=== PATIENT | female | born 2005 | race Caucasian/White ===

== ENCOUNTER 2024-01-04 21:09 | Observation (INO) ==
[2024-01-04 21:35] LABS: iSTAT Hemoglobin 10.5 g/dl (12.0-16.0); iSTAT Ionized Calcium 1.18 mmol/l; iSTAT Potassium 3.7 mmol/L (3.3-5.0)
[2024-01-04] MEDS: SODIUM CHLORIDE 0.9% 1,000 ML IV ONE ×2 (21:39)
[2024-01-04 21:51] LABS: Hematocrit (blood only) 33.7 % (37.0-47.0); Hemoglobin 10.9 g/dl (12.0-16.0); Mean Corpuscular Hemoglobin 28.3 pg (25.0-34.0); Mean Corpuscular Hgb Conc 32.3 g/dL (32.0-36.0); Mean Corpuscular Volume 87.5 fL (80.0-100.0); Mean Platelet Volume 10.4 fL (9.4-12.4); Platelet Count 326 K/uL (130-400); RDW Coefficient of Variation 13.9 % (11.5-14.5); RDW Standard Deviation 44.3 fL (36.4-46.3); Red Blood Count 3.85 M/uL (4.20-5.40); White Blood Count 9.05 K/ul (4.8-10.8)
[2024-01-04 21:57] LABS: BUN Creatinine Ratio 14.9 (10-20); Calcium 7.9 mg/dl (8.6-10.3); Creatinine Clr Calc Pharmacy 116.3 ml/min; Potassium 3.7 mmol/L (3.5-5.1)
[2024-01-04 22:21] LABS: Albumin Level 3.4 gm/dl (3.4-5.0); Bilirubin,Total 0.3 mg/dl (0.2-1.0); Magnesium 1.8 mg/dl (1.7-2.4); Total Protein 5.7 gm/dl (6.0-8.3)
[2024-01-04 22:22] LABS: iSTAT Hemoglobin 9.5 g/dl (12.0-16.0); iSTAT Ionized Calcium 1.13 mmol/l; iSTAT Potassium 3.8 mmol/L (3.3-5.0)
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
--- NOTE | 2024-01-04 23:17 | Ultrasound Report ---
Exam(s): US PELVIS EXAM: US Pelvis Transabdominal, Complete CLINICAL HISTORY: Reason for exam: Hemorrhaging, 2 weeks. TECHNIQUE: Real-time complete transabdominal pelvic ultrasound with image documentation. COMPARISON: No relevant prior studies available. FINDINGS: Uterus/cervix: Large amount of echogenic material within the endometrium which is avascular. This measures over 4 cm. No myometrial mass. Right ovary: Unremarkable. No mass. Normal blood flow. Left ovary: Unremarkable. No mass. Normal blood flow. Free fluid: No free fluid. Bladder: Unremarkable as visualized. Wall is normal thickness for degree of distention. IMPRESSION: Large amount of echogenic material which is avascular. Findings may represent retained products of conception Electronically signed by: Ricardo Hernández MD 01/04/24 23:16 PM
[2024-01-04] MEDS: TRANEXAMIC ACID / 0.7% NACL 1,000 MG/100 ML BAG IV STA (23:36)
[2024-01-04] MEDS: ceFAZolin 2000MG 2,000 MG/15 ML SYR IV STA (23:55)
[2024-01-04] MEDS: DOXYCYCLINE HYCLATE 100 MG CAP PO STA (23:55)
--- NOTE | 2024-01-05 00:09 | History & Physical Report ---
Date of Service January 05, 2024 Assessment & Plan (1) Retained products of conception with hemorrhage: Plan: patient is a 18-year-old , status post vaginal delivery on December 21 at [facility] in [place] due to history of seizure disorder duri ng , presenting with heavy vaginal bleeding, anemia, ultrasound suggesting retained products of conception, Vital signs stable afebrile, Discussed the findings recommended exam under anesthesia, suction, dilatation and curettage under ultrasound guidance to remove the growth products of conception and stop the bleeding, Patient understand the risks and benefits and signed an informed consent, Plan to admit, monitor, preop antibiotics, observe overnight, all questions were answered. (2) Episode of heavy vaginal bleeding: (3) hemorrhage, delayed (> 24 hrs), delivered w cond: History of Present Illness Chief Complaint: Heavy vaginal bleeding Primary Care Provider: Michelle Acuna MD patient is a 18-year-old -0-1-2 who is status post spontaneous vaginal delivery on December 22, 2023 at [facility] in [place] due to history of seizure disorder during . Her delivery and recovery was uncomplicated and she was discharged on day 2 without any problems. Her bleeding was minimal until last evening around 5 PM when heavy bleeding started. She started to pass large clots, soaked her pants, shorts and had to go to shower to have more blood on the floor. She placed a large towel and presented today ER. On admission she was seen by ER team and she was again passing large clots from vagina/cervix. She was started on IV fluids and sent for ultrasound. Pelvic ultrasound was completed and showed large/4 cm endometrium with a blood flow indicating retained products of conception. Her Hb dropped 1 unit since she came here. within 1 hour and she feels dizzy. She denies abdominal pain/ fever/ chills Allergies Allergy/AdvReac Type Severity Reaction Status Date / Time No Known Allergies Allergy Unknown Verified 10/04/23 22:10 Home Medications Medication Instructions Recorded Confirmed Type albuterol sulfate 90 mcg/actuation 2 puff inhalation Q4 PRN Wheezing 07/30/20 01/04/24 History aerosol inhaler levetiracetam 1,000 mg tablet 2,000 mg PO AMHS 03/09/22 01/04/24 History fluoxetine 20 mg capsule 20 mg PO QAM 02/21/23 01/04/24 History fluoxetine 40 mg capsule 40 mg PO QAM 08/15/23 01/04/24 History acetaminophen 325 mg tablet 975 mg PO Q6 PRN Mild Pain (Scale 01/04/24 01/04/24 History Score 1-4) diazepam 12.5 mg-15 mg-17.5 mg-20 1 ea MN UD PRN Seizures 01/04/24 01/04/24 History mg rectal kit ibuprofen 600 mg tablet 600 mg PO AMHS 01/04/24 01/04/24 History lamotrigine 150 mg tablet 150 mg PO AMHS 01/04/24 01/04/24 History lamotrigine 25 mg tablet 25 mg PO AMHS 01/04/24 01/04/24 History polyethylene glycol 3350 17 17 g PO DAILY PRN Constipation 01/04/24 01/04/24 History gram/dose oral powder vitamin-ferrous fumarate 1 tab PO QAM 01/04/24 01/04/24 History 28 mg iron-folic acid 800 mcg tablet ( Vitamins with Minerals) sennosides 8.6 mg tablet (senna) 8.6 mg PO QAM PRN Constipation 01/04/24 01/04/24 History Patient History Medical History No pertinent family history Surgical History No pertinent past surgical history Social History Smoking Status: Never smoker Hx Alcohol Use: No Hx Substance Use: No Preferred Language: Bahraini Microfilmer Required: No Beliefs That Will Affect Care: None marital status: Single Current Living Situation: Parent Current Living Situation Comment: lives with her parents and fob. Feels Safe at Home: Yes Assistive Devices: None OB History 2 FT 1 SAB Review of Systems as per Subjective / HPI Physical Exam Constitutional: WD/WN, vitals as above well developed, well nourished, + obese and comfortable Gastrointestinal (Abdomen): normal bowel sounds, soft, nontender, no hepatosplenomegaly Genitourinary: Heavy VB with cloths Results & Data Vital Signs (Past 12 Hours) Vital Signs Temp Pulse Pulse Resp BP BP Pulse Ox 01/04/24 22:47 47 L 18 125/88 100 01/04/24 22:30 46 L 18 112/68 100 01/04/24 22:12 62 18 116/76 99 01/04/24 21:40 53 L 18 119/74 100 01/04/24 21:25 01/04/24 21:18 61 01/04/24 20:45 37.3 C 95 H 18 101/63 99 O2 Del Method 01/04/24 22:47 Room Air 01/04/24 22:30 Room Air 01/04/24 22:12 Room Air 01/04/24 21:40 Room Air 01/04/24 21:25 Room Air 01/04/24 21:18 01/04/24 20:45 Room Air Laboratory Results 01/04/24 01/04/24 01/04/24 Range/Units 22:10 21:23 21:19 WBC 9.05 (4.8-10.8) K/ul RBC 3.85 L (4.20-5.40) M/uL Hgb 10.9 L (12.0-16.0) g/dl POC Hgb 9.5 L 10.5 L (12.0-16.0) g/dl Hct 33.7 L (37.0-47.0) % POC Hct 28 L 31 L (37-47) % MCV 87.5 (80.0-100.0) fL MCH 28.3 (25.0-34.0) pg MCHC 32.3 (32.0-36.0) g/dL RDW Std Deviation 44.3 (36.4-46.3) fL RDW Coeff of Yoanna 13.9 (11.5-14.5) % Plt Count 326 (130-400) K/uL MPV 10.4 (9.4-12.4) fL POC Sodium 142 141 (135-144) mmol/L Sodium 140 (136-145) mmol/L POC Potassium 3.8 3.7 (3.3-5.0) mmol/L Potassium 3.7 (3.5-5.1) mmol/L POC Chloride 109 108 (101-112) mmol/L Chloride 112 H (98-107) mmol/L Carbon Dioxide 24 (21-32) mmol/L POC Total CO2 21 L 21 L (24-31) mmol/L Anion Gap 4 (3-11) POC Anion Gap 16.0 17.0 (16-25) mmol/L POC BUN 12 11 (7-18) mg/dl BUN 13 (6-23) mg/dl Creatinine 0.87 (0.6-1.2) mg/dl POC Creatinine 1.0 1.0 mg/dl Est Cr Clr Drug Dosing 116.3 ml/min eGFR 97.76 BUN/Creatinine Ratio 14.9 (10-20) Glucose 80 (70-99(Fasting)) mg/dl POC Glucose (other) 80 81 (70-99) mg/dl Calcium 7.9 L (8.6-10.3) mg/dl POC Ioniz Calcium Logan 1.13 1.18 mmol/l Magnesium 1.8 (1.7-2.4) mg/dl Total Bilirubin 0.3 (0.2-1.0) mg/dl Direct Bilirubin 0.0 (0-0.2) mg/dl AST 12 L (13-39) U/L ALT 10 (7-52) U/L Alkaline Phosphatase 123 H (34-104) U/L Total Protein 5.7 L (6.0-8.3) gm/dl Albumin 3.4 (3.4-5.0) gm/dl Blood Type O Positive Antibody Screen NEGATIVE Diagnostic Findings FINDINGS: Uterus/cervix: Large amount of echogenic material within the endometrium which is avascular. This measures over 4 cm. No myometrial mass. Right ovary: Unremarkable. No mass. Normal blood flow. Left ovary: Unremarkable. No mass. Normal blood flow. Free fluid: No free fluid. Bladder: Unremarkable as visualized. Wall is normal thickness for degree of distention. IMPRESSION: Large amount of echogenic material which is avascular. Findings may represent retained products of conception
[2024-01-05] MEDS ORDERED: DEXAMETHASONE SOD INJ 4 MG/ML VIAL ONE (00:17)
[2024-01-05] MEDS ORDERED: SUCCINYLCHOLINE CHLORIDE 20 MG/ML 10 ML VIAL IV ONE (00:17)
[2024-01-05] MEDS ORDERED: MIDAZOLAM HCL 1 MG/ML 2ML VIAL ONE (00:17)
[2024-01-05] MEDS ORDERED: ONDANSETRON INJ 2 MG/ML 2 ML VIAL ONE (00:17)
[2024-01-05] MEDS ORDERED: fentaNYL citrate PF 100 MCG/2 ML VIAL ONE ×2 (00:17→01:43)
[2024-01-05] MEDS ORDERED: PROPOFOL IV EMULSION 10 MG/ML 20 ML VIAL IV ONE (00:17)
[2024-01-05] MEDS ORDERED: ePHEDrine sulfate 50 MG/ML AMP IV PRN (00:20)
[2024-01-05] MEDS ORDERED: PROMETHAZINE HCL 6.25 MG in SODIUM CHLORIDE 0.9% 50 ML IV PRN (00:20)
[2024-01-05] MEDS ORDERED: HYDROmorphone INJ 1 MG/ML SYRINGE IV PRN (00:20)
[2024-01-05] MEDS ORDERED: fentaNYL citrate PF 100 MCG/2 ML VIAL IV PRN (00:20)
[2024-01-05] MEDS ORDERED: ONDANSETRON INJ 2 MG/ML 2 ML VIAL IV PRN ×2 (00:20→02:07)
[2024-01-05] MEDS ORDERED: ATROPINE SULFATE 0.1 MG/ML 10ML SYR IV PRN (00:20)
--- NOTE | 2024-01-05 00:21 | Anesthesiology Consultation ---
Date of Service January 05, 2024 Assessment & Plan (1) Encounter for pre-operative examination: Chart Review Chart Review: Acceptable Risk for Surgery and Patient NOT seen in Pre Admission Testing Consults Requested none History Surgery Operation Date: 01/05/24 00:45 Proposed Procedures p Dilation and Curettage - Ruy Willis MD Height/Weight Height: 5 ft 1 in Weight: 106.8 kg Allergies Allergy/AdvReac Type Severity Reaction Status Date / Time No Known Allergies Allergy Unknown Verified 10/04/23 22:10 Medications Home Medications Medication Instructions Recorded Confirmed Last Taken albuterol sulfate 90 mcg/actuation 2 puff inhalation Q4 PRN Wheezing 07/30/20 01/04/24 Unknown aerosol inhaler levetiracetam 1,000 mg tablet 2,000 mg PO AMHS 03/09/22 01/04/24 01/04/24 am dose fluoxetine 20 mg capsule 20 mg PO QAM 02/21/23 01/04/24 01/04/24 fluoxetine 40 mg capsule 40 mg PO QAM 08/15/23 01/04/24 01/04/24 acetaminophen 325 mg tablet 975 mg PO Q6 PRN Mild Pain (Scale 01/04/24 01/04/24 Unknown Score 1-4) diazepam 12.5 mg-15 mg-17.5 mg-20 1 ea ID UD PRN Seizures 01/04/24 01/04/24 Unknown mg rectal kit ibuprofen 600 mg tablet 600 mg PO AMHS 01/04/24 01/04/24 01/04/24 am lamotrigine 150 mg tablet 150 mg PO AMHS 01/04/24 01/04/24 01/04/24 am dose lamotrigine 25 mg tablet 25 mg PO AMHS 01/04/24 01/04/24 01/04/24 am dose polyethylene glycol 3350 17 17 g PO DAILY PRN Constipation 01/04/24 01/04/24 Unknown gram/dose oral powder vitamin-ferrous fumarate 1 tab PO QAM 01/04/24 01/04/24 01/04/24 28 mg iron-folic acid 800 mcg tablet ( Vitamins with Minerals) sennosides 8.6 mg tablet (senna) 8.6 mg PO QAM PRN Constipation 01/04/24 01/04/24 Unknown NPO Date Last Intake of Fluids: 01/04/24 Time Last Intake of Fluids: 17:30 Last Intake of Fluids Comment: Tea, water Date Last Intake of Solids: 01/04/24 Time Last Intake of Solids: 17:30 Last Intake of Solids Comment: Nilesh Past Medical History Medical History (Updated 01/05/24 @ 00:51 by Jose Monson MD) Encounter for pre-operative examination Retained products of conception with hemorrhage Obesity affecting in third trimester, antepartum Seizure disorder during in third trimester No pertinent family history Exercise / Class Metabolic Activity II 4-5 Yardwork/Stairs/Walk up hill Past Surgical History Surgical History No pertinent past surgical history Past Anesthesia History No Hx of Anesthesia Complications and No Family Hx of Anesthesia Complications Social History Smoking Status: Never smoker Hx Alcohol Use: No Hx Substance Use: No Physical Exam Vital Signs Last Vital Signs Temp 37.3 C 01/04/24 20:45 Pulse 57 L 01/05/24 00:00 Resp 17 01/05/24 00:00 BP 114/68 01/05/24 00:00 Pulse Ox 99 01/04/24 23:51 O2 Del Method Room Air 01/05/24 00:32 Testing Laboratory Results 01/04/24 21:19 01/04/24 21:19 Blood Type O Positive 01/04/24 21:19 Antibody Screen NEGATIVE 01/04/24 21:19 01/04/24 01/04/24 22:10 21:23 POC Glucose (other) 80 81
[2024-01-05] MEDS ORDERED: ROCURONIUM BROMIDE 10 MG/ML 5 ML VIAL IV ONE (01:18)
[2024-01-05] MEDS ORDERED: OXYTOCIN 10 UNITS/ML VIAL ONE (01:42)
[2024-01-05] MEDS ORDERED: ePHEDrine sulfate 50 MG/5 ML SYR ONE (01:42)
[2024-01-05] MEDS: miSOPROStoL 200 MCG TAB ONE (01:51)
[2024-01-05] MEDS: FERRIC SUBSULFATE 8 ML VIAL TOP ONE (01:58)
[2024-01-05] MEDS ORDERED: IBUPROFEN 600 MG TAB PO PRN (02:07)
[2024-01-05] MEDS ORDERED: KETOROLAC 30 MG/ML VIAL IV PRN (02:07)
[2024-01-05] MEDS ORDERED: oxyCODONE/ACETAMINOPHEN 5mg/325mg TAB PO PRN ×2 (02:07)
[2024-01-05] MEDS ORDERED: ACETAMINOPHEN 325 MG TAB PO PRN (02:07)
[2024-01-05] MEDS ORDERED: SENNA 8.6 MG TAB PO PRN (02:11)
[2024-01-05] MEDS ORDERED: POLYETHYLENE (MIRALAX) 17 GM PACK PO PRN (02:11)
[2024-01-05] MEDS ORDERED: DIAZEPAM PR PRN (02:11)
[2024-01-05] MEDS ORDERED: ALBUTEROL HFA 8 GM INHALER INH PRN (02:11)
--- NOTE | 2024-01-05 02:14 | Operative Report ---
Post Operative Report Pre & Post Diagnosis Operation Date: 01/05/24 00:45 Pre-Op Diagnosis: Retained products of conception with hemorrhage Post-Op Diagnosis: Retained products of conception with hemorrhage I identified the patient and participated in the time-out.: Yes Procedure Operation Date: 01/05/24 00:45 Actual Procedures p Exam under anesthesia, suction, Dilation and Curettage under ultrasound guidance(Not Applicable) - Ruy Willis MD Surgeon Ruy Willis MD [employer] OR nurse Quantitative Blood Loss (QBL) EBL: 600 ml Findings Consistent with Post-Op Diagnosis Exam under anesthesia revealed anteverted, anteflexed 12 weeks size uterus, nonpalpable adnexa. Fluids 800 mL LR Specimens Retained products of conception Drains Straith cath: 500 ml Anesthesia Type General Complications none Indications patient is a 18-year-old G3, P2 P2-0-1-2 who is status post spontaneous vaginal delivery on December 21, presenting with heavy vaginal bleeding, anemia, ultrasound suggesting retained products of conception. Description of Procedure patient was taken to the OR where general anesthesia was given without faculty she was placed in dorsal lithotomy position prepared and draped in usual sterile fashion. Bladder was drained with straight catheter and 500 mL of clear urine was obtained. Examination under anesthesia revealed above findings, anteverted 12 weeks size uterus and nonpalpable adnexa. Gloves were changed. Speculum was placed in the patient's vagina, cervix was v isualized grasped with single-tooth tenaculum. Uterus was sounded to be 13 cm under ultrasound guidance. cervix was already dilated about 1 cm. 8 mm suction tip was attached to the suction device introduced through the cervix into the uterine cavity under ultrasound guidance. The fundus was felt and confirmed with ultrasound. The cavity was suctioned and twisted around clockwise position producing bloody tissue. It was repeated x 2 and then Ultrasound confirmed that the 5 cm thickened endometrium with blood clot and products of conception has resolved. There is seem to be 1 cm thickness which appear to be white hyperechogenic on the ultrasound. Then sharp curette was used to scrape uterine cavity and small amount of white tissue suggesting products of conception was obtained. It was repeated on all quadrants until uterine cry sensation was felt. Then uterus was felt to be empty. Uterus was massaged IV oxytocin and IM Methergine were given. Bleeding slowed down. Instruments were removed from patient's vagina and cervix was checked to be hemostatic. Uterus was felt to be smaller 8 weeks size firm at the end of the procedure. Patient was cleaned and dried taken off from lithotomy position. All the sponge and instrument counts were correct. she tolerated the procedure well and was taken to recovery room in stable condition. Patient was given 2 g of IV cefazolin before surgery. No complications happened and I was present during whole procedure. I attest to the content of the Intraoperative Record and any orders documented therein. Any exceptions are noted below.
[2024-01-05] MEDS: OXYTOCIN 30 UNITS/LR 1,003 ML IV SCH (02:20)
--- NOTE | 2024-01-05 02:27 | Anesthesiology Progress Note ---
Date of Service January 05, 2024 Anesthesia Post Procedure Vital Signs Vital Signs: Temp Pulse Pulse Resp BP BP Pulse Ox 01/05/24 00:32 01/05/24 00:00 57 L 17 01/05/24 00:00 114/68 01/05/24 00:00 114/68 01/05/24 00:00 114/68 01/04/24 23:51 56 L 16 99 01/04/24 23:42 50 L 23 100 01/04/24 23:30 114/68 01/04/24 23:30 114/68 01/04/24 23:30 114/68 01/04/24 23:30 55 L 21 99 01/04/24 23:24 59 L 18 99 01/04/24 23:03 53 L 20 100 01/04/24 23:00 107/72 01/04/24 22:47 47 L 18 125/88 100 01/04/24 22:46 125/88 01/04/24 22:36 47 L 18 99 01/04/24 22:33 44 L 9 L 100 01/04/24 22:30 112/68 01/04/24 22:30 112/68 01/04/24 22:30 46 L 18 112/68 100 01/04/24 22:24 51 L 20 100 01/04/24 22:15 53 L 21 97 01/04/24 22:12 62 18 116/76 99 01/04/24 22:09 57 L 14 100 01/04/24 22:05 116/76 01/04/24 21:40 53 L 18 119/74 100 01/04/24 21:36 55 L 20 100 01/04/24 21:30 119/74 01/04/24 21:25 108/67 01/04/24 21:25 01/04/24 21:18 61 01/04/24 21:15 101/63 01/04/24 21:15 101/63 01/04/24 21:15 101/63 01/04/24 20:45 37.3 C 95 H 18 101/63 99 O2 Del Method 01/05/24 00:32 Room Air 01/05/24 00:00 01/05/24 00:00 01/05/24 00:00 01/05/24 00:00 01/04/24 23:51 01/04/24 23:42 10/16/24 23:30 01/04/24 23:30 01/04/24 23:30 01/04/24 23:30 01/04/24 23:24 01/04/24 23:03 01/04/24 23:00 01/04/24 22:47 Room Air 01/04/24 22:46 01/04/24 22:36 01/04/24 22:33 01/04/24 22:30 01/04/24 22:30 01/04/24 22:30 Room Air 01/04/24 22:24 01/04/24 22:15 01/04/24 22:12 Room Air 01/04/24 22:09 01/04/24 22:05 01/04/24 21:40 Room Air 01/04/24 21:36 01/04/24 21:30 01/04/24 21:25 01/04/24 21:25 Room Air 01/04/24 21:18 01/04/24 21:15 01/04/24 21:15 01/04/24 21:15 01/04/24 20:45 Room Air Transfer of Care Handoff Completed per policy Notes Mental Status: alert / awake / arousable and participated in evaluation Patient Amnestic to Procedure: Yes Nausea / Vomiting: adequately controlled Pain: adequately controlled Airway Patency, RR, SpO2: stable & adequate BP & HR: stable & adequate Hydration State: stable & adequate Anesthetic Complications: no major complications apparent and Pt Satisfied with anesthetic care
[2024-01-05 07:05] LABS: Hematocrit (blood only) 31.9 % (37.0-47.0); Hemoglobin 10.2 g/dl (12.0-16.0); Mean Corpuscular Hemoglobin 27.4 pg (25.0-34.0); Mean Corpuscular Volume 85.8 fL (80.0-100.0); Mean Platelet Volume 10.1 fL (9.4-12.4); Platelet Count 274 K/uL (130-400); RDW Coefficient of Variation 13.7 % (11.5-14.5); RDW Standard Deviation 42.6 fL (36.4-46.3); Red Blood Count 3.72 M/uL (4.20-5.40); White Blood Count 11.97 K/ul (4.8-10.8)
[2024-01-05] MEDS: METHYLERGONOVINE MALEATE 0.2 MG TAB PO SCH (07:28)
[2024-01-05] MEDS: lamoTRIgine 25 MG TAB PO SCH (07:29)
[2024-01-05] MEDS: lamoTRIgine 100 MG TAB PO SCH (07:31)
[2024-01-05] MEDS: FLUoxetine HCL 20 MG CAP PO SCH (07:31)
[2024-01-05] MEDS: levETIRAcetam 500 MG TAB PO SCH (07:32)
[2024-01-05] MEDS: PRENATAL VITAMIN 1 TAB PO SCH (07:34)
[2024-01-05] MEDS ORDERED: PRENATAL VITAMIN 1 TAB ONE (07:34)
[2024-01-05 07:38] LABS: Basophils # (auto) 0.04 K/uL (0.00-0.20); Basophils % (auto) 0.3 %; Immature Granulocytes # (auto) 0.05 K/uL (0.01-0.20); Immature Granulocytes % (auto) 0.4 %; Lymphocytes # (auto) 0.85 K/uL (1.20-3.40); Lymphocytes % (auto) 7.1 %; Monocytes # (auto) 0.16 K/uL (0.11-0.59); Monocytes % (auto) 1.3 %; Neutrophils # (auto) 10.87 K/uL (1.40-6.50); Neutrophils % (auto) 90.9 %
[2024-01-05] MEDS: AMOXICILLIN/CLAVULANATE 875 MG TAB PO SCH (08:53)
--- NOTE | 2024-01-05 08:57 | Gynecologic Progress Note ---
Date of Service January 05, 2024 Assessment & Plan Admission and Anticipated Discharge Date Admission Date: January 05, 2024 Subjective patient doing well OOB and ambulating well tolerating diet minimal pain no bleeding Physical Exam Constitutional: WD/WN, vitals as above Gastrointestinal (Abdomen): Inspection/Auscultation: abdomen normal to inspection Musculoskeletal: Extremities: extremities normal to inspection Results & Data Vital Signs (Past 12 Hours) Vital Signs Temp Pulse Pulse Resp BP BP Pulse Ox 01/05/24 04:41 36.6 C 01/05/24 03:36 61 18 140/73 97 01/05/24 02:37 36.9 C 64 20 125/76 99 01/05/24 02:27 36.8 C 57 L 22 124/75 98 01/05/24 02:17 37 C 59 L 18 131/79 99 01/05/24 00:32 01/05/24 00:00 57 L 17 01/05/24 00:00 114/68 01/05/24 00:00 114/68 01/05/24 00:00 114/68 01/04/24 23:51 56 L 16 99 01/04/24 23:42 50 L 23 100 01/04/24 23:30 114/68 01/04/24 23:30 114/68 01/04/24 23:30 114/68 01/04/24 23:30 55 L 21 99 01/04/24 23:24 59 L 18 99 01/04/24 23:03 53 L 20 100 01/04/24 23:00 107/72 01/04/24 22:47 47 L 18 125/88 100 01/04/24 22:46 125/88 01/04/24 22:36 47 L 18 99 01/04/24 22:33 44 L 9 L 100 01/04/24 22:30 112/68 01/04/24 22:30 112/68 01/04/24 22:30 46 L 18 112/68 100 01/04/24 22:24 51 L 20 100 01/04/24 22:15 53 L 21 97 01/04/24 22:12 62 18 116/76 99 01/04/24 22:09 57 L 14 100 01/04/24 22:05 116/76 01/04/24 21:40 53 L 18 119/74 100 01/04/24 21:36 55 L 20 100 01/04/24 21:30 119/74 01/04/24 21:25 108/67 01/04/24 21:25 01/04/24 21:18 61 01/04/24 21:15 101/63 01/04/24 21:15 101/63 01/04/24 21:15 101/63 O2 Del Method 01/05/24 04:41 01/05/24 03:36 Room Air 01/05/24 02:37 Room Air 01/05/24 02:27 Room Air 01/05/24 02:17 Room Air 01/05/24 00:32 Room Air 01/05/24 00:00 01/05/24 00:00 01/05/24 00:00 01/05/24 00:00 01/04/24 23:51 01/04/24 23:42 01/04/24 23:30 01/04/24 23:30 01/04/24 23:30 01/04/24 23:30 01/04/24 23:24 01/04/24 23:03 01/04/24 23:00 01/04/24 22:47 Room Air 01/04/24 22:46 01/04/24 22:36 01/04/24 22:33 01/04/24 22:30 01/04/24 22:30 01/04/24 22:30 Room Air 01/04/24 22:24 01/04/24 22:15 01/04/24 22:12 Room Air 01/04/24 22:09 01/04/24 22:05 01/04/24 21:40 Room Air 01/04/24 21:36 01/04/24 21:30 01/04/24 21:25 01/04/24 21:25 Room Air 01/04/24 21:18 01/04/24 21:15 01/04/24 21:15 01/04/24 21:15 Laboratory Results Laboratory Results - last 48 hr 01/04/24 01/04/24 01/04/24 21:19 21:23 22:10 WBC 9.05 RBC 3.85 L Hgb 10.9 L POC Hgb 10.5 L 9.5 L Hct 33.7 L POC Hct 31 L 28 L MCV 87.5 MCH 28.3 MCHC 32.3 RDW Std Deviation 44.3 RDW Coeff of Yoanna 13.9 Plt Count 326 MPV 10.4 Immature Gran % (Auto) Neut % (Auto) Lymph % (Auto) [place] % (Auto) Eos % (Auto) Baso % (Auto) Neut # (Auto) Lymph # (Auto) [place] # (Auto) Eos # (Auto) Baso # (Auto) Immature Gran # (Auto) POC Sodium 141 142 Sodium 140 POC Potassium 3.7 3.8 Potassium 3.7 POC Chloride 108 109 Chloride 112 H Carbon Dioxide 24 POC Total CO2 21 L 21 L Anion Gap 4 POC Anion Gap 17.0 16.0 POC BUN 11 12 BUN 13 Creatinine 0.87 POC Creatinine 1.0 1.0 Est Cr Clr Drug Dosing 116.3 eGFR 97.76 BUN/Creatinine Ratio 14.9 Glucose 80 POC Glucose (other) 81 80 Calcium 7.9 L POC Ioniz Calcium Logan 1.18 1.13 Magnesium 1.8 Total Bilirubin 0.3 Direct Bilirubin 0.0 AST 12 L ALT 10 Alkaline Phosphatase 123 H Total Protein 5.7 L Albumin 3.4 Blood Type O Positive Antibody Screen NEGATIVE 01/05/24 06:28 WBC 11.97 H RBC 3.72 L Hgb 10.2 L POC Hgb Hct 31.9 L POC Hct MCV 85.8 MCH 27.4 MCHC 32.0 RDW Std Deviation 42.6 RDW Coeff of Yoanna 13.7 Plt Count 274 MPV 10.1 Immature Gran % (Auto) 0.4 Neut % (Auto) 90.9 Lymph % (Auto) 7.1 [place] % (Auto) 1.3 Eos % (Auto) 0.0 Baso % (Auto) 0.3 Neut # (Auto) 10.87 H Lymph # (Auto) 0.85 L [place] # (Auto) 0.16 Eos # (Auto) 0.00 Baso # (Auto) 0.04 Immature Gran # (Auto) 0.05 POC Sodium Sodium POC Potassium Potassium POC Chloride Chloride Carbon Dioxide POC Total CO2 Anion Gap POC Anion Gap POC BUN BUN Creatinine POC Creatinine Est Cr Clr Drug Dosing eGFR BUN/Creatinine Ratio Glucose POC Glucose (other) Calcium POC Ioniz Calcium Logan Magnesium Total Bilirubin Direct Bilirubin AST ALT Alkaline Phosphatase Total Protein Albumin Blood Type Antibody Screen
[2024-01-05] MEDS ORDERED: FLUoxetine HCL 20 MG CAP PO SCH (09:00)
[2024-01-05 09:39] VITALS: BP 109/72; PULSE 67; RESP 22; TEMP 98.2; O2SAT 98
--- NOTE | 2024-01-05 14:10 | Electrocardiogram Report ---
Test Reason : Blood Pressure : */* mmHG Vent. Rate : 54 BPM Atrial Rate : 54 BPM P-R Int : 148 ms QRS Dur : 88 ms QT Int : 458 ms P-R-T Axes : 50 23 32 degrees QTcB Int : 434 ms Sinus bradycardia Otherwise normal ECG When compared with ECG of 04-Oct-2023 20:04, No significant change was found Confirmed by Mendez Hughes [id number] on 01/05/2024 2:10:22 PM Referred By: REFERRED SELF Confirmed By: Mendez Hughes
--- OUTSIDE RECORDS SUMMARY | 2024-01-05 14:37 | External Medical Summary | Summary of Care ---
Author Name Unknown Organization [facility] Address [address] [place] [address] Phone [phone] Care Team Providers Care Drone Operator Name Role Phone Michelle Calderón MD Primary Care Prov ider Unavailable Reason for Visit * Reason Onset Date Comments Medication Refill 01/03/2024 Encounter Details Date Type Department Care Team (Late st Contact Info) Description 01/03/2024 Telephone Neurology [address] [place] [phone] Meredith Vásquez PA-C [address] [place] [address] Medication Refill Allergies No known active allergiesdocumented as of this encounter (statuses as of 01/03/2024) Medications Medication Sig Dispensed Refills Start Date End Date Status Vitamin B-6 25 MG Oral TabletIndications:P regnant state, incidental Take 1 Tablet by mouth every 6 hours as needed for Nausea. 120 Tablet 2 05/03/2023 Active Ventolin HFA 108 (90 Base) MCG/ACT Inhalation Aerosol SolutionIndications :Maternal asthma complicating Inhale 2 Puffs by mouth every 6 hours as needed for Wheezing. 54 g 1 05/06/2023 Active diazePAM 20 MG Rectal Gel Administer 20 mg into the rectum as needed for Prolonged Seizure (greather than 5 minutes may repeat dose in 5 minutes then call 911). 1 Each 06/22/2023 Active Folic Acid 1 MG Oral TabletIndications:S eizure disorder during in first trimester (HCC) Take 1 Tablet by mouth in the morning. During .. 120 Tablet 1 06/29/2023 Active 19 29-1 MG Oral Tablet Chewable Take 1 Tablet by mouth in the morning. Active Vitamin B-12 1000 MCG Oral Tablet (Cyanocobalamin)Ind ications:Other dietary vitamin B12 deficiency anemia Take 1 Tablet by mouth in the morning. 30 Tablet 5 10/06/2023 Active Additional Information Patient not taking.Reported on 12/21/2023 Iron-Vitamin C 65-125 MG Oral Tablet (Vitron C) Take 1 Tablet by mouth in the morning and 1 Tablet before bedtime. 60 Tablet 3 10/06/2023 Active levETIRAcetam 1000 MG Oral Tablet (Keppra) take two tablets by mouth in the morning and two tablets before bedtime 360 Tablet 1 10/27/2023 Active Acetaminophen 325 MG Oral Tablet (Tylenol) Take 3 Tablets by mouth every 6 hours as needed for Pain, Mild. 30 Tablet 12/24/2023 01/23/2024 Active Ibuprofen 600 MG Oral Tablet (Motrin) Take 1 Tablet by mouth in the morning and 1 Tablet at noon and 1 Tablet in the evening and 1 Tablet before bedtime. 30 Tablet 12/24/2023 01/23/2024 Active Senna 8.6 MG Oral Tablet Take 1 Tablet by mouth in the morning. 30 Tablet 1 12/24/2023 Active Polyethylene Glycol 3350 17 GM/SCOOP Oral Powder (MiraLax) Take 17 g by mouth daily as needed (constipation). One heaping tablespoon in 8 ounces of water or juice; for severe constipation. 238 g 1 12/24/2023 Active FLUoxetine HCl 20 MG Oral Capsule (PROzac) Take 1 Capsule by mouth in the morning. In the morning.. 90 Capsule 12/28/2023 Active FLUoxetine HCl 40 MG Oral Capsule (PROzac) Take 1 Capsule by mouth in the morning. 90 Capsule 12/28/2023 Active lamoTRIgine 25 MG Oral Tablet (LaMICtal) Take 1 Tablet by mouth in the morning and 1 Tablet before bedtime. 60 Tablet 2 12/28/2023 Active lamoTRIgine 150 MG Oral Tablet (LaMICtal) Take 1 Tablet by mouth in the morning and 1 Tablet before bedtime. Take with one 25 mg tablet for a total of 175 mg twice daily.. 180 Tablet 01/03/2024 Active documented as of this encounter (statuses as of 01/03/2024) Active Problems Problem Noted Date Diagnosed Date Vaginal delivery 12/24/2023 Nexplanon insertion 12/24/2023 GBS (group B Streptococcus c arrier), +RV culture, currently 12/01/2023 Other dietary vitamin B12 deficiency anemia 09/18 Antepartum anemia complicating 024 Supervision of high risk in [facility] 06/21/2023 Depression complicating , antepartum Overview: History of depression and bipolar disorder Managed with Prozac and Lamictal Also goes to counseling Reports a stable mood in . Denies any suicidal or homicidal ideation. Reports she has a good support system at home. Last Assessment & Plan: ANXIETY AND DEPRESSION CONSIDERATIONS: Untreated maternal anxiety and depression may be associated with an increased risk of multiple poor obstetrical outcomes including miscarriages, low weight, and delivery. Women with a history of anxiety or depression are at risk for recurrence both during and/or the period. Studies of first-trimester SSRI exposure do not demonstrate consistent data to support an increased risk for structural malformations. Anti-anxiety or depression medications have been associated with transient effects (withdrawal syndrome). RECOMMENDATIONS: Mental illness can and should be treated during when the benefits of treatment outweigh potential risks. Referral to behavioral health services as clinically indicated. Seizure disorder in 05/27/2023 Overview: Seizure disorder / epilepsy, diagnosed in 2019 Follows with Neurology Managed with Lamictal and Keppra Last seizure: May 2023 Daughter ( 2021) was tested in the past and does not have have seizure disorder Last Assessment & Plan: CONSIDERATIONS: Explained to patient that more than 90% of women with epilepsy have a normal . Most women will have no alteration of their seizure pattern during , especially if medication noncompliance and sleep deprivation are minimized. Discussed that women with epilepsy have an increased risk for obstetrical complications including labor, delivery, , pre-eclampsia, , placental abruption, low weight infants, and lower scores, stillbirth, and maternal mortality. These risks can be minimized by preconception planning and careful management with anti-epileptic drugs during . Discussed that the overall rate of congenital abnormalities associated with maternal intake of AEDs is 6-8%, but there is no clear data indicating that any drug is without or has less risk in . It is therefore suggested that patients planning should be managed on the most effective anti-epileptic medications for their seizures. Monotherapy and the lowest possible drug dose may limit risk of teratogenicity. Discussed that we do not recommend making changes to anti-epileptic medication regimens for the purpose of reducing teratogenic risk in established . See genetic counselor s notes. RECOMMENDATIONS: Recommend patient be monitored and medication managed/titrated by neurology throughout and period. Recommend MSAFP at 15-18 weeks Recommend Maternal Medicine ultrasound for anatomy at 19-20 weeks gestation. Recommend echo be done at approximately 24 weeks for patients with current idiopathic epilepsy (currently on medications or seizure within past 3 years). Maternal Medicine ultrasound for growth at 28-30 weeks for patients who have been actively seizing during or are taking antiepileptic medications. Explained that for women taking carbamazepine or valproate, we suggest higher dose folic acid supplementation, 4 mg per day, prior to conception and throughout first trimester . May then decrease to 1mg daily folic acid. Obesity affecting , antepartum, unspecified trimester 05/27/2023 Overview: Pre gravid BMI: 47.4 Class 3 obesity Recommend low dose daily ASA Lab Results Component Value Date/Time 50-G GESTATIONAL GLUCOSE, 1 HOUR - [facility] 94 06/21/2023 01:22 PM Baseline Preeclampsia Labs Lab Results Component Value Date/Time PLT 305 05/27/2023 11:57 AM CREATININE - [facility] 0.5 05/27/2023 11:57 AM AST - [facility] 14 05/27/2023 11:57 AM ALT - [facility] 16 05/27/2023 11:57 AM PROTEIN/ CREATININE RATIO, URINE - [facility] 82 05/27/2023 11:47 AM Last Assessment & Plan: Low risk NIPT appreciated as well as early 1'GTT. Plan of care reviewed; will schedule serial growth assessments q4-6 weeks. Encounter for initial prescr iption of implantable subdermal contraceptive 05/27/2023 Overview: Problem Action Taken Date entered Entered by Date resolved Depression Discuss options with Provider 05/27/2023 Cayla Mcdonald RN 05/27/2023 Problem Action Taken Date entered Entered by Date resolved Poor dental hygiene encourage routine brushing and flossing and referal to local dental clinic that accepts [place] ins[place] 05/27/2023 Cayla Mcdonald RN 05/27/2023 Problem Action Taken Date entered Entered by Date resolved Not taking vitamin Advised 05/27/2023 Cayla Mcdonald RN 05/27/2023 Problem Action Taken Date entered Entered by Date resolved vitamin Counseled on importance to get and be taking 07/20/2023 Cayla Mcdonald RN 07/20/2023 Problem Action Taken Date entered Entered by Date resolved Current needs or questions Patient denies having any current needs or questions 08/17/2023 Cayla Mcdonald RN 08/17/2023 Problem Action Taken Date entered Entered by Date resolved Current needs or questions Patient denies having any current needs or questions 09/13/2023 Beverley Sloan RN 09/13/2023 Problem Action Taken Date entered Entered by Date resolved Current needs or questions Patient denies having any current needs or questions 10/05/2023 Cayla Mcdonald RN 10/05/2023 Problem Action Taken Date entered Entered by Date resolved Current needs or questions Patient denies having any current needs or questions 11/07/2023 Cayla Mcdonald RN 11/07/2023 Problem Action Taken Date entered Entered by Date resolved Current needs or questions Patient denies having any current needs or questions 11/24/2023 Hilda Chavarria, KEN 11/24/23 Problem Action Taken Date entered Entered by Date resolved Current needs or questions Patient denies having any current needs or questions 11/29/2023 Seb Todd, RN 11/29/23 Problem Action Taken Date entered Entered by Date resolved Need for baby supplies Baby supplies- lotions/soaps and bottles given 12/19/2023 Cayla Mcdonald RN 12/19/2023 Medication exposure during first trimester of pr jason 05/27/2023 Overview: Prozac for depression Keppra and Lamictal for seizure disorder Lamictal (Lamotrigine) Lamotrigine is a medication that is used to treat some types of epilepsy (medical condition that causes seizures). It is also used to treat bipolar disorder. A common brand name for lamotrigine is Lamictal. 2. Lamotrigine is cleared from the body faster during . This means that many people who are need to increase their dose of lamotrigine to keep the medication at the right level to work for them. Your healthcare provider can order blood tests to check the levels of medication. People who need to increase the dose of lamotrigine during will also need to work with their healthcare providers after the baby is born to reduce their medication dose. 3. Studies have not found that lamotrigine is associated with a higher chance for miscarriage over the background risk. 4. One study suggested a less than 1% increase in oral clefts (the lip and/or roof of the baby s mouth do not form correctly and need surgery to repair after ), but this finding was not confirmed by other studies. Keppra: There is insufficient clinical experience with the use of levetiracetam in to confirm its safety in that patient population. Similar to other antiepileptic drugs, levetiracetam concentrations may be affected due to physiological changes that occur during . Decreased levetiracetam concentrations have been reported during , which were more pronounced during the third trimester. Close monitoring during and the period is recommended, especially in patients who received a dose change. Discontinuation with levetiracetam or other antiepileptic treatments during may result in exacerbation of the disease and maternal or harm. Until additional data are available, it is recommended that levetiracetam be used during only if the potential benefit to the mother justifies the potential risk to the fetus. Prozac: (Fluoxetine). Crosses placenta. Use fluoxetine cautiously during . While a large, population-based study found no increased risk of malformations in SSRI-exposed infants, another prospective cohort study showed that neonates with first-trimester exposure to fluoxetine (n=253) had an increased risk of cardiovascular malformations compared with unexposed neonates (t=4867). Infants exposed to fluoxetine late in the third trimester have shown an increased risk of complications includingconstant crying; irritability; jitteriness or tremor; hyperreflexia; hypertonia or hypotonia; hypoglycemia; vomiting; feeding difficulties; temperature instability; seizures; or respiratory distress, cyanosis, or apnea) that required intensive care (eg, prolonged hospitalization, tube feeding, respiratory support), sometimes immediately after delivery. Symptoms were suggestive of either direct toxicity or drug discontinuation syndrome, and were consistent with serotonin syndrome in some cases. The use of SSRIs, including fluoxetine, after 20 weeks of gestation has also been linked with an increased risk of persistent pulmonary hypertension of the ; QTc interval prolongation has developed in neonates exposed to SSRIs antenatally. These neonates may have had difficulty clearing the drug due to its long half-life. Depending on the woman's clinical situation, the practitioner and patient may consider tapering the dose of fluoxetine to discontinue 10 to 14 days prior to delivery to minimize the load at . LGI bleed 04/19/2023 Obesity, morbid (more than 1 00 lbs over ideal weight or BMI > 40) 06/29/2021 Overview: Per Obesity protocol History of 2019 novel coronavirus disease (COVID -19) 04/29/2021 Overview: COVID positive in 03/2021. Patient still needs to complete COVID-19 booster. Maternal asthma complicating Overview: Managed with Albuterol as needed 06/23/23 last albuterol use: 6 months ago Denies hospitalizations or intubations due to asthma Last Assessment & Plan: CONSIDERATIONS: Asthma symptoms may improve, worsen or remain unchanged in severity in . Asthma is generally managed the same in as in the non- patient, as asthma-control medications are considered safe in . If asthma is well-controlled with medications prior to , it is recommended to continue the same medication regimen during . A patient should seek medical care immediately if an asthma flare does not respond to therapy. Mild and well-controlled moderate asthma can be associated with excellent maternal and outcomes. Severe and poorly controlled asthma may be associated with increased morbidity and mortality. Asthma management includes monitoring of lung function with pulmonary function testing (when indicated), avoidance of triggers (such as tobacco smoke, mold, dust mite exposure, animal dander and cockroaches), and a step-care approach to pharmacologic therapy based on the severity of the patient's asthma. RECOMMENDATIONS: Inhaled corticosteroids are the mainstay of therapy for all patients except those with intermittent asthma. If patients are routinely requiring rescue inhaler (such as albuterol, Ventolin, ProAir, Atrovent, or Proventil) use more than twice weekly, we recommend adding a low-dose inhaled corticosteroid. [Pulmicort (budesonide) is preferred to use in .] If patients are routinely requiring rescue inhaler use daily, we recommend adding a combined low-dose inhaled corticosteroid/long-acting beta-agonist [such as Advair (fluticasone/salmeterol) or Symbicort (budesonide/formoterol)] or a medium dose inhaled corticosteroid. Patient should discuss these treatment options with her primary OB provider or PCP. Typically, patients do not need stress dose steroids as long as they continue their usual dose perioperatively (or during labor) and do not have primary renal failure or other problems with the pituitary axis. Medications such as prostaglandin F2a (including Hemabate), ergonovine, and indomethacin (in patients who are aspirin allergic) should be used with caution. Patients with moderate or severe persistent asthma should have Maternal- Medicine ultrasound for anatomy at 19-20 weeks. surveillance with growth ultrasounds and non-stress tests should be considered starting at 32 weeks. Seizure-like activity 09/09/2020 Psychogenic nonepileptic seizure 09/09/2020 Mood disorder 09/04/2020 Nonintractable epilepsy without status epileptic us 09/04/2020 documented as of this encounter (statuses as of 01/03/2024) Resolved Problems Problem Noted Date Diagnosed Date Resolved Date Absolute anemia 10/06/2023 10/06/2023 14 weeks gestation of 06/28/2023 10/25/2023 Encounter for supervision of normal first in first trimester 05/27/2023 06/21/2023 state, incidental 05/03/2023 0 06/21/2023 Health counseling 06/01/2021 01/19/2022 Overview: 06/01/21 Problem Action Taken Date entered Entered by Date resolved Current needs or questions Patient denies having any current needs or questions 06/01/2021 08/25/21 11/10/21 Elif John RN 06/01/21 08/25/21 11/10/21 08/25/21 11/10/21 COVID-19 vaccine series started 05/11/2021 01/19/2022 Overview: Upon review of records, two doses of Pfizer primary series completed on 09/03/20. Patient is now eligible for booster. Of note, patient reports that she did test positive for COVID-19 infection at end of February 2021/March of 2021. Last Assessment & Plan: During the visit today, COVID-19 vaccination was discussed and all questions were answered. The following information was shared with the patient. The [employer] [place], Society for Maternal- Medicine, CDC and multiple medical associations strongly recommend the COVID-19 vaccine for women who are in any trimester, those attempting to become , women who have recently delivered, who are lactating as well as any other woman, regardless of age or RUNWAY MODEL disorder. The only exceptions to receiving the vaccine are for those who have a contraindication or allergy to the vaccine or any component of the vaccine or with sincerely held adventism convictions. The CDC and ACOG encourages a COVID-19 vaccine booster for women, given the risk of severe complications from COVID-19 in . Genetic screening 05/11/2021 01/19/2022 Overview: Patient is contemplating genetic screening/testing for aneuploidy and will notify primary OB provider if she desires Last Assessment & Plan: Cell-free DNA (cffDNA) screening is a genetic screening option that analyzes maternal blood for DNA that is placental in origin and targets the following conditions: Trisomy 21 (Down syndrome), trisomy 18, trisomy 13, and sex chromosome abnormalities such as monosomy X (Bejarano syndrome), and sex chromosome trisomies (triple X, Klinefelter syndrome, XYY). It may also evaluate for other genetic alterations such as microdeletions, depending on the specific test. It reveals the sex of the fetus but should generally not be performed solely for this indication. The screening test can be performed after 10 weeks gestation. Results provided are NOT diagnostic, but provide a risk estimate. Types of results include low-risk/negative, high-risk/positive, and inconclusive. Low-risk results convey a low risk for the conditions screened, while high- risk results will indicate which condition is high risk and the likelihood of the condition based on the results. High-risk and inconclusive results would require follow up with a Maternal- Medicine genetic counselor. Amniocentesis would be recommended in the setting of high-risk results. Results are available 5-7 days after the test is completed. Cost of cffDNA screening is dependent on health insurance plan. Patient aware not all insurances cover this test. The performing laboratory will bill the insurance directly. Offer MSAFP only (not Quad Screen) at 16-22 weeks if screening for open neural tube defects is desired. Amniocentesis for diagnosis of chromosomal abnormalities is also available. The risk of complications from the procedure and that risk is 1 in 500 (0.2%). High-risk , first trimester 05/11/2021 05/03/2023 Obesity affecting in third trimester 05/11/2021 01/19/2022 Overview: Pre-gravid BMI: 45.39. 11 to 20 lbs weight gain during . Baseline pre-eclampsia lab work ordered. Passed early one hour glucose test. Passed one hour glucose test at 28 weeks. Growth ultrasound every 4 weeks. NST's weekly at 34 weeks. NON STRESS TEST reactive on 12/02/2021. Delivery at 39 weeks. Last Assessment & Plan: She presents for a anatomy survey secondary to class III obesity, a seizure disorder, and asthma. We reviewed the results of today's ultrasound. The estimated weight is appropriate for gestational age. The visualized anatomy is unremarkable in appearance. The spine is suboptimally imaged secondary to position.. The amniotic fluid amount appears normal. We discussed that ultrasound is not able to identify all anomalies, but it is reassuring that no anomalies were seen today. Supervision of high-risk pre gnancy, third trimester 04/29/2021 01/19/2022 Overview: Estimated Date of Delivery: 12/13/21. Continue vitamin. O positive. Rubella and varicella immune. MSAFP testing negative. S/p anatomy ultrasound at [facility]. Passed one hour glucose test. CBC within normal limits. S/p Tdap vaccine. GBS culture positive. Needs antibiotics during labor. Completed COVID-19 vaccine. Still needs to complete the COVID-19 booster. Advised patient to complete the influenza vaccine - patient declines. contraception: control pill. Desires to breastfeed. Has a breast pump. BMI 45.0-49.9, adult 04/29/2021 022 Overview: Pre-gravid BMI 45.39. 11 to 20 lbs weight gain during . Baseline pre-eclampsia lab work ordered - advised patient to complete. Advised patient to complete early one hour glucose test, patient agrees. Growth ultrasound every 4 weeks. NST's weekly at 34 weeks. Delivery at 39 weeks. Last Assessment & Plan: DISCUSSION: 1. Discussed obstetrical risks associated with class III obesity (pre- BMI of greater than or equal to 40) including increased incidence of: spontaneous miscarriage, recurrent loss, diabetes in , hypertension/preeclampsia, IUFD, macrosomia and shoulder dystocia, hemorrhage or infection, venous thromboembolism, increased length of labor and delivery, complications with anesthesia, as well as a possibly increased risk of congenital anomalies (neural tube defects, cardiovascular, orofacial). 2. Reviewed that the accuracy of ultrasound at diagnosing anomalies is significantly decreased for women with an increased BMI. RECOMMENDATIONS: 1. Recommend restricting weight gain during to 11-20 pounds. Patient should be referred for a nutrition consult. 2. Recommend evaluation for signs and symptoms (snoring, excessive daytime sleepiness witnessed apnea or unexplained hypoxia) of obstructive sleep apnea. If any of these are present, referral to Sleep Medicine specialist for further evaluation should be considered. 3. Recommend performing gestational diabetes mellitus screen now (if not performed at first visit) and repeat again at 26-28 weeks if early screen is normal. 4. Recommend Maternal- Medicine ultrasound for anatomy at 20 weeks and for growth every 4 weeks thereafter. 5. For patients with Class 3 obesity, we recommend baseline preeclamptic labs with CBC, serum AST/ALT/creatinine and 24 hour urine protein BALA if not already done. 6. For patients with Class 3 obesity, we recommend weekly surveillance starting at 34 weeks and delivery by EDC. 7. Recommend anesthesia consult during the antepartum period. Seizure disorder during preg mehul in third trimester 04/29/2021 01/19/2022 Overview: Following with Neurology - having breakthrough seizures. Taking folic acid 4 mg daily. Seeing MFM. Advised close follow up with Neurology. Next Neurology appointment 01/05/2022. 12/02/2021: Patient has been taking medication all of this week. Dose of medication recently increased by Neurology. Counseled patient regarding the importance of taking her seizure medication daily for the health and safety of her and her baby. Patient verbalized understanding. Last Assessment & Plan: -Continue Keppra as prescribed -> encouraged compliance and dicussed its importance -Recommend Keppra level be drawn and ensure timely follow up with Neurology pending results Medication exposure during f irst trimester of 04/29/2021 05/03/2023 Overview: Exposure to Keppra and Zoloft in . Body mass index (BMI) of 45. 0 to 49.9 in adult 03/30/2021 05/06/2021 Overview: Per Obesity protocol Bipolar disease during pregn teri in third trimester 09/09/2020 01/19/2022 Overview: 12/02/2021: Referral made to Psychiatry already. Patient aware. Patient has a counselor and meeting with counselor regularly. Denies current suicidal or homicidal thoughts now. Patient has had past suicidal thoughts and patient states she cut her wrists more than 2 months ago. Patient states that she if she has any sad thoughts to hurt herself, she would talk to her mom and her mom would take her to the emergency room. Patient's mother with her today at the appointment for support. Provided patient with the national suicide hotline phone number and the local suicide hotline phone number for [facility]. Has counseling appointment weekly. Last Assessment & Plan: She asked today about use of Wellbutrin in for treatment of depression. We discussed with patient that depression can and should be treated during when the benefits of treatment outweigh potential risks. Risks of leaving maternal depression untreated or inadequately treated are maternal suicide/homicide, an increased risk of depression/psychosis, relapse during and impaired maternal-child bonding. Risks of untreated mental illness pose additional risks in , such as miscarriage, low weight, and delivery. Discussed that although there have been reports in the past regarding anti- depressant therapy and abnormalities or complications, research has not confirmed or supported this claim. Studies of first-trimester SSRI exposure do not demonstrate consistent data to support an increased risk for structural malformations. Anti-depressants have been associated with transient effects (withdrawal syndrome). Overall, we discussed that medications such as Wellbutrin or Zoloft are reasonable to use in if the benefits are thought to outweigh the risks, which they often do. I encouraged her to discuss this further with her care providers and to consider non-pharmacologic treatment as well. Overweight (BMI 25.0-29.9) 02/05/2011 0 06/29/2021 documented as of this encounter (statuses as of 01/03/2024) Immunizations Name Administration Dates Next Due COVID-19 mRNA, LNP-s, No Pre serve, 2-Dose Series (Pfizer) 09/03/2020,08/13/2020 DTaP Dipth/Tet/Acell Pertussis (Infanrix), Peds 04/03/2008,01/03/2006,2003,07/2003,2003 H1N1 2009 Influenza, IM 02/24/2009,01/27/2009, HIB PRP-OMP, 3 dose (Pedvax) 2003,06/24/19 04,2003 HPV Vaccine, 9-Valent 05/07/2016,12/24/2015,08/19 Hepatitis A, Ped/Adol., 18 y ear and below, 2-Dose 04/03/2008,09/29/2007 Hepatitis B, 0-19 yrs 2003,2003,02/18 IPV - Polio Virus Vaccine (Inact) 2008,01/05/2006,2003,04/21 MMR - Measles/Mumps/Rubella Vaccine 04/03/2008,0 10/18/2005 Meningococcal MCV4O Conjugat e Vaccine (Menveo) 01/29/2020 Meningococcal MCV4P Conjugat e Vaccine (Menactra) 08/29/2015 PPD 05/10/2023,05/03/2023 Pneumococcal Conjugate Vacci ne, 20-valent (Iczspup12) 04/09/2022 Pneumococcal Conjugate Vacci ne, 7 Valent 2003,2003 Season Influenza, Quad, PF, Adjuvanted, 65+ Yrs, IM (FLUAD) 05/07/2016 Seasonal Influenza Vac., MDV , IM, 0.5 mL (Fluzone) 12/23/2008,02/02/2008 03/01/2008 Seasonal Influenza, PF, 6 M & above, IM , (FluLaval or Fluzone) 05/03/2023,04/09/2022 TDAP (age 10 and older)(Boostrix) 11/17/2021 TDAP, Age 7 and older, IM (Adacel) 08/29/2015 Varicella Vaccine (Chicken Pox) 09/29/2007,03/17 documented as of this encounter Social History Tobacco Use Types Packs/Day Years Used Date Smoking Tobacco: Never Smokeless Tobacco: Never Alcohol Use Standard Drinks/Week Comments Not Currently 0 (1 standard drink = 0.6 oz pur e alcohol) PHQ-2 Answer Date Recorded PHQ Adult Total Score 9 05/03/2023 Hunger Vital Sign Answer Date Recorded Within the past 12 months, y ou worried that your food would run out before you got the money to buy more. Never true 10/24/19 24 Within the past 12 months, t he food you bought just didn't last and you didn't have money to get more. Never true 10/24/2023 [place] Depression Scale Answer Date Recorded [place] Depression Scale Total 3 09/20/2023 The thought of harming myself has occurred to me . Never 09/20/2023 Childcare Answer Date Recorded Do you feel overwhelmed with taking care of a child, family member or friend? No 10/24/2023 Does your family need help f inding childcare? (Household - for ages 0-17 years) Not on file 10/24/2023 Clothing Answer Date Recorded Have you been unable to get clothing when it was really needed? No 10/24/2023 Is your family able to get c lothes or diapers when needed? (Household - for ages 0-17 years) Not on file 10/24/2023 Personal Safety Answer Date Recorded Do you feel unsafe or have concerns for your saf ety? No 10/24/2023 Do you have concerns for you r family's safety? (Household - for ages 0-17 years) Not on file 10/24/2023 Utilities Answer Date Recorded Do you have trouble paying y our heating, water, or electric bill? No 10/24/2023 Is your family able to pay t he heat, water, or electric bill? (Household - for ages 0-17 years) Not on file 10/24/2023 Does your family have access to good internet? (Household - for ages 0-17 years) Not on file 10/24/2023 Employment Status Answer Date Recorded Are you unemployed or without regular income? Ye s 10/24/2023 Does the household have a re gular source of income? (Household - for ages 0-17 years) Not on file 10/24/2023 Social Connections Answer Date Recorded How often do you feel lonely or isolated from th ose around you? Rarely 10/24/2023 Financial Resource Strain Answer Date R ecorded Do you have any trouble payi ng for your medications, or do you think you might in the future? No 10/24/2023 Does your family have troubl e paying for medicine? (Household - for ages 0-17 years) Not on file 10/24/2023 Transportation Needs Answer Date Record ed READ ONLY Do you have troubl e getting a ride to medical visits or work? Sometimes True 10/24/2023 Does your family have a hard time getting a ride to doctors visits? (Household - for ages 0-17 years) Not on file 10/24/2023 Has lack of transportation k ept you from medical appointments, meetings, work, or from getting things needed for daily living? Check all that apply. No 024 Do you (or your family) have trouble finding or paying for a ride (transportation)? (Household - for ages 0-17 years) Not on file 10/24/2023 Housing Stability Answer Date Recorded Do you currently live in a s helter or have no steady place to sleep at night? No 10/24/2023 READ ONLY Do you think you a re at risk of becoming homeless? No 10/24/2023 Does your family worry about paying for your home or becoming homeless? (Household - for ages 0-17 years) Not on file 0 10/24/2023 Are you homeless or worried that you might be in the future? No 10/24/2023 Are you (or your family) mariella eless or worried that you might be in the future? (Household - for ages 0-17 years) Not on file Food Insecurity Answer Date Recorded Do you need food for this week? No 10/24/2023 Are you able to get enough f ood for your family? (Household - for ages 0-17 years) Not on file 10/24/2023 Does your family need food t his week? (Household - for ages 0-17 years) Not on file 10/24/2023 Do you always have enough fo od for your family? (Household - for ages 0-17 years) Not on file 10/24/2023 Sex and Gender Information Value Date Recorded Sex Assigned at Female 07/30/2021 4:15 PM EDT Gender Identity Female 07/30/2021 4:15 PM EDT Sexual Orientation Bisexual 07/30/2021 4: 15 PM EDT Job Start Date Occupation Industry Not on file Not on file Not on file documented as of this encounter Functional Status Functional Status Response Date of Assess ment Are you deaf or do you have serious difficulty h earing? No 09/09/2020 Are you blind or do you have serious difficulty seeing, even when wearing glasses? No 09/09/2020 Do you have serious difficul ty walking or climbing stairs? (5 years old or older) No 09/09/2020 Do you have difficulty dress ing or bathing? (5 years old or older) No 09/09/2020 Because of a physical, menta l, or emotional condition, do you have difficulty doing errands alone such as visiting a doctor s office or shopping? (15 years old or older) No 09/10/19 21 Cognitive Status Response Date of Assessm ent Because of a physical, menta l, or emotional condition, do you have serious difficulty concentrating, remembering, or making decisions? (5 years old or older) No 09/09/2020 documented as of this encounter Miscellaneous Notes * Addendum Note - Kimberly Fritz RPh - 01/03/2024 2:51 PM EDTAddended by: KIMBERLY FRITZ on: 01/03/2024 02:51 PM Modules accepted: Orders * Telephone Encounter - Kimberly Fritz RPh - 01/03/2024 2:45 PM EDT Lamotrigine level lab placed. Provided 90 days supply with 0 refill. Provider would like lamotrigine level done since patient delivered. Lab order placed. Please contact patient to schedule office visit with NEUROLOGY and advise of labs ordered for blooddraw. Fasting is not required. Advise to obtain labs before requesting the next refill. Advise patient to get blood work drawn first thing in the morning right before they take their morning dose of lamotrigine or at least 8 hours after their morning dose of medication (trough level). Last Visit: Visit date not found (in office), 10/10/2023 (telemedicine) Next Visit: Visit date not found Thank you, Kimberly Frtiz, PharmD Clinical Pharmacist [facility] [phone] 01/03/2024, 2:45 PM * Telephone Encounter - Meredith Vásquez PA-C - 01/03/2024 1:31 PM EDT Refills provided. However, patient no showed to recent appointment with me on 12/26/23. She did not follow-up with out [facility] Pharmacy team for routine levels throughout . Should get an updated trough lamotrigine level now that she has delivered. She also needs to be scheduled for an appointment for further refills. Meredith Vásquez PA-C [facility] 01/03/24 * Telephone Encounter - Kimberly Fritz RP - 01/03/2024 12:59 PM EDT Unknown why lamotrigine 150 mg was discontinued by [employer] [facility]/OB inpatient on 12/24/23 after labor/deliveryon 12/22/23. Plan on discharge instructions state, "Continue Keppra 2000mg BID and Lamictal 175mg BID." Will forward to neurologist for review since patient is newly . Please advise or refill if appropriate. Thank you, Kimberly Fritz PharmD Clinical Pharmacist [facility] [phone] 01/03/2024, 1:02 PM * Telephone Encounter - Alize Moeller PHARM Tech - 01/03/2024 11:52 AM EDT Patient requesting refills for lamoTRIgine 150 MG Oral Tablet (LaMICtal) . Upon chart review, medication is listed as discontinued, with discontinuation reason as "None". Please advise if you wish tocontinue this therapy for the patient. Thank you, Alize Moeller Personal Lines Sales Executive I [facility] 01/03/2024,11:52 AM documented in this encounter Plan of Treatment Upcoming Encounters Date Type Department Care Team (Late st Contact Info) Description 02/09/2024 10:30 AM EST Office Visit Gynecology/Obstetrics [facility] [address] [id number] Ora Stern CRNP [address] [place] [address] Scheduled Orders Name Type Priority Associated Diagnoses Orde r Schedule LAMOTRIGINE LEVEL Lab Routine Encounter for long-term (current) use of medications Expected: 01/17/2024 (Approximate), Expires: 01/02/2025 Health Maintenance Due Date Last Done Comments *SPIROMETRY ONCE FOR ASTHMA-ADULT 06/26/2023 COVID-19 Vaccine (3 2023-2 5 season) 2023 09/03/2020, 08/13/2020 Influenza Vaccine (FLU shot) (#1) 2023 05/03/2023, 04/09/2022, 05/07/2016, Additional history exists Depression Monitoring 05/03/2024 05/03/2023 Yearly Wellness Visit 05/03/2024 05/03/2023 , 02/05/2011, 03/04/2008, Additional history exists Gonorrhea / Chlamydia Screen 10/04/2024, 05/27/2023, 07/23/2022, Additional history exists DTap/Tdap Vaccines (8 - Td o r Tdap) 11/18/2031 11/17/2021, 08/29/2015, 04/03/2008, Additional history exists Hepatitis B Vaccine Completed 2003, 2003, 2003 HPV (Gardasil) Vaccine Completed 7, 12/24/2015, 08/29/2015 MENINGOCOCCAL (MENACTRA/MENVEO) Completed 0, 08/29/2015 Pneumococcal Vaccine: Pediat rics (0 to 5 Years) and At-Risk Patients (6 to 64 Years) Completed 04/09/2022 documented as of this encounter Medical Devices Not on filedocumented as of this encounter Visit Diagnoses Diagnosis Encounter for long-term (current) use of medications- Primary Encounter for long-term (current) use of other medications documented in this encounter Advance Directives * Full Code (Latest Code Status on File) Date Activated Date Inactivated Comments 12/21/2023 8:38 PM 12/24/2023 5:16 PM This order r eflects the patients wishes and were consensually agreed upon. Question Answer Comments Discussion of Advance Directives occurred with: Patient * Full Code Date Activated Date Inactivated Comments 12/07/2021 8:15 PM 12/10/2021 4:25 PM This order r eflects the patients wishes and were consensually agreed upon. Question Answer Comments Discussion of Advance Directives occurred with: Patient * Full Code Date Activated Date Inactivated Comments 09/09/2020 12:19 PM 09/10/2020 8:34 PM This order reflects the patients wishes and were consensually agreed upon. Care Teams Drone Operator Relationship Specialty Start Date End Date Michelle Calderón MD PCP - General Family Medicine 12/20/23 documented as of this encounter
--- OUTSIDE RECORDS SUMMARY | 2024-01-05 14:38 | External Medical Summary | Summary of Care ---
Author Name Unknown Organization [facility] Address [address] [place] [address] Phone [phone] Care Team Providers Care Shredding Machine Operator Name Role Phone Michelle Calderón MD Primary Care Prov ider Unavailable Reason for Visit * Auth/Cert Specialty Diagnoses / Procedures Referred By [place] Referred To Contact Diagnoses 39 weeks gestation of 39 weeks gestation of [Z3A.39] Procedures INDUCTION FOR VAGINAL DELIVERY INDUCTION FOR VAGINAL DELIVERY Timothy Grijalva Jr., MD [address] [place] [address] [facility] [address] [place] [address] Referral ID Status Reason Start Date Expiration Date Visits Re quested Visits Authorized [id number] [phone] Encounter Details Date Type Department Care Team (Latest Contact Info) Description 12/21/2023 8:36 PM EDT - 12/24/2023 1:11 PM EDT Hospital Encounter [id number] [facility], Women's Lower Level 1st Floor [address] [place] [address] Jayant Contreras MD [address] [place] [address] Discharge Disposition: Home - Self Care Allergies No known active allergiesdocumented as of this encounter (statuses as of 12/25/2023) Medications Medication Sig Dispensed Refills Start Date End Date Status Vitamin B-6 25 MG Oral TabletIndications : state, incidental Take 1 Tablet by mouth every 6 hours as needed for Nausea. 120 Tablet 2 05/03/2023 Active Ventolin HFA 108 (90 Base) MCG/ACT Inhalation Aerosol SolutionIndicatio ns:Maternal asthma complicating Inhale 2 Puffs by mouth every 6 hours as needed for Wheezing. 54 g 1 05/06/2023 Active diazePAM 20 MG Rectal Gel Administer 20 mg into the rectum as needed for Prolonged Seizure (greather than 5 minutes may repeat dose in 5 minutes then call 911). 1 Each 06/22/2023 Active Folic Acid 1 MG Oral TabletIndications :Seizure disorder during in first trimester (HCC) Take 1 Tablet by mouth in the morning. During .. 120 Tablet 1 06/29/2023 Active 19 29-1 MG Oral Tablet Chewable Take 1 Tablet by mouth in the morning. Active FLUoxetine HCl 40 MG Oral Capsule (PROzac) Take 1 Capsule by mouth in the morning. 90 Capsule 09/20/2023 Active FLUoxetine HCl 20 MG Oral Capsule (PROzac) Take 1 Capsule by mouth in the morning. In the morning.. 90 Capsule 09/20/2023 Active Vitamin B-12 1000 MCG Oral Tablet (Cyanocobalamin)I ndications:Other dietary vitamin B12 deficiency anemia Take 1 Tablet by mouth in the morning. 30 Tablet 5 10/06/2023 Active Additional Information Patient not taking.Reported on 12/21/2023 Iron-Vitamin C 65-125 MG Oral Tablet (Vitron C) Take 1 Tablet by mouth in the morning and 1 Tablet before bedtime. 60 Tablet 3 10/06/2023 Active lamoTRIgine 25 MG Oral Tablet (LaMICtal) Take 1 Tablet by mouth in the morning and 1 Tablet before bedtime. 60 Tablet 2 10/07/2023 Active levETIRAcetam 1000 MG Oral Tablet (Keppra) take two tablets by mouth in the morning and two tablets before bedtime 360 Tablet 1 10/27/2023 Active Acetaminophen 325 MG Oral Tablet (Tylenol) Take 3 Tablets by mouth every 6 hours as needed for Pain, Mild. 30 Tablet 12/24/2023 01/23/20 24 Active Ibuprofen 600 MG Oral Tablet (Motrin) Take 1 Tablet by mouth in the morning and 1 Tablet at noon and 1 Tablet in the evening and 1 Tablet before bedtime. 30 Tablet 12/24/2023 01/23/20 24 Active Senna 8.6 MG Oral Tablet Take 1 Tablet by mouth in the morning. 30 Tablet 1 12/24/2023 Active Polyethylene Glycol 3350 17 GM/SCOOP Oral Powder (MiraLax) Take 17 g by mouth daily as needed (constipation). One heaping tablespoon in 8 ounces of water or juice; for severe constipation. 238 g 1 12/24/2023 Active lamoTRIgine 150 MG Oral Tablet (LaMICtal) Take 1 Tablet by mouth in the morning and 1 Tablet before bedtime. 180 Tablet 1 03/28/2023 12/24/19 24 Discontinued documented as of this encounter (statuses as of 12/25/2023) Active Problems Problem Noted Date Diagnosed Date Vaginal delivery 12/24/2023 Nexplanon insertion 12/24/2023 GBS (group B Streptococcus c arrier), +RV culture, currently 12/01/2023 Other dietary vitamin B12 deficiency anemia 09/18 Antepartum anemia complicating 024 Supervision of high risk in [facility] 06/21/2023 Depression complicating , antepartum Overview: History [...] placental abruption, low weight infants, and lower infant scores, stillbirth, and maternal mortality. These risks [...] any current needs or questions 11/24/2023 Hilda Chavarria RN 11/24/23 Problem Action Taken Date entered Entered by Date resolved Current needs or questions Patient denies having any current needs or questions 11/29/2023 Seb Todd RN 11/29/23 Problem Action Taken Date entered Entered by Date resolved Need for baby supplies Baby supplies- lotions/soaps and bottles given 12/19/2023 Cayla Mcdonald RN 12/19/2023 Medication exposure during first trimester of pr egnancy 05/27/2023 Overview: Prozac for depression Keppra and [...] of cardiovascular malformations compared with unexposed neonates (m=[id number]). Infants exposed to fluoxetine late in the [...] Nonintractable epilepsy without status epileptic us 09/04/2020 Comments Yes documented as of this encounter (statuses as of 12/25/2023) Resolved Problems Problem Noted Date Diagnosed Date [...] information was shared with the patient. The [employer], Society for Maternal- Medicine, CDC and multiple medical associations strongly recommend the COVID-19 vaccine for women who are in any trimester, those attempting to become , women who have recently delivered, who are lactating as well as any other woman, regardless of age or ST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 disorder. The only exceptions to receiving the vaccine are for those who have a contraindication or allergy to the vaccine or any component of the vaccine or with sincerely held mandaeism convictions. The CDC and ACOG encourages a [...] MSAFP testing negative. S/p anatomy ultrasound at [facility]. Passed one hour glucose test. CBC within [...] the local suicide hotline phone number for [facility]. Has counseling appointment weekly. Last Assessment & [...] as of this encounter (statuses as of 12/25/2023) Immunizations Name Administration Dates Next Due COVID-19 mRNA, LNP-s, No Pre serve, 2-Dose Series ([email or web address]) 09/03/2020,08/13/2020 DTaP Dipth/Tet/Acell Pertussis (Infanrix), Peds 04/03/2008,01/03/2006,2003,07/2003,2003 [...] PPD 05/10/2023,05/03/2023 Pneumococcal Conjugate Vacci ne, 20-valent ([email or web address]) 04/09/2022 Pneumococcal Conjugate Vacci ne, 7 Valent [...] money to get more. Never true 10/24/2023 Ostrander Depression Scale Answer Date Recorded Ostrander Depression Scale Total 3 09/20/2023 The thought [...] on file documented as of this encounter Last Filed Vital Signs Vital Sign Reading Time Taken Comments Blood Pressure 116/68 12/24/2023 6:45 AM EDT Pulse 66 12/24/2023 6:45 AM EDT Temperature 36.5 C (97.7 F) 12/24/2023 6:45 AM ED T Respiratory Rate 14 12/24/2023 6:45 AM EDT Oxygen Saturation 100% 12/24/2023 6:45 AM EDT Inhaled Oxygen Concentration - - Weight 106.6 kg (235 lb) 12/21/2023 9:40 PM EDT Height 154.9 cm (5' 1") 12/21/2023 9:40 PM EDT Body Mass Index 44.4 12/21/2023 9:40 PM EDT documented in this encounter Functional Status Functional Status Response [...] (15 years old or older) No 09/10/19 Cognitive Status Response Date of Assessm ent Because of a physical, menta l, or emotional condition, do you have serious difficulty concentrating, remembering, or making decisions? (5 years old or older) No 09/09/2020 documented as of this encounter Discharge Summaries * Rina Yung DO - 12/24/2023 6:40 AM EDT Images from the original note were not included. 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 Other Significant Diagnoses: none CONDITION ON DISCHARGE: stable Cognition: normal DISPOSITION ON DISCHARGE: home FOLLOW-UP: Future Appointments Appt Date/Time Provider Department 12/26/2023 4:00 PM Meredith Vásquez PA-C Neurology [facility] [place] 02/09/2024 10:30 AM Ora Stern CRNP Gynecology/Obstetrics [facility] Outpatient testing already scheduled: none Outpatient testing that needs to be arranged: none Inpatient test results pending: none MEDICATIONS ON DISCHARGE: MEDICATION UPDATES AT DISCHARGE START taking these medications INSTRUCTIONS Acetaminophen 325 MG Tablet Commonly known as: Tylenol Take 3 Tablets by mouth every 6 hours as needed for Pain, Mild. Ibuprofen 600 MG Tablet Commonly known as: Motrin Take 1 Tablet by mouth in the morning and 1 Tablet at noon and 1 Tablet in the evening and 1 Tabletbefore bedtime. Polyethylene Glycol 3350 powder Commonly known as: MiraLax Take 17 g by mouth daily as needed (constipation). One heaping tablespoon in 8 ounces of water or juice; for severe constipation. Senna Tablet Take 1 Tablet by mouth in the morning. CHANGE how you take these medications INSTRUCTIONS lamoTRIgine 25 MG Tablet Commonly known as: LaMICtal What changed: Another medication with the same name was removed. Continue taking this medication, and follow the directions you see here. Take 1 Tablet by mouth in the morning and 1 Tablet before bedtime. CONTINUE taking these medications INSTRUCTIONS albuterol HFA 108 (90 BASE) MCG/ACT inhaler Inhale 2 Puffs by mouth every 6 hours as needed for Wheezing. diazePAM 20 MG Gel Commonly known as: Diastat AcuDial Administer 20 mg into the rectum as needed for Prolonged Seizure (greather than 5 minutes may repeat dose in 5 minutes then call 911). * FLUoxetine HCl 40 MG Capsule Commonly known as: PROzac Take 1 Capsule by mouth in the morning. * FLUoxetine 20 MG Capsule Commonly known as: PROzac Take 1 Capsule by mouth in the morning. In the morning.. folic acid 1 MG Tablet Take 1 Tablet by mouth in the morning. During .. Iron-Vitamin C 65-125 mg per tab 65-125 MG Tablet Commonly known as: Vitron C Take 1 Tablet by mouth in the morning and 1 Tablet before bedtime. Levetiracetam 1000 MG Tablet Commonly known as: Keppra take two tablets by mouth in the morning and two tablets before bedtime 19 29-1 MG Chew Take 1 Tablet by mouth in the morning. Vitamin B-6 25 MG Tabs Take 1 Tablet by mouth every 6 hours as needed for Nausea. * This list has 2 medication(s) that are the same as other medications prescribed for you. Read thedirections carefully, and ask your doctor or other care provider to review them with you. CONTINUE taking these medications but follow up with your Primary Care Physician (PCP). INSTRUCTIONS Vitamin B-12 1000 MCG Tablet Commonly known as: Cyanocobalamin Take 1 Tablet by mouth in the morning. ALLERGIES: Patient has no known allergies. INSTRUCTIONS: Activity: As tolerated Diet: normal diet Code Status: Full Code Indwelling devices: none ADMISSION HISTORY & PHYSICAL EXAM (focused): "Obstetrics - History & Physical CHIEF COMPLAINT: IOL HISTORY OF PRESENT ILLNESS Keiko Le is a 18 year old at 39w1d gestational age by first trimester US (performed 05/12/23 at 7w2d) which suggests Estimated Date of Delivery: 12/27/23. Patient presents today for IOL secondary to class 3 obesity. No obstetric complaints. Patient denies LOF, VB, contractions, reports adequate FM. Patient denies any change in vaginal discharge, dysuria, CP/SOB, palpitations, headaches, lightheadedness, cough, nausea, vomiting, diarrhea, constipation, fever, or chills. ROS as above, otherwise negative. RISK FACTORS 1. Seizures - most recent seizure was 12/15, neurology monitoring at this time - current medications are Keppra 2000mg BID and Lamictal 175mg BID - diazepam for seizure abortive 2. Depression - Prozac 60mg daily 3. Exercise induced asthma - albuterol inhaler prn - has not used since early 4. Class 3 obesity - PG BMI 47.4 IMAGING MFM US (11/24/23 at 32w2d): Cephalic Anterior placenta MANDY 12.3 EFW 2304g (16%) LAB RESULTS These labs have been resulted on this patient in the last 10 months: HGB (g/dL) Date Value 11/29/2023 10.8 (L) HCT (%) Date Value 11/29/2023 32.8 (L) PLT (K/uL) Date Value 11/29/2023 231 ABO (no units) Date Value 05/27/2023 O Rh (no units) Date Value 05/27/2023 Positive Rubella IgG Antibody (no units) Date Value 05/27/2023 Positive (A) HIV Antigen & Antibody (no units) Date Value 10/05/2023 Negative Hepatitis B Surface Antigen (no units) Date Value 10/05/2023 Negative Hepatitis C Antibody (no units) Date Value 10/05/2023 Negative Syphilis Screen Interpretation (no units) Date Value 10/05/2023 Nonreactive 50-g Gestational Glucose, 1 Hour (mg/dL) Date Value 10/05/2023 112 Chlamydia Trachomatis Result (no units) Date Value 10/05/2023 Negative Neisseria Gonorrhoeae Result (no units) Date Value 10/05/2023 Negative Group B Strep PCR Result (no units) Date Value 11/29/2023 Positive (A) OB HISTORY OB History Para Term AB Living 3 1 1 0 1 1 SAB IAB Ectopic Multiple Live Births 1 0 0 0 1 # Outcome Date GA Lbr Jeronimo/2nd Weight Sex Type Anes PTL Lv 3 Current 2 Term 12/09/21 39w3d 00:30 / 00:31 3.203 kg (7 lb 1 oz) F Vag-Spont EPI N BELKIS 1 SAB 2020 Obstetric Comments 2021 FOB#1 Filippo 18yo healthy 2023 FOB #2: Bayron, 20 yo, healthy, no other children 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 HISTORY Denies h/o sexually transmitted infections/pelvic inflammatory disease Denies h/o gynecologic surgeries, including biopsies of the cervix Past Medical History Past Medical History: Diagnosis Date ADHD Anxiety and depression zoloft rx Asthma 2012 Bipolar disorder (HCC) PTSD (post-traumatic stress disorder) Seasonal allergies Seizure (HCC) epliepsy in 2019; managed on Keppra Past Surgical History Past Surgical History: Procedure Laterality Date HC BX SKIN LESION SINGLE Family History Family History Problem Relation Name Age of Onset Bipolar Disorder Mother Bipolar Disorder Father No Known Problems Sister (Half) 2 maternal No Known Problems Brother (Half) 1 maternal Gastro-intestinal disorder Grandmother (Maternal) ODETTE Asthma Grandmother (Maternal) Social History Socioeconomic History Marital status: Single Spouse name: Not on file Number of children: Not on file Years of education: Not on file Highest education level: Not on file Occupational History Occupation: unemployed Tobacco Use Smoking status: Never Smokeless tobacco: Never Vaping Use Vaping status: Never Used Substance and Sexual Activity Alcohol use: Not Currently Drug use: Never Sexual activity: Yes Other Topics Concern Not on file Social History Narrative She lives with grandparents who adopted her. She has 3 siblings. Dropped out of high school. Social Determinants of Health Financial Resource Strain: Low Risk (10/24/2023) Financial Resource Strain Do you have any trouble paying for your medications, or do you think you might in the future? (Adult - for ages 18 years and over): No Does your family have trouble paying for medicine? (Household - for ages 0-17 years): Not on file Food Insecurity: No Food Insecurity (10/24/2023) Food Insecurity Do you need food for this week? (Adult - for ages 18 years and over): No Are you able to get enough food for your family? (Household - for ages 0-17 years): Not on file Does your family need food this week? (Household - for ages 0-17 years): Not on file Do you always have enough food for your family? (Household - for ages 0-17 years): Not on file Transportation Needs: Unmet Transportation Needs (10/24/2023) Transportation Needs Do you have trouble getting a ride to medical visits or work? (Adult - for ages 18 years and over):Sometimes True Does your family have a hard time getting a ride to doctors visits? (Household - for ages 0-17 years): Not on file Has lack of transportation kept you from medical appointments, meetings, work, or from getting things needed for daily living? Check all that apply. (Adult - for ages 18 years and over): No Do you (or your family) have trouble finding or paying for a ride (transportation)? (Household - for ages 0-17 years): Not on file Social Connections: Socially Integrated (10/24/2023) Social Connections How often do you feel lonely or isolated from those around you? (Adult - for ages 18 years and over): Rarely Housing Stability: Low Risk (10/24/2023) Housing Stability Do you currently live in a penitentiary or have no steady place to sleep at night? (Adult - for ages 18 years and over): No Do you think you are at risk of becoming homeless? (Adult - for ages 18 years and over): No Does your family worry about paying for your home or becoming homeless? (Household - for ages 0-17 years): Not on file Are you homeless or worried that you might be in the future? (Adult - for ages 18 years and over): No Are you (or your family) homeless or worried that you might be in the future? (Household - for ages0-17 years): Not on file Allergies Patient has no known allergies. PHYSICAL EXAM LMP 03/16/2023 (Exact Date) General: NAD, pleasant Heart: nontachycardic Lungs: Normal nonlabored breathing. Abd: Soft, gravid, non-tender uterus and abdomen, MSK: Appropriate ROM, no erythema, or calf tenderness Psych: no acute depression or anxiety SVE: 3/ 30/ -3/ moderate/ posterior A female patient case manager was present for the pelvic examination. NST Review Indication: IOL NST duration 20 minutes FHT: Baseline 125 bpm, moderate variability, Positive accelerations, one variable deceleration at 2200. Easley: are q 6 minute contractions noted lasting about 60 seconds each Interpretation: reactive Bedside US: Presenting part: cephalic Mason's: 7lbs Pelvis proven to [id number] Pelvis clinically adequate ASSESSMENT Keiko Le is a 18 year old at 39w1d admitted for IOL secondary to class 3 obesity. Patient has no obstetric complaints. Recommend proceed with IOL. PLAN 1. IUP at 39w1d - Admit: Labor and Delivery - Attending: Ben - Condition: stable - Diet: clear liquid diet - Vital signs: per labor protocol - IV access: peripheral IV , IVF at 125 - Activity: ad edinson - monitoring: continuous monitoring - Meds: keppra, lamictal, prozac, diazepam PRN for seizure, albuterol - Labs ordered on admission: CBC, RPR, Type and Screen, HepBsAg - GBS: (+). Antibiotics: PCN - Patient does desire an epidural - Anticipate 2. Seizures - Continue Keppra 2000mg BID and Lamictal 175mg BID - diazepam IV 10mg for seizure abortive 3. Depression - Continue Prozac 60mg daily 3. Exercise induced asthma - albuterol PRN 4. Class 3 obesity - PG BMI 47.4 HOSPITAL COURSE (focused): Patient was admitted on 12/21/23 with IOL for class III. She progressed to deliver a 2825g female bySVD on 12/22/23 at 1758. Infants APGARS at 1 and 5 minutes were 7 and 8 respectively. Delivery was uncomplicated. She received routine care and was discharged in stable condition on 12/24/2023 . Operations & Procedures: and nexplanon placement Complications: none significant SIGNIFICANT RESULTS: Vital Signs (last recorded): Most Recent Systolic BP: 119 mmHg (12/23/232228) Most Recent Diastolic BP: 63 mmHg (12/23/232228) Pulse: 70 (12/23/232228) Resp: 14 (12/23/232228) Most Recent Temperature: 36.61 C (12/23/232228) Weight: 106.6 kg (235 lb) (12/21/232139) SpO2: 98 % (12/23/231944) Labs: CHEMISTRY: BUN, Creatinine, GFR Estimated, Sodium, Potassium, Chloride, Carbon Dioxide, Glucose, Calcium (see below for most recent value): Lab Results Component Value Date/Time BUN 8 05/27/2023 11:57 AM BUN 12 12/25/2018 10:50 AM CREAT 0.5 10/05/2023 01:18 PM CREAT 0.50 (A) 05/26/2021 12:00 AM CREAT 0.8 12/25/2018 10:50 AM GFRESTIMATED GFR CALCULATED FOR ADULTS ONLY 12/25/2018 10:50 AM NA 134 (L) 05/27/2023 11:57 AM NA 142 12/25/2018 10:50 AM POTASSIUM 4.2 05/27/2023 11:57 AM POTASSIUM 3.2 (A) 05/26/2021 12:00 AM POTASSIUM 4.4 12/25/2018 10:50 AM CL 101 05/27/2023 11:57 AM CL 105 12/25/2018 10:50 AM CO2 21 (L) 05/27/2023 11:57 AM CO2 26 12/25/2018 10:50 AM CA 9.6 05/27/2023 11:57 AM CA 9.7 12/25/2018 10:50 AM CREATININE: Creatinine (see below for last three most recent values): Lab Results Component Value Date/Time CREAT 0.5 10/05/2023 01:18 PM CREAT 0.5 05/27/2023 11:57 AM CREAT 0.6 06/01/2021 04:21 PM CREAT 0.50 (A) 05/26/2021 12:00 AM CREAT 0.8 12/25/2018 10:50 AM COAGS: PT, INR (see below for three most recent values): Lab Results Component Value Date/Time INR 0.95 12/25/2018 10:50 AM INR 1.0 12/21/2018 10:49 AM BLOOD COUNT: WBC, Hgb, Platelets (see below for most recent value): Lab Results Component Value Date/Time WBC 10.23 12/21/2023 09:11 PM WBC 7.55 12/25/2018 10:50 AM HGB 10.6 (L) 12/21/2023 09:11 PM HGB 12.9 05/26/2021 12:00 AM HGB 14.3 12/25/2018 10:50 AM PLT 240 12/21/2023 09:11 PM PLT 297 12/25/2018 10:50 AM HEMOGLOBIN: Hgb (see below for last three most recent values): Lab Results Component Value Date/Time HGB 10.6 (L) 12/21/2023 09:11 PM HGB 10.8 (L) 11/29/2023 12:13 PM HGB 11.1 (L) 10/05/2023 01:18 PM HGB 12.9 05/26/2021 12:00 AM HGB 14.3 12/25/2018 10:50 AM HGB 12.3 10/30/2015 10:30 AM HEMOGLOBIN A1C: (see below for most recent value): No results found for: "HGBA1C" LIVER FUNCTION TEST: Albumin, AST, ASTCMC (resulted at [facility] lab), Alkaline Phosphatase, ALT, ALTCMC (resulted at [facility] lab), Bilirubin Total, TBilCMC (resulted at [facility] lab), Protein - (see below for most recent value of each component): Lab Results Component Value Date/Time AST 14 05/27/2023 11:57 AM AST 19 12/25/2018 10:50 AM ALKP 83 05/27/2023 11:57 AM ALKP 89 12/25/2018 10:50 AM ALT 16 05/27/2023 11:57 AM ALT 15 12/25/2018 10:50 AM TBIL 0.4 05/27/2023 11:57 AM TBIL 0.5 12/25/2018 10:50 AM PROT 6.8 05/27/2023 11:57 AM PROT 7.3 12/25/2018 10:50 AM Imaging (focused): none CONSULTS ORDERED: None REFERRING PHYSICIAN: REF: TIMOTHY GRIJALVA JR [address] [place] [address] (office) [phone] (fax) PRIMARY CARE PROVIDER: PCP: Michelle Morin MD None None (office) None (fax) Note: To contact a physician responsible for this patients hospital care, please call [employer] [phone]. Associated attestation - Baltazar Moon DO - 12/24/2023 1:21 PM EDT Attending Attestation Note I saw and evaluated the patient today. I have reviewed the resident/fellow physician note and agree. Baltazar Moon DO 12/24/2023 1:21 PM documented in this encounter Discharge Instructions * Discharge Instr - AVS* Rina Yung DO - 12/24/2023 6:40 AM EDT During business hours, for questions, acute concerns and test results call the Department of FIXED ROUTE BUS OPERATOR. Weekends, holidays, evening/night hours, for acute concerns call the hospital directly and request the FIXED ROUTE BUS OPERATOR provider non categorical preschool teacher. The dynamics ax consultant can be reached by calling [facility] - [phone], [facility] - [phone], [facility] - [phone], [facility] - [phone], [facility] - [phone]. Summary of Care You were admitted on 12/21/2023 for induction of labor. You delivered a 2.825 kg (6 lb 3.7 oz) and Length: 45.5 cm (1' 5.91") (Filed from Delivery Summary) (12/22/23 1758) female at 1758 on 12/22/2023 with scores of 7 and 8. Your course was uncomplicated. Diagnosis Your primary diagnosis at discharge was vaginal delivery Operations & Procedures You had the following operations or procedures done: vaginal delivery. Special Instructions None Diet Follow a well-balanced diet with 2-3 servings of protein (i.e., meat, peanut butter, fish, eggs, etc.) daily, plenty of fresh fruits and vegetables, and avoid junk foods. Ensure you are drinking plenty of water (8-10 glasses) every day. Take your vitamins for at least six months after delivery or until you stop /chest feeding (whatever is longer). Control You are choosing implant. Vaginal Bleeding Vaginal bleeding like a period is expected after any delivery. This will progressively slow after delivery. Even after the bleeding resolves, you may experience a heavy discharge for up to three months post delivery. At 2 weeks many women have an increase in their bleeding as the uterine lining sloughs off. If you are having bleeding requiring a pad an hour or with large clots (larger than a golf ball or egg), please contact the clinic. This is an acute concern. Call the clinic or on-call provider. Only use pads after delivery. We advise nothing in the vagina (no tampons, no douching) until you are cleared at your visit. Your period may return anywhere from 4-10 weeks after delivery. If you are /chest feeding, you may not get a period until you stop being the sole nutritional support for your child. Bowel Movements For constipation, drink lots of water and eat whole grains, fruit and vegetables. Try two fig cookies and a cup of non-caffeinated tea before bed. Colace and a powder fiber supplement are safe. Exercise by walking short distances daily. Driving Do not drive until you are off narcotics for one full week and can walk normally and firmly apply the brake and twist to see oncoming traffic without pain. Post Depression Mood swings, weepiness, and sadness can be normal after giving due to the change in hormones,lack of sleep and lifestyle changes. After 2-3 weeks if these symptoms become more severe, you may have mood and anxiety disorder (PMAD). Please contact your provider if you or your family have concerns about your mental health. If you have thoughts of hurting yourself or your baby, call 911 immediately! Vaginal Delivery Aftercare Common Discomforts Cramping is common after the of your baby. You may use [id number] pain medications. Take as directed. If discomforts are severe, you may alternate the medications such as start by taking ibuprofen and then 3 hours later take acetaminophen, followed by ibuprofen as per the recommended time on the box. For gas pains, gum chewing and ambulation may help. If a gas medication (such as simethicone) has been prescribed for you, you may continue taking that up to 3 times a day, or you may purchase one [id number]. For perineum pain, continue with care products and instructions provided during your hospital stay:Witch Jona Pads, numbing spray, frequent sanitary napkin changes, warm water Sitz baths and keke bottle rinses relieve pain and promote healing. Breast or chest engorgement in the birthing person can be improved by a well- fitted bra, ice packs,cool cabbage leaves, avoid nipple stimulation, and avoid warm water from directly hitting your breasts in the shower. Showering Showering daily is recommended for your physical and mental well being. Keep your perineum (vagina and rectal area) clean and dry. Use warm water for washing and change pads frequently. Exercise After a vaginal delivery you can resume exercise when your pain is resolved, and you feel up to it.Most women can resume exercise 2 weeks after a vaginal delivery. If you had an extensive vaginal tear, you may take longer to heal. We recommend avoiding activities that put undue pressure or tensionon the area until it is fully healed. Kegel exercises (to increase bladder strength and prevent leakage of urine) should be started rightafter delivery. Squeeze your pelvic muscles as if you are stopping the flow of urine. Do this 10 seconds, relax for 3 seconds, and hold for 10 seconds again. Repeat 5 times in a row, 4 times a day. Emergency Action - Call 911 Chest pain or shortness of breath Seizures Hallucinations Thoughts of hurting yourself or your baby Call your provider now Bleeding through more than one pad per hour (75% of the pad), or blood clots the size of an egg or bigger Red or swollen leg that is painful or warm to the touch Headache that does not get better, even after taking medicine, or bad headache with vision changes Fever of 100.4 or higher documented in this encounter Progress Notes * Emily Berumen RN - 12/23/2023 11:50 AM EDT I agree with the assessment placed by Olivia Barros RN. documented in this encounter H&P Notes * Jayant oCntreras MD - 12/21/2023 9:15 PM EDT Obstetrics - History & Physical CHIEF COMPLAINT: IOL HISTORY OF PRESENT ILLNESS Keiko eL is a 18 year old at 39w1d gestational age by first trimester US (performed 05/12/23 at 7w2d) which suggests Estimated Date of Delivery: 12/27/23. Patient presents today for IOL secondary to class 3 obesity. No obstetric complaints. Patient denies LOF, VB, contractions, reports adequate FM. Patient denies any change in vaginal discharge, dysuria, CP/SOB, palpitations, headaches, lightheadedness, cough, nausea, vomiting, diarrhea, constipation, fever, or chills. ROS as above, otherwise negative. RISK FACTORS 1. Seizures - most recent seizure was 12/15, neurology monitoring at this time - current medications are Keppra 2000mg BID and Lamictal 175mg BID - diazepam for seizure abortive 2. Depression - Prozac 60mg daily 3. Exercise induced asthma - albuterol inhaler prn - has not used since early 4. Class 3 obesity - PG BMI 47.4 IMAGING MFM US (11/24/23 at 32w2d): Cephalic Anterior placenta MANDY 12.3 EFW 2304g (16%) LAB RESULTS These labs have been resulted on this patient in the last 10 months: HGB (g/dL) Date Value 11/29/2023 10.8 (L) HCT (%) Date Value 11/29/2023 32.8 (L) PLT (K/uL) Date Value 11/29/2023 231 ABO (no units) Date Value 05/27/2023 O Rh (no units) Date Value 05/27/2023 Positive Rubella IgG Antibody (no units) Date Value 05/27/2023 Positive (A) HIV Antigen & Antibody (no units) Date Value 10/05/2023 Negative Hepatitis B Surface Antigen (no units) Date Value 10/05/2023 Negative Hepatitis C Antibody (no units) Date Value 10/05/2023 Negative Syphilis Screen Interpretation (no units) Date Value 10/05/2023 Nonreactive 50-g Gestational Glucose, 1 Hour (mg/dL) Date Value 10/05/2023 112 Chlamydia Trachomatis Result (no units) Date Value 10/05/2023 Negative Neisseria Gonorrhoeae Result (no units) Date Value 10/05/2023 Negative Group B Strep PCR Result (no units) Date Value 11/29/2023 Positive (A) OB HISTORY OB History Para Term AB Living 3 1 1 0 1 1 SAB IAB Ectopic Multiple Live Births 1 0 0 0 1 # Outcome Date GA Lbr Jeronimo/2nd Weight Sex Type Anes PTL Lv 3 Current 2 Term 12/09/21 39w3d 00:30 / 00:31 3.203 kg (7 lb 1 oz) F Vag-Spont EPI N BELKIS 1 SAB 2020 Obstetric Comments 2021 FOB#1 Filippo 18yo healthy 2023 FOB #2: Bayron, 20 yo, healthy, no other children [employer]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 HISTORY Denies h/o sexually transmitted infections/pelvic inflammatory disease Denies h/o gynecologic surgeries, including biopsies of the cervix Past Medical History: Diagnosis Date ADHD Anxiety and depression zoloft rx Asthma 2012 Bipolar disorder (HCC) PTSD (post-traumatic stress disorder) Seasonal allergies Seizure (HCC) epliepsy in 2019; managed on Keppra Past Surgical History: Procedure Laterality Date HC BX SKIN LESION SINGLE Family History Problem Relation Name Age of Onset Bipolar Disorder Mother Bipolar Disorder Father No Known Problems Sister (Half) 2 maternal No Known Problems Brother (Half) 1 maternal Gastro-intestinal disorder Grandmother (Maternal) ODETTE Asthma Grandmother (Maternal) Social History Socioeconomic History Marital status: Single Spouse name: Not on file Number of children: Not on file Years of education: Not on file Highest education level: Not on file Occupational History Occupation: unemployed Tobacco Use Smoking status: Never Smokeless tobacco: Never Vaping Use Vaping status: Never Used Substance and Sexual Activity Alcohol use: Not Currently Drug use: Never Sexual activity: Yes Other Topics Concern Not on file Social History Narrative She lives with grandparents who adopted her. She has 3 siblings. Dropped out of high school. Social Determinants of Health Financial Resource Strain: Low Risk (10/24/2023) Financial Resource Strain Do you have any trouble paying for your medications, or do you think you might in the future? (Adult - for ages 18 years and over): No Does your family have trouble paying for medicine? (Household - for ages 0-17 years): Not on file Food Insecurity: No Food Insecurity (10/24/2023) Food Insecurity Do you need food for this week? (Adult - for ages 18 years and over): No Are you able to get enough food for your family? (Household - for ages 0-17 years): Not on file Does your family need food this week? (Household - for ages 0-17 years): Not on file Do you always have enough food for your family? (Household - for ages 0-17 years): Not on file Transportation Needs: Unmet Transportation Needs (10/24/2023) Transportation Needs Do you have trouble getting a ride to medical visits or work? (Adult - for ages 18 years and over):Sometimes True Does your family have a hard time getting a ride to doctors visits? (Household - for ages 0-17 years): Not on file Has lack of transportation kept you from medical appointments, meetings, work, or from getting things needed for daily living? Check all that apply. (Adult - for ages 18 years and over): No Do you (or your family) have trouble finding or paying for a ride (transportation)? (Household - for ages 0-17 years): Not on file Social Connections: Socially Integrated (10/24/2023) Social Connections How often do you feel lonely or isolated from those around you? (Adult - for ages 18 years and over): Rarely Housing Stability: Low Risk (10/24/2023) Housing Stability Do you currently live in a penitentiary or have no steady place to sleep at night? (Adult - for ages 18 years and over): No Do you think you are at risk of becoming homeless? (Adult - for ages 18 years and over): No Does your family worry about paying for your home or becoming homeless? (Household - for ages 0-17 years): Not on file Are you homeless or worried that you might be in the future? (Adult - for ages 18 years and over): No Are you (or your family) homeless or worried that you might be in the future? (Household - for ages0-17 years): Not on file Patient has no known allergies. PHYSICAL EXAM LMP 03/16/2023 (Exact Date) General: NAD, pleasant Heart: nontachycardic Lungs: Normal nonlabored breathing. Abd: Soft, gravid, non-tender uterus and abdomen, MSK: Appropriate ROM, no erythema, or calf tenderness Psych: no acute depression or anxiety SVE: 3/ 30/ -3/ moderate/ posterior A female patient case manager was present for the pelvic examination. NST Review Indication: IOL NST duration 20 minutes FHT: Baseline 125 bpm, moderate variability, Positive accelerations, one variable deceleration at 2200. Easley: are q 6 minute contractions noted lasting about 60 seconds each Interpretation: reactive Bedside US: Presenting part: cephalic Mason's: 7lbs Pelvis proven to [id number] Pelvis clinically adequate ASSESSMENT Keiko Le is a 18 year old at 39w1d admitted for IOL secondary to class 3 obesity. Patient has no obstetric complaints. Recommend proceed with IOL. PLAN 1. IUP at 39w1d - Admit: Labor and Delivery - Attending: Ben - Condition: stable - Diet: clear liquid diet - Vital signs: per labor protocol - IV access: peripheral IV , IVF at 125 - Activity: ad edinson - monitoring: continuous monitoring - Meds: keppra, lamictal, prozac, diazepam PRN for seizure, albuterol - Labs ordered on admission: CBC, RPR, Type and Screen, HepBsAg - GBS: (+). Antibiotics: PCN - Patient does desire an epidural - Anticipate 2. Seizures - Continue Keppra 2000mg BID and Lamictal 175mg BID - diazepam IV 10mg for seizure abortive 3. Depression - Continue Prozac 60mg daily 3. Exercise induced asthma - albuterol PRN 4. Class 3 obesity - PG BMI 47.4 I have discussed the patient's management with the resident and agree with the findings and plan, unless otherwise documented below. Please refer to the documented findings and plan of care in the resident note. This patient's visit today consisted of an evaluation. I have seen and evaluated the patient. Pt evaluated at 2345, 12/21/2023. documented in this encounter Procedure Notes * Sherwin Reynolds, - 12/23/2023 4:25 PM EDT Nexplanon Insertion: Appropriate consents were obtained. The procedure was verified and a time out performed prior to the procedure. Patient was placed in the supine position with left arm flexed at the elbow and externally rotated. Insertion site marked 8 cm proximal to the elbow in the groove between the biceps and triceps. The area was washed with Alcohol. 2 ml 1% Lidocaine with epinephrine was injection along the length of the insertion site. The injection site was then cleaned with betadine. The nexplanon was visualized in the trochar prior to placement. Nexplanon was placed following the wire stitcher machine's instructions. The implant was palpated to be present under the skin by provider and the patient. A Band-Aid and pressure dressing was placed. Patient tolerated the procedure well Complications: None LOT#: [id number] EXP: [id number] Recommended that she keep the pressure dressing in place for 24 hours and the bandaid in place for 48 hours. Discussed the importance of calling with any concerns for infection, bruising, or hematoma formation Discussed that she can use Tylenol or Ibuprofen for pain Discussed not soaking in a bath tub, swimming pool, or hot tub until the skin incision is completely healed Discussed that this contraceptive method is not effective for 7 days and that an alternative contraception will need to be used at all times or the patient should abstain from intercourse Discussed that this method is effective for 3 years and she will need to have it replaced. Rina Yung DO 12/23/2023 A procedure was performed. I was present for entire procedure. I agree with the resident/fellow physician note. documented in this encounter Miscellaneous Notes * Care Plan - Lilian Hwang RN - 12/24/2023 11:48 AM EDT Clinical Goal(s): Patient will meet all criteria for discharge (12/24/23 0915) Possible barriers to meeting goal(s)/advancing plan of care: none Stability of the patient: Moderately stable - low risk of patient condition declining or worsening Summary regarding today's goal(s): Met: Patient meets all criteria for discharge Recommendations: Continue plan of care * Progress Notes - Post-Op Global - Rina Yung DO - 12/24/2023 6:38 AM EDT Obstetrics - Vaginal Delivery Progress Note PPD # 2 s/p secondary to IOL at 39w2d for class III obesity , EBL 300mL SUBJECTIVE Keiko Le, 18 year old, seen and examined. No complaints. Pain appropriate and well controlled. Tolerating diet. No nausea or vomiting. She denies fever, chills, headache, lightheadedness, CP/SOB. Flatus present and she has had a bowel movement. Voiding normally, ambulating. Breast and bottle feeding. Patient has a history of asthma, for which she uses an albuterol inhaler PRN. She has not required her inhaler during this . She has a history of a depression, for which she reports a stable mood. The patient has considered seeing a counselor . She did not experiencepostpartum depression with her last child, but understands that she is at high risk. Patient's arm is healing well from nexplanon placement yesterday OBJECTIVE BP 119/63 | Pulse 70 | Temp 36.6 C (97.9 F) (Oral) | Resp 14 | Ht 1.549 m (5' 1") | Wt 106.6 kg(235 lb) | LMP 03/16/2023 (Exact Date) | SpO2 98% | Unknown | BMI 44.40 kg/m | BSA 2.14 m General: NAD, Alert and cooperative. Eyes: pupils equal bilaterally, normal sclera Heart: RRR, No murmurs/rubs/gallops. Minimal edema. Lungs: CTAB, No wheezes/rales/rhonchi. Normal, nonlabored breathing. Abd: soft, non-distended, nontender to palpation, no rebound tenderness or guarding. Uterus: Uterine fundus firm, nontender, and below umbilicus. MSK: Full ROM. No erythema or calf tenderness. Psych: no acute depression or anxiety ASSESSMENT Keiko Le is a 18 year old PPD #2 s/p secondary to IOL at 39w2d for class IIIobesity . She is recovering well. For control, the patient received a Nexplanon prior to discharge. Due to her history of depression and current interest, a referral will be placed to [facility] at time of discharge. Patient prefers going home today. Patient is meeting all of herpostpartum milestones. PLAN 1. s/p - Continue routine care. - Continue to encourage OOB and ambulation - Place referral to [facility] at time of discharge Type and Screen ABO/RHD: O+ Rubella IGG Antibody Rubella IgG Antibody (no units) Date Value 05/27/2023 Positive (A) Group B Strep Culture/PCR Group B Strep PCR Result (no units) Date Value 11/29/2023 Positive (A) - DVT prophylaxis: OOB and ambulating, SCDs while in bed - Diet: / - Breast and bottle feeding. - Discussed control options and patient decided on Nexplanon to be placed before discharge - Discharge to home today or tomorrow. Follow-up in 6 weeks with [facility] [employer] OPERATOR provider. 2. Seizures - Continue Keppra 2000mg BID and Lamictal 175mg BID - diazepam IV 10mg for seizure abortive 3. Depression - Continue Prozac 60mg daily 3. Exercise induced asthma - albuterol PRN 4. Class 3 obesity - PG BMI 47.4 Rina Yung DO PGY-2 Patient's assessment and plan of care were discussed with the OB team this morning. I saw and evaluated the patient today. I have reviewed the resident/fellow physician note and agree. Associated attestation - Baltazar Moon DO - 12/24/2023 3:04 PM EDT Attending Attestation Note I saw and evaluated the patient today. I have reviewed the resident/fellow physician note and agree. Baltazar Moon DO 12/24/2023 3:04 PM * Note - Deana Osorio RN - 12/23/2023 12:37 PM EDT This note was copied from a baby's chart. TEAM [facility] [place] [id number] Name: Tung Le Location: [facility] [place] Date: 12/23/2023 Time: 12:37 PM Since Delivery: To Breast 3 Pumping 0 Supplements 5 Enfamil Voids 3 Stools 3 Weight: Weight: 2.825 kg (6 lb 3.7 oz) (Filed from Delivery Summary) (12/22/231757) Current Weight: Weight: 2.825 kg (6 lb 3.7 oz) (Filed from Delivery Summary) (12/22/231757) Weight loss: N/A LATCH ASSESSMENT Latch not observed during current encounter. Introduced myself as member of the Support Team. Mother states has been going well; currently bottle feeding per choice. Instructed on our availability throughout hospital stay and encouraged mother to page team for latch assessment with next feeding. Discussed Injoy book Understanding . Reviewed frequency of feeds, counting diapers, belly sizes and importance of skin to skin contact. Mother states she breast fed first child for a few months until milk supply dried up. Reviewed characteristics of colostrum and discussed that more frequent stimulation will encourage a better milk supply overall. Discussed second night behavior from over stimulation and encouraged Mother to do skin to skin to comfort baby. Discussed offering breast when baby demands not letting more that 3 hours go between attempts. Will remain available and encouraged Mother to call for help if needed. CDC handout, How to Keep Your Breast Pump Kit Clean, given to mom. Discussed and demonstrated proper way to clean breast pump kit. Instructed call if assistance is needed. Mom verbalized understanding. Mother has a breast pump from insurance for home use. Mother also provided with Team office phone number. Informed patient of follow up phone call from a earth science faculty member within 2-3 days after discharge. Mother made aware of follow up appointment available with a Online Marketing Coordinator at [facility] as needed. Mother encouraged to call with any questions or concerns. Mother verbalized understanding of above. Deana Osorio RN BS IBCLC Support Team [phone] * Ancillary Progress Note - Hannah Garrett LSW - 12/23/2023 10:11 AM EDT MOB is not eligible for Mom/baby home health visit through [facility] ([phone]) due to MOB's residence area, as service is not provided ([email or web address] Nursery to schedule PCP visit with family upon discharge Provided [facility] resources for employment and transportation. * Progress Notes - Post-Op Francisco - Sherwin Reynolds DO - 12/23/2023 6:11 AM EDT Obstetrics - Vaginal Delivery Progress Note PPD # 1 s/p secondary to IOL at 39w2d for class III obesity , EBL 300mL SUBJECTIVE Keiko Le, 18 year old, seen and examined. No complaints. Pain appropriate and well controlled. Tolerating diet. No nausea or vomiting. She denies fever, chills, headache, lightheadedness, CP/SOB. Flatus present and she has had a bowel movement. Voiding normally, ambulating. Breast and bottle feeding. Patient has a history of asthma, for which she uses an albuterol inhaler PRN. She has not required her inhaler during this . She has a history of a depression, for which she reports a stable mood. The patient has considered seeing a counselor . She did not experiencepostpartum depression with her last child, but understands that she is at high risk. Patient is interested in a Nexplanon for control. OBJECTIVE BP 108/70 | Pulse 67 | Temp 36.5 C (97.7 F) (Axillary) | Resp 16 | Ht 1.549 m (5' 1") | Wt 106.6 kg (235 lb) | LMP 03/16/2023 (Exact Date) | SpO2 99% | Unknown | BMI 44.40 kg/m | BSA 2.14 m General: NAD, Alert and cooperative. Eyes: pupils equal bilaterally, normal sclera Heart: RRR, No murmurs/rubs/gallops. Minimal edema. Lungs: CTAB, No wheezes/rales/rhonchi. Normal, nonlabored breathing. Abd: soft, non-distended, nontender to palpation, no rebound tenderness or guarding. Uterus: Uterine fundus firm, nontender, and below umbilicus. MSK: Full ROM. No erythema or calf tenderness. Psych: no acute depression or anxiety ASSESSMENT Keiko Le is a 18 year old PPD #1 s/p secondary to IOL at 39w2d for class IIIobesity . She is recovering well. For control, the patient will receive a Nexplanon prior to discharge. Due to her history of depression and current interest, a referral will be placed to [facility] at time of discharge. Patient prefers going home tomorrow. Patient is meeting allof her milestones. PLAN 1. s/p - Continue routine care. - Continue to encourage OOB and ambulation - Place referral to [facility] at time of discharge Type and Screen ABO/RHD: No results found for: "ABORHD" Rubella IGG Antibody Rubella IgG Antibody (no units) Date Value 05/27/2023 Positive (A) Group B Strep Culture/PCR Group B Strep PCR Result (no units) Date Value 11/29/2023 Positive (A) - DVT prophylaxis: OOB and ambulating, SCDs while in bed - Diet: / - Breast and bottle feeding. - Discussed control options and patient decided on Nexplanon to be placed before discharge - Discharge to home today or tomorrow. Follow-up in 6 weeks with [facility]TE [employer] OPERATOR provider. Review note with Medical Student: Sosa Yung DO PGY-2 Patient's assessment and plan of care were discussed with the OB team this morning. I saw and evaluated the patient today. I have reviewed the resident/fellow physician note and agree. * Progress Notes - Non-Billable - Olimpia Tian DO - 12/22/2023 5:14 PM EDT Obstetrics - Labor Progress Note SUBJECTIVE Keiko Le, 18 year old, seen and examined. Patient resting comfortably in bed upon entering the room. Discussed possible AROM and risk of cord prolapse and patient is agreeable if deemed appropriate. OBJECTIVE BP 106/57 | Pulse 66 | Temp 36.8 C (98.2 F) (Tympanic) | Resp 18 | Ht 1.549 m (5' 1") | Wt 106.6 kg (235 lb) | LMP 03/16/2023 (Exact Date) | SpO2 98% | BMI 44.40 kg/m | BSA 2.14 m FHT: Baseline 120 bpm, moderate variability, Positive accelerations, no decelerations. Easley: are q 1-3 minute contractions noted lasting about 60 seconds each SVE at 5:10pm: 4/80/0, AROM for meconium stained fluid at this time The patient's nurse was present for the SVE. ASSESSMENT/PLAN 18 year old at 39w2d weeks admitted for IOL for class III obesity. Patient has made cervical progress but remains in latent labor. Patient tolerated AROM well. NICU aware. - Continue IOL, Pitocin currently at 8 mu/min - Assess for cervical change in 4 hrs or sooner PRN - FHT Category 1 - s/p epidural * Progress Notes - Non-Billable - Jumana Hernandez CNM - 12/22/2023 12:59 PM EDT Obstetrics - Labor Progress Note LDRP 5 SUBJECTIVE Keiko Le, 18 year old, seen and examined. Patient reports she is feeling some cramping. OBJECTIVE BP 110/72 | Pulse 70 | Temp 36.8 C (98.2 F) (Oral) | Resp 18 FHT: Baseline 135 bpm, moderate variability, Positive accelerations, no decelerations. Easley: are q 1.5-4 minute contractions noted lasting about 60 seconds each Cervidil removed at 12:50 pm. Cervix remains 3/thick/high. The patient's nurse was present for the SVE. Discussed option to proceed with IOL with either Cook balloons and/or Pitocin IV. Patient opted forPitocin IV alone at this time. ASSESSMENT 18 year old at 39w2d weeks admitted for IOL for class 3 obesity. Patient has not made cervical change s/p one dose of cervidil. FHT Category 1. PLAN - Pitocin ordered - Assess for cervical change in 4-6 hrs * Progress Notes - Non-Billable - Jumana Hernandez CNM - 12/22/2023 11:15 AM EDT FHR Tracing Review 12/22/2023, 11:15 AM FHR: Baseline 125 bpm / moderate variability / no accelerations / no decelerations Easley: irregular Cervidil in place Category 1 tracing Continue current course of induction. * Progress Notes - Non-Billable - Jumana Hernandez CNM - 12/22/2023 7:40 AM EDT FHR Tracing Review 12/22/2023, 7:40 AM FHR: Baseline 120 bpm / moderate variability / positive accelerations / no decelerations Easley: Contractions Q2-3 min, [address] Category 1 tracing Continue current course of induction. documented in this encounter Plan of Treatment Upcoming Encounters Date Type Department Care Team (Late st Contact Info) Description 12/26/2023 4:00 PM EDT Telemedicine Neurology [address] [place] [phone] Meredith Vásquez PA-C [address] [facility] [place] [id number] 02/09/2024 10:30 AM EST Office Visit Gynecology/Obstetrics [place] [facility] [address] [facility] [place] [id number] BackerOra CRNP [address] [place] [address] Pending Results Name Type Priority Associated Diagnoses Date /Time [facility] Pathology Routine 12/22/2023 6:00 PM EDT HOLD [facility] Lab Routine 12/22/2023 6: 00 PM EDT Scheduled Orders Name Type Priority Associated Diagnoses Orde r Schedule [facility] Pathology Routine One Time for 1 Occurrences starting 12/22/2023 until 12/22/2023 HOLD [facility] Lab Routine Once for 1 Oc currences starting 12/22/2023 until 12/22/2023 Health Maintenance Due Date Last Done Comments *SPIROMETRY ONCE FOR ASTHMA-ADULT 06/26/2023 COVID-19 Vaccine (3 - 2023-2 5 season) 2023 09/03/2020, 08/13/2020 Influenza [...] Not on filedocumented as of this encounter Procedures Procedure Name Priority Date/Time Associated Diagnosis Comments SYPHILIS ANTIBODY SCREEN STAT 12/21/2023 9:11 PM EDT HIV ANTIGEN & ANTIBODY SCREEN W/ CONFIRMATION Routine 12/21/2023 9:11 PM EDT SYPHILIS ANTIBODY SCREEN WITH REFLEX TO RPR STAT 12/21/2023 9:11 PM EDT HEPATITIS B SURFACE ANTIGEN STAT 12/21/2023 9:11 PM EDT TYPE AND SCREEN STAT 12/21/2023 9:11 PM EDT CBC STAT 12/21/2023 9:11 PM EDT EXTRA GREEN TOP WITH GEL Routine 12/21/2023 9:10 PM EDT EXTRA TUBES Routine 12/21/2023 9:10 PM EDT documented in this encounter Results * SYPHILIS ANTIBODY SCREEN (12/21/2023 9:11 PM EDT) [facility] Syphilis Screen Interpretation Nonreactive Nonreactive 12/22/2023 10:54 AM EDT [facility] Comment:No serologic evidenc e of syphilis. No additional testing clinicially indicated at this time. Consider repeat testing in 2-4 weeks if acute or primary syphilis is suspected. Blood Venous blood specimen / Unknown Venipuncture / Unknown 12/21/2023 9:11 PM EDT 12/21/2023 9:20 PM EDT Zachary Salcido DO LAB BLOOD ORDERA BLES LAB[facility]ATORY [facility] [address] [place] [address] * HIV ANTIGEN & ANTIBODY SCREEN W/ CONFIRMATION (12/21/2023 9:11 PM EDT) Pathologist [facility] [place] HIV Antigen & Antibody Negative Negative 12/21/2023 10:16 PM EDT LABORATORY [facility] Comment:Negative HIV-1/2 ant igen and antibody screening tset results usually indicate the absence of HIV-1 and HIV-2 infection. However, such negative results do not rule-out acute HIV infection. If acute HIV-1 infection is highly suspected, it is recommended that a specimen be submitted for detection of HIV-1 RNA. Blood Venous blood specimen / Unknown Venipuncture / Unknown 12/21/2023 9:11 PM EDT 12/21/2023 9:20 PM EDT Zachary Sam Loly LAB BLOOD ORDERA BLES Performing Organization Address [facility] de Phone Number LABORATORY [facility] [address] [place] [address] * HEPATITIS B SURFACE ANTIGEN (12/21/2023 9:11 PM EDT) [facility] Hepatitis B Surface Antigen Negative Negative 12/21/2023 10:16 PM EDT LABORATORY [facility] Blood Venous blood specimen / Unknown Venipuncture / Unknown 12/21/2023 9:11 PM EDT 12/21/2023 9:20 PM EDT Zachary Sam Salcido LAB BLOOD ORDERA BLES Performing Organization Address [facility] Co de Phone Number LABORATORY [facility] [address] [place] [address] * TYPE AND SCREEN (12/21/2023 9:11 PM EDT) Pathologist [facility] [place] ABO O 12/21/2023 10:09 PM EDT LABORATORY [facility] BLOOD BANK Rh Positive 12/21/2023 10:09 PM EDT LABORATORY [facility] BLOOD BANK Red Blood Cell Antibody Screen Negative 12/21/2023 10:09 PM EDT LABORATORY [facility] BLOOD BANK Specimen Expiration Date 12/24/2023 23:59 12/21/2023 10:09 PM EDT LABORATORY [facility] BLOOD BANK Blood Venous blood specimen / Unknown Venipuncture / Unknown 12/21/2023 9:11 PM EDT 12/21/2023 9:19 PM EDT Zachary Salcido DO LAB BLOOD BANK T EST ORDERABLES LABORATORY [facility] BLOOD BANK [address] [place] [address] * (ABNORMAL) CBC (12/21/2023 9:11 PM EDT) WBC 10.23 4.00 - 10.80 K/uL 12/21/2023 9:39 PM EDT [facility] RBC 3.67 3.85 - 5.15 M/uL 12/21/2023 9:39 PM EDT [facility] HGB 10.6(L) 12.0 - 15.3 g/dL 12/21/2023 9:39 PM EDT [facility] HCT 31.8(L) 36.0 - 45.2 % 12/21/2023 9:39 PM EDT [facility] MCV 86.6 81.5 - 97.5 fL 12/21/2023 9:39 PM EDT [facility] MCH 28.9 27.0 - 34.0 pg 12/21/2023 9:39 PM EDT [facility] MCHC 33.3 32.0 - 36.0 g/dL 12/21/2023 9:39 PM EDT [facility] RDW 13.6 11.5 - 15.5 % 12/21/2023 9:39 PM EDT [facility] PLT 240 140 - 400 K/uL 12/21/2023 9:39 PM EDT [facility] MPV 10.2 6.6 - 11.1 fL 12/21/2023 9:39 PM EDT [facility] nRBCs 0 <=0 /100 WBCs 12/21/2023 9:39 PM EDT [facility] Blood Venous blood specimen / Unknown Venipuncture / Unknown 12/21/2023 9:11 PM EDT 12/21/2023 9:19 PM EDT Zachary Salcido DO LAB BLOOD ORDERA BLES Performing Organization Address [facility] Co de Phone Number LABORATORY [facility] [address] [place] [address] * EXTRA GREEN TOP WITH GEL (12/21/2023 9:10 PM EDT) Blood Venous blood specimen / Unknown 12/21/2023 9:10 PM EDT 12/21/2023 9:21 PM EDT Jayant Contreras MD LAB BLOOD ORDERABLES Performing Organization Address [facility] Co de Phone Number LABORATORY [facility] [address] [place] [address] documented in this encounter Visit Diagnoses Diagnosis Vaginal delivery- Primary Normal delivery 39 weeks gestation of state, incidental Encounter for initial prescription of implantable subdermal contraceptive Mood disorder (HCC) Unspecified episodic mood disorder 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) Psychogenic nonepileptic seizure Obesity, morbid (more than 100 lbs over ideal weight or BMI > 40) ([facility]) Morbid obesity Maternal asthma complicating Other current maternal conditions classifiable elsewhere, complicating , childbirth, or the puerperium, unspecified as to episode of care GBS (group B Streptococcus carrier), +RV culture, currently Supervision of other high-risk Nexplanon insertion Insertion of implantable subdermal contraceptive documented in this encounter Administered Medications Inactive Administered Medications - up to 3 most recent administrations Medication Order MAR Action Action Date Dose Rate Site Benzocaine-Menthol (Dermoplast) spray Topical, PRN Other, use alone or in combination with witch jona pads for post perineal pain, Starting on Lanny 12/22/23 at 1814, Until 12/24/23 at 1711, Max of 4 actuations (sprays) per dose. Do not apply more than 4 doses in 24 hours. 1 spray = 50 mg benzocaine Given 12/22/2023 7:01 PM EDT diazePAM (Valium) inj 10 mg 10 mg, IV Push, PRN Other, seizure, Starting on Lanny 12/22/23 at 0247, Until 12/24/23 at 1711 Dinoprostone (Cervidil) vaginal insert 10 mg 10 mg, Vaginal, ONCE, On Tue12/22/23 at 0000, For 1 dose Given By 12/22/2023 12:59 AM EDT 10 mg Docusate Sodium (Colace) cap 100 mg 100 mg, Oral, BID (.AM/PM), First dose on Tue12/22/23 at 2100, Until Discontinued, For oral administration ONLY, if route of administration is other than oral and alternative product must be ordered. Given 12/24/2023 9:21 AM EDT 100 mg Given 12/23/2023 10:27 PM EDT 100 mg Given 12/23/2023 8:39 AM EDT 100 mg Etonogestrel (Nexplanon) 68 MG implant 68 mg 68 mg, Intradermal, ONCE 72HRS, First dose on Tue12/23/23 at 0945, Last dose on Tue12/23/23 at 0945, For 1 dose, After delivery. Given By 12/23/2023 4:21 PM EDT 68 mg FLUoxetine (PROzac) cap 60 mg 60 mg, Oral, Daily(AM), First dose on Tue12/22/23 at 0900, Until Discontinued Given 12/24/2023 9:21 AM EDT 60 mg Given 12/23/2023 8:39 AM EDT 60 mg Given 12/22/2023 9:03 AM EDT 60 mg Ibuprofen (Motrin) tab 600 mg 600 mg, Oral, QID(AM/NOON/PM/HS), First dose on Tue12/22/23 at 1845, Until Discontinued Given 12/24/2023 12:13 PM E DT 600 mg Given 12/24/2023 6:52 AM EDT 600 mg Given 12/23/2023 10:27 PM EDT 600 mg isolyte-S pH 7.4 infusion Intravenous, at 125 mL/hr, In active labor Plasma-LYTE 148, isolyte-S, and isolyte-S pH 7.4 are considered equivalent - including for MAR barcode scanning., CONTINUOUS, Starting on Tue12/21/23 at 2115, Until Tue12/22/23 at 1814 Rate Verify 12/22/2023 4:27 PM EDT 125 m L/hr Restarted 12/22/2023 4:19 PM EDT 125 mL/hr KVO 12/22/2023 4:05 PM EDT 5 mL/hr lamoTRIgine (LaMICtal) tab 175 mg 175 mg, Oral, BID (.AM/PM), First dose (after last modification) on Lanny 12/22/23 at 0015, Until Discontinued Given 12/24/2023 9:21 AM EDT 175 mg Given 12/23/2023 9:23 PM EDT 175 mg Given 12/23/2023 8:39 AM EDT 175 mg levETIRAcetam (Keppra) tab 2,000 mg 2,000 mg, Oral, BID (.AM/PM), First dose (after last modification) on Lanny 12/22/23 at 0015, Until Discontinued Given 12/24/2023 9:21 AM EDT 2,000 mg Given 12/23/2023 9:23 PM EDT 2,000 mg Given 12/23/2023 8:39 AM EDT 2,000 mg Lidocaine 1 % (PF) inj 5 mL 5 mL, Subcutaneous, ONCE 72HRS, First dose on Tue12/23/23 at 0945, Last dose on Tue12/23/23 at 0945, For 1 dose, local anesthesia for nexplanon insertion Given By 12/23/2023 4:21 PM EDT 5 mL Arm Left Upper miSOPROStol (Cytotec) tab 1,000 mcg 1,000 mcg, Rectal, ONCE, On Tue12/22/23 at 1845, For 1 dose Given By 12/22/2023 7:02 PM EDT 800 mcg oxytocin 30 units in NSS 500 mL Intravenous, at 0-20 mL/hr, TITRATE, Starting on Tue12/22/23 at 1330, Until Lanny 12/22/23 at 1814, Please select this medication from the infusion pump library!, Starting rate: 2 jh-unit/min (2 mL/hr), Increase rate by: 2 jh-unit/min (2 mL/hr) every 30 minutes until good labor pattern established as follows:, Contraction Interval: 2-3 minutes, Contraction Duration: 50-60 seconds, Contraction Intensity: 50 mmHg (by Intrauterine Pressure Catheter), unindentable fundus (by palpation), or 200-250 Ansley units (by Intrauterine Pressure Catheter), Once labor established: Maintain by titrating dose higher or lower in 1 jh-unit/min (1 mL/hr) increments as needed, Max rate: 20 jh-unit/min (20 mL/hr) Rate Change 12/22/2023 5:32 PM EDT 10 jh-units/m in 10 mL/hr Rate Change 12/22/2023 5:01 PM EDT 8 jh-units/min 8 mL/ hr Rate Verify 12/22/2023 4:27 PM EDT 6 jh-units/min 6 mL/ hr penicillin g pot in D5W (Pfizerpen) ivpb 3,000,000 Units 3,000,000 Units (3 Million Units), IV Piggyback, Q4HNOW, 30 doses, First dose on Lanny 12/22/23 at 0115, Last dose on 12/26/23 at 2115, Every 4 hours until delivery following initial dose of Penicillin G 5 MU. New Bag 12/22/2023 5:35 PM EDT 3,000,000 Units 100 mL/hr New Bag 12/22/2023 1:45 PM EDT 3,000,000 Units 100 mL/h r Rate Change 12/22/2023 9:25 AM EDT 75.1 mL/hr penicillin g pot in D5W ivpb 5 Million Units 5 Million Units, IV Piggyback, ONCE, 1 dose, On 12/21/23 at 2115, Administer over 30 Minutes, Initial Dose New Bag 12/22/2023 1:09 AM EDT 5 Million Units 210 mL/hr vitamins plus 1 mg folic acid tab 1 Tablet 1 Tablet, Oral, DAILY NOON, First dose on Tue12/23/23 at 1200, Until Discontinued Given 12/24/2023 12:13 PM EDT 1 Tablet Given 12/23/2023 12:24 PM EDT 1 Tablet sodium chloride 0.9 % flush peripheral luis 3 mL 3 mL, IV Push, QSHIFT, First dose on Tue12/23/23 at 0000, Until Discontinued, Do not flush if lock, PICC, or central line not in place; IV infusing or unable to flush. Given 12/23/2023 8:00 AM EDT 3 mL Witch Jona (Tucks) pad Topical, PRN Other, use alone or in combination with Dermoplast for post perineal pain, Starting on Lanny 12/22/23 at 1814, Until 12/24/23 at 1711, May use up to up to 6 times per day Given 12/22/2023 7:01 PM EDT documented in this encounter Active and Recently Administered Medications Times are shown in EDT. Scheduled Medication Order 12/22/2023 12/23/2023 12/24/2023 Dinoprostone (Cervidil) vaginal insert 10 mg (COMPLETED) 10 mg, Vaginal, ONCE, On Lanny 12/22/23 at 0000, For 1 dose 0059 (Given By - Provider: Paulette Cisneros RN - Comment: Dr. Evans) Docusate Sodium (Colace) cap 100 mg 100 mg, Oral, BID (.AM/PM), First dose on Lanny 12/22/23 at 2100, Until Discontinued, For oral administration ONLY, if route of administration is other than oral and alternative product must be ordered. 2056 (Given - Provider: Myah Mejia RN) 838 (Given - Provider: Olivia Barros, KEN)2226 (Given - Provider: Stacie Hamilton RN) 920 (Given - Provider: Lilian Hwang, KEN) Etonogestrel (Nexplanon) 68 MG implant 68 mg (COMPLETED)(Linked Group 1) 68 mg, Intradermal, ONCE 72HRS, First dose on Tue12/23/23 at 0945, Last dose on Tue12/23/23 at 0945, For 1 dose, After delivery. 162 (Given By - Provider: Olivia Barros RN - Comment: Dr. Yung) FLUoxetine (PROzac) cap 60 mg 60 mg, Oral, Daily(AM), First dose on Lanny 12/22/23 at 0900, Until Discontinued 09 (Given - Provider: Beckie Boyce RN) 08 (Given - Provider: Olivia Barros, KEN) 920 (Given - Provider: Lilian Hwang, KEN) Ibuprofen (Motrin) tab 600 mg 600 mg, Oral, QID(AM/NOON/PM/HS), First dose on Lanny 12/22/23 at 1845, Until Discontinued 1900 (Given - Provider: Beckie Boyce RN) 0003 (Given - Provider: Myah Mejia RN)0602 (Given - Provider: Myah Mejia RN)1224 (Given - Provider: Olivia Barros, KEN)1820 (Given - Provider: Olivia Barros, KEN)222 (Given - Provider: Stacie Hamilton, RN) 0652 (Given - Provider: Stacie Hamilton RN)121 (Given - Provider: Lilian Hwang, KEN) lamoTRIgine (LaMICtal) tab 175 mg 175 mg, Oral, BID (.AM/PM), First dose (after last modification) on Lanny 12/22/23 at 0015, Until Discontinued 003 (Given - Provider: Paulette Cisneros RN)09 (Given - Provider: Beckie Boyce RN)2057 (Given - Provider: Myah Mejia RN) 08 (Given - Provider: Olivia Barros RN)2122 (Given - Provider: Stacie Hamilton RN) 09 (Given - Provider: Lilian Hwang, KEN) levETIRAcetam (Keppra) tab 2,000 mg 2,000 mg, Oral, BID (.AM/PM), First dose (after last modification) on Lanny 12/22/23 at 0015, Until Discontinued 29 (Given - Provider: Paulette Cisneros RN)09 (Given - Provider: Beckie Boyce RN)2058 (Given - Provider: Myah Mejia RN) 08 (Given - Provider: Olivia Barros RN)2122 (Given - Provider: Stacie Hamilton RN) 09 (Given - Provider: Lilian Hwang, KEN) Lidocaine 1 % (PF) inj 5 mL (COMPLETED)(Linked Group 1) 5 mL, Subcutaneous, ONCE 72HRS, First dose on Tue12/23/23 at 0945, Last dose on Tue12/23/23 at 0945, For 1 dose, local anesthesia for nexplanon insertion 162 (Given By - Provider: Olivia Barros RN - Comment: Dr. Yung) miSOPROStol (Cytotec) tab 1,000 mcg (COMPLETED) 1,000 mcg, Rectal, ONCE, On Tue12/22/23 at 1845, For 1 dose 1902 (Given By - Provider: Beckie Boyce RN - Comment: Dr. Salcido. Only 800mg given. One dose dropped on floor.) penicillin g pot in D5W (Pfizerpen) ivpb 3,000,000 Units (CANCELED)(Linked Group 2) 3,000,000 Units (3 Million Units), IV Piggyback, Q4HNOW, 30 doses, First dose on Tue12/22/23 at 0115, Last dose on Tue12/26/23 at 2115, Every 4 hours until delivery following initial dose of Penicillin G 5 MU. 0115 (Entry Error - Provider: Paulette Cisneros RN - Comment: first dose started @ 0109)0500 (New Bag - Provider: Paulette Cisneros RN)0530 (Stopped - Provider: Beckie Boyce RN)0905 (New Bag - Provider: Beckie Boyce RN)0925 (Rate Change - Provider: Beckie Boyce RN)0939 (Stopped - Provider: Beckie Boyce RN)1345 (New Bag - Provider: Beckie Boyce RN)1415 (Stopped - Provider: Beckie Boyce RN)1735 (New Bag - Provider: Beckie Boyce RN)1805 (Stopped - Provider: Myah Mejia RN) penicillin g pot in D5W ivpb 5 Million Units (COMPLETED)(Linked Group 2) 5 Million Units, IV Piggyback, ONCE, 1 dose, On Tue12/21/23 at 2115, Administer over 30 Minutes, Initial Dose 0109 (New Bag - Provider: Paulette Cisneros RN) vitamins plus 1 mg folic acid tab 1 Tablet 1 Tablet, Oral, DAILY NOON, First dose on Tue12/23/23 at 1200, Until Discontinued 1224 (Given - Provider: Olivia Barros, KEN) 1213 (Given - Provider: Lilian Hwang RN) sodium chloride 0.9 % flush peripheral luis 3 mL 3 mL, IV Push, QSHIFT, First dose on Tue12/23/23 at 0000, Until Discontinued, Do not flush if lock, PICC, or central line not in place; IV infusing or unable to flush. 0000 (Not Given - Provider: Myah Mejia RN - Reason: Parameter(s) Not Met)0800 (Given - Provider: Olivia Barros RN)1600 (Not Given - Provider: Olivia Barros RN - Reason: Parameter(s) Not Met) 0000 (Not Given - Provider: Stacie Hamilton RN - Reason: Parameter(s) Not Met - Comment: no IV site)0921 (Not Given - Provider: Lilian Hwang RN - Reason: Parameter(s) Not Met) Continuous Medication Order 12/22/2023 12/23/2023 12/24/2023 fentaNYL 2 mcg/mL + bupiv 0.125% in nss 100 mL epidural infusion (CANCELED) Epidural infusion, at 8 mL/hr, PCEA Demand Dose 3 mL Delay 10 minutes Basal Rate 8 mL/ hr Maximum 6 PCEA doses per hour Stop infusion if respiratory rate is less than 10 and or the patient is unarousable While Epidural infusion infusing: Narcotics and Sedatives by order of Acute Pain Services Only!! Use CADD Pump with lock box, CONTINUOUS, Starting on Tue12/22/23 at 1600, Until Tue12/22/23 at 1711 1609 (Given - Provider: Kar Chou MD)1610 (New Bag - Provider: Kar Chou MD)1707 (Rate Change - Provider: Ankush Cha MD)1711 (Due: Stopped - Provider: Kar Chou MD)1804 (Stopped - Provider: Umair Zhao MD) isolyte-S pH 7.4 infusion (CANCELED) Intravenous, at 125 mL/hr, In active labor Plasma-LYTE 148, isolyte-S, and isolyte-S pH 7.4 are considered equivalent - including for MAR barcode scanning., CONTINUOUS, Starting on Tue12/21/23 at 2115, Until Tue12/22/23 at 1814 0104 (New Bag - Provider: Paulette Cisneros RN)0108 (Paused - Provider: Beckie Boyce RN)0139 (Restarted - Provider: Beckie Boyce RN)0500 (Paused - Provider: Beckie Boyce RN)0530 (Restarted - Provider: Beckie Boyce RN)0905 (Paused - Provider: Beckie Boyce RN)0939 (Restarted - Provider: Beckie Boyce RN)1039 (KVO - Provider: Beckie Boyce RN)1042 (Restarted - Provider: Beckie Boyce RN)1345 (Paused - Provider: Beckie Boyce RN)1415 (Restarted - Provider: Beckie Boyce RN)1520 (Rate Change - Provider: Beckie Boyce RN)1553 (Rate Change - Provider: Beckie Boyce RN)1605 (KVO - Provider: Beckie Boyce RN)1619 (Restarted - Provider: Beckie oByce RN)1627 (Rate Verify - Provider: Beckie Boyce RN)1920 (Stopped - Provider: Myah Mejia RN) oxytocin 30 units in NSS 500 mL (CANCELED) Intravenous, at 0-20 mL/hr, TITRATE, Starting on Lanny 1024 at 1330, Until Lanny 10 at 1814, Please select this medication from the infusion pump library!, Starting rate: 2 jh-unit/min (2 mL/hr), Increase rate by: 2 jh-unit/min (2 mL/hr) every 30 minutes until good labor pattern established as follows:, Contraction Interval: 2-3 minutes, Contraction Duration: 50-60 seconds, Contraction Intensity: 50 mmHg (by Intrauterine Pressure Catheter), unindentable fundus (by palpation), or 200-250 Ansley units (by Intrauterine Pressure Catheter), Once labor established: Maintain by titrating dose higher or lower in 1 jh-unit/min (1 mL/hr) increments as needed, Max rate: 20 jh-unit/min (20 mL/hr) 1303 (New Bag - Provider: Beckie Boyce RN)1347 (Rate Change - Provider: Beckie Boyce RN)1452 (Rate Change - Provider: Beckie Boyce RN)1554 (Paused - Provider: Beckie Boyce RN)1613 (Restarted - Provider: Beckie Boyce RN)1627 (Rate Verify - Provider: Beckie Boyce RN)1701 (Rate Change - Provider: Beckie Boyce RN)1732 (Rate Change - Provider: Beckie Boyce RN)1856 (Stopped - Provider: Myah Mejia RN) PRN Medication Order 12/22/2023 12/23/2023 12/24/2023 Acetaminophen (Tylenol) tab 975 mg 975 mg, Oral, Q6H PRN Pain, Mild, Starting on Lanny 12/22/23 at 1814, Until 12/24/23 at 1711, Do not administer and notify provider for suspected or proven HELLP Syndrome or in patients with elevated AST or ALT. 24 hour maximum dose 4000 mg. Benzocaine-Menthol (Dermoplast) spray Topical, PRN Other, use alone or in combination with witch jona pads for post perineal pain, Starting on Lanny 12/22/23 at 1814, Until 12/24/23 at 1711, Max of 4 actuations (sprays) per dose. Do not apply more than 4 doses in 24 hours. 1 spray = 50 mg benzocaine 190 (Given - Provider: Beckie Boyce RN) calcium CARBonate (Tums E-X) tab CHEW 1,500 mg 1,500 mg, Oral, Q4H PRN Indigestion, Starting on Lanny 12/22/23 at 1814, Until 12/24/23 at 1711 diazePAM (Valium) inj 10 mg 10 mg, IV Push, PRN Other, seizure, Starting on Lanny 12/22/23 at 0247, Until 12/24/23 at 1711 Hydrocortisone 2.5 % cream Rectal, QID PRN Other, hemorrhoid pain, Starting on Lanny 12/22/23 at 1814, Until 12/24/23 at 1711, use for ANUSOL HC/PROCTOSOL HC LANSINOH cream/ointment Topical, PRN Other: sore nipples, Starting on Lanny 12/22/23 at 1814, Until 12/24/23 at 1711, Apply to nipples milk of magnesia (Mom) oral susp 30 mL 30 mL, Oral, Q12H PRN Constipation, Starting on Lanny 12/22/23 at 1814, Until 12/24/23 at 171 ondansetron (Zofran) tab 4 mg 4 mg, Oral, Q6H PRN Nausea, Starting on Lanny 12/22/23 at 1814, Until 12/24/23 at 171 oxytocin 30 units in 500 mL NSS POST 30 Units/hr (500 mL/hr), Intravenous, ONCE PRN Other, post delivery only- Uterine Atony, Starting on Lanny 12/22/23 at 1814, Until 12/24/23 at 171, For 1 dose, To be infused after delivery of the . May infuse remainder of oxytocin bag from induction/augmentation if greater than or equal to 250 mL (15 units) remain in bag at delivery. If less than 250 mL discard remainder and replace with a full bag of oxytocin 30 units in 500 mL Plasmalyte/ISOLYTE and infuse the bag over one hour. ( 30 UNITS/hour = 500 milliUNITS/minute= 500 ml/hour ) Please select this medication from the infusion pump library! Natlaee Smith (Jossuecks) pad Topical, PRN Other, use alone or in combination with Dermoplast for post perineal pain, Starting on Lanny 12/22/23 at 1814, Until 12/24/23 at 171, May use up to up to 6 times per day 190 (Given - Provider: Beckie Boyce RN) Linked Groups Order Group 1: Etonogestrel (Nexplanon) 68 MG implant 68 mg (COMPLETED)Jump to med 68 mg, Intradermal, ONCE 72HRS, First dose on Tue12/23/23 at 0945, Last dose on Tue12/23/23 at 0945, For 1 dose, After delivery. And Lidocaine 1 % (PF) inj 5 mL (COMPLETED)Jump to med 5 mL, Subcutaneous, ONCE 72HRS, First dose on Tue12/23/23 at 0945, Last dose on Tue12/23/23 at 0945, For 1 dose, local anesthesia for nexplanon insertion Group 2: penicillin g pot in D5W ivpb 5 Million Units (COMPLETED)Jump to med 5 Million Units, IV Piggyback, ONCE, 1 dose, On 12/21/23 at 2115, Administer over 30 Minutes, Initial Dose Followed by penicillin g pot in D5W (Pfizerpen) ivpb 3,000,000 Units (CANCELED)Jump to med 3,000,000 Units (3 Million Units), IV Piggyback, Q4HNOW, 30 doses, First dose on Lanny 12/22/23 at 0115, Last dose on 12/26/23 at 2115, Every 4 hours until delivery following initial dose of Penicillin G 5 MU. documented in this encounter Advance Directives * [...] and were consensually agreed upon. 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
--- OUTSIDE RECORDS SUMMARY | 2024-01-05 14:38 | External Medical Summary ---
Author Name Unknown Address Unknown Organization [id number]:[facility] - [address] [place] [address] Laboratory Report Ordering Provider Test Date Status ANUP EMERY 12/21/2023 21:11:30 Final Observation Date Value Abnormality Reference (Units ) Status ABO 12/21/2023 21:11:30 O Final RH 12/21/2023 21:11:30 Positive Final RED BLOOD CELL ANTIBODY SCREEN 12/21/2023 21:11:30 Negative Final SPECIMEN EXPIRATION DATE 12/21/2023 21:11:30 12/24/2023 23:59 Final Performing Location [facility] [address] [place] [address]
--- OUTSIDE RECORDS SUMMARY | 2024-01-05 14:38 | External Medical Summary | Summary of Care ---
Author Name Unknown Organization [facility] Address [address] [place] [address] Phone [phone] Care Team Providers Care Brazing Furnace Feeder Name Role Phone Michelle Calderón MD Primary Care Prov ider Unavailable Reason for Visit * Reason Onset Date Comments Medication Refill 12/28/2023 Encounter Details Date Type Department Care Team (Late st Contact Info) Description 12/28/2023 Refill Psychiatry [place] [place] [address] [place] [address] Yumiko Miller MD [address] [place] [address] Allergies No known active allergiesdocumented as of this encounter (statuses as of 12/28/2023) Medications Medication Sig Dispensed Refills Start Date End Date Status Vitamin B-6 25 MG Oral TabletIndications: state, incidental Take 1 Tablet by mouth every 6 hours as needed for Nausea. 120 Tablet 2 05/03/2023 Active Ventolin HFA 108 (90 Base) MCG/ACT Inhalation Aerosol SolutionIndication s:Maternal asthma complicating Inhale 2 Puffs by mouth every 6 hours as needed for Wheezing. 54 g 1 05/06/2023 Active diazePAM 20 MG Rectal Gel Administer 20 mg into the rectum as needed for Prolonged Seizure (greather than 5 minutes may repeat dose in 5 minutes then call 911). 1 Each 06/22/2023 Active Folic Acid 1 MG Oral TabletIndications: Seizure disorder during in first trimester (HCC) Take 1 Tablet by mouth in the morning. During .. 120 Tablet 1 06/29/2023 Active 19 29-1 MG Oral Tablet Chewable Take 1 Tablet by mouth in the morning. Active Vitamin B-12 1000 MCG Oral Tablet (Cyanocobalamin)In dications:Other dietary vitamin B12 deficiency anemia Take 1 [...] needed for Pain, Mild. 30 Tablet 12/24/2023 4 Active Ibuprofen 600 MG Oral Tablet (Motrin) Take 1 Tablet by mouth in the morning and 1 Tablet at noon and 1 Tablet in the evening and 1 Tablet before bedtime. 30 Tablet 12/24/2023 4 Active Senna 8.6 MG Oral Tablet Take [...] before bedtime. 60 Tablet 2 12/28/2023 Active FLUoxetine HCl 40 MG Oral Capsule (PROzac) Take 1 Capsule by mouth in the morning. 90 Capsule 09/20/2023 4 Discontinue d(Refill) FLUoxetine HCl 20 MG Oral Capsule (PROzac) Take 1 Capsule by mouth in the morning. In the morning.. 90 Capsule 09/20/2023 4 Discontinue d(Refill) lamoTRIgine 25 MG Oral Tablet (LaMICtal) Take 1 Tablet by mouth in the morning and 1 Tablet before bedtime. 60 Tablet 2 10/07/2023 4 Discontinue d(Refill) documented as of this encounter (statuses as of 12/28/2023) Active Problems Problem Noted Date Diagnosed Date Vaginal delivery 12/24/2023 Nexplanon insertion 12/24/2023 GBS (group B Streptococcus c arrier), +RV culture, currently 12/01/2023 Other dietary vitamin B12 deficiency anemia 09/18 Antepartum anemia complicating 024 Supervision of high risk in [facility] 06/21/2023 Depression complicating , antepartum Overview: History [...] Follows with Neurology Managed with Lamictal and Eloisara Last seizure: May 2023 Daughter ( 2021) [...] of cardiovascular malformations compared with unexposed neonates ([id number]). Infants exposed to fluoxetine late in the [...] as of this encounter (statuses as of 12/28/2023) Resolved Problems Problem Noted Date Diagnosed Date [...] information was shared with the patient. The [place] [employer]s [employer] Gyne[employer], Society for Maternal- Medicine, CDC and multiple medical associations strongly recommend the COVID-19 vaccine for women who are in any trimester, those attempting to become , women who have recently delivered, who are lactating as well as any other woman, regardless of age or ROUTING CLERK disorder. The only exceptions to receiving the vaccine are for those who have a contraindication or allergy to the vaccine or any component of the vaccine or with sincerely held baptist convictions. The CDC and ACOG encourages a [...] MSAFP testing negative. S/p anatomy ultrasound at [facility]. Passed one hour glucose test. CBC [...] the local suicide hotline phone number for [facility]. Has counseling appointment weekly. Last Assessment & [...] as of this encounter (statuses as of 12/28/2023) Immunizations Name Administration Dates Next Due COVID-19 mRNA, LNP-s, No Pre serve, 2-Dose Series (Pfizer) 09/03/2020,08/13/2020 DTaP Dipth/Tet/Acell Pertussis (Infanrix), Peds 04/03/2008,01/03/2006,2003,04/0 07/2003,2003 H1N1 2009 Influenza, IM 02/24/2009,01/27/2009, HIB PRP-OMP, [...] PPD 05/10/2023,05/03/2023 Pneumococcal Conjugate Vacci ne, 20-valent ([id number]) 04/09/2022 Pneumococcal Conjugate Vacci ne, 7 Valent [...] money to get more. Never true 10/24/2023 [place] Depression Scale Answer Date Recorded [place] Depression Scale Total 3 09/20/2023 The thought [...] as of this encounter Miscellaneous Notes * Telephone Encounter - Yumiko Miller MD - 12/28/2023 11:09 AM EDTSigned Prescriptions: Disp Refills FLUoxetine HCl 20 MG Oral Capsule (PROzac) 90 Cap*0 Sig: Take 1 Capsule by mouth in the morning. In the morning.. Authorizing Provider: YUMIKO MILLER FLUoxetine HCl 40 MG Oral Capsule (PROzac) 90 Cap*0 Sig: Take 1 Capsule by mouth in the morning. Authorizing Provider: YUMIKO MILLER lamoTRIgine 25 MG Oral Tablet (L aMICtal) 60 Tab*2 Sig: Take 1 Tablet by mouth in the morning and 1 Tablet before bedtime. Authorizing Provider: YUMIKO MILLER * Telephone Encounter - Batsheva Delatorre LPN - 12/28/2023 10:22 AM EDT Pharmacy requesting refill on Prozac. Medication was last filled on 09/20/23 with 0 refills. Patient last seen on 11/02/23 with return appointment scheduled for needs appointment. Patient had 0 cancelled appointments and 1 NO SHOW appointments. documented in this encounter Plan of Treatment Upcoming Encounters Date Type Department Care Team (Late st Contact Info) Description 02/09/2024 10:30 AM EST Office Visit Gynecology/Obstetrics [facility] [address] [place] [address] [address], [place] [address] [place] [phone] Health Maintenance Due Date Last Done Comments *SPIROMETRY ONCE FOR ASTHMA-ADULT 06/26/2023 COVID-19 Vaccine (2023-2 5 season) 2023 09/03/2020, 08/13/2020 Influenza Vaccine [...] Not on filedocumented as of this encounter Advance Directives * Full Code [...] and were consensually agreed upon. Care Teams Brazing Furnace Feeder Relationship Specialty Start Date End Date Michelle Calderón MD PCP - General Family Medicine 12/20/23 documented as of this encounter
--- OUTSIDE RECORDS SUMMARY | 2024-01-05 14:38 | External Medical Summary | Summary of Care ---
Author Name Unknown Organization [facility] Address [address] [place] [address] Phone [phone] Care Team Providers Care Calender Feeder Name Role Phone Michelle Calderón MD Primary Care Prov ider Unavailable Reason for Visit * Reason Onset Date Comments Medication Refill 01/03/2024 Encounter Details Date Type Department Care Team (Late st Contact Info) Description 01/03/2024 [address]phone [address] [place] [address] Meredith Vásquez PA-C [address] [place] [address] Medication Refill Allergies No known [...] complicating 024 Supervision of high risk in [facility] 06/21/2023 Depression complicating , antepartum Overview: History [...] of cardiovascular malformations compared with unexposed neonates ([id number]). Infants exposed to fluoxetine late in the [...] information was shared with the patient. The [place] [employer]s [employer] Gyne[employer], Society for Maternal- Medicine, CDC and multiple medical associations strongly recommend the COVID-19 vaccine for women who are in any trimester, those attempting to become , women who have recently delivered, who are lactating as well as any other woman, regardless of age or INSURANCE UNDERWRITING ASSISTANT disorder. The only exceptions to receiving the vaccine are for those who have a contraindication or allergy to the vaccine or any component of the vaccine or with sincerely held rastafari convictions. The CDC and ACOG encourages a [...] MSAFP testing negative. S/p anatomy ultrasound at [facility]. Passed one hour glucose test. CBC [...] the local suicide hotline phone number for [facility]. Has counseling appointment weekly. Last Assessment & [...] PPD 05/10/2023,05/03/2023 Pneumococcal Conjugate Vacci ne, 20-valent ([id number]) 04/09/2022 Pneumococcal Conjugate Vacci ne, 7 Valent [...] money to get more. Never true 10/24/2023 [place] Depression Scale Answer Date Recorded [place] Depression Scale Total 3 09/20/2023 The thought [...] encounter Miscellaneous Notes * Telephone Encounter - Meredith Vásquez PA-C - 01/03/2024 1:31 PM EDT Refills provided. However, patient no showed to recent appointment with me on 12/26/23. She did not follow-up with out [facility] Pharmacy team for routine levels throughout . Should get an updated trough lamotrigine level now that she has delivered. She also needs to be scheduled for an appointment for further refills. Meredith Vásquez PA-C [facility] 01/03/24 * Telephone Encounter - Leyda Fritz RPh - 01/03/2024 12:59 PM EDT Unknown why lamotrigine 150 mg was discontinued by C.O.D. Clerk/OB inpatient on 12/24/23 after labor/deliveryon 12/22/23. Plan on discharge instructions state, "Continue Keppra 2000mg BID and Lamictal 175mg BID." Will forward to neurologist for review since patient is newly . Please advise or refill if appropriate. Thank you, eLyda Fritz PharmD Clinical Pharmacist [facility] ([facility]) [phone] 01/03/2024, 1:02 PM * Telephone Encounter - Alize Moeller PHARM Tech - 01/03/2024 11:52 AM EDT Patient requesting refills for lamoTRIgine 150 MG Oral Tablet (LaMICtal) . Upon chart review, medication is listed as discontinued, with discontinuation reason as "None". Please advise if you wish tocontinue this therapy for the patient. Thank you, Alize Moeller Organizational Development Consultant I [facility] ([facility]) 01/03/2024,11:52 AM documented in this encounter Plan of Treatment Upcoming Encounters Date Type Department Care Team (Late st Contact Info) Description 02/09/2024 10:30 AM EST [facility] [address] [place] [address] [address], ASHLEY Roman [address] [place] [address] Health Maintenance Due Date Last Done Comments [...] and were consensually agreed upon. Care Teams Calender Feeder Relationship Specialty Start Date End Date Michelle Calderón MD PCP - General Family Medicine 12/20/23 documented as of this encounter
--- OUTSIDE RECORDS SUMMARY | 2024-01-05 14:38 | External Medical Summary | Summary of Care ---
Author Name Unknown Organization [facility] Address [address] [place] [address] Phone [phone] Care Team Providers Care Bulk Station Agent Name Role Phone Michelle Calderón MD Primary Care Prov ider Unavailable Reason for Visit * Reason Onset Date Comments Information 01/03/2024 Encounter Details Date Type Department Care Team (Late st Contact Info) Description 01/03/2024 Telephone Neurology, [place] [address] [place] [address] Meredith Vásquez PA-C [address] [place] [address] Information Allergies No known active allergiesdocumented as of [...] before bedtime. 60 Tablet 2 12/28/2023 Active documented as of this encounter (statuses as of 01/03/2024) Active Problems Problem Noted Date Diagnosed Date Vaginal delivery 12/24/2023 Nexplanon insertion 12/24/2023 GBS (group B Streptococcus c reinaldo), +RV culture, currently 12/01/2023 Other dietary vitamin B12 deficiency anemia 09/18 Antepartum anemia complicating 024 Supervision of high risk in [facility] 06/21/2023 Depression complicating , antepartum Overview: [...] current needs or questions 11/29/2023 Seb Todd, KEN 11/29/23 Problem Action Taken Date entered Entered [...] of cardiovascular malformations compared with unexposed neonates ([id number]). Infants exposed to fluoxetine late in the [...] information was shared with the patient. The [place] [employer] Gyne[employer], Society for Maternal- Medicine, CDC and multiple medical associations strongly recommend the COVID-19 vaccine for women who are in any trimester, those attempting to become , women who have recently delivered, who are lactating as well as any other woman, regardless of age or COMMUNICATIONS MARKETING INTERN disorder. The only exceptions to receiving the vaccine are for those who have a contraindication or allergy to the vaccine or any component of the vaccine or with sincerely held bahai convictions. The CDC and ACOG encourages a [...] MSAFP testing negative. S/p anatomy ultrasound at [facility]. Passed one hour glucose test. CBC within [...] the local suicide hotline phone number for [facility]. Has counseling appointment weekly. Last Assessment [...] mRNA, LNP-s, No Pre serve, 2-Dose Series ([employer]) 09/03/2020,08/13/2020 DTaP Dipth/Tet/Acell Pertussis (Infanrix), Peds 04/03/2008,01/03/2006,2003,07/2003,2003 [...] PPD 05/10/2023,05/03/2023 Pneumococcal Conjugate Vacci ne, 20-valent ([id number]) 04/09/2022 Pneumococcal Conjugate Vacci ne, 7 Valent [...] money to get more. Never true 10/24/2023 [place] Depression Scale Answer Date Recorded [place] Depression Scale Total 3 09/20/2023 The thought [...] s 10/24/2023 Does the household have a [facility] source [facility] income? (Household - for ages [...] encounter Miscellaneous Notes * Telephone Encounter - Dianna Long PHARM Tech - 01/03/2024 11:46 AM EDT Patient calling in to get lamictal 150 filled. It's handled by neuro. Transferred to specialty line. Dianna [employer] Spec II [facility] 01/03/2024 11:47 AM documented in this encounter Plan of Treatment Upcoming Encounters Date Type Department Care Team (Late st Contact Info) Description 02/09/2024 10:30 AM EST Office Visit Gynecology/Obstetrics [place] [address] [place] [phone] [place], ASHLEY Roman [address] [place] [address] Health Maintenance Due Date Last Done Comments [...] and were consensually agreed upon. Care Teams Bulk Station Agent Relationship Specialty Start Date End Date Michelle Calderón MD PCP - General Family Medicine 12/20/23 documented as of this encounter
--- OUTSIDE RECORDS SUMMARY | 2024-01-05 14:38 | External Medical Summary | Summary of Care ---
Author Name Unknown Organization [facility] Address [address] [facility] [place] [address] Phone [phone] Care Team Providers Care Marketing Rep Name Role Phone Unavailable Primary Care Provider Unavailabl e Encounter Details Date Type Department Care Team (Late st Contact Info) Description 12/22/2023 Population Health External Data Unspecified Department Allergies No known active allergiesdocumented as of this encounter (statuses as of 12/22/2023) Medications Medication Sig Dispensed Refills Start Date End Date Status lamoTRIgine 150 MG Oral Tablet (LaMICtal) Take 1 Tablet by mouth in the morning and 1 Tablet before bedtime. 180 Tablet 1 03/28/2023 Suspended Additional Information Patient taking differently: 175 mgOral BID (.AM/PM), Reported on 10/05/2023 Vitamin B-6 25 MG Oral TabletIndications: state, incidental Take 1 Tablet by mouth every 6 hours as needed for Nausea. 120 Tablet 2 05/03/2023 Suspended Additional Information Ventolin HFA 108 (90 Base) MCG/ACT Inhalation Aerosol SolutionIndication s:Maternal asthma complicating Inhale 2 Puffs by mouth every 6 hours as needed for Wheezing. 54 g 1 05/06/2023 Suspended Additional Information diazePAM 20 MG Rectal Gel Administer 20 mg into the rectum as needed for Prolonged Seizure (greather than 5 minutes may repeat dose in 5 minutes then call 911). 1 Each 06/22/2023 Suspended Additional Information Folic Acid 1 MG Oral TabletIndications: Seizure disorder during in first trimester (HCC) Take 1 Tablet by mouth in the morning. During .. 120 Tablet 1 06/29/2023 Suspended Additional Information 19 29-1 MG Oral Tablet Chewable Take 1 Tablet by mouth in the morning. Suspended FLUoxetine HCl 40 MG Oral Capsule (PROzac) Take 1 Capsule by mouth in the morning. 90 Capsule 09/20/2023 Suspended Additional Information FLUoxetine HCl 20 MG Oral Capsule (PROzac) Take 1 Capsule by mouth in the morning. In the morning.. 90 Capsule 09/20/2023 Suspended Additional Information Vitamin B-12 1000 MCG Oral Tablet (Cyanocobalamin)In dications:Other dietary vitamin B12 deficiency anemia Take 1 Tablet by mouth in the morning. 30 Tablet 5 10/06/2023 Suspended Additional Information Patient not taking.Reported on 12/21/2023 Iron-Vitamin C 65-125 MG Oral Tablet (Vitron C) Take 1 Tablet by mouth in the morning and 1 Tablet before bedtime. 60 Tablet 3 10/06/2023 Suspended Additional Information lamoTRIgine 25 MG Oral Tablet (LaMICtal) Take 1 Tablet by mouth in the morning and 1 Tablet before bedtime. 60 Tablet 2 10/07/2023 Suspended Additional Information levETIRAcetam 1000 MG Oral Tablet (Keppra) take two tablets by mouth in the morning and two tablets before bedtime 360 Tablet 1 10/27/2023 Suspended Additional Information documented as of this encounter (statuses as of 12/22/2023) Active Problems Problem Noted Date Diagnosed Date GBS (group B Streptococcus c arrier), +RV culture, currently 12/01/2023 Other dietary vitamin B12 deficiency anemia 09/18 Antepartum anemia complicating 024 Supervision of high risk in [facility] 06/21/2023 Depression complicating , antepartum Overview: History [...] will schedule serial growth assessments q4-6 weeks. Health counseling 05/27/2023 Overview: Problem Action Taken Date entered [...] of cardiovascular malformations compared with unexposed neonates ([id number]). Infants exposed to fluoxetine late in the [...] Nonintractable epilepsy without status epileptic us 09/04/2020 Estimated Date of Delivery Comme nts Yes 12/27/2023 Based on Ultraso und documented as of this encounter (statuses as of 12/22/2023) Resolved Problems Problem Noted Date Diagnosed Date [...] information was shared with the patient. The [place] [employer] Obstetrics and Gynecology, Society for Maternal- Medicine, CDC and multiple medical associations strongly recommend the COVID-19 vaccine for women who are in any trimester, those attempting to become , women who have recently delivered, who are lactating as well as any other woman, regardless of age or MOBILE MANAGER disorder. The only exceptions to receiving the vaccine are for those who have a contraindication or allergy to the vaccine or any component of the vaccine or with sincerely held mandaen convictions. The CDC and ACOG encourages a [...] MSAFP testing negative. S/p anatomy ultrasound at [facility]. Passed one hour glucose test. CBC [...] the local suicide hotline phone number for [facility]. Has counseling appointment weekly. Last Assessment & [...] as of this encounter (statuses as of 12/22/2023) Immunizations Name Administration Dates Next Due COVID-19 [...] PPD 05/10/2023,05/03/2023 Pneumococcal Conjugate Vacci ne, 20-valent ([id number]) 04/09/2022 Pneumococcal Conjugate Vacci ne, 7 Valent [...] money to get more. Never true 10/24/2023 [place] Depression Scale Answer Date Recorded [place] Depression Scale Total 3 09/20/2023 The thought [...] ages 0-17 years) Not on file 10/24/2023 Estimated Date of Delivery Comme nts Yes 12/27/2023 Based on Ultraso und Sex and Gender Information Value Date Recorded [...] No 09/09/2020 documented as of this encounter Plan of Treatment Upcoming Encounters Date Type Department Care Team (Late st Contact Info) Description 12/26/2023 4:00 PM EDT Telemedicine Neurology [address] [place] [phone] Meredith Vásquez PA-C [address] [facility] [address] Health Maintenance Due Date Last Done Comments [...] Activated Date Inactivated Comments 12/21/2023 8:38 PM This order ref lects the patients wishes and were consensually agreed [...]
--- OUTSIDE RECORDS SUMMARY | 2024-01-05 14:38 | External Medical Summary ---
Author Name Unknown Address Unknown Organization K01:LABORATORY [facility] - [address] [place] [address] Laboratory Report Ordering Provider Test Date Status ANUP EMERY 12/21/2023 21:11:30 Final Observation Date Value Abnormality Reference (Units ) Status Hep B surface Ag 12/21/2023 21:11:30 Negative Neg ative Final Performing Location [facility] - [address] [place] [address]
--- OUTSIDE RECORDS SUMMARY | 2024-01-05 14:38 | External Medical Summary ---
Author Name Unknown Address Unknown Organization K01:[facility] - [address] [place] [address] Laboratory Report Ordering Provider Test Date Status ANUP EMERY 12/21/2023 21:11:30 Final Observation Date Value Abnormality Reference (Units ) Status WBC, Total 12/21/2023 21:11:30 10.23 4.00-10.80 (K/uL) Final RBC 12/21/2023 21:11:30 3.67 3.85-5.15 (M/uL) Final Hemoglobin 12/21/2023 21:11:30 10.6 Below low normal 12.0-15.3 (g/dL) Final HCT 12/21/2023 21:11:30 31.8 Below low normal 36.0-45.2 (%) Final MCV 12/21/2023 21:11:30 86.6 81.5-97.5 (fL) Final MCH 12/21/2023 21:11:30 28.9 27.0-34.0 (pg) Final MCHC 12/21/2023 21:11:30 33.3 32.0-36.0 (g/dL) Final RDW 12/21/2023 21:11:30 13.6 11.5-15.5 (%) Final Platelets 12/21/2023 21:11:30 240 140-400 (K/uL) Final MPV 12/21/2023 21:11:30 10.2 6.6-11.1 (fL) Final Nucleated erythrocytes/100 leukocytes [Ratio] in Blood by Automated count 12/21/2023 21:11:30 0 <=0 (/100 WBCs) Final Performing Location LAB[facility]ORY [facility] - [address] [place] [address]
--- OUTSIDE RECORDS SUMMARY | 2024-01-05 14:38 | External Medical Summary ---
Author Name Unknown Address Unknown Organization K01:LABOR[facility] - [facility] [address] [place] [address] Laboratory Report Ordering Provider Test Date Status ANUP EMERY 12/21/2023 21:11:30 Final Observation Date Value Abnormality Reference (Units ) Status HIV 1+2 Ab+HIV1 p24 Ag [Presence] in Serum or Plasma by Immunoassay 12/21/2023 21:11:30 Negative Negative Final Negative HIV-1/2 antigen and antibody screening tset results usually indicate the absence of HIV-1 and HIV-2 infection. However, such negative results do not rule-out acute HIV infection. If acute HIV-1 infection is highly suspected, it is recommended that a specimen be submitted for detection of HIV-1 RNA. Performing Location [facility] - [address] [place] [address]
--- OUTSIDE RECORDS SUMMARY | 2024-01-05 14:38 | External Medical Summary | Summary of Care ---
Author Name Unknown Organization [facility] Address [address] [place] [address] Phone [phone] Care Team Providers Care Professional Services Consultant Name Role Phone Michelle Calderón MD Primary Care Prov ider Unavailable Reason for Visit * Reason Onset Date Comments Advice 09/30/2023 STD Encounter Details Date Type Department Care Team (Late st Contact Info) Description 09/30/2023 Telephone [facility] [address] [place] [address] [phone] John Penn MD [address] [place] [address] Advice (STD) Allergies No known active allergiesdocumented as of this encounter (statuses as of 12/30/2023) Medications Medication Sig Dispensed Refills Start Date End Date Status Vitamin B-6 25 MG Oral TabletIndications : state, incidental Take 1 Tablet by mouth every 6 hours as needed for Nausea. 120 Tablet 2 4 Active Ventolin HFA 108 (90 Base) MCG/ACT Inhalation Aerosol SolutionIndicatio ns:Maternal asthma complicating Inhale 2 Puffs by mouth every 6 hours as needed for Wheezing. 54 g 1 4 Active diazePAM 20 MG Rectal Gel Administer 20 mg into the rectum as needed for Prolonged Seizure (greather than 5 minutes may repeat dose in 5 minutes then call 911). 1 Each 4 Active Folic Acid 1 MG Oral TabletIndications :Seizure disorder during in first trimester (HCC) Take 1 Tablet by mouth in the morning. During .. 120 Tablet 1 4 Active 19 29-1 MG Oral Tablet Chewable Take 1 Tablet by mouth in the morning. Active levETIRAcetam 1000 MG Oral Tablet (Keppra)Indicatio ns:Partial idiopathic epilepsy with seizures of localized onset, not intractable, without status epilepticus (HCC) Take 2 Tablets by mouth in the morning and 2 Tablets before bedtime. 120 Tablet 5 3 10/10/19 24 Discontinued(Ref ill) lamoTRIgine 150 MG Oral Tablet (LaMICtal) Take 1 Tablet by mouth in the morning and 1 Tablet before bedtime. 180 Tablet 1 4 12/24/19 24 Discontinued FLUoxetine HCl 40 MG Oral Capsule (PROzac) Take 1 Capsule by mouth in the morning. 90 Capsule 4 12/28/19 24 Discontinued(Ref ill) FLUoxetine HCl 20 MG Oral Capsule (PROzac) Take 1 Capsule by mouth in the morning. In the morning.. 90 Capsule 4 12/28/19 24 Discontinued(Ref ill) documented as of this encounter (statuses as of 12/30/2023) Active Problems Problem Noted Date Diagnosed Date Vaginal delivery 12/24/2023 Nexplanon insertion 12/24/2023 GBS (group B Streptococcus c arrier), +RV culture, currently 12/01/2023 Other dietary vitamin B12 deficiency anemia 09/18 Antepartum anemia complicating 024 Supervision of high risk in [facility] 06/21/2023 Depression complicating , antepartum Overview: [...] any current needs or questions 09/13/2023 Beverley Sloan, KEN 09/13/2023 Problem Action Taken Date entered Entered [...] of cardiovascular malformations compared with unexposed neonates ([id number]). Infants exposed to fluoxetine late in the [...] as of this encounter (statuses as of 12/30/2023) Resolved Problems Problem Noted Date Diagnosed Date [...] information was shared with the patient. The [employer], Society for Maternal- Medicine, CDC and multiple medical associations strongly recommend the COVID-19 vaccine for women who are in any trimester, those attempting to become , women who have recently delivered, who are lactating as well as any other woman, regardless of age or SOLUTIONS DEVELOPMENT ANALYST disorder. The only exceptions to receiving the vaccine are for those who have a contraindication or allergy to the vaccine or any component of the vaccine or with sincerely held christianity convictions. The CDC and ACOG encourages a [...] MSAFP testing negative. S/p anatomy ultrasound at [facility]. Passed one hour glucose test. CBC [...] the local suicide hotline phone number for [facility]. Has counseling appointment weekly. Last Assessment & [...] as of this encounter (statuses as of 12/30/2023) Immunizations Name Administration Dates Next Due COVID-19 [...] PPD 05/10/2023,05/03/2023 Pneumococcal Conjugate Vacci ne, 20-valent ([id number]) 04/09/2022 Pneumococcal Conjugate Vacci ne, 7 Valent [...] money to get more. Never true 10/24/2023 [place] Depression Scale Answer Date Recorded [place] Depression Scale Total 3 09/20/2023 The thought [...] ages 0-17 years) Not on file 10/24/2023 Comments Yes Sex and Gender Information Value Date Recorded [...] encounter Miscellaneous Notes * Telephone Encounter - Caridad De Los Santos LPN - 10/03/2023 10:56 AM EDT Pt aware. * Telephone Encounter - Faith Bourgeois PA-C - 10/03/2023 10:52 AM EDT Blood orders placed at patient request. She should come to lab to have collected. * Telephone Encounter - Caridad De Los Santos LPN - 10/03/2023 8:46 AM EDT Spoke with pt and she is requesting all std testing. Please place orders for blood work. * Telephone Encounter - Faith Bourgeois PA-C - 10/01/2023 10:58 PM EDT I placed lab orders for Chlamydia, GC, and Trichomonas. She can come to lab for testing through urine. Does she want additional testing through blood work for HIV, Hep C, Hep B and Syphilis? She was screened for these with [facility] labs. Faith Bourgeois PA-C * Telephone Encounter - Jessica Beltran OSA - 09/30/2023 12:46 PM EDT Pt calling, states her partner cheated on her and she just found out he may have STD. She is askingif she can get an order to be tested? Please advise. documented in this encounter Plan of Treatment Upcoming Encounters Date Type Department Care Team (Late st Contact Info) Description 02/09/2024 10:30 AM EST Office Visit Gynecology[facility]Obst[facility] [address] [place] [address] Backer, ASHLEY Roman [address] [place] [phone] Health Maintenance Due Date Last Done Comments [...] Not on filedocumented as of this encounter Results * HIV ANTIGEN & ANTIBODY SCREEN W/ CONFIRMATION (10/05/2023 1:18 PM EDT) HIV Antigen & Antibody Negative Negative 10/05/2023 7:50 PM EDT LAB[facility] Comment:Negative HIV-1/2 ant igen and antibody screening tset results usually indicate the absence of HIV-1 and HIV-2 infection. However, such negative results do not rule-out acute HIV infection. If acute HIV-1 infection is highly suspected, it is recommended that a specimen be submitted for detection of HIV-1 RNA. Blood Venous blood specimen / Unknown Venipuncture / Unknown 10/05/2023 1:18 PM EDT 10/05/2023 1:18 PM EDT Faith Bourgeois PA-C LAB BLOOD ORDERABLES [facility]ATORY [facility] [address] [place] [address] * HEPATITIS B SURFACE ANTIGEN (10/05/2023 1:18 PM EDT) Hepatitis B Surface Antigen Negative Negative 10/05/2023 7:[address] [facility] Blood Venous blood specimen / Unknown Venipuncture / Unknown 10/05/2023 1:18 PM EDT 10/05/2023 1:18 PM EDT Faith Bourgeois PA-C LAB BLOOD ORDERABLES [facility]ATORY [facility] [address] [place] [address] * TRICHOMONAS VAGINALIS, AMPLIFIED PROBE (10/05/2023 12:14 PM EDT) Trichomonas Vaginalis Result Negative Negative 10/06/2023 1:[address] [facility] Comment:No Trichomonas vagin andrew detected by oil driller mediated nucleic acid amplification. Urine Urine specimen / Unknown Non-blood Collection / Unknown 10/05/2023 12:14 PM EDT 10/05/2023 12:14 PM EDT Faith Bourgeois PA-C LAB MICRO - GENERAL ORDERABLES Performing Organization Address [facility]/ZIP Co de Phone Number LABORATORY [facility] [address] [place] [address] * CHLAMYDIA TRACHOMATIS AND NEISSERIA GONORRHOEAE, AMPLIFIED PROBE (10/05/2023 12:14 PM EDT) Pathologist [facility] Chlamydia Trachomatis Result Negative Negative 10/06/2023 1:[address] [facility] Comment:No Chlamydia trachom atis detected by oil driller-mediated nucleic acid amplification. Neisseria Gonorrhoeae Result Negative Negative 10/06/2023 1:[address] [facility] Comment:No Neisseria gonorrh oeae detected by oil driller-mediated nucleic acid amplification. Urine Urine specimen / Unknown Non-blood Collection / Unknown 10/05/2023 12:14 PM EDT 10/05/2023 12:14 PM EDT Faith Bourgeois PA-C LAB MICRO - GENERAL ORDERABLES Performing Organization Address City/[facility]/ZIP Co de Phone Number LABORATORY [facility] [address] [place] [address] documented in this encounter Visit Diagnoses Diagnosis Screening for STD (sexually transmitted disease)- Primary Screening examination for venereal disease documented in this encounter Advance Directives * [...] and were consensually agreed upon. Care Teams Professional Services Consultant Relationship Specialty Start Date End Date Michelle Calderón MD PCP - General Family Medicine 12/20/23 documented as of this encounter
--- OUTSIDE RECORDS SUMMARY | 2024-01-05 14:38 | External Medical Summary ---
Author Name Unknown Address Unknown Organization K01:[facility] [place] [address] [facility] [address] Laboratory Report Ordering Provider Test Date Status ANUP EMERY 12/21/2023 21:11:30 Final Observation Date Value Abnormality Reference (Units ) Status Treponema pallidum Ab [Presence] in Serum by Immunoassay 12/21/2023 21:11:30 Nonreactive Nonreactive Final No serologic evidence of syp hilis. No additional testing clinicially indicated at this time. Consider repeat testing in 2-4 weeks if acute or primary syphilis is suspected. Performing Location [facility] [place] [address] [place] [address]
--- OUTSIDE RECORDS SUMMARY | 2024-01-05 14:39 | External Medical Summary | Summary of Care ---
Author Name Unknown Organization [facility] Address [address] [place] [address] Phone [phone] Care Team Providers Care Rayon Coner Name Role Phone Unavailable Primary Care Provider Unavailabl e Reason for Visit * Reason Comments Dosage Adjustment Via Phone (anticoag Cl inic) Encounter Details Date Type Department Care Team (Late st Contact Info) Description 12/05/2023 6:45 AM EDT Pharmacy Neurology [place] [place] [address] [place] [address] Manav, Pharmacist Neurology [address] [place] [address] Other generalized epilepsy, not intractable, without status epilepticus (HCC)* Allergies No known active allergiesdocumented as of this encounter (statuses as of 12/05/2023) Medications Medication Sig Dispensed Refills Start Date End Date Status lamoTRIgine 150 MG Oral Tablet (LaMICtal) Take 1 Tablet by mouth in the morning and 1 Tablet before bedtime. 180 Tablet 1 03/28/2023 Active Additional Information Patient taking differently: 175 mgOral BID (.AM/PM), Reported on 10/05/2023 Vitamin B-6 25 MG Oral TabletIndications:P regnant [...] 19 29-1 MG Oral Tablet Chewable Take by mouth. Active FLUoxetine HCl 40 MG Oral Capsule [...] Active Additional Information Patient not taking.Reported on 11/07/2023 Iron-Vitamin C 65-125 MG Oral Tablet (Vitron [...] before bedtime 360 Tablet 1 10/27/2023 Active documented as of this encounter (statuses as of 12/05/2023) Active Problems Problem Noted Date Diagnosed Date GBS (group B Streptococcus c arrier), +RV culture, currently 12/01/2023 Other dietary vitamin B12 deficiency anemia 09/18 Antepartum anemia complicating 024 Supervision of high risk in [facility] 06/21/2023 Depression complicating , antepartum [...] or questions 11/29/2023 Seb Todd RN 11/29/23 Medication exposure during first trimester of pr [...] of cardiovascular malformations compared with unexposed neonates ([id number]). Infants exposed to fluoxetine late in the [...] as of this encounter (statuses as of 12/05/2023) Resolved Problems Problem Noted Date Diagnosed Date [...] information was shared with the patient. The [employer], Society for Maternal- Medicine, CDC and multiple medical associations strongly recommend the COVID-19 vaccine for women who are in any trimester, those attempting to become , women who have recently delivered, who are lactating as well as any other woman, regardless of age or COSTUMED CHARACTER ENTERTAINER disorder. The only exceptions to receiving the vaccine are for those who have a contraindication or allergy to the vaccine or any component of the vaccine or with sincerely held mormon convictions. The CDC and ACOG encourages a [...] MSAFP testing negative. S/p anatomy ultrasound at [facility]. Passed one hour glucose test. CBC [...] the local suicide hotline phone number for [facility]. Has counseling appointment weekly. Last Assessment [...] as of this encounter (statuses as of 12/05/2023) Immunizations Name Administration Dates Next Due COVID-19 mRNA, LNP-s, No Pre serve, 2-Dose Series (Pfizer) 09/03/2020,08/13/2020 DTaP Dipth/Tet/Acell Pertussis (Infanrix), Peds 04/03/2008,01/03/2006,2003,07/2003,2003 H1N1 2008 Influenza, IM 02/24/2009,01/27/2009, HIB PRP-OMP, 3 dose (Pedvax) 2003,06/24/19 04,2003 HPV Vaccine, 9-Valent 05/07/2016,12/24/2015,08/19 Hepatitis A, Ped/Adol., 18 y ear and below, 2-Dose 04/03/2008,09/29/2007 Hepatitis B, 0-19 yrs 2003,2003,02/18 IPV - Polio Virus Vaccine (Inact) 2008,01/05/2006,2003,04/21 MMR - Measles/Mumps/Rubella Vaccine 04/03/2008,0 10/18/2005 Meningococcal MCV4O Conjugat e Vaccine (Menveo) 01/29/2020 Meningococcal MCV4P Conjugat e Vaccine (Menactra) 08/29/2015 PPD 05/10/2023,05/03/2023 Pneumococcal Conjugate Vacci ne, 20-valent ([id number]) 04/09/2022 Pneumococcal Conjugate Vacci ne, 7 Valent 2003,2003 Season Influenza, Quad, PF, Adjuvanted, 65+ Yrs, IM (FLUAD) 05/07/2016 Seasonal Influenza, PF, 6 M & above, IM , (FluLaval or Fluzone) 05/03/2023,04/09/2022 Seasonal Influenza, Trivalen t, (IIV3), with Preserv, (Fluzone) 12/23/2008,02/02/2008 03/01/2008 TDAP (age 10 and older)(Boostrix) 11/17/2021 TDAP, [...] money to get more. Never true 10/24/2023 [place] Depression Scale Answer Date Recorded [place] Depression Scale Total 3 09/20/2023 The thought [...] No 09/09/2020 documented as of this encounter Progress Notes * Tahmina Antunez RPh - 12/05/2023 7:35 AM EDT Keppra and lamotrigine levels remain incomplete despite several attempts made by [facility] to request completion of labs + letter sent. Will discharge the patient from [facility] neurology follow up at this time. Please send new referral if the patient requires follow up in the future. Tahmina Antunez RP Clinical Pharmacist, Neurology Medication Therapy Disease Management 12/05/2023 7:36 AM Electronically signed by Tahmina Antunez [facility] at 12/05/2023 7:37 AM EDT documented in this encounter Plan of Treatment Upcoming Encounters Date Type Department Care Team (Latest Contact Info) Description 12/09/2023 11:45 AM EDT Office Visit Gynecology/Obstetri [facility] [address] [place] [address] Faith Bourgeois PA-C [address] [place] [phone] 12/21/2023 8:00 PM EDT Hospital Encounter [id number], Women's Lower Level 1st Floor [address] [place] [phone] Timothy Grijalva Jr., MD [address] [id number] 12/21/2023 8:00 PM EDT - 12/21/2023 9:21 PM EDT Surgery OBTR [facility], OB Triage, Women's Lower Level 1st Floor [address] [phone] Timothy Grijalva Jr., MD [address] [facility] [place] [phone] INDUCTION FOR VAGINAL DELIVERY 12/26/2023 4:00 PM EDT Telemedicine Neurology [address] [place] [phone] Meredith Vásquez PA-C [address] [facility] [place] [phone] Scheduled Procedures Name Priority Associated Diagnoses Date/Ti me INDUCTION FOR VAGINAL DELIVERY 39 weeks gestation of 12/21/2023 8:00 PM EDT Health Maintenance Due Date Last Done Comments *SPIROMETRY ONCE FOR ASTHMA-ADULT 06/26/2023 COVID-19 Vaccine ( - 2023-2 5 season) 2023 09/03/2020, 08/13/2020 [...] as of this encounter Visit Diagnoses Diagnosis Other generalized epilepsy, not intractable, without status epilepticus (HCC)- Primary 39 weeks gestation of state, incidental documented in this encounter Advance Directives * Full Code (Latest Code Status on File) Date Activated Date Inactivated Comments 12/07/2021 8:15 [...]
--- OUTSIDE RECORDS SUMMARY | 2024-01-05 14:39 | External Medical Summary | Summary of Care ---
Author Name Unknown Organization [facility] [address] [facility] [address] Phone [phone] Care Team Providers Care Group Home Paraprofessional Name Role Phone Unavailable Primary Care Provider Unavailabl e Reason for Visit * Reason Comments Return Visit Non Stress Test Encounter Details Date Type Department Care Team (Late st Contact Info) Description 11/29/2023 11:00 AM EDT Office Visit Gynecology/Obstetric s [facility] [address] [place] [address] Ora Stern CRNP [address] [place] [address] Ion Non Stress Tests [facility] [address] [place] [address] Supervision of high risk in third trimester*; Maternal asthma complicating ; Depression complicating , antepartum; Seizure disorder during in third trimester (HCC); Obesity affecting , antepartum, unspecified trimester; Health counseling; Medication exposure during first trimester of ; Other dietary vitamin B12 deficiency anemia; Antepartum anemia complicating Allergies No known active allergiesdocumented as of this encounter (statuses as of 11/29/2023) Medications Medication Sig Dispensed Refills Start Date [...] as of this encounter (statuses as of 11/29/2023) Active Problems Problem Noted Date Diagnosed Date Other dietary vitamin B12 deficiency anemia 09/18 Antepartum anemia complicating 024 [facility] 06/21/2023 Depression complicating , antepartum Overview: History [...] of cardiovascular malformations compared with unexposed neonates ([id number]). Infants exposed to fluoxetine late in the [...] as of this encounter (statuses as of 11/29/2023) Resolved Problems Problem Noted Date Diagnosed Date [...] information was shared with the patient. The [place] [employer], Society for Maternal- Medicine, CDC and multiple medical associations strongly recommend the COVID-19 vaccine for women who are in any trimester, those attempting to become , women who have recently delivered, who are lactating as well as any other woman, regardless of age or FOOT CASTER disorder. The only exceptions to receiving the vaccine are for those who have a contraindication or allergy to the vaccine or any component of the vaccine or with sincerely held mu-ism convictions. The CDC and ACOG encourages a [...] MSAFP testing negative. S/p anatomy ultrasound at [facility]. Passed one hour glucose test. CBC [...] the local suicide hotline phone number for [facility]. Has counseling appointment weekly. Last Assessment & [...] as of this encounter (statuses as of 11/29/2023) Immunizations Name Administration Dates Next Due COVID-19 mRNA, LNP-s, No Pre serve, 2-Dose Series (AdexLink) 09/03/2020,08/13/2020 DTaP Dipth/Tet/Acell Pertussis (Infanrix), Peds 04/03/2008,01/03/2006,2003,07/2003,2003 [...] PPD 05/10/2023,05/03/2023 Pneumococcal Conjugate Vacci ne, 20-valent ([id number]) 04/09/2022 Pneumococcal Conjugate Vacci ne, 7 Valent [...] money to get more. Never true 10/24/2023 [place] Depression Scale Answer Date Recorded [place] Depression Scale Total 3 09/20/2023 The thought [...] Sign Reading Time Taken Comments Blood Pressure 120/68 11/29/2023 11:37 AM EDT Pulse - - Temperature - - Respiratory Rate - - Oxygen Saturation - - Inhaled Oxygen Concentration - - Weight 106.9 kg (235 lb 9.6 oz) 024 11:37 AM EDT Height - - Body Mass Index 44.52 11/24/2023 1:41 PM EDT documented in this encounter Functional [...] as of this encounter Progress Notes * Nilsa Santos CMA - 11/29/2023 11:37 AM EDT 36w0d Denies any concerns GBS swab today * Ora Stern CRNP - 11/29/2023 11:12 AM EDT 36w0d Reports good movement. No leaking, bleeding, ctx. GBS today. Growth scan completed with M last week, cephalic presentation. Recommend RSV vaccination, pt declines. Reports receiving flu shot already. Will recheck CBC. Provided with labor instructions, including contact information for [facility]. Return in 1 week for visit, NST. Already scheduled for 39 week induction. [facility] [employer] Documentation Provider requested wheel and axle inspector. Name of wheel and axle inspector: ASHLEY Palumbo ASSESSMENT assessment with Non-stress Test completed on 11/29/2023 at 36 weeks gestation for indication of obesity heart baseline: 130 bpm Variability: Moderate Decelerations: absent Accelerations: present Contractions: None NST start time: 1110 NST stop time: 1149 NST strip reviewed, interpreted, and approved by OB provider, ASHLEY Hamilton . NST strip stored in clinic storage file documented in this encounter Nursing Notes * Seb Todd RN - 11/29/2023 11:23 AM EDT Patient seen by [facility]. Patient denies any questions or concerns. NST today for Class III Obesity documented in this encounter Plan of Treatment Upcoming Encounters Date Type Department Care Team (Late st Contact Info) Description 12/05/2023 6:45 AM EDT Pharmacy Neurology [address] [place] [phone] Manav, Pharmacist Neurology [address] [place] [address] 12/21/2023 8:00 PM EDT Hospital Encounter W[facility]1 [facility], Women's Lower Level 1st Floor [address] [facility] [place] [address] Timothy Grijalva Jr., MD [address] [place], [place] [phone] 12/21/2023 8:00 PM EDT - 12/21/2023 9:21 PM EDT Surgery OBTR [facility], OB Triage, Women's Lower Level 1st Floor [address] [facility] [place] [address] Timothy Grijalva Jr., MD [address] [place] [address] INDUCTION FOR VAGINAL DELIVERY 12/26/2023 4:00 PM EDT Telemedicine Neurology [address] [place] [phone] Meredith Vásquez PA-C [address] [place], [place] [phone] Pending Results Name Type Priority Associated Diagnoses Date /Time GROUP B STREP CULTURE/PCR Lab Routine Supervision of high risk in third trimester 11/29/2023 12:07 PM EDT Scheduled Orders Name Type Priority Associated Diagnoses Orde r Schedule GROUP B STREP CULTURE/PCR Lab Routine Supervision of high risk in third trimester Expected: 11/29/2023, Expires: 11/28/2024 CBC Lab Routine Antepartum anemia complicating Expected: 11/29/2023 (Approximate), Expires: 11/28/2024 Scheduled Procedures Name Priority Associated Diagnoses Date/Ti me INDUCTION FOR VAGINAL DELIVERY 39 weeks gestation of 12/21/2023 8:00 PM EDT Health Maintenance Due Date Last Done Comments *SPIROMETRY ONCE FOR ASTHMA-ADULT 06/26/2023 COVID-19 Vaccine (3 - 2022-2 4 season) 2023 09/03/2020, 08/13/2020 Influenza Vaccine (FLU [...] as of this encounter Visit Diagnoses Diagnosis Supervision of high risk in third trimester- Primary Unspecified high-risk Maternal asthma complicating Other current maternal conditions classifiable elsewhere, complicating , childbirth, or the puerperium, unspecified as to episode of care Depression complicating , antepartum Mental disorders of mother, antepartum Seizure disorder during in third trimester (HCC) Obesity affecting , antepartum, unspecified trimester Health counseling Other specified counseling Medication exposure during first trimester of Supervision of other high-risk Other dietary vitamin B12 deficiency anemia Antepartum anemia complicating Anemia, antepartum 39 weeks gestation of state, incidental documented [...]
--- OUTSIDE RECORDS SUMMARY | 2024-01-05 14:39 | External Medical Summary | Summary of Care ---
Author Name Unknown Organization [facility] Address [address] [facility] [place] [address] Phone [phone] Care Team Providers Care Auto Crane Driver Name Role Phone Unavailable Primary Care Provider Unavailabl e Reason for Referral * Evaluate & Treat - Unlimited Visits (Within 10 days (routine)) Specialty Diagnoses / Procedures Referred By [place] Referred To Contact Pediatric Hematology/Oncology Ora Stern CRNP [address] [place] [id number] Referral ID Status Reason Start Date Expiration Date V isits Requested Visits Authorized Specialty Services Required Question Answer Referral Priority Within 10 days (routine) Where should this appointment be scheduled? [facility] Reason for Visit * Reason Onset Date Comments Test Results 11/29/2023 Encounter Details Date Type Department Care Team (Late st Contact Info) Description 11/29/2023 Telephone Gynecology/Obstetrics [facility] [address] [place] [address] Ora Stern CRNP [address] [place] [phone] Test Results Allergies No known active allergiesdocumented as of this encounter (statuses as of 12/01/2023) Medications Medication Sig Dispensed Refills Start Date [...] as of this encounter (statuses as of 12/01/2023) Active Problems Problem Noted Date Diagnosed Date GBS (group B Streptococcus c arrhang), +RV culture, currently 12/01/2023 Other dietary vitamin B12 deficiency anemia 09/18 Antepartum anemia complicating 024 [facility] 06/21/2023 Depression complicating , antepartum Overview: History [...] of cardiovascular malformations compared with unexposed neonates ([id number]). Infants exposed to fluoxetine late in the [...] as of this encounter (statuses as of 12/01/2023) Resolved Problems Problem Noted Date Diagnosed Date [...] 11/10/21 Elif John RN 06/01/21 08/25/21 11/10/21 08/25/2111/10/22 COVID-19 vaccine series started 05/11/2021 01/19/2022 Overview: [...] information was shared with the patient. The [employer] [place] [employer] and Gyne[employer], Society for Maternal- Medicine, CDC and multiple medical associations strongly recommend the COVID-19 vaccine for women who are in any trimester, those attempting to become , women who have recently delivered, who are lactating as well as any other woman, regardless of age or PLATE STACKER HAND disorder. The only exceptions to receiving the [...] MSAFP testing negative. S/p anatomy ultrasound at [facility]. Passed one hour glucose test. CBC [...] the local suicide hotline phone number for [facility]. Has counseling appointment weekly. Last Assessment & [...] as of this encounter (statuses as of 12/01/2023) Immunizations Name Administration Dates Next Due COVID-19 mRNA, LNP-s, No Pre serve, 2-Dose Series (Pfizer) 09/03/2020,08/13/2020 DTaP Dipth/Tet/Acell Pertussis (Infanrix), Peds 04/03/2008,01/03/2006,2003,07/2003,2003 H1N1 2009 Influenza, IM 02/24/2009,01/27/2009, HIB PRP-OMP, 3 dose (Pedvax) 2003,06/24/19,2003 HPV Vaccine, 9-Valent 05/07/2016,12/24/2015,08/19 Hepatitis A, Ped/Adol., 18 y ear and below, 2-Dose 04/03/2008,09/29/2007 Hepatitis B, 0-19 yrs 2003,2003,02/18 IPV - Polio Virus Vaccine (Inact) 2008,01/05/2006,2003,04/21 MMR - Measles/Mumps/Rubella Vaccine 04/03/2008,0 10/18/2005 Meningococcal MCV4O Conjugat e Vaccine (Menveo) 01/29/2020 Meningococcal MCV4P Conjugat e Vaccine (Menactra) 08/29/2015 PPD 05/10/2023,05/03/2023 Pneumococcal Conjugate Vacci ne, 20-valent ([id number]) 04/09/2022 Pneumococcal Conjugate Vacci ne, 7 Valent [...] money to get more. Never true 10/24/2023 [place] Depression Scale Answer Date Recorded [place] Depression Scale Total 3 09/20/2023 The thought [...] encounter Miscellaneous Notes * Telephone Encounter - Cayla Mcdonald RN - 12/01/2023 12:37 PM EDT Patient called and made aware. She was agreeable to blood management. They have already contacted her. * Telephone Encounter - Shirlene Shankar LPN - 11/29/2023 2:42 PM EDT Called pt lm to return call. Triage number provided * Telephone Encounter - Ora Stern CRNP - 11/29/2023 12:42 PM EDT Hemoglobin is <11, recommend iron infusions. Please let pt know, I will place a referral to blood mgmt. ASHLEY Hamilton documented in this encounter Plan of Treatment Upcoming Encounters Date Type Department Care Team (Late st Contact Info) Description 12/05/2023 6:45 AM EDT Pharmacy Neurology Man[address] [place] [phone] Manav, Pharmacist Neurology [address] [facility] [place] [address] 12/09/2023 11:45 AM EDT Office Visit Gynecology/Obstetr ics [facility] [address] [place] [address] Faith Bourgeois PA-C [address] [place] [address] 12/21/2023 8:00 PM EDT Hospital Encounter WLL1 [facility], Women's Lower Level 1st Floor [address] [place] [address] Timothy Grijalva Jr., MD [address] [place] [address] 12/21/2023 8:00 PM EDT - 12/21/2023 9:21 PM EDT Surgery OBTR [facility], OB Triage, Women's Lower Level 1st Floor [address] [place], [place] [phone] Timothy Grijalva Jr., MD [address] [place] [address] INDUCTION FOR VAGINAL DELIVERY 12/26/2023 4:00 PM EDT Telemedicine Neurology [facility] [place] [address] Meredith Vásquez PA-C [address] [place], [place] [phone] Scheduled Procedures Name Priority Associated Diagnoses Date/Ti me INDUCTION FOR VAGINAL DELIVERY 39 weeks gestation of 12/21/2023 8:00 PM EDT Scheduled Referrals Name Type Priority Associated Diagnoses Orde r Schedule BLOOD MANAGEMENT REFERRAL Referral Within 10 days (routine) Antepartum anemia complicating Ordered: 11/29/2023 Health Maintenance Due Date Last Done Comments [...] as of this encounter Visit Diagnoses Diagnosis Antepartum anemia complicating - Primary Anemia, antepartum 39 weeks gestation of state, [...]
--- OUTSIDE RECORDS SUMMARY | 2024-01-05 14:39 | External Medical Summary | Summary of Care ---
Author Name Unknown Organization [facility] Address [address] [place] [address] Phone [phone] Care Team Providers Care Residential Mortgage Underwriter Name Role Phone Unavailable Primary Care Provider Unavailabl e Reason for Visit * Reason Comments Dosage Adjustment Via Phone (anticoag Cl inic) Encounter Details Date Type Department Care Team (Late st Contact Info) Description 11/14/2023 6:45 AM EDT Pharmacy Neurology [place], [place] [address] [place] [address] Manav, Pharmacist Neurology [address] [place] [address] Other generalized epilepsy, not intractable, [...] complicating 024 Supervision of high risk in [facility] 06/21/2023 Depression complicating , antepartum Overview: [...] of cardiovascular malformations compared with unexposed neonates ([id number]). Infants exposed to fluoxetine late in the [...] was shared with the patient. The [place] [employer] Obstetrics and Gynecology, Society for Maternal- Medicine, CDC and multiple medical associations strongly recommend the COVID-19 vaccine for women who are in any trimester, those attempting to become , women who have recently delivered, who are lactating as well as any other woman, regardless of age or POULTRY OFFAL WORKER disorder. The only exceptions to receiving the vaccine are for those who have a contraindication or allergy to the vaccine or any component of the vaccine or with sincerely held voodoo convictions. The CDC and ACOG encourages a [...] MSAFP testing negative. S/p anatomy ultrasound at [facility]. Passed one hour glucose test. CBC within [...] the local suicide hotline phone number for [facility]. Has counseling appointment weekly. Last Assessment & [...] PPD 05/10/2023,05/03/2023 Pneumococcal Conjugate Vacci ne, 20-valent ([id number]) 04/09/2022 Pneumococcal Conjugate Vacci ne, 7 Valent [...] money to get more. Never true 10/24/2023 [place] Depression Scale Answer Date Recorded [place] Depression Scale Total 3 09/20/2023 The thought [...] as of this encounter Progress Notes * Lulú Jones OSA - 12/05/2023 1:25 PM EDT Letter printed and mailed to [place] [phone] * Tahmina Antunez RP - 11/14/2023 6:52 AM EDT Patient is due for Keppra and lamotrigine levels. Multiple attempts made by [facility] to request completion of labs. Will send letter as final attempt. Follow up in 3 weeks. If labs remain incomplete, will discharge patient from [facility] monitoring. Tahmina Antunez RPh Clinical Pharmacist, Neurology Medication Therapy Disease Management 11/14/2023 6:55 AM documented in this encounter Plan of Treatment Upcoming Encounters Date Type Department Care Team (Latest Contact Info) Description 12/09/2023 11:45 AM EDT Office Visit Gynecology/Obstetri [facility] [address] [place] [address] Faith Bourgeois PA-C [address] [place] [address] 12/21/2023 8:00 PM EDT Hospital Encounter WLL1 C, Women's Lower Level 1st Floor [address] [facility] [place] [phone] Timothy Grijalva Jr., MD [address] [facility] [place], [place] [phone] 12/21/2023 8:00 PM EDT - 12/21/2023 9:21 PM EDT Surgery [facility], Women's Lower Level 1st Floor [address] [place] [phone] Timothy Grijalva Jr., MD [address] [facility] [place] [phone] INDUCTION FOR VAGINAL DELIVERY 12/26/2023 4:00 PM EDT Telemedicine Neurology Man[address] [place] [phone] Meredith Vásquez PA-C [address] [place] [facility] [place] [address] Scheduled Procedures Name Priority Associated Diagnoses Date/Ti [...]
--- OUTSIDE RECORDS SUMMARY | 2024-01-05 14:39 | External Medical Summary | Summary of Care ---
Author Name Unknown Organization [facility] Address [address] [facility] [address] Phone [phone] Care Team Providers Care Gas Mask Inspector Name Role Phone Unavailable Primary Care Provider Unavailabl e Reason for Visit * Reason Comments Outpatient Testing Encounter Details Date Type Department Care Team (Late st Contact Info) Description 11/29/2023 12:40 PM EDT Laboratory Laboratory, [facility] [address] [facility] [phone] [facility] [address] [facility] [place] [address] Antepartum anemia complicating Allergies No known active [...] complicating 024 Supervision of high risk in [facility] 06/21/2023 Depression complicating , antepartum Overview: History [...] of cardiovascular malformations compared with unexposed neonates ([id number]). Infants exposed to fluoxetine late in the [...] to complete COVID-19 booster. Maternal asthma complicating 2 Overview: Managed with Albuterol as needed 06/23/23 [...] information was shared with the patient. The [place] [employer] Obst[employer]s and Gyne[employer], Society for Maternal- Medicine, CDC and multiple medical associations strongly recommend the COVID-19 vaccine for women who are in any trimester, those attempting to become , women who have recently delivered, who are lactating as well as any other woman, regardless of age or SHEET ROCK FINISHER disorder. The only exceptions to receiving the vaccine are for those who have a contraindication or allergy to the vaccine or any component of the vaccine or with sincerely held orthodox convictions. The CDC and ACOG encourages a [...] MSAFP testing negative. S/p anatomy ultrasound at [facility]. Passed one hour glucose test. CBC [...] the local suicide hotline phone number for [facility]. Has counseling appointment weekly. Last Assessment [...] PPD 05/10/2023,05/03/2023 Pneumococcal Conjugate Vacci ne, 20-valent ([id number]) 04/09/2022 Pneumococcal Conjugate Vacci ne, 7 Valent [...] money to get more. Never true 10/24/2023 [place] Depression Scale Answer Date Recorded [place] Depression Scale Total 3 09/20/2023 The thought [...] [place] [phone] Manav, Pharmacist Neurology [address] [facility] [place] [address] 12/09/2023 11:45 AM EDT Office Visit Gynecology/Obstetr [facility] [address] [facility] [place] [address] Faith Bourgeois PA-C [address] [place] [address] 12/21/2023 8:00 PM EDT Hospital Encounter [facility] Women's [place] Level 1st Floor [address] [facility] [place] [phone] Timothy Grijalva Jr., MD [address] [place], [place] [phone] 12/21/2023 8:00 PM EDT - 12/21/2023 9:21 PM EDT Surgery OBTR [facility], Women's Lower Level 1st Floor [address] [facility] [place] [address] Timothy Grijalva Jr., MD [address] [facility] [place], [place] [phone] INDUCTION FOR VAGINAL DELIVERY 12/26/2023 4:00 PM EDT Telemedicine Neurology [address] [place] [address] Meredith Vásquez PA-C [address] [place] [address] Pending Results Name Type Priority Associated Diagnoses Date /Time CBC Lab Routine Antepartum anemia complicating 11/29/2023 12:13 PM EDT Scheduled Procedures Name Priority Associated Diagnoses Date/Ti [...] encounter Visit Diagnoses Diagnosis Antepartum anemia complicating Anemia, antepartum 39 weeks gestation of state, incidental documented in this encounter Advance Directives * Full Code (Latest Code Status on File) Date Activated Date Inactivated Comments 12/07/2021 8:15 PM 12/10/2021 4:25 PM This order reflects the patients wishes and were consensually agreed upon. Question Answer Comments Discussion of Advance Directives occurred with: Patient * Full Code Date Activated Date Inactivated Comments 09/09/2020 12:19 PM 09/10/2020 8:34 PM This order reflects the patients wishes and were consensually agreed upon.
--- OUTSIDE RECORDS SUMMARY | 2024-01-05 14:39 | External Medical Summary | Summary of Care ---
Author Name Unknown Organization [facility] Address [address] [place] [address] Phone [phone] Care Team Providers Care Vp Revenue Cycle Name Role Phone Unavailable Primary Care Provider Unavailabl e Reason for Visit * Reason Comments Blood Management Program Encounter Details Date Type Department Care Team (Late st Contact Info) Description 11/29/2023 Documentation Patient Blood Management, [place] [address] [place] [address] Jose Ulrich, RN JAVIER (iron deficiency anemia)* Allergies No known active allergiesdocumented as of this encounter (statuses as of 12/19/2023) Medications Medication Sig Dispensed Refills Start Date [...] as of this encounter (statuses as of 12/19/2023) Active Problems Problem Noted Date Diagnosed Date GBS (group B Streptococcus c arrier), +RV culture, currently 12/01/2023 Other dietary vitamin B12 deficiency anemia 09/18 Antepartum anemia complicating 024 Supervision of high risk in [facility] 06/21/2023 Depression complicating , antepartum Overview: [...] of cardiovascular malformations compared with unexposed neonates ([id number]=2026). Infants exposed to fluoxetine late in the [...] as of this encounter (statuses as of 12/19/2023) Resolved Problems Problem Noted Date Diagnosed Date [...] information was shared with the patient. The [employer], Society for Maternal- Medicine, CDC and multiple medical associations strongly recommend the COVID-19 vaccine for women who are in any trimester, those attempting to become , women who have recently delivered, who are lactating as well as any other woman, regardless of age or EVENT DECORATOR AND DESIGNER disorder. The only exceptions to receiving the vaccine are for those who have a contraindication or allergy to the vaccine or any component of the vaccine or with sincerely held pentecostal convictions. The CDC and ACOG encourages a [...] local suicide hotline phone number for [facility]. Has counseling appointment weekly. Last Assessment & [...] as of this encounter (statuses as of 12/19/2023) Immunizations Name Administration Dates Next Due COVID-19 [...] PPD 05/10/2023,05/03/2023 Pneumococcal Conjugate Vacci ne, 20-valent ([id number]) 04/09/2022 Pneumococcal Conjugate Vacci ne, 7 Valent [...] money to get more. Never true 10/24/2023 [place] Depression Scale Answer Date Recorded [place] Depression Scale Total 3 09/20/2023 The thought [...] as of this encounter Progress Notes * Jose Ulrich RN - 11/29/2023 1:34 PM EDT REFERRAL - Patient Blood Management Name: Keiko Le REQUESTING SERVICE: Bozena Briseno OB REASON FOR REFERRAL: new evaluation outpatient, anemia in [facility]HAEL: 12/27/23 Anemia Evaluation: Latest Reference Range & Units 10/05/23 13:18 11/29/23 12:13 HGB 12.0 - 15.3 g/dL 11.1 (L) 10.8 (L) HCT 36.0 - 45.2 % 35.0 (L) 32.8 (L) (L): Data is abnormally low Current Patient Medications: Medications that may impair hemostasis: none Medications that may impair iron absorption: none Patient Refused Blood Transfusion? (e.g. Quaker): no Possible Contributing Factors: iron deficiency Treatment Recommendations: IV iron per OB MTM guidelines. 11/28 - myG sent to patient. 12/04 - Spoke with Keiko, made her aware she needs updated iron studies before she can have IV iron. Will get with next OB appointment. Will check labs afterward. 12/11 - Iron labs not drawn, patient cx her OB appt so did not collect labs. 12/18 - labs not collected. Induction scheduled for 2 days from now on Tuesday. PBM signing off. If patient collects labs and if she is iron deficient could consider giving IV iron in hospital prior to induction. Can consult PBM as desired. Thank you for allowing Blood Management to participate in the care of this patient. documented in this encounter Plan of Treatment Upcoming Encounters Date Type Department Care Team (Latest Contact Info) Description 12/19/2023 4:30 PM EDT Office Visit Gynecology/Obstetri [facility] [address] [place] [address] Faith Bourgeois PA-C [address] [place] [address] 12/21/2023 8:00 PM EDT Hospital Encounter W[facility]1 [facility], Women's Lower Level 1st Floor [address] [facility] [place] [address] Timothy Grijalva Jr., MD [address] [place], [place] [phone] 12/21/2023 8:00 PM EDT - 12/21/2023 9:21 PM EDT Surgery OBTR [facility], OB Triage, Women's Lower Level 1st Floor [address] [facility] [place] [address] Timothy Grijalva Jr., MD [address], [place] [phone] INDUCTION FOR VAGINAL DELIVERY 12/26/2023 4:00 PM EDT Telemedicine Neurology Manav [address] [place] [phone] Meredith Vásquez PA-C [address] [place] [facility] [place] [address] Scheduled Orders Name Type Priority Associated Diagnoses Orde r Schedule FERRITIN Lab Routine JAVIER (iron deficiency anemia) Expected: 11/29/2023, Expires: 11/28/2024 RETICULOCYTE PANEL Lab Routine JAVIER (iron deficiency anemia) Expected: 11/29/2023, Expires: 11/28/2024 IRON SCREEN, INCLUDING TIBC Lab Routine JAVIER (iron deficiency anemia) Expected: 11/29/2023, Expires: 11/28/2024 Scheduled Procedures Name Priority Associated [...] as of this encounter Visit Diagnoses Diagnosis JAVIER (iron deficiency anemia)- Primary Iron deficiency anemia, unspecified 39 weeks gestation of state, incidental documented [...]
--- OUTSIDE RECORDS SUMMARY | 2024-01-05 14:39 | External Medical Summary | Summary of Care ---
Author Name Unknown Organization [facility] Address [address] [facility] [place] [address] Phone [phone] Care Team Providers Care Applications Scientist Name Role Phone Unavailable Primary Care Provider Unavailabl e Reason for Visit * Reason Comments Return Visit Non Stress Test Encounter Details Date Type Department Care Team (Latest Contact Info) Description 12/19/2023 4:30 PM EDT Office Visit Gynecology/Obstetric s [facility] [address] [place] [address] Faith Bourgeois PA-C [address] [place] [address] Supervision of high risk in second trimester*; Maternal asthma complicating ; Depression complicating , antepartum; Seizure disorder during in third trimester (HCC); Obesity affecting , antepartum, unspecified trimester; Health counseling; Medication exposure during first trimester of ; Other dietary vitamin B12 deficiency anemia; Antepartum anemia complicating ; GBS (group B Streptococcus carrier), +RV culture, currently Allergies No known active allergiesdocumented as of [...] Diagnosed Date GBS (group B Streptococcus c reinaldo), +RV culture, currently 12/01/2023 Other dietary vitamin B12 deficiency anemia 09/18 Antepartum anemia complicating 024 Supervision of high risk in second [facility] 06/21/2023 Depression complicating , antepartum Overview: History [...] of cardiovascular malformations compared with unexposed neonates (i=2407). Infants exposed to fluoxetine late in the [...] any other woman, regardless of age or PATIENT SERVICES COORDINATOR disorder. The only exceptions to receiving the vaccine are for those who have a contraindication or allergy to the vaccine or any component of the vaccine or with sincerely held scientology convictions. The CDC and ACOG encourages a [...] MSAFP testing negative. S/p anatomy ultrasound at [facility]. Passed one hour glucose test. [...] the local suicide hotline phone number for [facility]. Has counseling appointment weekly. Last Assessment [...] mRNA, LNP-s, No Pre serve, 2-Dose Series ([employer]) 09/03/2020,08/13/2020 DTaP Dipth/Tet/Acell Pertussis (Infanrix), Peds 04/03/2008,01/03/2006,2003,07/2003,2003 [...] PPD 05/10/2023,05/03/2023 Pneumococcal Conjugate Vacci ne, 20-valent ([email or web address]) 04/09/2022 Pneumococcal Conjugate Vacci ne, 7 Valent [...] money to get more. Never true 10/24/2023 [place] Depression Scale Answer Date Recorded [place] Depression Scale Total 3 09/20/2023 The thought [...] Sign Reading Time Taken Comments Blood Pressure 106/62 12/19/2023 4:08 PM EDT Pulse - - Temperature - - Respiratory Rate - - Oxygen Saturation - - Inhaled Oxygen Concentration - - Weight 106.6 kg (235 lb) 12/19/2023 4:08 PM EDT Height 154.9 cm (5' 1") 12/19/2023 4:08 PM EDT Body Mass Index 44.4 12/19/2023 4:08 PM EDT documented in this encounter Functional [...] as of this encounter Progress Notes * Faith Bourgeois PA-C - 12/19/2023 5:03 PM EDT 38w6d IOL in 2 days at [facility] -- has number to call and aware of when to call. Doing well. Denies VB, LOF, contractions. Pos fm. Anemic, Hgb 10.8. Referred for IV, pt states has not follow up as did not receive call. Has been trying to increase iron in diet. Plans Nexplanon -- would be interested in immediate PP LARC if able. ASSESSMENT assessment with Non-stress Test completed on 12/19/2023 at 38.6 weeks gestation for indicationof obesity heart baseline: 125 bpm Variability: Moderate Decelerations: absent Accelerations: present Contractions: Present irregular, lasting less than 30 seconds, not felt by patient NST start time: 16:10 NST stop time: 16:35 NST strip reviewed, interpreted, and approved by OB provider, Faith Bourgeois PA-C. NST strip stored in clinic storage file RTC for visit Faith Bourgeois PA-C documented in this encounter Nursing Notes * Mary Farfan LPN - 12/19/2023 4:21 PM EDT 38w6d NST, DAVID IOL scheduled 12/20 at [facility]. * Cayla Mcdonald RN - 12/19/2023 4:20 PM EDT Patient her for DAVID/NST 38w6d + FM Denies contractions, vaginal bleeding or fluid leaking Patient seen by [facility] Machine Hoop Maker. Patient denies any questions or concerns. Cayla Mcdonald RN documented in this encounter Plan of Treatment Upcoming Encounters Date Type Department Care Team (Latest Contact Info) Description 12/21/2023 8:00 PM EDT Hospital Encounter WLL1 [facility], Women's Lower Level 1st Floor [address] [facility] [place] [id number] Timothy Grijalva Jr., MD [address] [facility] [place], [place] [phone] 12/21/2023 8:00 PM EDT - 12/21/2023 9:21 PM EDT Surgery OBTR [facility], OB Triage, Women's Lower Level 1st Floor [address] [facility] [place] [id number] Timothy Grijalva Jr., MD [address] [facility] [place], [place] [phone] INDUCTION FOR VAGINAL DELIVERY 12/26/2023 4:00 PM EDT Telemedicine Neurology Manav [address] [place] [phone] Meredith Vásquez PA-C [address] [facility] [place] [phone] Scheduled Procedures Name Priority Associated Diagnoses Date/Ti [...] Diagnoses Diagnosis Supervision of high risk in second trimester- Primary Unspecified high-risk Maternal asthma complicating [...] deficiency anemia Antepartum anemia complicating Anemia, antepartum GBS (group B Streptococcus carrier), +RV culture, currently Supervision of other high-risk 39 weeks gestation of state, incidental documented [...]
--- OUTSIDE RECORDS SUMMARY | 2024-01-05 14:39 | External Medical Summary | Summary of Care ---
Author Name Unknown Organization [facility] Address [address] [facility] [address] Phone [phone] Care Team Providers Care Bowling Ball Finisher Name Role Phone Unavailable Primary Care Provider Unavailabl e Reason for Visit * Reason Comments Return Visit Non Stress Test Encounter Details Date Type Department Care Team (Late st Contact Info) Description 11/29/2023 11:00 AM EDT Office Visit Gynecology/Obstetric s [facility] [address] [place] [address] Ora Stern CRNP [address] [place] [address] Ion Non Stress Tests [facility] [address] [place] [address] Supervision of high risk in third trimester*; [...] complicating 024 Supervision of high risk in [facility] 06/21/2023 Depression complicating , antepartum Overview: [...] of cardiovascular malformations compared with unexposed neonates ([id number]). Infants exposed to fluoxetine late in the [...] information was shared with the patient. The [employer]s [employer] Gyne[employer], Society for Maternal- Medicine, CDC and multiple medical associations strongly recommend the COVID-19 vaccine for women who are in any trimester, those attempting to become , women who have recently delivered, who are lactating as well as any other woman, regardless of age or PACKAGE DESIGNER disorder. The only exceptions to receiving the vaccine are for those who have a contraindication or allergy to the vaccine or any component of the vaccine or with sincerely held denominational convictions. The CDC and ACOG encourages a [...] MSAFP testing negative. S/p anatomy ultrasound at [facility]. Passed one hour glucose test. CBC within [...] the local suicide hotline phone number for [facility]. Has counseling appointment weekly. Last Assessment [...] mRNA, LNP-s, No Pre serve, 2-Dose Series ([employer]) 09/03/2020,08/13/2020 DTaP Dipth/Tet/Acell Pertussis (Infanrix), Peds 04/03/2008,01/03/2006,2003,07/2003,2003 [...] PPD 05/10/2023,05/03/2023 Pneumococcal Conjugate Vacci ne, 20-valent ([id number]) 04/09/2022 Pneumococcal Conjugate Vacci ne, 7 Valent [...] money to get more. Never true 10/24/2023 [place] Depression Scale Answer Date Recorded [place] Depression Scale Total 3 09/20/2023 The thought [...] NST. Already scheduled for 39 week induction. Enrichment Specialist Documentation Provider requested transmission tester. Name of transmission tester: ASHLEY Palumbo ASSESSMENT assessment with Non-stress Test [...] 11:23 AM EDT Patient seen by [facility] Plate Printer. Patient denies any questions or concerns. NST today for Class III Obesity documented in this encounter Plan of Treatment Upcoming Encounters Date Type Department Care Team (Late st Contact Info) Description 11/29/2023 12:40 PM EDT Laboratory Laboratory, [facility] [address] [place] [place] [phone] [facility] [address] [place] [address] Antepartum anemia complicating 12/05/2023 6:45 AM EDT Pharmacy Neurology Manav [address] [place] [phone] Manav, Pharmacist Neurology [address] [facility] [place] [phone] 12/09/2023 11:45 AM EDT Office Visit Gynecology/Obstetr ics [facility] [address] [place] [address] Faith Bourgeois PA-C [address] [facility] [place] [address] 12/21/2023 8:00 PM EDT Hospital Encounter WLL1 [facility], Women's Lower Level 1st Floor [address] [place] [address] Timothy Grijalva Jr., MD [address] [place] [address] 12/21/2023 8:00 PM EDT - 12/21/2023 9:21 PM EDT Surgery OBTR [facility], OB Triage, Women's Lower Level 1st Floor [address] [place] [address] Timothy Grijalva Jr., MD [address] [place] [id number] INDUCTION FOR VAGINAL DELIVERY 12/26/2023 4:00 PM EDT Telemedicine Neurology Manav [address] [place] [phone] Meredith Vsáquez PA-C [address] [place] [address] Pending Results Name Type Priority Associated Diagnoses Date /Time GROUP B STREP CULTURE/PCR Lab Routine Supervision of high risk in third trimester 11/29/2023 12:07 PM EDT CBC Lab Routine Antepartum anemia complicating 11/29/2023 12:13 PM EDT Scheduled Orders Name Type Priority [...] ONCE FOR ASTHMA-ADULT 06/26/2023 COVID-19 Vaccine (3 2022-2 4 season) 2023 09/03/2020, 08/13/2020 Influenza [...] deficiency anemia Antepartum anemia complicating Anemia, antepartum Antepartum anemia complicating Anemia, antepartum 39 weeks [...]
--- OUTSIDE RECORDS SUMMARY | 2024-01-05 14:39 | External Medical Summary | Summary of Care ---
Author Name Unknown Organization [facility] Address [address] [facility] [place] [address] Phone [phone] Care Team Providers Care Water Resource Agent Name Role Phone Unavailable Primary Care Provider Unavailabl e Reason for Referral * Evaluate & Treat - Unlimited Visits (Within 10 days (routine)) Specialty Diagnoses / Procedures Referred By [place] Referred To Contact Pediatric Hematology/Oncology Ora Stern CRNP [address] [place] [address] Referral ID Status Reason Start Date Expiration Date V isits Requested Visits Authorized Specialty Services Required Question Answer Referral Priority Within 10 days (routine) Where should this appointment be scheduled? [facility] Reason for Visit * Reason Onset Date Comments Test Results 11/29/2023 Encounter Details Date Type Department Care Team (Late st Contact Info) Description 11/29/2023 Telephone Gynecology/Obstetrics [facility] [employer] [address] [place] [address] Ora Stern CRNP [address] [place] [phone] Test Results Allergies No known active allergiesdocumented [...] 024 Supervision of high risk in second [facility] 06/21/2023 Depression complicating , antepartum Overview: [...] Discuss options with Provider 05/27/2023 Cayla Mcdonald KEN 05/27/2023 Problem Action Taken Date entered Entered by Date resolved Poor dental hygiene encourage routine brushing and flossing and referal to local dental clinic that accepts [place] insurances 05/27/2023 Cayla Mcdonald RN 05/27/2023 Problem Action Taken Date entered Entered by Date resolved Not taking vitamin Advised 05/27/2023 Cayla Mcdonald, KEN 05/27/2023 Problem Action Taken Date entered Entered by Date resolved vitamin Counseled on importance to get and be taking 07/20/2023 Cayla Mcdonald, KEN 07/20/2023 Problem Action Taken Date entered Entered [...] or questions 11/29/2023 Seb Todd, KEN 11/29/23 Medication exposure during first trimester of [...] of cardiovascular malformations compared with unexposed neonates ([id number]). Infants exposed to fluoxetine late in the [...] information was shared with the patient. The [place] [employer]s [employer], Society for Maternal- Medicine, CDC and multiple medical associations strongly recommend the COVID-19 vaccine for women who are in any trimester, those attempting to become , women who have recently delivered, who are lactating as well as any other woman, regardless of age or INTERFACE CONTROL OFFICER disorder. The only exceptions to receiving the vaccine are for those who have a contraindication or allergy to the vaccine or any component of the vaccine or with sincerely held church convictions. The CDC and ACOG encourages a [...] suicide hotline phone number for [facility]. Has counseling appointment weekly. Last Assessment [...] mRNA, LNP-s, No Pre serve, 2-Dose Series ([employer]) 09/03/2020,08/13/2020 DTaP Dipth/Tet/Acell Pertussis (Infanrix), Peds 04/03/2008,01/03/2006,2003,07/2003,2003 [...] PPD 05/10/2023,05/03/2023 Pneumococcal Conjugate Vacci ne, 20-valent ([id number]) 04/09/2022 Pneumococcal Conjugate Vacci ne, 7 Valent [...] encounter Miscellaneous Notes * Telephone Encounter - Shirlene Shankar LPN [...] [place] [phone] Manav, Pharmacist Neurology [address] [facility] [place] [address] 12/09/2023 11:45 AM EDT Office Visit Gynecology/Obstetr ics [facility] [address] [facility] [place] [address] Faith Bourgeois PA-C [address] [place] [address] 12/21/2023 8:00 PM EDT Hospital Encounter W[facility]1 [facility], Women's Lower Level 1st Floor [address] [place] [address] Timothy Grijalva Jr., MD [address] [facility] [place] [phone] 12/21/2023 8:00 PM EDT - 12/21/2023 9:21 PM EDT Surgery OBTR [facility], OB Triage, Women's Lower Level 1st Floor [address] [facility] [place] [address] Timothy Grijalva Jr., MD [address] [place] [address] INDUCTION FOR VAGINAL DELIVERY 12/26/2023 4:00 PM EDT Telemedicine Neurology Man[address] [place] [address] Meredith Vásquez PA-C [address] [place] [address] Scheduled Procedures Name Priority Associated Diagnoses [...]
--- OUTSIDE RECORDS SUMMARY | 2024-01-05 14:40 | External Medical Summary | Summary of Care ---
Author Name Unknown Organization [facility] Address [address] [facility] [place] [address] Phone [phone] Care Team Providers Care Plisse Machine Operator Helper Name Role Phone Unavailable Primary Care Provider Unavailabl e Reason for Visit * Reason Comments Healthy Beginnings Return Encounter Details Date Type Department Care Team (Late st Contact Info) Description 11/07/2023 11:30 AM EDT Office Visit Gynecology/Obstetri june Lemon [address] [place] [address] Faith Bourgeois PA-C [address] [place] [phone] Nurse Ion [facility] Return Vian[place] [address] [place] [address] Supervision of high risk in third trimester*; Maternal asthma complicating ; Depression complicating , antepartum; Seizure disorder during in third trimester (HCC); Obesity affecting , antepartum, unspecified trimester; Health counseling; Medication exposure during first trimester of ; Other dietary vitamin B12 deficiency anemia; Antepartum anemia complicating Allergies No known active allergiesdocumented as of this encounter (statuses as of 11/07/2023) Medications Medication Sig Dispensed Refills Start Date [...] as of this encounter (statuses as of 11/07/2023) Active Problems Problem Noted Date Diagnosed Date Other dietary vitamin B12 deficiency anemia 09/18 Antepartum anemia complicating 024 Supervision of high risk in [facility] 06/21/2023 Depression complicating , antepartum Overview: [...] or questions 11/07/2023 Cayla Mcdonald RN 11/07/2023 Medication exposure during first trimester of pr [...] of cardiovascular malformations compared with unexposed neonates ([id number]). Infants exposed to fluoxetine late in the [...] as of this encounter (statuses as of 11/07/2023) Resolved Problems Problem Noted Date Diagnosed Date [...] information was shared with the patient. The [employer], Society for Maternal- Medicine, CDC and multiple medical associations strongly recommend the COVID-19 vaccine for women who are in any trimester, those attempting to become , women who have recently delivered, who are lactating as well as any other woman, regardless of age or SOFTWARE TEST ANALYST disorder. The only exceptions to receiving the vaccine are for those who have a contraindication or allergy to the vaccine or any component of the vaccine or with sincerely held anabaptist convictions. The CDC and ACOG encourages a [...] MSAFP testing negative. S/p anatomy ultrasound at [facility]. Passed one hour glucose test. CBC [...] the local suicide hotline phone number for [facility]. Has counseling appointment weekly. Last Assessment & [...] as of this encounter (statuses as of 11/07/2023) Immunizations Name Administration Dates Next Due COVID-19 [...] PPD 05/10/2023,05/03/2023 Pneumococcal Conjugate Vacci ne, 20-valent ([id number]) 04/09/2022 Pneumococcal Conjugate Vacci ne, 7 Valent 2003,2003 Season Influenza, Quad, PF, Adjuvanted, 65+ Yrs, IM (FLUAD) 05/07/2016 Seasonal Influenza, PF, 6 M & above, IM , (FluLaval or Fluzone) 05/03/2023,04/09/2022 Seasonal Influenza, Split, I IV3, With Preserve, Inj 12/23/2008,02/02/2008 03/01/2008 TDAP (age 10 and older)(Boostrix) [...] money to get more. Never true 10/24/2023 [place] Depression Scale Answer Date Recorded [place] Depression Scale Total 3 09/20/2023 The thought [...] Sign Reading Time Taken Comments Blood Pressure 98/60 11/07/2023 11:17 AM EDT Pulse - - Temperature - - Respiratory Rate - - Oxygen Saturation - - Inhaled Oxygen Concentration - - Weight 107 kg (236 lb) 11/07/2023 11:17 AM EDT Height 154.9 cm (5' 1") 11/07/2023 11:17 AM EDT Body Mass Index 44.59 11/07/2023 11:17 AM EDT documented in this encounter Functional Status [...] Progress Notes * Faith Bourgeois PA-C - 11/07/2023 11:23 AM EDT 32w6d Following with MFM. Last growth u/s 10/27/2023: EFW 1714 g at 35%ile. Next 11/24/2023. Reviewed NST to start weekly at 34 weeks, next appointment. Denies any seizures in over month when seen in ER. Has neurology appointment next week. They do want her to check her Keppra/LTG levels, recommend she stop at lab today. Discussed importance in making sure therapeutic and prevent further seizures. Would like Nexplanon for contraceptive PP. Denies LOF, VB, contractions. Baby is active. Would like [facility] delivery. Needs IOL at 39 weeks given class 3 obesity. RTC in 2 weeks Faith Bourgeois PA-C documented in this encounter Nursing Notes * Cayla Mcdonald RN - 11/07/2023 11:31 AM EDT Patient seen by [facility] Audit Clerks Supervisor. Patient denies any questions or concerns. Cayla Mcdonald RN * Mary Farfan LPN - 11/07/2023 11:19 AM EDT 32w6d Denies concerns documented in this encounter Plan of Treatment Upcoming Encounters Date Type Department Care Team (Late st Contact Info) Description 11/14/2023 6:45 AM EDT Pharmacy Neurology Manav [address] [place] [phone] Manav, Pharmacist Neurology [address] [place] [address] [place] [address] 11/24/2023 10:15 AM EDT Office Visit Gynecology/Obstetrics, [address] [place] [address] Betzy Valdes PA-C [address] [place] [phone] [place], Non Stress Test [address] [place] [phone] 11/24/2023 11:30 AM EDT Office Visit Gynecology/Obstetrics [facility] [address] [facility] [place] [address] Valerie Silver CRNP [address] [place] [address] 11/24/2023 1:00 PM EDT Imaging Maternal Medicine [facility] [address] [facility] [place] [address] 11/25/2023 10:30 AM EDT Telemedicine Psychiatry Manav Cain [address] [place] [phone] Yumiko Miller MD [address] [place] [phone] 12/26/2023 4:00 PM EDT Telemedicine Neurology Manav [address] [place] [phone] Meredith Vásquez PA-C [address] [facility] [place] [phone] Health Maintenance Due Date Last Done Comments COVID-19 Vaccine (2022-2 4 season) 2022 09/03/2020, 08/13/2020 *SPIROMETRY ONCE FOR ASTHMA-ADULT 06/26/2023 Influenza Vaccine (FLU shot) (#1) 2023 05/03/2023, 04/09/2022, 05/07/2016, Additional history exists Depression Monitoring 05/03/2024 05/03/2023 Yearly Wellness Visit 05/03/2024 05/03/2023 , 02/05/2011, 03/04/2008, Additional history exists Gonorrhea / Chlamydia Screen 10/04/2024, 05/27/2023, 07/23/2022, Additional history exists DTaP,Tdap,and Td Vaccines (8 - Td or Tdap) 11/18/2031 11/17/2021, 08/29/2015, 04/03/2008, Additional history [...] deficiency anemia Antepartum anemia complicating Anemia, antepartum documented in this encounter Advance Directives * [...]
--- OUTSIDE RECORDS SUMMARY | 2024-01-05 14:40 | External Medical Summary | Summary of Care ---
Author Name Unknown Organization [facility] Address [address] [place] [address] Phone [phone] Care Team Providers Care Church History Teacher Name Role Phone Unavailable Primary Care Provider Unavailabl e Encounter Details Date Type Department Care Team (Late st Contact Info) Description 11/24/2023 1:00 PM EDT Office Visit Pediatric Radiologist Obstetrics Maternal Medicine, [facility] [address] [facility] [place] [address] Yessenia Cardoso, DO [address] [place] [address] Obesity affecting , antepartum, unspecified trimester*; Seizure disorder during in third trimester (HCC); Ultrasound for screening for growth restriction; 35 weeks gestation of Allergies No known active allergiesdocumented as of [...] complicating 024 Supervision of high risk in [facility] 06/21/2023 Depression complicating , antepartum Overview: History [...] or questions 11/24/2023 Hilda Chavarria RN 11/24/23 Medication exposure during first trimester of pr [...] of cardiovascular malformations compared with unexposed neonates ([id number]). Infants exposed to fluoxetine late in the [...] information was shared with the patient. The [place] [employer], Society for Maternal- Medicine, CDC and multiple medical associations strongly recommend the COVID-19 vaccine for women who are in any trimester, those attempting to become , women who have recently delivered, who are lactating as well as any other woman, regardless of age or DIRECTOR OF BROADCAST disorder. The only exceptions to receiving the vaccine are for those who have a contraindication or allergy to the vaccine or any component of the vaccine or with sincerely held yarsani convictions. The CDC and ACOG encourages a [...] MSAFP testing negative. S/p anatomy ultrasound at [facility]. Passed one hour glucose test. CBC [...] the local suicide hotline phone number for [facility]. Has counseling appointment weekly. Last Assessment & [...] PPD 05/10/2023,05/03/2023 Pneumococcal Conjugate Vacci ne, 20-valent ([id number]) 04/09/2022 Pneumococcal Conjugate Vacci ne, 7 Valent [...] money to get more. Never true 10/24/2023 [place] Depression Scale Answer Date Recorded [place] Depression Scale Total 3 09/20/2023 The thought [...] as of this encounter Progress Notes * Yessenia Cardoso, - 11/29/2023 10:16 AM EDT Keiko presented for an ultrasound for the following indications: Obesity affecting , antepartum, unspecified trimester Seizure disorder during in third trimester (HCC) Ultrasound for screening for growth restriction 35 weeks gestation of Ultrasound summary: Patient presented at 35w 2d for growth assessment. Normal growth with EFW 2304 g at 16%ile. Normal MANDY at 12.3 cm. Cephalic presentation. BPP 10/26. I reviewed the ultrasound images. Keiko was given the opportunity to meet with me if she had any questions. Please refer to the ultrasound report for additional details about today's ultrasound examination. RECOMMENDATIONS: Follow up with MFM for ultrasound as clinically indicated. See prior formal MFM consultation note. Thank you for allowing us to participate in the care of this patient. Please call with any questions. Yessenia Cardoso DO 11/29/2023 10:16 AM documented in this encounter Plan of Treatment Upcoming Encounters Date Type Department Care Team (Late st Contact Info) Description 11/29/2023 11:00 AM EDT Office Visit Gynecology/Obstetr ics [place] Lemon [address] [place] [address] Ora Stern CRNP [address] [place] [address] Catherine Lemon Stress Tests Vianney [address] [place] [address] 12/05/2023 6:45 AM EDT Pharmacy Neurology Antwon [address] [place] [phone] Antwon, Pharmacist Neurology [address] [facility] [place], [place] [phone] 12/21/2023 8:00 PM EDT Hospital Encounter [facility], Women's Lower Level 1st Floor [address] [facility] [place] [phone] Timothy Grijalva Jr., MD [address] [facility] [place] [place] [phone] 12/21/2023 8:00 PM EDT - 12/21/2023 9:21 PM EDT Surgery OBTR [facility], OB Triage, Women's Lower Level 1st Floor [address] [facility] [place] [id number] Timothy Grijalva Jr., MD [address] [facility] [place], [place] [phone] INDUCTION FOR VAGINAL DELIVERY 12/26/2023 4:00 PM EDT Telemedicine Neurology Antwon [address] [place] [phone] Meredith Vásquez PA-C [address] [facility] [place] [phone] Scheduled Procedures Name Priority Associated Diagnoses Date/Ti me INDUCTION FOR VAGINAL DELIVERY 39 weeks gestation of 12/21/2023 8:00 PM EDT Health Maintenance Due Date Last Done Comments *SPIROMETRY ONCE FOR ASTHMA-ADULT 06/26/2023 COVID-19 Vaccine (2022-2 4 season) 2023 09/03/2020, 08/13/2020 Influenza Vaccine [...] as of this encounter Visit Diagnoses Diagnosis Obesity affecting , antepartum, unspecified trimester- Primary Seizure disorder during in third trimester (HCC) Ultrasound for screening for growth restriction screening for growth retardation using ultrasonics 35 weeks gestation of state, incidental 39 weeks gestation of state, incidental documented [...]
--- OUTSIDE RECORDS SUMMARY | 2024-01-05 14:40 | External Medical Summary | Summary of Care ---
Author Name Unknown Organization [facility] Address 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 Supervisor Name Role Phone Unavailable Primary Care Provider Unavailabl e Reason for Visit * - Authorized Specialty Diagnoses / Procedures Referred By Desmond t Referred To Contact Referral ID Status Reason Start Date Expiration Date V isits Requested Visits Authorized [id number] Authorized 11/19/2022 11/18/2023 999 999 Encounter Details Date Type Department Care Team (Late st Contact Info) Description 11/02/2023 1:00 PM EDT Telemedicine Psychiatry Manav Cain [address] [address] Yumiko Miller MD [address] [place] [address] Recurrent major depressive disorder, in full remission (HCC)*; PTSD (post-traumatic stress disorder) Allergies No known active allergiesdocumented as of this encounter (statuses as of 11/02/2023) Medications Medication Sig Dispensed Refills Start Date [...] the morning. 30 Tablet 5 10/06/2023 Active Iron-Vitamin C 65-125 MG Oral Tablet (Vitron [...] as of this encounter (statuses as of 11/02/2023) Active Problems Problem Noted Date Diagnosed Date Other dietary vitamin B12 deficiency anemia 09/18 Antepartum anemia complicating 024 Supervision of high risk in [facility] 06/21/2023 Depression complicating , antepartum Overview: History [...] clinic that accepts [place] insurances 05/27/2023 Cayla Mcdonald, KEN 05/27/2023 Problem Action [...] or questions 10/05/2023 Cayla Mcdonald RN 10/05/2023 Medication exposure during first trimester of pr [...] of cardiovascular malformations compared with unexposed neonates (i=[id number]). Infants exposed to fluoxetine late in the [...] as of this encounter (statuses as of 11/02/2023) Resolved Problems Problem Noted Date Diagnosed Date [...] information was shared with the patient. The [place] [employer], Society for Maternal- Medicine, CDC and multiple medical associations strongly recommend the COVID-19 vaccine for women who are in any trimester, those attempting to become , women who have recently delivered, who are lactating as well as any other woman, regardless of age or PIPE STEM REPAIRER disorder. The only exceptions to receiving the vaccine are for those who have a contraindication or allergy to the vaccine or any component of the vaccine or with sincerely held alevism convictions. The CDC and ACOG encourages a [...] MSAFP testing negative. S/p anatomy ultrasound at [facility]. Passed one hour glucose test. [...] the local suicide hotline phone number for [facility]. Has counseling appointment weekly. Last Assessment [...] as of this encounter (statuses as of 11/02/2023) Immunizations Name Administration Dates Next Due COVID-19 mRNA, LNP-s, No Pre serve, 2-Dose Series (MedStartr) 09/03/2020,08/13/2020 DTaP Dipth/Tet/Acell Pertussis (Infanrix), Peds 04/03/2008,01/03/2006,2003,07/2003,2003 [...] PPD 05/10/2023,05/03/2023 Pneumococcal Conjugate Vacci ne, 20-valent (Fpijnhx28) 04/09/2022 Pneumococcal Conjugate Vacci ne, 7 Valent [...] money to get more. Never true 10/24/2023 [place] Depression Scale Answer Date Recorded [place] Depression Scale Total 3 09/20/2023 The [...] No 09/09/2020 documented as of this encounter Patient Instructions * Patient Instructions* Yumiko Miller MD - 11/02/2023 1:20 PM EDT Keiko Le it was a pleasure to see you today. Prior to your next appointment: I recommend reading as much as you can about your psychiatric illness. I find that this website is a good place to start: [email or web address]. Make a list of questions as you go along, and we can go over them at your next appointment. Please read all of the attachments about your medication, and take your medication as prescribed. If you are very sensitive to medications, it can be helpful to keep a daily log of how you are feeling both physically and mentally so we can review it and look for patterns at our next visit together. For appointment scheduling, medication refills or prior-authorization requests, please call the [facility] Psychiatry office at [phone]. Please note that to best serve all of our patients, any patient missing 4 appointments within a 12 month period will be discharged from the clinic. Please log in to the visit 15 minutes prior to yourscheduled appointment time. Patients who present more than 10 minutes late to an appointment will be asked to reschedule. If you are in a crisis, you can call the crisis intervention hotline (TAPLINE) , or call 911 or present to the nearest emergency room. Learn more about Psychiatric Disorders and treatment during : https://womensmentalhealth.or g/specialty-clinics/aphabhmtyvk-dojkmazng-eesrxm-/ Hotlines: Women's Mental Health (Call and Text) hotline: 7-031-4-OGDD4RSBX ( ) in [place] and [place] Support International Helpline: Online Therapy: [employer] provides a virtual IOP (intensive outpatient program) specifically for and patients, which includes group and individual therapy. They accept many insurances. It isentirely virtual, with flexible scheduling. Www.Employee Benefit Solutions, , outreach@Employee Benefit Solutions To find a therapist, you can go to YapStone and enter in your zip code, insurance information, and other preferences. You can also check with your employer if any mental health services are offered through an Employee Assistance Program. Support International offers free online support groups for women: https://www ..net/get-help/mcu-yxwckm-wenenqk-meetings/ Recommended Books: The Depression Workbook: Strategies to Overcome Negative Thoughts, Calm Stress, and Improve your Mood by Carrie Brandt The and Anxiety Workbook: Practical Skills to Help You Overcome Anxiety, Worry, Panic Attacks, Obsessions, and Compulsions by Zee Biswas What No One Tells You: A Guide to Your Emotions from to Motherhood by Georgia Walters The Mindfulness and Acceptance Workbook for Anxiety: A Guide to Breaking Free from Anxiety, Phobias, and Worry Using Acceptance and Commitment Therapy. By Noemy Palacios and Bhavana Soler The Generalized Anxiety Disorder Workbook: A Comprehensive CBT Guide for Coping with Uncertainty, Worry, and Fear. By Olamide Hackett and Lorin Royal Help with drug and alcohol use: [facility] has a program called Oujq1eMnt that provides specialized support for or mothers who struggle with substance use. If you or a loved one are in need of assistance, rdnieebKhck7xLgz at [phone] or email [email or web address] Finding A Therapist: Www.Equiom: select "search services", then enter your Zip Code. Then select "Health - Mental Health Care - Counseling" to see a list of services in your area. Www.Discera.Strauss Technology: enter your Zip code to see a list of providers in your area. You can filter by profession and by type of insurance accepted The following agencies are listed as possible resources - we offer these not as an endorsement but for informational purposes. Please let me know if there are therapists or resources you believe could be added to or removed from this list. These clinics are known to accept insurance: [facility] [phone] https://www.[facility].org/howtomhservices.htm [facility] [phone] https://Raizlabs/ Community Services Group ([facility]) https://[facility].org/ [place] [phone] https://www.ioSafesanford health.com/ These providers may or may not accept insurance: [facility] Meka Rodney [phone] Penny Matt & Anneliese Villa [phone] Sharita Velazco [phone] Anabell Roca [phone] Aleksandra Jj [phone] Liz Reyes [phone] Beckie Harry [phone] [facility] Myah Price ([place]): [phone] Jeermiah Wells ([place]) [phone] Tesha Tellez & Dr Masood Morales ([place]) [phone] Dr Emily Roberts ([facility]) [phone] [facility] mental health center: mental health, drug & ETOH treatment (for patients with medical assistance ONLY) or ; their 11/10 crisis line is . [facility] can be reached at [phone]. Tiffanie ([place]) at [phone] [facility] in [place] at [phone] for a medication assessment (Dr Tosha MD); therapists are available there also. Min Prasad (Pk Lew, SHEET METAL FABRICATOR, [place]): [phone] Tanya Echevarria COUNTER CLERK TRACTOR PARTS ([place]): child, adolescent, family, & individual therapy, parent groups Fide Caceres COUNTER CLERK TRACTOR PARTS ([place]): child, adolescent, family, couple's, group, & individual therapy Diamarietta in [place] may be able to help with therapy and medication management; [phone]. Psychological Services at [phone] ([place]), ([place]) or [phone] ([place]) Dr Cain is a [place] psychiatrist who is known to accept insurance; his office number is [phone]. Shaquille Tellez and Carmen can be reached at [phone]. [facility] ([place]) may be reached at [phone]. [facility] (Luke Malone, MOLECULAR BIOLOGY PROFESSOR, COUNTER CLERK TRACTOR PARTS) in [place] may be reached at . Www.Neuro Hero.[employer] Associates in Counseling and Personal Development at [phone] Skillswork at [phone] Amarilis Lugo at [phone] Melani at [phone] [facility] at [phone] Cherry/Jasson at [phone] [facility] at [phone] Aleksandra Jj is a therapist who can be reached at [phone]. National Morris on Mental Illness [place] [facility] Peer Support group meets on the and of the month from 6:30-8:30 PM in Conference room 2 at [facility], [address],[place], [address]. Please contact Sharita at [phone], with any questions. Dr Brynn Ayoub ([place]) [phone] Dr Fe Dawson ([place]) [phone] [facility] [place] [facility]eb[facility] Sal[facility]) [phone] [facility] (drug or alcohol use disorders) at [phone] ([phone]) Community Service Group (DBT) at [phone]. For general adult mental health services services across [facility] (outpatient, partial hospitalization, peer support, residential, case management, etc.) [phone] [facility] Services at [phone] MHMR at [phone]. The 24/7 crisis line is [phone]. [facility] [phone] in [facility] Health can be reached at [phone] Givens: [phone] Dr Sanders: [phone] [facility] Alyssa Lorie Aguilera ([place]) [phone] Ankush Shaikh PhD and Associates ([place]) [phone] Rashawn Trevino [phone] Toyin Mullins [phone] [facility] ([place]) [phone] [facility] ([place] location) can be reached at [phone] [facility] in [place] at [phone] Psychological Services ([place] Location) may be able to offer psychiatric evaluation as well as other therapy services; their number is [phone]. The 24/7 crisis number is . [place] [facility] & [facility] . The 24 hour crisis line is . Community Counseling; their number in [place] is [phone], and in [place] [phone]. [facility] Counseling. Their [place] number is [phone]; in [place] [phone]. The 24 hourcrisis line is . [facility], [place] [phone] [facility] [phone] [facility] [place] [phone] [facility] Counseling [facility] [phone] [facility] (also has sami speaking therapists) [phone] [facility] Psychological Services [facility] (sliding scale, student clinicians) [phone] [facility] [phone] Dr. Thong Barillas PhD, ABPP in [place] , Dr. Sherwin Whitney, PsyD in [place] [phone] Dr. Lindsay Lara PsyD & Associates (multiple locations in [facility]) Dr. Kapil Devine, PsyD and Associates (multiple locations in [facility]) [phone] Martine Olmstead, COUNTER CLERK TRACTOR PARTS in [place], Dr. Mallorie Cottrell, PsyD in [place] (specializes in trauma - EMDR, CPT) [phone] Jayant Shah, [facility] in [place], Dr. Zachary Martinez, PhD, ABPP in [place] [phone] Tracy Maddox, COUNTER CLERK TRACTOR PARTS in [place] (couples therapy) [phone] Dr Cain (psychiatrist) has an office in [facility] and can be reached at [phone]. Dr Mcneill (psychiatrist) has an office in [place] and can be reached at [phone]. [facility] in [place] [phone] (Psychiatrist) Dr Raul Allen has a psychiatric practice in [place] and his number is [phone]. [facility] Children's Service [facility] may be able to help locate a psychiatrist in your area by calling [phone] ([phone]) [facility]: . [facility] in [place] can be reached at [phone], or in [place] at [phone]. [place]: [phone]. Clear Concepts: . The [facility] mental health unit number in the county is [phone]. The 24 hour crisis number is [phone]. [facility] Health can be reached at [phone] ([place]). [facility] Counseling may be reached at [phone] if there are also alcohol or substance issues present. [facility] Mental Health: [phone]. The [facility] mental health office can be reached at [phone]. The [facility] crisis number if [phone]. [facility] The 24/7 crisis number is [phone] Ruy Urbina ([phone]) Dr. Hiram Freire ([phone]) Dr. Ivan Chaney: [phone] [facility] clinic at [phone]. [place] / [facility] / [facility] Diako Services [phone] [facility] Behavioral Health Services [phone] [facility] [phone] ([place]) or [phone] ([place]) The [facility] [phone] [facility] [phone] ([place]) or [phone] ([place]) Qing Granda, Mar Ruiz Delacruz, Douglas, Kaplan, Leidig, Moola, Alfredo Moya, Candi, Bettie, Nathan at [phone] ([place]) Dr Alston [phone] [facility] Mental Health office may be reached at [phone]. The crisis number if [phone]. [facility] can be reached at [phone] [facility] may be reached at [phone] [facility] mental health office may be reached at [phone]. The 24/7 crisis number is [phone] or [phone]. [facility] ([facility]) [facility] may be reached at [phone] - [facility] - [address] - [place] - [address] - . [facility] may be reached at [phone] - [address], [place], [address], . [facility] Human Services may be reached at [phone]. The Guideline Crisis Line is [phone]. The mental health crisis number is . MHMR is Mental Health Association [address] [place] [address] [facility] Community Health Plan Coverage ([facility]) Counseling and Medication Management Available The [facility] [phone] [facility] [phone] [place] [phone] Access Services Universal [phone] Child & Family Support Service [place] [phone] Community Health Plan Coverage and Private Insurance Plans Counseling Services [facility] [place] [phone] Yarelis Jones and Brett Peguero (Psychologists) Sonia Wu, [facility] [phone] Shannon Carroll, [facility] [phone] Alina Hudson, [facility] [phone] [facility] [place] [phone] Private Insurance Plans Counseling Services Myah Gibson LPC, [facility] [phone] Linda Rose, [facility] [phone] Danielle Han, [facility] [phone] Krupa Carranza, [facility] [phone] Rodger Quan, [facility] [phone] Psychiatrists Medication Management Services Alina Foote MD [place] [phone] Crisis Intervention: [place]an-Speaking Therapists Deanna Walsh (associated w/ [facility]) [phone]. Mila Cordero [phone]. documented in this encounter Progress Notes * Yumiko Miller MD - 11/02/2023 1:09 PM EDT OUTPATIENT BEHAVIORAL HEALTH FOLLOW UP Patient location: HOME. I was not in a hospital or clinic location. After connecting through Trustribeo, patient was verified with two unique identifiers. Patient (or authorized legal outside sales representative) was then informed that this was a Telemedicine visit and being conducted confidentially over secure lines. Methods to assure confidentiality were taken. Patient acknowledged consent and understanding of privacy and security of the Telemedicine visit. The patient agreed to participate. Risk Assessment: Suicide risk assessment considers the following non-modifiable and modifiable risk factors for Keiko Le: her chronic, non-modifiable suicide risk factors include: history of mood disorder or substance usedisorder, history of non-suicidal self harm behavior and history of trauma or abuse. Acute suicide risk factors include: none her protective factors consist of: able to articulate a reason for living, strong connections to friends, family and community support, does not perceive self to be a burden to others, no access to firearms or lethal weapons, future oriented with defined goals, hopeful for the future, no history ofsuicide attempts, hopeful that treatment will be helpful, good coping skills, able to access mentalhealth care and able to seek help when needed. I have considered all of the patient-specific risk factors that increase and mitigate suicide risk in formulating this patient's current risk profile. This assessment will be revised based on the patient's clinical condition and any new personal or environmental variables that are discovered or arise. At this time, the risk of this patient is considered to be: low chronic risk and low acute risk. This patient is appropriate for continued outpatient management Subjective: Estimated Date of Delivery: 12/27/23 32w1d Keiko presents today at 7 months gestation in her second . She reports feeling good overall, with some intermittent exhaustion and lack of motivation to get out of bed at times. She endorses mood as "okay" but notes some ongoing interpersonal stressors, particularly "drama being started" by friends. She has had some relationship stress with her partner but reports she is "working things out" and denies feeling unsafe, coerced, and denies interpersonal violence. She feels Prozac 60mg daily is helpful, noting "it's better than whenever I wasn't on anything at all." Keiko endorses during arguments with friends/partner has thoughts likes "I don't wanna be here anymore" and "a get me out of here... escape feeling," however denies active suicidal intent or plan. She reports "moments where [she's] able to have fun and enjoy [herself]," particularly when spending time with her daughter. Keiko has been considering restarting psychotherapy but has not done so due to her busy schedule. She has previously had frustrations with a counselor frequently cancelling appointments and not re turning her calls to reschedule. No questionnaires available. Prior Medication Trials: Wellbutrin 150mg : This was discussed with her neurologist before starting. This was started 1.5 y ago. stopped jan 2022 due to breakthrough seizures Keppra; taking for 2 years Zoloft: taking for 4 years, 200mg Abilify: felt more depressed Cymbalta: on 60mg since 02/18/2022, 90mg since 03/25/21 with resolution of depressive symptoms howevereffect waned Prozac: on 40mg since approx 03/05/23, increased to 60mg, took during in 2023, effective Lamictal; prescribed by neurology, took with cymbalta and further improved mood symptoms Medical History: I have reviewed the patient's allergies, past medical/surgical history, and current medications. Recent labs/imaging: Relevant labs reviewed Mental Status Evaluation: Appearance: Well groomed, casually dressed, appearing stated age Abnormal Movement: No abnormal movements noted Behavior: Calm, cooperative and appropriate. Distracted at times by others entering the room Speech and Language: Normal in rate, rhythm, volume and tone Mood: Euthymic Affect: Appropriate to content and mood-congruent Thought Process: Logical, linear and goal directed Thought Content: No abnormal thought content Hallucinations: No perceptual disturbances Suicidality: No suicidal ideations, intent, method or plan or passive wish Homicidality: No homicidal ideations, intent, plan or target Orientation: Oriented to self, time, place and circumstances Attention: Intact Recent and Remote memory:Intact Insight: Good Judgement: Good Fund of Knowledge: Good Assessment/Formulation: This is a 18 year old female who presented 12/15/21 for initial psychiatric evaluation to [facility] following the of her daughter on Dec 13, 2021. Family history notable for bipolar disorder in biological mother and ADHD and depression in her brother. Medical history is notable for epilepsy. There is no evidence for any prior episode of lluvia, hypomania, or psychosis. There is no history of suicidal ideation or attempt, and she does have history of cutting. Past psychiatric history is notable for severe developmental trauma, depressive symptoms starting in adolescence characterized by anhedonia, hypersomnia, and low self-attitude, and chronic symptoms consistent with PTSD. She additionally appears to have dimensional vulnerability to poor distress tolerance and emotion dysregulation. Currently with Estimated Date of Delivery: 12/27/23 on follow up today she presents with interpersonal stressors however coping well and overall euthymic. Diagnosis: ICD-10-CM 1. Recurrent major depressive disorder, in full remission (HCC) F33.42 2. PTSD (post-traumatic stress disorder) F43.10 Plan: 1. Medications - Continue Prozac 60mg. Discussed risks and benefits of antidepressant use in ; Keiko voices understanding and agrees with treatment plan. 2. Therapy Encouraged Keiko to restart individual psychotherapy as an adjunct to pharmacotherapy and to help manage ongoing psychosocial stressors. Discussed warm handoff to a new counselor given prior negative experience. Keiko is amenable and will follow up independently. 3. Community resources Reviewed local support groups and online resources for and women. 4. Lab tests: - None discussed 5. Safety plan: dequan [employer] safety plan attached 6. Return in: 4 weeks or sooner if needed. Reviewed safety plan and emergency resources. Keiko has crisis hotline number and agreed to call if suicidal thoughts worsen or become active in nature. Information about current meds reviewed/provided /offered. Provider reviewed risks/benefits/side effects and potential complications. Recommended to not change meds/dosage without medical advise. Treatment options and recommendations/interventions reviewed. Patient and/or caregiver verbalize understanding and agrees to plan with explanation of risks/benefits, aware of how to contact clinic with questions. documented in this encounter Plan of Treatment Upcoming Encounters Date Type Department Care Team (Late st Contact Info) Description 11/07/2023 7:00 AM EDT Pharmacy Neurology [address] [address] [place] [phone] Manav, Pharmacist Neurology [address] [facility] [address] 11/07/2023 11:30 AM EDT Office Visit Gynecology/Obstetrics Ciera Lemon [address] [facility] [place] [address] Faith Bourgeois PA-C [address] [place] [address] Nurse Ion Healthy Beginnings Return [place] [address] [facility] [place] [address] 11/24/2023 1:00 PM EDT Imaging Maternal Medicine Imaging, Vianney Lemon 132 [facility] [place] [phone] 11/25/2023 10:30 AM EDT Telemedicine Psychiatry Manav Cain [address] [address] [address] Yumiko Miller MD [address] [address] 12/26/2023 4:00 PM EDT Telemedicine Neurology [address] [address] [place] [address] Meredith Vásquez PA-C [address] [facility] [place] [address] Health Maintenance Due Date Last Done Comments [...] as of this encounter Visit Diagnoses Diagnosis Recurrent major depressive disorder, in full remission (HCC)- Primary PTSD (post-traumatic stress disorder) Posttraumatic stress disorder documented in this encounter Advance Directives * [...]
--- OUTSIDE RECORDS SUMMARY | 2024-01-05 14:40 | External Medical Summary | Summary of Care ---
Author Name Unknown Organization [facility] Address [address] [facility] [place] [address] Phone [phone] Care Team Providers Care Information Services Manager Name Role Phone Unavailable Primary Care Provider Unavailabl e Encounter Details Date Type Department Care Team (Late st Contact Info) Description 10/12/2023 Telephone Gynecology/Obstetrics [facility] [address] [place] [address] Ruy Causey MD [address] [place] [address] Allergies No known active allergiesdocumented as of this encounter (statuses as of 10/31/2023) Medications Medication Sig Dispensed Refills Start Date [...] before bedtime. 60 Tablet 2 10/07/2023 Active documented as of this encounter (statuses as of 10/31/2023) Active Problems Problem Noted Date Diagnosed Date Other dietary vitamin B12 deficiency anemia 09/18 Antepartum anemia complicating 024 Supervision of high risk in [facility] 06/21/2023 Depression complicating , antepartum Overview: [...] Medication exposure during first trimester of pr latoyacy 05/27/2023 Overview: Prozac for depression Keppra and [...] of cardiovascular malformations compared with unexposed neonates ([id number]). Infants exposed to fluoxetine late in the [...] as of this encounter (statuses as of 10/31/2023) Resolved Problems Problem Noted Date Diagnosed Date [...] information was shared with the patient. The [place] [employer] Obst[employer]s and Gyne[employer], Society for Maternal- Medicine, CDC and multiple medical associations strongly recommend the COVID-19 vaccine for women who are in any trimester, those attempting to become , women who have recently delivered, who are lactating as well as any other woman, regardless of age or CORK INSULATION INSTALLER disorder. The only exceptions to receiving the [...] MSAFP testing negative. S/p anatomy ultrasound at [facility]. Passed one hour glucose test. CBC [...] the local suicide hotline phone number for [facility]. Has counseling appointment weekly. Last Assessment [...] as of this encounter (statuses as of 10/31/2023) Immunizations Name Administration Dates Next Due COVID-19 [...] PPD 05/10/2023,05/03/2023 Pneumococcal Conjugate Vacci ne, 20-valent ([id number]) 04/09/2022 Pneumococcal Conjugate Vacci ne, 7 Valent [...] money to get more. Never true 10/24/2023 [place] Depression Scale Answer Date Recorded [place] Depression Scale Total 3 09/20/2023 The thought [...] encounter Miscellaneous Notes * Telephone Encounter - Ruy Causey MD - 10/12/2023 1:30 PM EDT Okay thank you! * Telephone Encounter - Meredith Vásquez PA-C - 10/12/2023 10:05 AM EDT Thanks for reaching out. I saw Keiko on 10/10/23. Her Lamictal dose has since been increased since ED visit and we will be getting updated levels soon. Will adjust medications accordingly at that time. Meredith Vásquez PA-C [facility] 10/12/23 * Telephone Encounter - Ruy Causey MD - 10/12/2023 8:34 AM EDT She was in ER after a seizure on 10/04/23 Lamictal levels came back as 1.6 low I was not sure you have seen this level when her medication doses were adjusted Thank you documented in this encounter Plan of Treatment Upcoming Encounters Date Type Department Care Team (Late st [facility] Info) Description 11/02/2023 1:00 PM EDT Telemedicine Psychiatry [place] [address] [address] [phone] Yumiko Miller MD [address] [phone] 11/07/2023 7:00 AM EDT Pharmacy Neurology [address] [place] [address] [place] [phone] Manav, Pharmacist Neurology [address] [facility] [place] [address] 11/07/2023 11:30 AM EDT Office Visit Gynecology/Obstetrics Jaimetonia Lemon [address] [facility] [place] [address] Faith Bourgeois PA-C [address] [place] [address] Nurse Ion Healthy Beginnings Return [facility] [address] [place] [address] 11/24/2023 1:00 PM EDT Imaging Maternal Medicine Imaging, [place] Lemon 132 [facility] [place] [phone] 12/26/2023 4:00 PM EDT Telemedicine Neurology Man[address] [place] [address] [phone] Meredith Vásquez PA-C [address] [facility] [place], [place] [phone] Health Maintenance Due Date Last Done Comments COVID-19 Vaccine (3 2022-2 4 season) 2022 09/03/2020, 08/13/2020 *SPIROMETRY ONCE [...]
--- OUTSIDE RECORDS SUMMARY | 2024-01-05 14:40 | External Medical Summary | Summary of Care ---
Author Name Unknown Organization [facility] Address [address] [facility] [address] Phone [phone] Care Team Providers Care Cat Dog Or Other Pet Groomer Name Role Phone Unavailable Primary Care Provider Unavailabl e Reason for Visit * Reason Comments Return Visit Encounter Details Date Type Department Care Team (Late st Contact Info) Description 11/24/2023 11:00 AM EDT Office Visit Gynecology/Obstetric s Jaime's Ion [address] [place] [address] Valerie Silver CRNP [address] [place] [address] Catherine Lemon Stress Tests [place] [address] [place] [address] Supervision of high risk in third trimester*; Maternal asthma complicating ; Depression complicating , antepartum; Obesity affecting , antepartum, unspecified trimester; Health counseling; Medication exposure during first trimester of ; Other dietary vitamin B12 deficiency anemia; Antepartum anemia complicating Allergies No known active allergiesdocumented as of this encounter (statuses as of 11/24/2023) Medications Medication Sig Dispensed Refills Start Date [...] as of this encounter (statuses as of 11/24/2023) Active Problems Problem Noted Date Diagnosed Date Other dietary vitamin B12 deficiency anemia 09/18 Antepartum anemia complicating 024 Supervision of high risk in second [facility] 06/21/2023 Depression complicating , antepartum Overview: [...] Depression Discuss options with Provider 05/27/2023 Cayla Mcdonald, RN 05/27/2023 Problem Action Taken Date entered [...] of cardiovascular malformations compared with unexposed neonates ([id number]). Infants exposed to fluoxetine late in the [...] as of this encounter (statuses as of 11/24/2023) Resolved Problems Problem Noted Date Diagnosed Date [...] information was shared with the patient. The [place] [employer] Obst[employer]s and Gynecology, Society for Maternal- Medicine, CDC and multiple medical associations strongly recommend the COVID-19 vaccine for women who are in any trimester, those attempting to become , women who have recently delivered, who are lactating as well as any other woman, regardless of age or TAX SERVICES INTERN disorder. The only exceptions to receiving the vaccine are for those who have a contraindication or allergy to the vaccine or any component of the vaccine or with sincerely held pentecostalism convictions. The CDC and ACOG encourages a [...] MSAFP testing negative. S/p anatomy ultrasound at [facility]. Passed one hour glucose test. CBC [...] the local suicide hotline phone number for [facility]. Has counseling appointment weekly. Last Assessment [...] as of this encounter (statuses as of 11/24/2023) Immunizations Name Administration Dates Next Due COVID-19 [...] PPD 05/10/2023,05/03/2023 Pneumococcal Conjugate Vacci ne, 20-valent ([id number]) 04/09/2022 Pneumococcal Conjugate Vacci ne, 7 Valent [...] money to get more. Never true 10/24/2023 [place] Depression Scale Answer Date Recorded [place] Depression Scale Total 3 09/20/2023 The thought [...] Sign Reading Time Taken Comments Blood Pressure 96/60 11/24/2023 1:41 PM EDT Pulse - - Temperature - - Respiratory Rate - - Oxygen Saturation - - Inhaled Oxygen Concentration - - Weight 106.6 kg (235 lb) 11/24/2023 1:41 PM EDT Height 154.9 cm (5' 1") 11/24/2023 1:41 PM EDT Body Mass Index 44.4 11/24/2023 1:41 PM EDT documented in this [...] as of this encounter Progress Notes * Valerie Silver CRNP - 11/24/2023 1:47 PM EDT 35w2d No concerns. Asking how soon after delivery she can have Nexplanon placed. She does not want any more children right now. Had MFM appt today, BPP 10/26. [facility] scheduled at [facility] for 12[facility]20. She denies contractions or bleeding. Baby is active. NST, GBS in one week. ASHLEY Mercer documented in this encounter Nursing Notes * Hilda Chavarria, RN - 11/24/2023 2:09 PM EDT Chief Complaint Patient presents with Return Visit Patient seen by [facility] [employer]. Patient denies any questions or concerns. Hilda Chavarria, RN documented in this encounter Plan of Treatment Upcoming Encounters Date Type Department Care Team (Late st Contact Info) Description 11/25/2023 10:30 AM EDT Telemedicine Psychiatry Man[place] [address] [place] [address] [phone] Yumiko Miller MD [address] [phone] 12/05/2023 6:45 AM EDT Pharmacy Neurology Man[place] [address] [place] [phone] Manav, Pharmacist Neurology [address] [facility] [place] [phone] 12/21/2023 8:00 PM EDT Hospital Encounter [id number] [facility], Women's Lower Level 1st Floor [address] [facility] [phone] Timothy Grijalva Jr., MD [address] [facility] [place] [address] 12/21/2023 8:00 PM EDT - 12/21/2023 9:21 PM EDT Surgery OBTR [facility], OB Triage, Women's Lower Level 1st Floor [address] [place], [place] [phone] Timothy Grijalva Jr., MD [address] [place], [place] [phone] INDUCTION FOR VAGINAL DELIVERY 12/26/2023 4:00 PM EDT Telemedicine Neurology [place] [address] [place] [phone] Meredith Vásquez PA-C [address] [place], [place] [phone] Scheduled Procedures Name Priority Associated Diagnoses Date/Ti [...] , antepartum Mental disorders of mother, antepartum Obesity affecting , antepartum, unspecified trimester Health [...]
--- OUTSIDE RECORDS SUMMARY | 2024-01-05 14:40 | External Medical Summary | Summary of Care ---
Author Name Unknown Organization [facility] Address [address] [place] [address] Phone [phone] Care Team Providers Care Capture Manager Name Role Phone Unavailable Primary Care Provider Unavailabl e Reason for Visit * Reason Comments Seizure Disorder Encounter Details Date Type Department Care Team (Late st Contact Info) Description 10/31/2023 6:45 AM EDT Pharmacy Neurology [place], [place] [address] [place] [address] [place], Pharmacist Neurology [address] [place] [address] Generalized convulsive epilepsy without intractable epilepsy (HCC)* Allergies No known active allergiesdocumented as [...] complicating 024 Supervision of high risk in [facility] 06/21/2023 Depression complicating , antepartum Overview: [...] of cardiovascular malformations compared with unexposed neonates ([id number]). Infants exposed to fluoxetine late in the [...] information was shared with the patient. The [place] [employer] of Obstetrics and Gynecology, Society for Maternal- Medicine, CDC and multiple medical associations strongly recommend the COVID-19 vaccine for women who are in any trimester, those attempting to become , women who have recently delivered, who are lactating as well as any other woman, regardless of age or BACK SEAM STITCHER disorder. The only exceptions to receiving the vaccine are for those who have a contraindication or allergy to the vaccine or any component of the vaccine or with sincerely held rastafarian convictions. The CDC and ACOG encourages a [...] MSAFP testing negative. S/p anatomy ultrasound at [facility]. Passed one hour glucose test. [...] phone number for [facility]. Has counseling appointment weekly. Last Assessment & [...] mRNA, LNP-s, No Pre serve, 2-Dose Series ([employer]ity) 09/03/2020,08/13/2020 DTaP Dipth/Tet/Acell Pertussis (Infanrix), Peds 04/03/2008,01/03/2006,2003,07/2003,2003 [...] PPD 05/10/2023,05/03/2023 Pneumococcal Conjugate Vacci ne, 20-valent ([id number]) 04/09/2022 Pneumococcal Conjugate Vacci ne, 7 Valent [...] money to get more. Never true 10/24/2023 [place] Depression Scale Answer Date Recorded [place] Depression Scale Total 3 09/20/2023 The thought [...] as of this encounter Progress Notes * Maribell Davis director geophysical laboratory - 10/31/2023 9:02 AM EDT Attempt 3 No recent lab results available Patient is due for keprra blood work. [employer] reminder message sent today. Follow up in 1 week(s) for results. documented in this encounter Plan of Treatment Upcoming Encounters Date Type Department Care Team (Late st Contact Info) Description 11/02/2023 1:00 PM EDT Telemedicine Psychiatry [place] [address] [place] [phone] Yumiko Miller MD [address] [place] [facility] [place] [address] 11/07/2023 7:00 AM EDT Pharmacy Neurology Man[place] [address] [place] [phone] Man[place], Pharmacist Neurology [address] [place], [place] [phone] 11/07/2023 11:30 AM EDT Office Visit Gynecology/Obstetrics Ciera Lemon [address] [facility] [place] [address] Faith Bourgeois PA-C [address] [place] [address] Nurse Ion Healthy Beginnings Return [place] [address] [facility] [place] [address] 11/24/2023 1:00 PM EDT Imaging Maternal Medicine Imaging, Vianney Lemon [address] [place] [address] 12/26/2023 4:00 PM EDT Telemedicine Neurology Man[place] [address] [place] [phone] Meredith Vásquez PA-C [address] [facility] [place] [address] Health Maintenance Due Date Last Done [...] as of this encounter Visit Diagnoses Diagnosis 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
--- OUTSIDE RECORDS SUMMARY | 2024-01-05 14:40 | External Medical Summary ---
Author Name Unknown Address Unknown Organization [id number][facility] - [address] [place] [address] Laboratory Report Ordering Provider Test Date Status LACIE BILL 11/29/2023 12:13:58 Final Observation Date Value Abnormality Reference (Units ) Status WBC, Total 11/29/2023 12:13:58 10.52 4.00-10.8 0 (K/uL) Final RBC 11/29/2023 12:13:58 3.68 3.85-5.15 (M/uL) Final Hemoglobin 11/29/2023 12:13:58 10.8 Below low normal 12 .0-15.3 (g/dL) Final HCT 11/29/2023 12:13:58 32.8 Below low normal 36. 0-45.2 (%) Final MCV 11/29/2023 12:13:58 89.1 81.5-97.5 (fL) Final MCH 11/29/2023 12:13:58 29.3 27.0-34.0 (pg) Final MCHC 11/29/2023 12:13:58 32.9 32.0-36.0 (g/dL) Final RDW 11/29/2023 12:13:58 13.6 11.5-15.5 (%) Final Platelets 11/29/2023 12:13:58 231 140-400 (K /uL) Final MPV 11/29/2023 12:13:58 10.2 6.6-11.1 ( fL) Final Performing Location [facility] 0 - [address] [place] [address]
--- OUTSIDE RECORDS SUMMARY | 2024-01-05 14:40 | External Medical Summary | Summary of Care ---
Author Name Unknown Organization [facility] Address [address] [place] [address] Phone [phone] Care Team Providers Care Fuel Buyer Name Role Phone Unavailable Primary Care Provider Unavailabl e Reason for Visit * Reason Comments Seizure Disorder Encounter Details Date Type Department Care Team (Late st Contact Info) Description 11/07/2023 7:00 AM EDT Pharmacy Neurology [place]ezar Hood, [place] [address] [place] [address] [place], Pharmacist Neurology [address] [place] [address] Other generalized epilepsy, not intractable, [...] complicating 024 Supervision of high risk in [facility] 06/21/2023 Depression complicating , antepartum Overview: [...] of cardiovascular malformations compared with unexposed neonates ([id number]). Infants exposed to fluoxetine late in the [...] information was shared with the patient. The [place] [employer] of Obstetrics and Gynecology, Society for Maternal- Medicine, CDC and multiple medical associations strongly recommend the COVID-19 vaccine for women who are in any trimester, those attempting to become , women who have recently delivered, who are lactating as well as any other woman, regardless of age or ASSOCIATE DIRECTOR disorder. The only exceptions to receiving the [...] MSAFP testing negative. S/p anatomy ultrasound at [facility]. Passed one hour glucose test. CBC [...] the local suicide hotline phone number for [facility]. Has counseling appointment weekly. Last Assessment [...] mRNA, LNP-s, No Pre serve, 2-Dose Series ([employer]) 09/03/2020,08/13/2020 DTaP Dipth/Tet/Acell Pertussis (Infanrix), Peds [...] PPD 05/10/2023,05/03/2023 Pneumococcal Conjugate Vacci ne, 20-valent ([id number]) 04/09/2022 Pneumococcal Conjugate Vacci ne, 7 Valent [...] money to get more. Never true 10/24/2023 [place] Depression Scale Answer Date Recorded [place] Depression Scale Total 3 09/20/2023 The thought [...] of this encounter Progress Notes * Maribell Davis, clinical documentation clerk - 11/07/2023 9:34 AM EDT Attempt 4 No recent lab results available Patient is due for Keppra/LTG blood work. [employer] reminder message sent today. Follow up in 1 week(s) for results. documented in this encounter Plan of Treatment Upcoming Encounters Date Type Department Care Team (Late st Contact Info) Description 11/07/2023 11:30 AM EDT Office Visit Gynecology/Obstetrics Ciera Lemon [address] [place] [address] Faith Bourgeois PA-C [address] [place] [address] Nurse Ion Healthy [facility]nings Return [place] [address] [place] [address] 11/14/2023 6:45 AM EDT Pharmacy Neurology [place] [address] [place] [phone] Man[place], Pharmacist Neurology [address] [facility] [place] [phone] 11/24/2023 1:00 PM EDT Imaging Maternal Medicine Imaging, [facility] [place] [phone] 11/25/2023 10:30 AM EDT Telemedicine Psychiatry Manav Cain [address] [place] [phone] Yumiko Miller MD [address] [place] [address] [phone] 12/26/2023 4:00 PM EDT Telemedicine Neurology Man[address] [place] [address] Meredith Vásquez PA-C [address] [facility] [place] [address] Health Maintenance Due Date [...] not intractable, without status epilepticus (HCC)- Primary documented in this encounter Advance Directives * [...]
--- OUTSIDE RECORDS SUMMARY | 2024-01-05 14:40 | External Medical Summary ---
Author Name Unknown Address Unknown Organization K01:[facility] - [address] [place] [address] Laboratory Report Ordering Provider Test Date Status LACIE BILL 11/29/2023 12:07:16 Final Observation Date Value Abnormality Reference (Units ) Status Streptococcus agalactiae DNA [Presence] in Specimen by BAN with probe detection 11/29/2023 12:07:16 Positive Abnormal Negative Final Group B Streptococcus detect ed by culture-enhanced PCR (amplified probe). GBS GBSCT - [facility] 11/29/2023 12:07:16 22.2 Final GBS SPCCT - [facility] 11/29/2023 12:07:16 0.0 Final Performing Location LABORATORY C - [address] [place] [address]
--- OUTSIDE RECORDS SUMMARY | 2024-01-05 14:40 | External Medical Summary | Summary of Care ---
Author Name Unknown Organization [facility] Address [address] [facility] [address] Phone [phone] Care Team Providers Care Dot Compliance Manager Name Role Phone Unavailable Primary Care Provider Unavailabl e Reason for Visit * Reason Comments Return Visit Encounter Details Date Type Department Care Team (Late st Contact Info) Description 11/24/2023 11:00 AM EDT Office Visit Gynecology/Obstetric s Jaime's Ion [address] [place] [address] Valerie Silver CRNP [address] [place] [address] Catherine Lemon Stress Tests [place] [address] [place] [address] Supervision of high risk in third trimester*; [...] 024 Supervision of high risk in second [facility] 06/21/2023 Depression complicating , antepartum Overview: History [...] of cardiovascular malformations compared with unexposed neonates ([id number]). Infants exposed to fluoxetine late in the [...] information was shared with the patient. The [place] [employer] of Obstetrics and Gynecology, Society for Maternal- Medicine, CDC and multiple medical associations strongly recommend the COVID-19 vaccine for women who are in any trimester, those attempting to become , women who have recently delivered, who are lactating as well as any other woman, regardless of age or VAT HOUSE SUPERVISOR disorder. The only exceptions to receiving the vaccine are for those who have a contraindication or allergy to the vaccine or any component of the vaccine or with sincerely held nondenominational convictions. The CDC and ACOG encourages a [...] MSAFP testing negative. S/p anatomy ultrasound at [facility]. Passed one hour glucose test. CBC [...] the local suicide hotline phone number for [facility]. Has counseling appointment weekly. Last Assessment [...] PPD 05/10/2023,05/03/2023 Pneumococcal Conjugate Vacci ne, 20-valent ([id number]) 04/09/2022 Pneumococcal Conjugate Vacci ne, 7 Valent [...] money to get more. Never true 10/24/2023 [place] Depression Scale Answer Date Recorded [place] Depression Scale Total 3 09/20/2023 The thought [...] appt today, BPP 10/26. [place] [facility] [place]. She denies contractions or bleeding. Baby is active. NST, GBS in one week. ASHLEY Mercer documented in this encounter Plan of Treatment Upcoming Encounters Date Type Department Care Team (Late st Contact Info) Description 11/25/2023 10:30 AM EDT Telemedicine Psychiatry Man[place] Cain [address] [place] [address] Yumiko Miller MD [address] [place] [address] 12/05/2023 6:45 AM EDT Pharmacy Neurology [place] [address] [place] [address] Man[place], Pharmacist Neurology [address] [place], [place] [phone] 12/21/2023 8:00 PM EDT Hospital Encounter [id number], Women's Lower Level 1st Floor [address] [facility] [place] [phone] Timothy Grijalva Jr., MD [address] [facility] [place], [place] [phone] 12/21/2023 8:00 PM EDT - 12/21/2023 9:21 PM EDT Surgery OBTR [facility], OB [place], Women's Lower Level 1st Floor [address] [facility] [place], [place] [phone] Timohty Grijalva Jr., MD [address] [place], [place] [phone] INDUCTION FOR VAGINAL DELIVERY 12/26/2023 4:00 PM EDT Telemedicine Neurology [place] [address] [place] [address] Meredith Vásquez PA-C [address] [facility] [place] [address] Scheduled Procedures Name Priority Associated Diagnoses Date/Ti [...]
--- OUTSIDE RECORDS SUMMARY | 2024-01-05 14:40 | External Medical Summary | Summary of Care ---
Author Name Unknown Organization [facility] Address [address] [place] [address] Phone [phone] Care Team Providers Care Textile Scrap Salvager Name Role Phone Unavailable Primary Care Provider Unavailabl e Encounter Details Date Type Department Care Team (Late st Contact Info) Description 10/27/2023 1:45 PM EDT Office Visit Armored Vehicle Officer Obstetrics Maternal Medicine, [facility] [address] [facility] [address] Yessenia Cardoso, DO [address] [place] [address] Obesity affecting , antepartum, unspecified trimester*; 31 weeks gestation of Allergies No known active allergiesdocumented as of this encounter (statuses as of 10/27/2023) Medications Medication Sig Dispensed Refills Start Date [...] as of this encounter (statuses as of 10/27/2023) Active Problems Problem Noted Date Diagnosed Date Other dietary vitamin B12 deficiency anemia 09/18 Antepartum anemia complicating 024 Supervision [facility] 06/21/2023 Depression complicating , antepartum [...] of cardiovascular malformations compared with unexposed neonates ([id number]). Infants exposed to fluoxetine late in the [...] as of this encounter (statuses as of 10/27/2023) Resolved Problems Problem Noted Date Diagnosed Date [...] information was shared with the patient. The [employer]s [employer] Gyne[employer], Society for Maternal- Medicine, CDC and multiple medical associations strongly recommend the COVID-19 vaccine for women who are in any trimester, those attempting to become , women who have recently delivered, who are lactating as well as any other woman, regardless of age or MIDDLEWARE ENGINEER disorder. The only exceptions to receiving the vaccine are for those who have a contraindication or allergy to the vaccine or any component of the vaccine or with sincerely held yarsanism convictions. The CDC and ACOG encourages a [...] negative. S/p anatomy ultrasound at [facility]. Passed one hour glucose test. CBC [...] as of this encounter (statuses as of 10/27/2023) Immunizations Name Administration Dates Next Due COVID-19 mRNA, LNP-s, No Pre serve, 2-Dose Series ([email or web address]) 09/03/2020,08/13/2020 DTaP Dipth/Tet/Acell Pertussis (Infanrix), Peds 04/03/2008,01/03/2006,2003,2003,2003 H1N1 2009 Influenza, IM 02/24/2009,01/27/2009, HIB PRP-OMP, [...] PPD 05/10/2023,05/03/2023 Pneumococcal Conjugate Vacci ne, 20-valent ([id number]) 04/09/2022 Pneumococcal Conjugate Vacci ne, 7 Valent [...] money to get more. Never true 10/24/2023 [place] Depression Scale Answer Date Recorded [place] Depression Scale Total 3 09/20/2023 The thought [...] of this encounter Progress Notes * Yessenia Cardoso DO - 10/27/2023 4:03 PM EDT Keiko presented today at 31w2d for an ultrasound for the following indications: Obesity affecting , antepartum, unspecified trimester 31 weeks gestation of Ultrasound summary: Patient presented at 31w 2d for growth assessment. Normal growth with EFW 1714 g at 35%ile. Normal MANDY at 13.2 cm. Transverse presentation. I reviewed the ultrasound images. Keiko was given the opportunity to meet with me if she had any questions. Please refer to the ultrasound report for additional details about today's ultrasound examination. RECOMMENDATIONS: Recommend follow up ultrasound with MFM in 4-6 weeks for growth secondary to above indications. See prior formal MFM consultation note. Thank you for allowing us to participate in the care of this patient. Please call with any questions. Yessenia Cardoso DO 10/27/2023 4:03 PM documented in this encounter Plan of Treatment Upcoming Encounters Date Type Department Care Team (Late st Contact Info) Description 10/31/2023 6:45 AM EDT Pharmacy Neurology Manav [address] [place] [phone] Manav, Pharmacist Neurology [address] [facility] [place] [address] 11/02/2023 1:00 PM EDT Telemedicine Psychiatry Manav Cain [address] [place] [address] Yumiko Miller MD [address] [facility] [place] [address] 11/07/2023 11:30 AM EDT Office Visit Gynecology/Obstetrics Ciera Lemon [address] [facility] [place] [address] Faith Bourgeois PA-C [address] [place] [address] Nurse Ion Healthy [facility]nings Return [facility] [address] [facility] [address] 11/24/2023 1:00 PM EDT Imaging Maternal Medicine Imaging, Vianney Lemon [address] [place] [address] [place] [phone] 12/26/2023 4:00 PM EDT Telemedicine Neurology Manav [address] [place] [phone] Meredith Vásquez PA-C [address] [facility] [place] [phone] Health Maintenance Due Date Last Done Comments [...] Obesity affecting , antepartum, unspecified trimester- Primary 31 weeks gestation of state, incidental documented in [...]
--- OUTSIDE RECORDS SUMMARY | 2024-01-05 14:40 | External Medical Summary | Summary of Care ---
Author Name Unknown Organization [facility] Address [address] [place] [address] Phone [phone] Care Team Providers Care Photo Technologist Name Role Phone Unavailable Primary Care Provider Unavailabl e Reason for Visit * Reason Comments Dosage Adjustment Via Phone (anticoag Cl inic) Encounter Details Date Type Department Care Team (Late st Contact Info) Description 11/14/2023 6:45 AM EDT Pharmacy Neurology Cezar Hood, [place] [address] [place] [phone] Antwno, Pharmacist Neurology [address] [place] [address] Other generalized epilepsy, not intractable, without status epilepticus (HCC)* Allergies No known active allergiesdocumented as of this encounter (statuses as of 11/14/2023) Medications Medication Sig Dispensed Refills Start Date [...] as of this encounter (statuses as of 11/14/2023) Active Problems Problem Noted Date Diagnosed Date Other dietary vitamin B12 deficiency anemia 09/18 Antepartum anemia complicating 024 Supervision of high risk in [facility] 06/21/2023 Depression complicating , antepartum Overview: [...] of cardiovascular malformations compared with unexposed neonates ([id number]). Infants exposed to fluoxetine late in the [...] as of this encounter (statuses as of 11/14/2023) Resolved Problems Problem Noted Date Diagnosed Date [...] information was shared with the patient. The [place] [employer]s [employer] Gyne[employer], Society for Maternal- Medicine, CDC and multiple medical associations strongly recommend the COVID-19 vaccine for women who are in any trimester, those attempting to become , women who have recently delivered, who are lactating as well as any other woman, regardless of age or FIRE MANAGER disorder. The only exceptions to receiving the vaccine are for those who have a contraindication or allergy to the vaccine or any component of the vaccine or with sincerely held sikh convictions. The CDC and ACOG encourages a [...] MSAFP testing negative. S/p anatomy ultrasound at [facility]. Passed one hour glucose test. CBC [...] the local suicide hotline phone number for [facility]. Has counseling appointment weekly. Last Assessment [...] as of this encounter (statuses as of 11/14/2023) Immunizations Name Administration Dates Next Due COVID-19 [...] PPD 05/10/2023,05/03/2023 Pneumococcal Conjugate Vacci ne, 20-valent ([id number]) 04/09/2022 Pneumococcal Conjugate Vacci ne, 7 Valent [...] money to get more. Never true 10/24/2023 Bruno Depression Scale Answer Date Recorded [place] Depression Scale Total 3 09/20/2023 The thought [...] Progress Notes * Tahmina Antunez RPh - 11/14/2023 6:52 AM EDT Patient is due for Keppra and lamotrigine levels. Multiple attempts made by [facility] to request completion of labs. Will send letter as final attempt. Follow up in 3 weeks. If labs remain incomplete, will discharge patient from [facility] monitoring. Tahmina Antunez RPh Clinical Pharmacist, Neurology Medication Therapy Disease Management 11/14/2023 6:55 AM documented in this encounter Plan of Treatment Upcoming Encounters Date Type Department Care Team (Late st Contact Info) Description 11/24/2023 11:00 AM EDT Office Visit Gynecology/Obstetrics Ciera Lemon [address] [place] [address] Valerie Silver CRNP [address] [place] [address] Lemon, Non Stress Tests [place] [address] [place] [address] 11/24/2023 1:00 PM EDT Imaging Maternal Medicine Imaging, [place]ianney Lemon [address] [place] [phone] 11/25/2023 10:30 AM EDT Telemedicine Psychiatry Antwon Cain [address] [place] [phone] Yumiko Miller MD [address] [place] [address] [address] 12/05/2023 6:45 AM EDT Pharmacy Neurology Antwon [address] [place] [address] [phone] Antwon, Pharmacist Neurology [address] [facility] [place], [place] [phone] 12/26/2023 4:00 PM EDT Telemedicine Neurology Antwon [address] [place] [address] Meredith Vásquez PA-C [address] [place] [address] Health Maintenance Due Date Last Done [...]
--- OUTSIDE RECORDS SUMMARY | 2024-01-05 14:41 | External Medical Summary | Summary of Care ---
Author Name Unknown Organization [facility] Address [address] [place] [address] Phone [phone] Care Team Providers Care Counseling Program Leader Name Role Phone Unavailable Primary Care Provider Unavailabl e Reason for Visit * Reason Comments Seizure Disorder Encounter Details Date Type Department Care Team (Late st Contact Info) Description 10/24/2023 6:45 AM EDT Pharmacy Neurology Cezar Hood, [place] [address] [place] [address] [place], Pharmacist Neurology [address] [place] [address] Generalized convulsive epilepsy without intractable epilepsy (HCC)* Allergies No known active allergiesdocumented as of this encounter (statuses as of 10/24/2023) Medications Medication Sig Dispensed Refills Start Date [...] Active levETIRAcetam 1000 MG Oral Tablet (Keppra) Take 2 Tablets by mouth in the morning and 2 Tablets before bedtime. 120 Tablet 5 10/10/2023 Active documented as of this encounter (statuses as of 10/24/2023) Active Problems Problem Noted Date Diagnosed Date Other dietary vitamin B12 deficiency anemia 09/18 Antepartum anemia complicating 024 14 weeks gestation of 06/28/2023 Supervision of high risk in [facility] 06/21/2023 Depression complicating , antepartum Overview: History [...] of cardiovascular malformations compared with unexposed neonates ([id number]). Infants exposed to fluoxetine late in the [...] as of this encounter (statuses as of 10/24/2023) Resolved Problems Problem Noted Date Diagnosed Date Resolved Date Absolute anemia 10/06/2023 10/06/2023 Encounter for supervision of normal first in [...] information was shared with the patient. The [place] [employer] Obstetrics and Gynecology, Society for Maternal- Medicine, CDC and multiple medical associations strongly recommend the COVID-19 vaccine for women who are in any trimester, those attempting to become , women who have recently delivered, who are lactating as well as any other woman, regardless of age or UNDERPRESSER HAND disorder. The only exceptions to receiving the vaccine are for those who have a contraindication or allergy to the vaccine or any component of the vaccine or with sincerely held jewish convictions. The CDC and ACOG encourages a [...] MSAFP testing negative. S/p anatomy ultrasound at [facility]. Passed one hour glucose test. CBC within [...] the local suicide hotline phone number for [facility]. Has counseling appointment weekly. Last Assessment [...] as of this encounter (statuses as of 10/24/2023) Immunizations Name Administration Dates Next Due COVID-19 mRNA, LNP-s, No Pre serve, 2-Dose Series ([employer]) 09/03/2020,08/13/2020 DTaP Dipth/Tet/Acell Pertussis (Infanrix), Peds [...] PPD 05/10/2023,05/03/2023 Pneumococcal Conjugate Vacci ne, 20-valent ([id number]) 04/09/2022 Pneumococcal Conjugate Vacci ne, 7 Valent [...] the money to buy more. Never true 10/10/19 24 Within the past 12 months, t he food you bought just didn't last and you didn't have money to get more. Never true 10/10/2023 [place] Depression Scale Answer Date Recorded [place] Depression Scale Total 3 09/20/2023 The thought of harming myself has occurred to me . Never 09/20/2023 Childcare Answer Date Recorded Do you feel overwhelmed with taking care of a child, family member or friend? No 10/10/2023 Does your family need help f inding childcare? (Household - for ages 0-17 years) Not on file 10/10/2023 Clothing Answer Date Recorded Have you been unable to get clothing when it was really needed? No 10/10/2023 Is your family able to get c lothes or diapers when needed? (Household - for ages 0-17 years) Not on file 10/10/2023 Personal Safety Answer Date Recorded Do you feel unsafe or have concerns for your saf ety? No 10/10/2023 Do you have concerns for you r family's safety? (Household - for ages 0-17 years) Not on file 10/10/2023 Utilities Answer Date Recorded Do you have trouble paying y our heating, water, or electric bill? No 10/10/2023 Is your family able to pay t he heat, water, or electric bill? (Household - for ages 0-17 years) Not on file 10/10/2023 Does your family have access to good internet? (Household - for ages 0-17 years) Not on file 10/10/2023 Employment Status Answer Date Recorded Are you unemployed or without regular income? Ye s 10/10/2023 Does the household have a re gular source of income? (Household - for ages 0-17 years) Not on file 10/10/2023 Social Connections Answer Date Recorded How often do you feel lonely or isolated from th ose around you? Rarely 10/10/2023 Financial Resource Strain Answer Date R ecorded Do you have any trouble payi ng for your medications, or do you think you might in the future? No 10/10/2023 Does your family have troubl e paying for medicine? (Household - for ages 0-17 years) Not on file 10/10/2023 Transportation Needs Answer Date Record ed READ ONLY Do you have troubl e getting a ride to medical visits or work? Sometimes True 10/10/2023 Does your family have a hard time getting a ride to doctors visits? (Household - for ages 0-17 years) Not on file 10/10/2023 Has lack of transportation k ept you from medical appointments, meetings, work, or from getting things needed for daily living? Check all that apply. No 024 Do you (or your family) have trouble finding or paying for a ride (transportation)? (Household - for ages 0-17 years) Not on file 10/10/2023 Housing Stability Answer Date Recorded Do you currently live in a s helter or have no steady place to sleep at night? No 10/10/2023 READ ONLY Do you think you a re at risk of becoming homeless? No 10/10/2023 Does your family worry about paying for your home or becoming homeless? (Household - for ages 0-17 years) Not on file 0 10/10/2023 Are you homeless or worried that you might be in the future? No 10/10/2023 Are you (or your family) mariella eless or worried that you might be in the future? (Household - for ages 0-17 years) Not on file Food Insecurity Answer Date Recorded Do you need food for this week? No 10/10/2023 Are you able to get enough f ood for your family? (Household - for ages 0-17 years) Not on file 10/10/2023 Does your family need food t his week? (Household - for ages 0-17 years) Not on file 10/10/2023 Do you always have enough fo od for your family? (Household - for ages 0-17 years) Not on file 10/10/2023 Estimated Date of Delivery Comme nts Yes 12/27/2023 Based on Ultraso und Sex and Gender Information Value Date Recorded Sex Assigned at Female 07/30/2021 4:15 PM EDT Gender Identity Female 07/30/2021 4:15 PM EDT Sexual Orientation Bisexual 07/30/2021 4 :15 PM EDT Job Start Date Occupation Industry [...] this encounter Progress Notes * Maribell Davis, hall cleaner - 10/24/2023 8:18 AM EDT Attempt 2 No recent lab results available Patient is due for keSecure64ra blood work. [employer] reminder message sent today. Follow up in 1 week(s) for results. documented in this encounter Plan of Treatment Upcoming Encounters Date Type Department Care Team (Late st Contact Info) Description 10/25/2023 1:15 PM EDT Office Visit Gynecology/Obstetrics Ciera Lemon [address] [place] [address] Ora Setrn CRNP [address] [place] [address] Nurse Ion Healthy Beginnings Return [place] [address] [place] [address] 10/27/2023 1:45 PM EDT Imaging Maternal Medicine ImagingVianney [address] [place] [phone] 10/31/2023 6:45 AM EDT Pharmacy Neurology Manav [address] [place] [address] Manav, Pharmacist Neurology [address] [place], [place] [phone] 11/02/2023 1:00 PM EDT Telemedicine Psychiatry Manav Cain [address] [place] [phone] Yumiko Miller MD [address] [place] [address] 11/24/2023 1:00 PM EDT Imaging Maternal Medicine Imaging, [address] [place] [phone] 12/26/2023 4:00 PM EDT Telemedicine Neurology Manav [address] [place] [phone] Meredith Vásquez PA-C [address] [facility] [place] [address] Health Maintenance Due Date Last Done [...]
--- OUTSIDE RECORDS SUMMARY | 2024-01-05 14:41 | External Medical Summary | Summary of Care ---
Author Name Unknown Organization [facility] Address [address] [place] [address] Phone [phone] Care Team Providers Care Program Architect Name Role Phone Unavailable Primary Care Provider Unavailabl e Reason for Visit * Reason Comments Seizure Disorder Encounter Details Date Type Department Care Team (Late st Contact Info) Description 10/17/2023 6:45 AM EDT Pharmacy Neurology Cezar Hood, [place] [address] [place] [address] [place], Pharmacist Neurology [address] [place] [address] Other generalized epilepsy, not intractable, without status epilepticus (HCC)* Allergies No known active allergiesdocumented as of this encounter (statuses as of 10/17/2023) Medications Medication Sig Dispensed Refills Start Date [...] as of this encounter (statuses as of 10/17/2023) Active Problems Problem Noted Date Diagnosed Date Other dietary vitamin B12 deficiency anemia 09/18 Antepartum anemia complicating 024 14 weeks gestation of 06/28/2023 Supervision of high risk in [facility] 06/21/2023 Depression complicating , antepartum [...] of cardiovascular malformations compared with unexposed neonates ([id number]). Infants exposed to fluoxetine late in the [...] as of this encounter (statuses as of 10/17/2023) Resolved Problems Problem Noted Date Diagnosed Date [...] information was shared with the patient. The [place] [employer] Obstetrics and Gynecology, Society for Maternal- Medicine, CDC and multiple medical associations strongly recommend the COVID-19 vaccine for women who are in any trimester, those attempting to become , women who have recently delivered, who are lactating as well as any other woman, regardless of age or DATA SYSTEMS ANALYST disorder. The only exceptions to receiving the vaccine are for those who have a contraindication or allergy to the vaccine or any component of the vaccine or with sincerely held jehovah's witness convictions. The CDC and ACOG encourages a [...] MSAFP testing negative. S/p anatomy ultrasound at [facility]. Passed one hour glucose test. CBC [...] the local suicide hotline phone number for [facility]. Has counseling appointment weekly. Last Assessment [...] as of this encounter (statuses as of 10/17/2023) Immunizations Name Administration Dates Next Due COVID-19 mRNA, LNP-s, No Pre serve, 2-Dose Series ([employer]) 09/03/2020,08/13/2020 DTaP Dipth/Tet/Acell Pertussis (Infanrix), Peds 04/03/2008,01/03/2006,2003,07/2003,2003 [...] PPD 05/10/2023,05/03/2023 Pneumococcal Conjugate Vacci ne, 20-valent ([id number]) 04/09/2022 Pneumococcal Conjugate Vacci ne, 7 Valent [...] money to get more. Never true 10/10/2023 [place] Depression Scale Answer Date Recorded [place] Depression Scale Total 3 09/20/2023 The thought [...] this encounter Progress Notes * Maribell Davis, pourer buggy ladle - 10/17/2023 8:35 AM EDT Attempt 1 No recent lab results available Patient is due for keppra blood work. [employer] reminder message sent today. Follow up in 1 week(s) for results. documented in this encounter Plan of Treatment Upcoming Encounters Date Type Department Care Team (Late st Contact Info) Description 10/24/2023 6:45 AM EDT Pharmacy Neurology Manav [address] [place] [phone] Manav, Pharmacist Neurology [address] [facility] [place] [address] 10/25/2023 1:15 PM EDT Office Visit Gynecology/Obstetrics Ciera eLmon [address] [place] [address] Ora Stern CRNP [address] [place] [address] Lemon, Nurse [facility] Return [facility] [facility] [place] [address] 10/27/2023 1:45 PM EDT Imaging Maternal Medicine Imaging, [place]ian[place] Lemon [address] [place] [phone] 11/02/2023 1:00 PM EDT Telemedicine Psychiatry Manav [address] [place] [phone] Yumiko Miller MD [address] [place] [address] 11/24/2023 1:00 PM EDT Imaging Maternal Medicine Imaging, [place] Lemon [address] [place] [phone] 12/26/2023 4:00 PM EDT Telemedicine Neurology Manav [address]b Dr [address] [place] [address] [place] [address] Meredith Vásquez PA-C [address] [place] [address] Health Maintenance Due Date [...]
--- OUTSIDE RECORDS SUMMARY | 2024-01-05 14:41 | External Medical Summary | Summary of Care ---
Author Name Unknown Organization [facility] Address [address] [place] [address] Phone [phone] Care Team Providers Care Tattoo Designer Name Role Phone Unavailable Primary Care Provider Unavailabl e Reason for Visit * Reason Onset Date Comments Medication Refill 10/26/2023 Encounter Details Date Type Department Care Team (Late st Contact Info) Description 10/26/2023 Refill [address] [place] [phone] Mercy Vásquez PA-C [address] [place] [address] Allergies No known active allergiesdocumented as of [...] the morning and 2 Tablets before bedtime. 360 Tablet 1 10/27/2023 Active levETIRAcetam 1000 MG Oral Tablet (Keppra) Take 2 Tablets by mouth in the morning and 2 Tablets before bedtime. 120 Tablet 5 10/10/2023 4 Discontinue d(Refill) documented as of this encounter (statuses as of 10/27/2023) Active Problems Problem Noted Date Diagnosed Date Other dietary vitamin B12 deficiency anemia 09/18 Antepartum anemia complicating 024 Supervision of high risk in [facility] 06/21/2023 Depression complicating , antepartum Overview: History [...] of cardiovascular malformations compared with unexposed neonates ([id number]). Infants exposed to fluoxetine late in the [...] information was shared with the patient. The [employer], Society for Maternal- Medicine, CDC and multiple medical associations strongly recommend the COVID-19 vaccine for women who are in any trimester, those attempting to become , women who have recently delivered, who are lactating as well as any other woman, regardless of age or REFRIGERATOR GLAZIER disorder. The only exceptions to receiving the vaccine are for those who have a contraindication or allergy to the vaccine or any component of the vaccine or with sincerely held temple convictions. The CDC and ACOG encourages a [...] MSAFP testing negative. S/p anatomy ultrasound at [facility]. Passed one hour glucose test. CBC [...] the local suicide hotline phone number for [facility]. Has counseling appointment weekly. Last Assessment & [...] mRNA, LNP-s, No Pre serve, 2-Dose Series ([employer]) 09/03/2020,08/13/2020 DTaP Dipth/Tet/Acell Pertussis (Infanrix), Peds 04/03/2008,01/03/2006,2003,07/2003,2003 [...] PPD 05/10/2023,05/03/2023 Pneumococcal Conjugate Vacci ne, 20-valent ([id number]) 04/09/2022 Pneumococcal Conjugate Vacci ne, 7 Valent [...] money to get more. Never true 10/24/2023 [place] Depression Scale Answer Date Recorded [place] Depression Scale Total 3 09/20/2023 The thought [...] encounter Miscellaneous Notes * Telephone Encounter - Mercy Vásquez PA-C - 10/27/2023 11:21 AM EDT Signed Prescriptions: Disp Refills levETIRAcetam 1000 MG Oral Tablet (Keppra) 360 Ta*1 Sig: Take 2 Tablets by mouth in the morning and 2 Tablets before bedtime. Authorizing Provider: MERCY VÁSQUEZ * Telephone Encounter - Vanda Garcia RN - 10/27/2023 7:42 AM EDTPending Prescriptions: Disp Refills levETIRAcetam 1000 MG Oral Tablet (Keppra) 360 Ta*1 Sig: Take 2Tablets by mouth in the morning and 2 Tablets before bedtime. documented in this encounter Plan of Treatment Upcoming Encounters Date Type Department Care Team (Late st Contact Info) Description 10/27/2023 1:45 PM EDT Imaging Maternal Medicine Imaging, Vianney Lemon [address] [place] [phone] 10/27/2023 1:45 PM EDT Office Visit Metal Wire Technician Obstetrics Maternal Medicine, Vianney Lemon [facility] [address] [place] [phone] Yessenia Cardoso DO [address] [facility] [place] [address] 10/31/2023 6:45 AM EDT Pharmacy Neurology Manav [address] [place] [phone] Manav, Pharmacist Neurology [address] [facility] [place], [place] [phone] 11/02/2023 1:00 PM EDT Telemedicine Psychiatry Manav [address] [phone] Yumiko Miller MD [address] [place] [facility] [place] [address] 11/07/2023 11:30 AM EDT Office Visit [facility]necology[facility]st[facility]iera [facility] [place] [address] Faith Bourgeois PA-C [address] [address] Nurse Ion [facility] Return Vianney [address] [place] [address] 11/24/2023 1:00 PM EDT Imaging Maternal Medicine Imaging, Vianney Lemon [address] [place] [phone] 12/26/2023 4:00 PM EDT Telemedicine Neurology Manav [address] Dr [address] [place] [phone] Mercy Vásquez PA-C [address] [facility] [place] [address] Health Maintenance Due [...]
--- OUTSIDE RECORDS SUMMARY | 2024-01-05 14:41 | External Medical Summary | Summary of Care ---
Author Name Unknown Organization [facility] Address [address] [facility] [address] Phone [phone] Care Team Providers Care Paint Tester Name Role Phone Michelle Calderón MD Primary Care Prov ider Unavailable Reason for Visit * Reason Comments [facility] Return Encounter Details Date Type Department Care Team (Late st Contact Info) Description 07/20/2023 3:00 PM EDT Office Visit Gynecology/Obstetri june Lemon [address] [place] [place] [address] Valerie Silver CRNP [address] [place] [address] Nurse Ion [facility] Return [place]ian[place] [address] [place] [place] [address] Supervision of high risk in second trimester*; Maternal asthma complicating ; Depression complicating , antepartum; Seizure disorder during in second trimester (HCC); Obesity affecting , antepartum, unspecified trimester; Health counseling; Medication exposure during first trimester of Allergies No known active allergiesdocumented as of this encounter (statuses as of 10/12/2023) Medications Medication Sig Dispensed Refills Start Date [...] During .. 120 Tablet 1 06/29/2023 Active levETIRAcetam 1000 MG Oral Tablet (Keppra)Indication s:Partial idiopathic epilepsy with seizures of localized onset, not intractable, without status epilepticus (HCC) Take 2 Tablets by mouth in the morning and 2 Tablets before bedtime. 120 Tablet 5 01/10/2023 4 Discontinue d(Refill) FLUoxetine HCl 20 MG Oral Capsule (PROzac) Take 1 Capsule by mouth in the morning. In the morning.. 90 Capsule 06/20/2023 4 Discontinue d(Refill) FLUoxetine HCl 40 MG Oral Capsule (PROzac) Take 1 Capsule by mouth in the morning. 90 Capsule 06/20/2023 4 Discontinue d(Refill) documented as of this encounter (statuses as of 10/12/2023) Active Problems Problem Noted Date Diagnosed Date Other dietary vitamin B12 deficiency anemia 09/18 Antepartum anemia complicating 024 14 weeks gestation of 06/28/2023 Supervision of high risk in [facility] 06/21/2023 Depression complicating , antepartum [...] of cardiovascular malformations compared with unexposed neonates (z=[id number]). Infants exposed to fluoxetine late in the [...] as of this encounter (statuses as of 10/12/2023) Resolved Problems Problem Noted Date Diagnosed Date [...] information was shared with the patient. The [place] [employer], Society for Maternal- Medicine, CDC and multiple medical associations strongly recommend the COVID-19 vaccine for women who are in any trimester, those attempting to become , women who have recently delivered, who are lactating as well as any other woman, regardless of age or CHRONIC DISEASE MANAGER disorder. The only exceptions to receiving the vaccine are for those who have a contraindication or allergy to the vaccine or any component of the vaccine or with sincerely held protestant convictions. The CDC and ACOG encourages a [...] MSAFP testing negative. S/p anatomy ultrasound at [facility]. Passed one hour glucose test. CBC [...] the local suicide hotline phone number for [facility]. Has counseling appointment weekly. Last Assessment & [...] as of this encounter (statuses as of 10/12/2023) Immunizations Name Administration Dates Next Due COVID-19 mRNA, LNP-s, No Pre serve, 2-Dose Series ([employer]) 09/03/2020,08/13/2020 DTaP Dipth/Tet/Acell Pertussis (Infanrix), Peds 04/03/2008,01/03/2006,2003,07/2003,2003 [...] PPD 05/10/2023,05/03/2023 Pneumococcal Conjugate Vacci ne, 20-valent ([id number]) 04/09/2022 Pneumococcal Conjugate Vacci ne, 7 Valent [...] money to get more. Never true 10/10/2023 [place] Depression Scale Answer Date Recorded [place] Depression Scale Total 3 09/20/2023 The thought [...] Sign Reading Time Taken Comments Blood Pressure 98/54 07/20/2023 3:25 PM EDT Pulse - - Temperature - - Respiratory Rate - - Oxygen Saturation - - Inhaled Oxygen Concentration - - Weight 115.2 kg (254 lb) 07/20/2023 3:25 PM EDT Height 154.9 cm (5' 1") 07/20/2023 3:25 PM EDT Body Mass Index 47.99 07/20/2023 3:25 PM EDT documented in this encounter Functional [...] Progress Notes * Valerie Silver CRNP - 07/20/2023 3:35 PM EDT 17w1d No concerns. Has felt some FM starting yesterday. No bleeding. MSAFP today. Not taking PNV- states her insurance doesn't pay for them and she can't afford to purchase herself.She is taking folic acid. Anatomy u/s scheduled with [facility]. ASHLEY Mercer documented in this encounter Nursing Notes * Cayla Mcdonald RN - 07/20/2023 3:39 PM EDT Patient seen by [facility] Architect. Patient denies any questions or concerns. 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 Pt reports taking folic acid. She has WIC and food stamps. Cayla Mcdonald, RN * Mary Farfan LPN - 07/20/2023 3:32 PM EDT 17w1d Will complete msafp today Anatomy upcoming with MFM Denies concerns. documented in this encounter Plan of Treatment Upcoming Encounters Date Type Department Care Team (Late st Contact Info) Description 10/17/2023 6:45 AM EDT Pharmacy Neurology Manav Rob[address] Dr [address] [place] [phone] Manav, Pharmacist Neurology [address] [facility] [address] [place] [address] 10/25/2023 1:15 PM EDT Office Visit Gynecology/Obstetrics Ciera Lemon [address] [facility] [place] [address] Ora Stern CRNP [address] [place] [address] Nurse Ion [facility] Return Vianney [address] [place] [address] 10/27/2023 1:45 PM EDT Imaging Maternal Medicine Imaging, [place] [place] [phone] 11/02/2023 1:00 PM EDT Telemedicine Psychiatry Manav [address] [phone] Yumiko Miller MD [address] [place] [facility] [place] [address] 11/24/2023 1:00 PM EDT Imaging Maternal Medicine Imaging, [facility] [address] [facility] [place] [phone] 12/26/2023 4:00 PM EDT Telemedicine Neurology Manav [address] [place] [phone] Meredith Vásquez PA-C [address] [facility] [place] [phone] Health Maintenance Due Date Last Done Comments [...] Procedure Name Priority Date/Time Associated Diagnosis Comments MATERNAL SERUM AFP Routine 07/20/2023 3: 48 PM EDT Supervision of high risk in second trimester documented in this encounter Results * MATERNAL SERUM AFP (07/20/2023 3:48 PM EDT) Interpretation SEE BELOW 07/27/2023 4:00 PM EDT [facility] Comment:Screen negative for open NTD. Risk for ONTD <1:5000 07/27/2023 4:00 PM EDT [facility] [place] CALC'D Gestational Age 17.1 07/27/2023 4:00 PM EDT [facility] [email or web address], Serum 27.1 ng/mL 07/27/2023 4:00 PM EDT [email or web address] AFP Mom 0.95 07/27/2023 4:00 PM EDT [facility] DATY Comment: Reference Range: NTD <2.50 IDD <1.90 TWINS <4.00 TWINS IDD <3.50 TRIPLETS <4.50 The AFP test result indicates that this patient is screen negative for open NTD. It should be noted that normal test results can never guarantee the of a normal baby and that 2-3% of newborns have some type of physical or mental defect, many of which are undetectable through any known diagnostic technique. This is a screening test, not a diagnostic test. This risk assessment report is based in part on demographic data provided by the ordering physician. Please notify the laboratory promptly if any data are incorrect. For assistance with recalculations, please call your local [facility] laboratory. For assistance with interpretation of these results, please contact your Local [employer] genetic counselor or call [phone] ([phone]). Interpretive Cutoffs Screen Positive for Open NTD: > or = 2.50 adjusted MOM > or = 1.90 adjusted MOM for insulin-dependent diabetics > or = 4.00 adjusted MOM for twins > or = 3.50 adjusted MOM for twins insulin-dependent diabetics > or = 4.50 adjusted MOM for triplets For additional information, please refer to [email or web address]/faq/[email or web address] (This link is being provided for informational/educational purposes only.) Date of 3 07/27/2023 4:00 PM EDT [facility] Collection Date 4 07/27/2023 4:00 PM EDT [facility] Maternal Weight 253 lbs 4 4:00 PM EDT [facility] EST'D Date of Delivery 4 07/27/2023 4:00 PM EDT [facility] MICHAEL Determined By LMP 024 4:00 PM EDT [facility] Mother's Ethnic Origin WHITE 07/27/2023 4:00 PM EDT [facility] Number of Fetuses 1 024 4:00 PM EDT [facility] Insulin Depend Diabetic NO 07/27/2023 4:00 PM EDT [facility] Repeat Specimen NO 4 4:00 PM EDT [facility] HX of Neural Tube Defects NO 07/27/2023 4:00 PM EDT [facility] Prev Down SYND NO 07/27/2023 4:00 PM EDT [facility] Donor Egg NO 07/27/2023 4:00 PM EDT [facility] Donor Age: Egg Retrieval NOT GIVEN 07/27/2023 4:00 PM EDT [facility] Comment: Test performed by [facility] [address] [place] [id number] Fitter Welder: Viki Danielson MD,PHD,ELMER Test Reported by Mally Fallon, [facility], [address] [place] [address] Meet Castillo M.D., Ph.D., Director of Laboratories , [place] [id number] Blood Venous blood specimen / Unknown Venipuncture / Unknown 07/20/2023 3:48 PM EDT 07/20/2023 3:48 PM EDT Valerie RAMIREZ LAB BLOOD ORDERABLES [facility] [address] [place] [address] documented in this encounter Visit Diagnoses Diagnosis Supervision of high risk in second trimester- Primary Unspecified high-risk Maternal asthma complicating Other current maternal conditions classifiable elsewhere, complicating , childbirth, or the puerperium, unspecified as to episode of care Depression complicating , antepartum Mental disorders of mother, antepartum Seizure disorder during in second trimester (HCC) Obesity affecting , antepartum, unspecified trimester Health counseling Other specified counseling Medication exposure during first trimester of Supervision of other high-risk documented in this encounter Advance Directives * [...] and were consensually agreed upon. Care Teams Paint Tester Relationship Specialty Start Date End Date Michelle Calderón MD PCP - General Family Medicine 03/31/21 documented as of this encounter
--- OUTSIDE RECORDS SUMMARY | 2024-01-05 14:42 | External Medical Summary | Summary of Care ---
Author Name Unknown Organization [facility] Address [address] [place] [address] Phone [phone] Care Team Providers Care Manager Library Name Role Phone Michelle Calderón MD Primary Care Prov ider Unavailable Reason for Visit * Reason Comments Seizure Disorder Encounter Details Date Type Department Care Team (Late st Contact Info) Description 10/10/2023 3:40 PM EDT Telemedicine Neurology [address] [place] [address] Meredith Vásquez PA-C [address] [place] [address] Other generalized epilepsy, not intractable, without status epilepticus (HCC)*; Psychogenic nonepileptic seizure; Seizure disorder during in third trimester (HCC) Allergies No known active allergiesdocumented as of this encounter (statuses as of 10/10/2023) Medications Medication Sig Dispensed Refills Start Date [...] before bedtime. 120 Tablet 5 10/10/2023 Active levETIRAcetam 1000 MG Oral Tablet (Keppra)Indication s:Partial idiopathic epilepsy with seizures of localized onset, not intractable, without status epilepticus (HCC) Take 2 Tablets by mouth in the morning and 2 Tablets before bedtime. 120 Tablet 5 01/10/2023 Discontinue d(Refill) documented as of this encounter (statuses as of 10/10/2023) Active Problems Problem Noted Date Diagnosed Date Other dietary vitamin B12 deficiency anemia 09/18 Antepartum anemia complicating 024 14 weeks gestation of 06/28/2023 Supervision of high risk in [facility] 06/21/2023 Depression complicating , antepartum Overview: [...] of cardiovascular malformations compared with unexposed neonates ([id number]). Infants exposed to fluoxetine late in the [...] as of this encounter (statuses as of 10/10/2023) Resolved Problems Problem Noted Date Diagnosed Date [...] information was shared with the patient. The [employer], Society for Maternal- Medicine, CDC and multiple medical associations strongly recommend the COVID-19 vaccine for women who are in any trimester, those attempting to become , women who have recently delivered, who are lactating as well as any other woman, regardless of age or SHIP YARD ELECTRICAL PERSON disorder. The only exceptions to receiving the vaccine are for those who have a contraindication or allergy to the vaccine or any component of the vaccine or with sincerely held christian convictions. The CDC and ACOG encourages a [...] MSAFP testing negative. S/p anatomy ultrasound at [facility]. Passed one hour glucose test. [...] the local suicide hotline phone number for [facility]. Has counseling appointment weekly. Last [...] as of this encounter (statuses as of 10/10/2023) Immunizations Name Administration Dates Next Due COVID-19 [...] PPD 05/10/2023,05/03/2023 Pneumococcal Conjugate Vacci ne, 20-valent ([id number]) 04/09/2022 Pneumococcal Conjugate Vacci ne, 7 Valent [...] money to get more. Never true 10/10/2023 Sheridan Depression Scale Answer Date Recorded Sheridan Depression Scale Total 3 09/20/2023 The thought [...] as of this encounter Progress Notes * Meredith Vásquez PA-C - 10/10/2023 3:40 PM EDT Patient location: HOME. I was in a hospital or clinic location. After connecting through televideo,patient was verified with two unique identifiers. Patient (or authorized legal administrative representative) was then informed that this was a Telemedicine visit and being conducted confidentially over secure lines. Methods to assure confidentiality were taken. Patient acknowledged consent and understanding of pr ivacy and security of the Telemedicine visit. The patient agreed to participate. 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 Escalante and resident Dr. Pritchard via telemedicine on 04/11/23. Last Visit on 04/11/23: "Reports that her seizures frequency have imporved since the last time she was seen. She now has 2-3 events per week, used to have them on a daily basis in January through February. Her events are described as staring episodes with decreased alertness, bodily shakiness, incomprehensible sounds andnoises with upward gazing at times. She remains amnestic of the events. Her boyfriend provided mostof the description. LTM 03/01/2023: No evidence of epileptiform abnormalities or focal asymmetries with one clinical episode of "spacing off and not responding" that did not have a correlate. When asked today about the event, she mentions she had "convulsions" and not only staring episodes during that event, but it isnot documented as a convulsion so I am uncertain if her "convulsions" are the events that were captured. Reports being presently conscious of her PTSD/flashback episodes and acknowledges their occurrence.She notes that these episodes are linked to emotional or family-related stressors. Had an ED visit to the [facility] in 03/24/2022 for evaluation of dizziness and headache with no seizure activity reported but she felt like she is about to have a seizure. I tried to look up the ED records but could not review the full report. Continues to be on Lamictal 150 BID and Keppra 2000 mg BID. No side effects reported. No labs to be reviewed. (Already ordered but never obtained). More family stressors, continues to have a hard time sleeping Currently on Norethindrone for control, no more on the folic acid (makes her nauseous). Denies confusion, trouble speaking, dysarthria, dysphagia, diplopia, facial droop, facial numbness,headache, weakness, numbness, cramping, pain, urinary or bowel symptoms, gait disturbance, vertigo,or abnormal movements." EMU admission for spell characterization was ordered at lat visit, but she canceled admission as she was not having episodes at the time. At the time of this scheduled EMU admission in 06/2023, it wasfound upon chart review that patient was . [facility] pharmacy referral was placed at the time. She has since presented to [facility] ED on 10/04/23, at which time the ED provider contacted Dr. Gomez in Neurology. Per Dr. Gomez' telephone note from 10/04/23, patient had a 4 minute seizure on 10/04/23 and was seen at the ED on 10/01/[address] a [address] Gomez advised increase in her lamotrigine to 175 mg BID and continuation of Keppra 2000 mg BID at the time. Trough levels drawnon 10/05/23 were done while on Lamictal 150 mg BID. Today's Visit: She is currently 28 weeks . She is now on Lamictal 175 mg BID without any seizures. She notes she has had a lot of stress, which she thinks caused her recent seizures - her ex left her, her child was calling him daddy, and her ex called CYS on her. She notes prior to her seizure on 10/04/23, she had a seizure about a week prior, which she also thinks was from stress. Keiko does not have much recollection of these events - notes that she remembers feeling a "weird headache and disoriented" shortly before her seizures, then remembers blacking out and coming out ofthe episodes wet or cold. Mother reports with her seizures she blacked out, wouldn't respond to her. Lately with her seizureskene does not convulse, does not respond until her mother splashes water on her face or she puts iceon the back of her neck or down her shirt. Last episode was about 4 minutes in duration. They have not been lasting any longer than 5 minutes. She is a little confused afterwards. Lately has not bit her tongue with her seizures, although she has in the past. Denies urinary or bowel incontinence. Notes these episodes are different from her PTSD flashback episodes. On Lamictal 175 mg BID and Keppra 2000 mg BID. She denies side effects. Continues to take folic acid 4 mg daily. Epilepsy History: History from last visit with Pediatric Neurology 03/02/2022: " Keiko Le is a 16 year old female patient who presents for follow up evaluation. She was last seen in December 2021.The primary neurologist is Dr Thomas. The patient had a spell in June 2019 of confusion at school. She subsequently had an EEG which wasepileptiform demonstrating burst of generalized high-voltage spike wave discharges. And was placed on Keppra 750 mg BID. Brain MRI in October 2019 was normal. She takes Zoloft for mood disorder. In June, the family report seizure the night before our visit described As " stumbled and appeared dizzy. The mother states that she pointed to her head and triedto tell the mother something but couldn't. She had stuttering of her words. The mother states that the episode lasted about 5 minutes. The mother states that she came out of the seizure behavior Diastat was needed. Following the event she was tired and slept the remainder of the night. She woke this morning and felt fine. " They denies any missed doses of medication. Keppra was increased to 1500 mg BID. Additional seizures were reported on 05/18, 07/22. EEG was obtained and noted to be a normal study. She continued to have breakthrough seizures and LTM was obtained. She was admitted on 09/09. At that time events were described as sz preceded with headache and dizziness then she becomes limp. Started to have arm flailing and say things like "get off me" during these events. She sometimes can hear family members during these events and will have flashbacks to past childhood trauma. Afterwards she will cry and be tired/confused. A few times she has bit her tongue. Events can last from 3-11 minutes, have not received rescues at home. Triggers include anxiety such as when brother and nephew is arguing at home if stressors are not present she usually will have an event around 2029. Event lasting 11 minutes occurred 5 days ago when she thought her boyfriend was going to leave her. Two weeks ago events were as often as 3-4 times a week, but over the last weekhaving seizures once a day. It was reported that she dropped out of school because of these events.The family also reported increased fatigue and worsening depression. Will sleep 12-15 hours a day. Six days prior to LTM admission, Zoloft was discontinued and Wellbutrin started. Endorsed passive SI without intent. Has self- harmed in the past with cutting. During LTM monitoring, two events were captured which were consistent with psychogenic nonepileptiform epilepsy. Pediatric psychology was consulted and recommended outpatient therapy. Pt was discharged home on 09/10/20, no adjustments were made to her AEDs. At the time of the visit in January 2021, the family reported that she had 4 additional events of PNES, last 4 weeks before that visit. Keppra was continued at 1500 mg BID. In July 2021 no seizures were reported but she did report that she was 20 weeks at that time. She was followed by [facility] Keppra level was 34. She was asked to follow up closely with us in 6 weeks; however no follow up was completed. In November [facility] provider contacted us to report seizure breakthrough. Keppra increased to 1750 mg BID. It was also noted that patient restarted Wellbutrin at that time for depression Appts with adult neurology were cancelled. Baby girl born on 12/09/21. She reports that baby had an EEG due to staring spell but was normal. Atthe time of the visit in December the patient reported n 3 known seizures since delivery (7 weeks post at that time), and possibly seizure that daydue to symptoms she is experiencing after waking up on the floor. She reports that seizures usuallylook like tonic seizures and possibly clonic movements. She reported compliance with her medication. Keppra was increased to 2000 mg BID (36 mg/kg/day) and adult neurology evaluation requested. There is documentation of ED visit on 02/17/22 due to witnessed seizure breakthrough. The patient states that she has had multiple seizures since our last conversation and states that the last seizure was about 2 days ago. Seizure described as GTC lasting 3-5 minutes in length. She reports compliance with Keppra. In the past she has had PNES event where she appears to "pass out for 2 minutes where she doesn't respond to us but she brings herself back out." Age of onset: 14 years old (warning signs since she was 8 years old, didn't know they were seizures) Event types: Seizures - staring spells or GTCs Most of them happen when she is awake, one time happened in her sleep. Sometimes she just stares, makes incomprehensible noises,other times she convulses. Loss of awareness: Yes Frequency: random (2-3 per week). Date of last event: 10/04/23 Presence of post ictal period: yes, drowsy and worn out. Jaw hurts afterwards Incontinence: Once Tongue biting: A few times, on the side Triggers: stressors 2. "Dissociation" events / PTSD ones Loss of awareness: Yes, staring. Reports that she experiences "flashbacks" Date of last event: unknown Epilepsy Risk Factors: -High Fevers/Febrile Seizures: No -Academic/Developmental: Finished 10th grade, did some of 11th grade. Stopped school because she got -History of Head Injury/LOC: No -History of FUNERAL ATTENDANT infections: No Current AEDs: Keppra 2000mg BID Lamictal 175 mg BID Takes medications at 9-10am, at night 9pm Prior Anti-Seizure Medications: No Prior Epilepsy Work Up: LTM 03/01-03/04/2023: Normal 72 hour ambulatory EEG. There is no evidence of epileptiform activity or asymmetry. There were no clinical or electrographic seizures during this study. 2023: Patient reports at 12:42 " spacing off and not responding", No EEG correlate. EEG 09/09/20-09/10/20 Findings: Background: Background activities in wakefulness were comprised of a continuous, symmetric mixture of frequencies and characterized by the presence of a well- regulated, symmetric 9-10 Hz posterior dominant rhythm which attenuated with eye opening. There was a well-developed anterior to posterior gradient. In drowsiness, there was impersistence of the posterior dominant rhythm and emergence of diffusely distributed theta activities. As the patient transitioned to sleep, vertex sharp waves, K complexes,and symmetric sleep spindles were recorded. Slowing: No focal or generalized slowing was present. Asymmetry: None Interictal Activity: None Ictal Activity / Patient Events: There were two stereotypical push button events captured during this recording period at 1850 and 2241 on 09/09/2020. Clinically, during both events, the patient is lying in bed, holding the event button and says that her eyes are bothering her, starts to stare and then closes her eyes and becomes unresponsive to verbal and tactile stimuli. After about 4 minutes, she takes a deep breath and responds appropriately. There is no ictal correlate to either event on EEG, with normal awake background and normal EKG rhythm noted during the entirety of the events. Activation Procedures: Photic stimulation using a step-lilly increase in frequency elicited symmetric photic driving and no epileptiform activity. Hyperventilation for 3 minutes produced diffuse slowing of background activities. EKG: Single lead EKG demonstrated no clear abnormalities. Previous EEG for comparison: EEG- 08/27/2019- Dr Talavera INTERPRETATION: The record is abnormal with a well-organized, age-appropriate background interrupted by bursts of generalized high-voltage spikewave discharges. These paroxysmal discharges are considered epileptiform and reflect a lowered seizure threshold for primary generalized forms of epilepsy.Clinical correlation recommended. There is no previous EEG available for comparison. MRI BRAIN W WO CONTRAST - 11/02/2019 IMPRESSION IMPRESSION 1. No imaging findings to suggest an acute intracranial abnormality. 2. No gross malformation of cortical development, or medel matter heterotopia is identified. Handedness: right Pertinent Past Medical History: Past Medical History: Diagnosis Date ADHD Anxiety and depression zoloft rx Asthma 2012 Bipolar disorder (HCC) PTSD (post-traumatic stress disorder) Seasonal allergies Seizure (HCC) epliepsy in 2019; managed on Keppra Current Outpatient Medications: Current Outpatient Medications Medication Sig Dispense Refill levETIRAcetam 1000 MG Oral Tablet (Keppra) Take 2 Tablets by mouth in the morning and 2 Tablets before bedtime. 120 Tablet 5 lamoTRIgine 150 MG Oral Tablet (LaMICtal) Take 1 Tablet by mouth in the morning and 1 Tablet beforebedtime. (Patient taking differently: Take 175 mg by mouth in the morning and 175 mg before bedtime.) 180 Tablet 1 Vitamin B-6 25 MG Oral Tablet Take 1 Tablet by mouth every 6 hours as needed for Nausea. 120 Tablet2 Ventolin HFA 108 (90 Base) MCG/ACT Inhalation Aerosol Solution Inhale 2 Puffs by mouth every 6 hours as needed for Wheezing. 54 g 1 diazePAM 20 MG Rectal Gel Administer 20 mg into the rectum as needed for Prolonged Seizure (greather than 5 minutes may repeat dose in 5 minutes then call 911). 1 Each 0 Folic Acid 1 MG Oral Tablet Take 1 Tablet by mouth in the morning. During .. 120 Tablet 1 19 29-1 MG Oral Tablet Chewable Take by mouth. FLUoxetine HCl 40 MG Oral Capsule (PROzac) Take 1 Capsule by mouth in the morning. 90 Capsule 0 FLUoxetine HCl 20 MG Oral Capsule (PROzac) Take 1 Capsule by mouth in the morning. In the morning..90 Capsule 0 Vitamin B-12 1000 MCG Oral Tablet (Cyanocobalamin) Take 1 Tablet by mouth in the morning. 30 Tablet5 Iron-Vitamin C 65-125 MG Oral Tablet (Vitron C) Take 1 Tablet by mouth in the morning and 1 Tablet before bedtime. 60 Tablet 3 lamoTRIgine 25 MG Oral Tablet (LaMICtal) Take 1 Tablet by mouth in the morning and 1 Tablet before bedtime. 60 Tablet 2 No current facility-administered medications for this visit. FAMILY HISTORY: No family history of seizures. No family history of febrile seizures Family History Problem Relation Name Age of Onset Bipolar Disorder Mother Bipolar Disorder Father No Known Problems Sister (Half) 2 maternal No Known Problems Brother (Half) 1 maternal Gastro-intestinal disorder Grandmother (Maternal) ODETTE Asthma Grandmother (Maternal) SOCIAL HISTORY: Has 1 daughter, currently 12 months. Social History Tobacco Use Smoking status: Never Smokeless tobacco: Never Vaping Use Vaping status: Never Used Substance Use Topics Alcohol use: Not Currently Drug use: Never ALLERGIES: Patient has no known allergies. ROS: Otherwise negative unless noted in HPI. OBJECTIVE: Physical Examination: Most Recent Vital Signs: No vitals as this was a telemedicine visit PHYSICAL EXAMINATION: Most Recent Vital Signs: There were no vitals filed for this visit. Exam: Exam limited by telemedicine encounter. Constitutional: Appearance normally developed, well nourished, no deformities and well groomed Head and face: normocephalic and atraumatic Eyes: normal lids, normal sclera, normal conjunctiva. Respiratory: normal effort Skin: no rashes, lesions, or ulcers noted on face Psychiatric: normal judgement and insight, normal mood and normal affect NEUROLOGIC EXAMINATION: Appearance: No Acute Distress Orientation: Awake, Alert, and Oriented x 3 Mental status: alert Language: No aphasia Speech: No dysarthria Cranial Nerves: 7 No facial asymmetry 8 Gross hearing intact. Muscle exam: Patient spontaneously lifts bilateral upper extremities against gravity. LABORATORY: Latest Reference Range & Units 04/29/21 13:01 07/27/21 13:09 07/20/23 15:48 10/05/23 13:18 Lamotrigine 2.5 - 15.0 ug/mL <0.9 (L) 2.2 (L) Levetiracetam 3 - 63 ug/mL 35 34 <2 (L) 36 (L): Data is abnormally low ICD-10-CM 1. Other generalized epilepsy, not intractable, without status epilepticus ([facility]) G40.409 2. Psychogenic nonepileptic seizure F44.5 3. 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 Last episode was 10/04/23 - patient feels most recent episodes have beenprovoked by significant stress. She notes these episodes are separate from her PTSD/PNEA attacks. She did have an ambulatory EEG in 02/2023 that was normal and captured a staring episode with unrespon siveness, which was nonepileptic, but no full body convulsion was documented during this event. Hermost recent episodes seem most consistent with the event captured on ambulatory EEG, so there is high suspicion these recent episodes are nonepileptic. She has been doing well on Lamictal 175 mg BID,but only recently started this dose. Recommended she repeat trough Lamictal and Keppra levels once she is on Lamictal 175 mg BID for at least one week. Can make dose adjustments as necessary once we get those levels back. Stressed the importance of getting labs done and following with pharmacy teamas uncontrolled seizures during can be dangerous to the baby. Also discussed risk of defects on ASM therapy - encouraged her to continue folic acid 4 mg daily. If events persist despite dose adjustments, may consider EMU admission for spell characterization. RECOMMENDATIONS: 1. Epilepsy and PNEA/Non-epileptic events - Continue Lamictal 175 mg BID and Keppra 2000 mg BID for now - Get updated trough Lamictal and Keppra levels once she is on increased dose of Lamictal for at least 1 week - If episodes persist despite steady levels/increasing ASM doses, may consider EMU admission for spell characterization - Epilepsy Safety Counseling: Seizure safety precautions and the [place] state mandatory 6 month drivingrestriction following seizures that could impair driving were discussed. Does not drive. - Counseling of Women with Childbearing Potential: discussed. Patient is currently 28 weeks , current due date is 12/27/23. Stressed importance of following with [facility] pharmacy and getting routine levels drawn. Continue folic acid 4 mg daily. She will follow up with me in 2 month(s) or sooner if needed. Thank you for the opportunity to participate in the care of this patient. If you have any further questions or concerns please do not hesitate to contact my office. Meredith Vásquez PA-C [facility] 10/10/23 documented in this encounter Plan of Treatment Upcoming Encounters Date Type Department Care Team (Late st Contact Info) Description 10/17/2023 6:45 AM EDT Pharmacy Neurology [address] [place] [phone] Manav, Pharmacist Neurology [address] [facility] [address] [place] [address] 10/25/2023 1:15 PM EDT Office Visit Gynecology/Obstetrics Ciera Lemon [address] [place] [id number] Backer, ASHLEY Roman [address] [facility] [place] [phone] Nurse [facility] [address] [facility] [place] [address] 10/27/2023 1:45 PM EDT Imaging Maternal Medicine Imaging, Vianney Lemon [address] [place] [phone] 11/02/2023 1:00 PM EDT Telemedicine Psychiatry Manav [address] [phone] Yumiko Miller MD [address] [facility] [place] [phone] 11/24/2023 1:00 PM EDT Imaging Maternal Medicine Imaging, [facility] [address] [facility] [place] [phone] 12/26/2023 4:00 PM EDT Telemedicine Neurology Manav [address] [place] [phone] Meredith Vásquez PA-C [address] [place] [facility] [address] Health Maintenance Due Date Last Done [...] not intractable, without status epilepticus (HCC)- Primary Psychogenic nonepileptic seizure Seizure disorder during in third trimester (HCC) documented in this encounter Advance Directives * [...] and were consensually agreed upon. Care Teams Manager Library Relationship Specialty Start Date End Date Michelle Calderón MD PCP - General Family Medicine 03/31/21 documented as of this encounter
--- OUTSIDE RECORDS SUMMARY | 2024-01-05 14:42 | External Medical Summary | Summary of Care ---
Author Name Unknown Organization [facility] Address [address] [place] [address] Phone [phone] Care Team Providers Care Literacy Teacher Name Role Phone Michelle Calderón MD Primary Care Prov ider Unavailable Reason for Visit * Reason Onset Date Comments Advice 07/21/2023 Encounter Details Date Type Department Care Team (Late st Contact Info) Description 07/21/2023 Telephone Neurology, [place] [address] [place] [address] Roz Lehman PA-C [address] [place] [address] Advice Allergies No known active allergiesdocumented as of this encounter (statuses as of 10/07/2023) Medications Medication Sig Dispensed Refills Start Date End Date Status levETIRAcetam 1000 MG Oral Tablet (Keppra)Indication s:Partial idiopathic epilepsy with seizures of localized onset, not intractable, without status epilepticus (HCC) Take 2 Tablets by mouth in the morning and 2 Tablets before bedtime. 120 Tablet 5 01/10/2023 Active lamoTRIgine 150 MG Oral Tablet (LaMICtal) [...] During .. 120 Tablet 1 06/29/2023 Active FLUoxetine HCl 20 MG Oral Capsule (PROzac) Take 1 Capsule by mouth in the morning. In the morning.. 90 Capsule 06/20/2023 4 Discontinue d(Refill) FLUoxetine HCl 40 MG Oral Capsule (PROzac) Take 1 Capsule by mouth in the morning. 90 Capsule 06/20/2023 4 Discontinue d(Refill) documented as of this encounter (statuses as of 10/07/2023) Active Problems Problem Noted Date Diagnosed Date Other dietary vitamin B12 deficiency anemia 09/18 Antepartum anemia complicating 024 14 weeks gestation of 06/28/2023 Supervision of high risk in [facility] 06/21/2023 Depression complicating , antepartum Overview: History [...] of cardiovascular malformations compared with unexposed neonates ([id number]). Infants exposed to fluoxetine late in the [...] as of this encounter (statuses as of 10/07/2023) Resolved Problems Problem Noted Date Diagnosed Date [...] information was shared with the patient. 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 The only exceptions to receiving the [...] MSAFP testing negative. S/p anatomy ultrasound at [facility]. Passed one hour glucose test. CBC within [...] local suicide hotline phone number for [facility]. Has counseling appointment weekly. Last Assessment & [...] as of this encounter (statuses as of 10/07/2023) Immunizations Name Administration Dates Next Due COVID-19 [...] PPD 05/10/2023,05/03/2023 Pneumococcal Conjugate Vacci ne, 20-valent ([id number]) 04/09/2022 Pneumococcal Conjugate Vacci ne, 7 Valent [...] you got the money to buy more. Patient declined Within the past 12 months, t he food you bought just didn't last and you didn't have money to get more. Patient declined Grimstead Depression Scale Answer Date Recorded Grimstead Depression Scale Total 3 09/20/2023 The thought of harming myself has occurred to me . Never 09/20/2023 Childcare Answer Date Recorded Do you feel overwhelmed with taking care of a child, family member or friend? Yes 02/17/2023 Does your family need help f inding childcare? (Household - for ages 0-17 years) Not on file 02/17/2023 Clothing Answer Date Recorded Have you been unable to get clothing when it was really needed? No 02/17/2023 Is your family able to get c lothes or diapers when needed? (Household - for ages 0-17 years) Not on file 02/17/2023 Personal Safety Answer Date Recorded Do you feel unsafe or have concerns for your saf ety? No 02/17/2023 Do you have concerns for you r family's safety? (Household - for ages 0-17 years) Not on file 02/17/2023 Utilities Answer Date Recorded Do you have trouble paying y our heating, water, or electric bill? No 02/17/2023 Is your family able to pay t he heat, water, or electric bill? (Household - for ages 0-17 years) Not on file 02/17/2023 Does your family have access to good internet? (Household - for ages 0-17 years) Not on file 02/17/2023 Employment Status Answer Date Recorded Are you unemployed or without regular income? No 02/17/2023 Does the household have a [facility] source [facility] income? (Household - for ages 0-17 years) Not on file 02/17/2023 Social Connections Answer Date Recorded How often do you feel lonely or isolated from th ose around you? Rarely 02/17/2023 Financial Resource Strain Answer Date R ecorded Do you have any trouble payi ng for your medications, or do you think you might in the future? No 02/17/2023 Does your family have troubl e paying for medicine? (Household - for ages 0-17 years) Not on file 02/17/2023 Transportation Needs Answer Date Record ed READ ONLY Do you have troubl e getting a ride to medical visits or work? Sometimes True 02/17/2023 Does your family have a hard time getting a ride to doctors visits? (Household - for ages 0-17 years) Not on file 02/17/2023 Has lack of transportation k ept you from medical appointments, meetings, work, or from getting things needed for daily living? Check all that apply. (Adult - for ages 18 years and over) Not on file 02/17/2023 Do you (or your family) have trouble finding or paying for a ride (transportation)? (Household - for ages 0-17 years) Not on file 02/17/2023 Housing Stability Answer Date Recorded Do you currently live in a s helter or have no steady place to sleep at night? No 02/17/2023 READ ONLY Do you think you a re at risk of becoming homeless? No 02/17/2023 Does your family worry about paying for your home or becoming homeless? (Household - for ages 0-17 years) Not on file 1 04/19/2022 Are you homeless or worried that you might be in the future? (Adult - for ages 18 years and over) Not on file Are you (or your family) mariella eless or worried that you might be in the future? (Household - for ages 0-17 years) Not on file Food Insecurity Answer Date Recorded Do you need food for this week? No 02/17/2023 Are you able to get enough f ood for your family? (Household - for ages 0-17 years) Not on file 02/17/2023 Does your family need food t his week? (Household - for ages 0-17 years) Not on file 02/17/2023 Do you always have enough fo od for your family? (Household - for ages 0-17 years) Not on file 02/17/2023 Estimated Date of Delivery Comme nts Yes [...] Telephone Encounter - Meredith Vásquez PA-C - 10/07/2023 9:17 AM EDT Let's keep things the same for now, but re-check trough levels about 1 week after she is on lamotrigine 175 mg BID. Thanks! Meredith Vásquez PA-C * Telephone Encounter - Tahmina Antunez RPh - 10/06/2023 2:12 PM EDT AED levels completed. Patient has MICHAEL of 12/27/23. Latest Reference Range & Units 07/20/23 15:48 10/05/23 13:18 Lamotrigine 2.5 - 15.0 ug/mL <0.9 (L) 2.2 Levetiracetam 3 - 63 ug/mL <2 (L) 36 Sent MyG to patient who confirmed Keppra dose of 2000 mg BID. She stated that Mark Gould increased her LTG dose to 175 mg BID with first night of increased dose being this evening (so 10/05/23 level reflective of 150 mg BID dose). Patient endorses taking medications usually around 8 AM and 9 PM. Please advise of any dose adjustments/repeat levels. Thanks! * Telephone Encounter - Krupa Escalante DO - 09/07/2023 10:41 AM EDT Thanks Tahmina! I am including Meredith and Vanda so that they are aware. Meredith, perhaps you can emphasize getting her levels drawn when you see her in September? Let me know if there are any other suggestions any of you have. Thanks, Krupa Escalante DO * Telephone Encounter - Tahmina Antunez RP - 09/02/2023 10:[address] Escalante. Patient has not had repeat AED levels completed. [facility] has made several attempts to request completion of labs. Sending letter as final attempt today. Looks like patient has visit scheduled with Meredith on 10/10/23 but wanted to make you aware. * Telephone Encounter - Tahmina Atnunez RPh - 07/22/2023 1:45 PM EDT Called and spoke with patient. Advised to continue current doses and repeat levels in 1 week. Also discussed timing of lab draw in regards to AED doses - patient takes AM doses of medication at 8AM. Lab scheduled for 07/28/23 at 4:00 PM. * Telephone Encounter - Krupa Escalante DO - 07/22/2023 1:32 PM EDT Thanks Tahmina, Yes we should have her get her labs drawn again and assure they are true troughs - it seems like these levels are probably falsely low since she missed a dose. Make sure she's taken her medications regularly for about a week before she gets the labs drawn. She should never miss her anti-seizure medication doses! Thanks again, Krupa Escalante DO * Telephone Encounter - aThmina Antunez RPh - 07/22/2023 12:45 PM EDT I spoke with the patient and she confirmed her current doses of Keppra and Lamictal as noted below.She did note that she did not take her morning doses of the medications the day that labs were drawn (labs drawn at 3:48 PM). Should we make any dose adjustments or have patient repeat level and ensure proper timing of lab draw? She stated she is pretty good about taking her medications and does not usually miss doses. * Telephone Encounter - Tahmina Antunez [facility] - 07/21/2023 2:44 PM EDT Correct, we only have Keppra levels from 2021. Never had LTG levels completed. Component Latest Ref Rng 04/29/2021 13:01 07/27/2021 13:09 Levetiracetam 3 - 63 ug/mL 35 34 She is about 17 weeks (MICHAEL 12/27/23). I sent her a [employer] message to confirm her current dosesand any missed doses. I will keep you posted if/when I hear back from her so we can come up with a plan. Thanks everyone! * Telephone Encounter - Krupa Escalante DO - 07/21/2023 2:35 PM EDT Looks like Anjelica and I have seen this patient in the past, Roz is covering for Anjelica this week so including her for assistance. However, I can comment about the levels. I think we need confirmation that she is in fact adherent with her doses, given that they are that low, before we make dose adjustment recommendations. Can you let us know what she says, Tahmina? Also,how far along is she in her at this point? Looks like her historic Keppra level was 34 in 07/27/2021, perhaps this can serve as a pre- level. It looks like we do not have any historical levels of her lamotrigine, correct Tahmina? Thank you! Krupa Escalante DO * Telephone Encounter - Tahmina Antunez RPh - 07/21/2023 1:17 PM EDT Patient had Keppra and LTG levels drawn. Latest Reference Range & Units 07/20/23 15:48 Lamotrigine 2.5 - 15.0 ug/mL <0.9 (L) Levetiracetam 3 - 63 ug/mL <2 (L) Current AED doses are Keppra 2000 mg BID and LTG 150 mg BID. Sent MyG to patient to confirm doses and inquire about missed doses. Please advise on dose increases and repeat levels. documented in this encounter Plan of Treatment Upcoming Encounters Date Type Department Care Team (Late st Contact Info) Description 10/10/2023 3:40 PM EDT Telemedicine Neurology [address] [place] [phone] Meredith Vásquez PA-C [address] [facility] [place] [phone] 10/25/2023 1:15 PM EDT Office Visit Gynecology/Obstetrics Ciera Lemon [address] [place] [phone] BackerOra CRNP [address] [place] [address] Nurse Ion [facility] Vian[place] [address] [place] [address] 10/27/2023 1:45 PM EDT Imaging Maternal Medicine Vianney Camargo [address] [place] [phone] 11/02/2023 1:00 PM EDT Telemedicine Psychiatry Manav [address] [phone] Yumiko Miller MD [address] [facility] [place] [phone] 11/24/2023 1:00 PM EDT Imaging Maternal Medicine Imaging, [facility] [address] [facility] [place] [phone] Health Maintenance Due Date Last Done Comments COVID-19 Vaccine (3 - 2022-2 4 season) 2022 09/03/2020, 08/13/2020 *SPIROMETRY [...] and were consensually agreed upon. Care Teams Literacy Teacher Relationship Specialty Start Date End Date Michelle Calderón MD PCP - General Family Medicine 03/31/21 documented as of this encounter
--- OUTSIDE RECORDS SUMMARY | 2024-01-05 14:42 | External Medical Summary | Summary of Care ---
Author Name Unknown Organization [facility] Address [address] [facility] [address] Phone [phone] Care Team Providers Care Web Architect Name Role Phone Michelle Calderón MD Primary Care Prov ider Unavailable Reason for Visit * Reason Comments Outpatient Testing Encounter Details Date Type Department Care Team (Late st Contact Info) Description 10/05/2023 12:30 PM EDT [facility] [address] [facility] [phone] [facility] [address] [place] [id number] Screening for STD (sexually transmitted disease); Supervision of high risk in second trimester; Seizure disorder during , antepartum (HCC) Allergies No known active allergiesdocumented as of this encounter (statuses as of 10/05/2023) Medications Medication Sig Dispensed Refills Start Date End Date Status levETIRAcetam 1000 MG Oral Tablet (Keppra)Indications :Partial idiopathic epilepsy with seizures of localized onset, [...] In the morning.. 90 Capsule 09/20/2023 Active documented as of this encounter (statuses as of 10/05/2023) Active Problems Problem Noted Date Diagnosed Date 14 weeks gestation of 06/28/2023 Supervision of high risk in [facility] 06/21/2023 Depression complicating , antepartum Overview: [...] of cardiovascular malformations compared with unexposed neonates (w=[id number]). Infants exposed to fluoxetine late in the [...] as of this encounter (statuses as of 10/05/2023) Resolved Problems Problem Noted Date Diagnosed Date Resolved Date Encounter for supervision of normal first in [...] information was shared with the patient. The [employer] [employer], Society for Maternal- Medicine, CDC and multiple medical associations strongly recommend the COVID-19 vaccine for women who are in any trimester, those attempting to become , women who have recently delivered, who are lactating as well as any other woman, regardless of age or OFFICE SUPPORT ASSOCIATE disorder. The only exceptions to receiving the vaccine are for those who have a contraindication or allergy to the vaccine or any component of the vaccine or with sincerely held sikhism convictions. The CDC and ACOG encourages a [...] MSAFP testing negative. S/p anatomy ultrasound at [facility]. Passed one hour glucose test. CBC within [...] the local suicide hotline phone number for [facility]. Has counseling appointment weekly. Last Assessment [...] as of this encounter (statuses as of 10/05/2023) Immunizations Name Administration Dates Next Due COVID-19 [...] PPD 05/10/2023,05/03/2023 Pneumococcal Conjugate Vacci ne, 20-valent ([id number]) 04/09/2022 Pneumococcal Conjugate Vacci ne, 7 Valent [...] have money to get more. Patient declined Vance Depression Scale Answer Date Recorded Vance Depression Scale Total 3 09/20/2023 The thought [...] No 02/17/2023 Does the household have a [facility] source of income? (Household - for [...] [place] [phone] Meredith Vásquez PA-C [address] [facility] [place] [phone] 10/21/2023 6:45 AM EDT Pharmacy Neurology Man[address] [place] [phone] Manav, Pharmacist Neurology [address] [facility] [place] [phone] 10/25/2023 1:15 PM EDT Office Visit Gynecology/Obstetrics Ciera Lemon [address] [place] [address] BackerOra CRNP [address] [place] [address] Nurse Ion [facility] Vianney [address] [place] [address] 10/27/2023 1:45 PM EDT Imaging Maternal Medicine Imaging, Vianney Lemon [address] [place] [phone] 11/02/2023 1:00 PM EDT Telemedicine Psychiatry Manav [address] [phone] Yumiko Miller MD [address] [place] [address] 11/24/2023 1:00 PM EDT Imaging Maternal Medicine Imaging, [address] [phone] Pending Results Name Type Priority Associated Diagnoses Date /Time CHLAMYDIA TRACHOMATIS AND NEISSERIA GONORRHOEAE, AMPLIFIED PROBE Lab Routine Screening for STD (sexually transmitted disease) 10/05/2023 12:14 PM EDT TRICHOMONAS VAGINALIS, AMPLIFIED PROBE Lab Routine Screening for STD (sexually transmitted disease) 10/05/2023 12:14 PM EDT 50-G GESTATIONAL GLUCOSE, 1 HOUR Lab Routine Supervision of high risk in second trimester 10/05/2023 1:18 PM EDT CBC WITH WBC DIFFERENTIAL AND ANEMIA REFLEX WORKUP Lab Routine Supervision of high risk in second trimester 10/05/2023 1:18 PM EDT SYPHILIS ANTIBODY SCREEN WITH REFLEX TO RPR Lab Routine Supervision of high risk in second trimester 10/05/2023 1:18 PM EDT LEVETIRACETAM LEVEL Lab Routine Seizure disorder during , antepartum (HCC) 10/05/2023 1:18 PM EDT LAMOTRIGINE LEVEL Lab Routine Seizure disorder during , antepartum (HCC) 10/05/2023 1:18 PM EDT HEPATITIS B SURFACE ANTIGEN Lab Routine Screening for STD (sexually transmitted disease) 10/05/2023 1:18 PM EDT HEPATITIS C ANTIBODY SCREEN WITH PROGRESSION TO HEPATITIS C RNA QUANTITATIVE Lab Routine Screening for STD (sexually transmitted disease) 10/05/2023 1:18 PM EDT HIV ANTIGEN & ANTIBODY SCREEN W/ CONFIRMATION Lab Routine Screening for STD (sexually transmitted disease) 10/05/2023 1:18 PM EDT ANEMIA CBC Lab Routine Supervision of high risk in second trimester 10/05/2023 1:18 PM EDT DIFFERENTIAL, AUTOMATED Lab Routine Supervision of high risk in second trimester 10/05/2023 1:18 PM EDT ANEMIA REFLEX CHEMISTRY HOLD Lab Routine Supervision of high risk in second trimester 10/05/2023 1:18 PM EDT SYPHILIS ANTIBODY SCREEN Lab Routine Supervision of high risk in second trimester 10/05/2023 1:18 PM EDT HEPATITIS C ANTIBODY Lab Routine Screening for STD (sexually transmitted disease) 10/05/2023 1:18 PM EDT HEPATITIS C RNA ADD ON Lab Routine Screening for STD (sexually transmitted disease) 10/05/2023 1:18 PM EDT Health Maintenance Due Date Last Done Comments COVID-19 Vaccine (3 - 2022-2 4 season) 2022 09/03/2020, 08/13/2020 *SPIROMETRY ONCE FOR ASTHMA-ADULT 06/26/2023 Influenza Vaccine (FLU shot) (#1) 2023 05/03/2023, 04/09/2022, 05/07/2016, Additional history exists Depression Monitoring 05/03/2024 05/03/2023 Yearly Wellness Visit 05/03/2024 05/03/2023 , 02/05/2011, 03/04/2008, Additional history exists Gonorrhea / Chlamydia Screen 05/26/202410/2023, 07/23/2022, 04/29/2021, Additional history exists DTaP,Tdap,and Td Vaccines (8 [...] as of this encounter Visit Diagnoses Diagnosis Screening for STD (sexually transmitted disease) Screening examination for venereal disease Supervision of high risk in second trimester Unspecified high-risk Seizure disorder during , antepartum (HCC) documented in this encounter Advance Directives [...] and were consensually agreed upon. Care Teams Web Architect Relationship Specialty Start Date End Date Michelle Calderón MD PCP - General Family Medicine 03/31/21 documented as of this encounter
--- OUTSIDE RECORDS SUMMARY | 2024-01-05 14:42 | External Medical Summary | Summary of Care ---
Author Name Unknown Organization [facility] Address [address] [place] [address] Phone [phone] Care Team Providers Care Assembler Product Name Role Phone Michelle Calderón MD Primary Care Prov ider Unavailable Reason for Visit * Reason Comments Dosage Adjustment Via Phone (anticoag Cl inic) Encounter Details Date Type Department Care Team (Late st Contact Info) Description 10/06/2023 6:45 AM EDT Pharmacy Neurology [address] [place] [phone] Antwon, Pharmacist Neurology [address] [place] [address] Seizure disorder during , antepartum (HCC)* Allergies No known active allergiesdocumented as of this encounter (statuses as of 10/06/2023) Medications Medication Sig Dispensed Refills Start Date [...] as of this encounter (statuses as of 10/06/2023) Active Problems Problem Noted Date Diagnosed Date Other dietary vitamin B12 deficiency anemia 09/18 Antepartum anemia complicating 024 14 weeks gestation of 06/28/2023 Supervision of high risk in [facility] 06/21/2023 Depression complicating , antepartum [...] of cardiovascular malformations compared with unexposed neonates ([id number]). Infants exposed to fluoxetine late in the [...] as of this encounter (statuses as of 10/06/2023) Resolved Problems Problem Noted Date Diagnosed Date [...] information was shared with the patient. The [place] [employer]ne[employer], Society for Maternal- Medicine, CDC and multiple medical associations strongly recommend the COVID-19 vaccine for women who are in any trimester, those attempting to become , women who have recently delivered, who are lactating as well as any other woman, regardless of age or COLLAR STITCHER disorder. The only exceptions to receiving [...] testing negative. S/p anatomy ultrasound at [facility]. Passed one hour glucose test. CBC [...] the local suicide hotline phone number for [facility]. Has counseling appointment weekly. Last Assessment [...] as of this encounter (statuses as of 10/06/2023) Immunizations Name Administration Dates Next Due COVID-19 mRNA, LNP-s, No Pre serve, 2-Dose Series (Understory) 09/03/2020,08/13/2020 DTaP Dipth/Tet/Acell Pertussis (Infanrix), Peds 04/03/2008,01/03/2006,2003,07/2003,2003 [...] PPD 05/10/2023,05/03/2023 Pneumococcal Conjugate Vacci ne, 20-valent ([id number]) 04/09/2022 Pneumococcal Conjugate Vacci ne, 7 Valent [...] have money to get more. Patient declined Lincoln Depression Scale Answer Date Recorded [place] Depression Scale Total 3 09/20/2023 The thought [...] No 02/17/2023 Does the household have a re lar source of income? (Household - for ages [...] Progress Notes * Tahmina Antunez RPh - 10/06/2023 1:18 PM EDT Antiepileptic Management - Follow-Up Note Condition: Mixed epileptic seizures Condition Controlled: no Pre- AED Regimen: Keppra 2000 mg BID, Lamictal 150 mg BID Current Antiepileptic Regimen: Keppra 2000 mg BID, Lamictal 150 mg BID Duration of Current Therapy: August 2022 Frequency of Monitoring Desired: at least monthly during each trimester Pertinent Levels: Latest Reference Range & Units 07/20/23 15:48 10/05/23 13:18 Lamotrigine 2.5 - 15.0 ug/mL <0.9 (L) 2.2 Levetiracetam 3 - 63 ug/mL <2 (L) 36 Relevant Drug Interactions with Current Antiepileptic Regimen: none Other Related Information: Patient has MICHAEL of 12/27/23 per notes. Recommendations/Plan: Discussed patient with Meredith who has an OV with patient on 10/09 - will need to confirm current doses and timing for dose adjustment considerations. Sent MyG to patient to confirm current/missed doses, timing of lab draw, and recent seizure activity. Patient responded that LTG dose was increased to 175 mg BID but she has not yet started this dose. She usually takes meds around 8 AM and 9 PM. Message sent to Meredith to advise on dose adjustments/repeat levels. Follow-up: provider response Tahmina Antunez RPh Clinical Pharmacist, Neurology Medication Therapy Disease Management 10/06/2023 1:20 PM documented in this encounter Plan of Treatment Upcoming Encounters Date Type Department Care Team (Late st Contact Info) Description 10/07/2023 6:45 AM EDT Pharmacy Neurology [address]tw[address] [place] [phone] Antwon, Pharmacist Neurology [address] [place] [facility] [address] 10/10/2023 3:40 PM EDT Telemedicine Neurology Antwon [address] [place] [phone] Meredith Vásquez PA-C [address] [facility] [place] [address] 10/25/2023 1:15 PM EDT Office Visit Gynecology/Obstetrics Ciera Rowlands [address] [facility] [place] [address] BackerOra CRNP [address] [place] [address] Nurse Ion [facility] Return Vianney [address] [facility] [place] [address] 10/27/2023 1:45 PM EDT Imaging Maternal Medicine Imaging, [facility] [facility] [facility] [place] [phone] 11/02/2023 1:00 PM EDT Telemedicine Psychiatry [place] [address] [place] [phone] Yumiko Miller MD [address] [facility] [place] [phone] 11/24/2023 1:00 PM EDT Imaging Maternal Medicine Imaging, Vianney Rowlands [address] [facility] [place] [address] Health Maintenance Due Date Last Done [...] as of this encounter Visit Diagnoses Diagnosis Seizure disorder during , antepartum (HCC)- Primary documented in this encounter Advance [...] and were consensually agreed upon. Care Teams Assembler Product Relationship Specialty Start Date End Date Michelle Calderón MD PCP - General Family Medicine 03/31/21 documented as of this encounter
--- OUTSIDE RECORDS SUMMARY | 2024-01-05 14:42 | External Medical Summary | Summary of Care ---
Author Name Unknown Organization [facility] Address [address] [place] [address] Phone [phone] Care Team Providers Care Manager Academic Name Role Phone Michelle Calderón MD Primary Care Prov ider Unavailable Reason for Visit * Reason Comments Dosage Adjustment Via Phone (anticoag Cl inic) Encounter Details Date Type Department Care Team (Late st Contact Info) Description 10/07/2023 6:45 AM EDT Pharmacy Neurology Manav [address] [place] [address] Manav, Pharmacist Neurology [address] [place] [address] Seizure disorder during , antepartum [...] of 06/28/2023 Supervision of high risk in [facility] 06/21/2023 Depression complicating , antepartum [...] in 2019 Follows with Neurology Managed with Lamictrayshawn and Eloisara Last seizure: May 2023 Daughter [...] of cardiovascular malformations compared with unexposed neonates ([id number]). Infants exposed to fluoxetine late in the [...] information was shared with the patient. The [place] [employer]s [employer] Gyne[employer], Society for Maternal- Medicine, CDC and multiple medical associations strongly recommend the COVID-19 vaccine for women who are in any trimester, those attempting to become , women who have recently delivered, who are lactating as well as any other woman, regardless of age or LEASE BUYER disorder. The only exceptions to receiving the vaccine are for those who have a contraindication or allergy to the vaccine or any component of the vaccine or with sincerely held amish convictions. The CDC and ACOG encourages a [...] MSAFP testing negative. S/p anatomy ultrasound at [facility]. Passed one hour glucose test. [...] the local suicide hotline phone number for [facility]. Has counseling appointment weekly. Last [...] mRNA, LNP-s, No Pre serve, 2-Dose Series (LiquidFrameworks) 09/03/2020,08/13/2020 DTaP Dipth/Tet/Acell Pertussis (Infanrix), Peds 04/03/2008,01/03/2006,2003,07/2003,2003 [...] PPD 05/10/2023,05/03/2023 Pneumococcal Conjugate Vacci ne, 20-valent ([id number]) 04/09/2022 Pneumococcal Conjugate Vacci ne, 7 Valent [...] have money to get more. Patient declined [place] Depression Scale Answer Date Recorded [place] Depression Scale Total 3 09/20/2023 The thought [...] 02/17/2023 Does the household have a re gular [...] Progress Notes * Tahmina Antunez RPh - 10/07/2023 11:42 AM EDT Images from the original note were not included. Response received from provider: MyG sent to patient to advise to continue current dose of Keppra 2000 mg BID + LTG 175 mg BID - updated Rx sent to pharmacy for LTG 25 mg tablets. Requested repeat trough in about 1.5 weeks. Follow up for results. Tahmina Antunez RPh Clinical Pharmacist, Neurology Medication Therapy Disease Management 10/07/2023 11:43 AM documented in this encounter Plan of Treatment Upcoming Encounters Date Type Department Care Team (Late st Contact Info) Description 10/10/2023 3:40 PM EDT Telemedicine Neurology Manav [address] [place] [phone] Meredith Vásquez PA-C [address] [facility] [place] [address] 10/17/2023 6:45 AM EDT Pharmacy Neurology Manav [address] [place] [phone] Manav, Pharmacist Neurology [address] [facility] [place] [address] 10/25/2023 1:15 PM EDT Office Visit Gynecology/Obstetrics [facility] [address] [facility] [place] [address] BackerOra CRNP [address] [facility] [place] [address] Nurse Ion Healthy [facility]nings Return [facility] [address] [facility] [place] [address] 10/27/2023 1:45 PM EDT Imaging Maternal Medicine Imaging, [address] [place] [phone] 11/02/2023 1:00 PM EDT Telemedicine Psychiatry [place] [address] [place] [phone] Yumiko Miller MD [address] [facility] [phone] 11/24/2023 1:00 PM EDT Imaging Maternal Medicine Imaging, [address] [place] [phone] Health Maintenance Due Date Last Done Comments [...] were consensually agreed upon. Care Teams Manager Academic Relationship Specialty Start Date End Date Michelle Calderón MD PCP - General Family Medicine 03/31/21 documented as of this encounter
--- OUTSIDE RECORDS SUMMARY | 2024-01-05 14:42 | External Medical Summary | Summary of Care ---
Author Name Unknown Organization [facility] Address [address] [place] [address] Phone [phone] Care Team Providers Care Gold Wheel Blocker And Polisher Name Role Phone Michelle Calderón MD Primary Care Prov ider Unavailable Encounter Details Date Type Department Care Team (Late st Contact Info) Description 10/06/2023 Telephone Gynecology/Obstetrics [facility] [address] [place] [address] Leyda Tam PA-C [address] [place] [address] Allergies No known active allergiesdocumented as of [...] before bedtime. 60 Tablet 3 10/06/2023 Active documented as of this encounter (statuses as of 10/06/2023) Active Problems Problem Noted Date Diagnosed Date Other dietary vitamin B12 deficiency anemia 09/18 Antepartum anemia complicating 024 14 weeks gestation of 06/28/2023 Supervision of high risk in [facility] 06/21/2023 Depression complicating , antepartum Overview: History [...] of cardiovascular malformations compared with unexposed neonates ([id number]). Infants exposed to fluoxetine late in the [...] information was shared with the patient. The [place] [employer]s [employer] Gyne[employer], Society for Maternal- Medicine, CDC and multiple medical associations strongly recommend the COVID-19 vaccine for women who are in any trimester, those attempting to become , women who have recently delivered, who are lactating as well as any other woman, regardless of age or PRN OCCUPATIONAL THERAPIST disorder. The only exceptions to receiving the [...] testing negative. S/p anatomy ultrasound at [facility]. Passed one hour glucose test. CBC within [...] suicide hotline phone number for [facility]. Has counseling appointment weekly. Last [...] mRNA, LNP-s, No Pre serve, 2-Dose Series (HiConversion) 09/03/2020,08/13/2020 DTaP Dipth/Tet/Acell Pertussis (Infanrix), Peds 04/03/2008,01/03/2006,2003,04/0 [...] PPD 05/10/2023,05/03/2023 Pneumococcal Conjugate Vacci ne, 20-valent ([id number]) 04/09/2022 Pneumococcal Conjugate Vacci ne, 7 Valent [...] have money to get more. Patient declined [place] Depression Scale Answer Date Recorded [place] Depression Scale Total 3 09/20/2023 The thought [...] No 02/17/2023 Does the household have a [facility]? (Household - [...] Telephone Encounter - Shirlene Shankar LPN - 10/06/2023 2:14 PM EDT Spoke to pt she verbalized understanding * Telephone Encounter - Shirlene Shankar LPN - 10/06/2023 2:14 PM EDT ----- Message from Leyda Tam sent at 10/06/2023 2:05 PM EDT ----- Please inform patient her CBC shows anemia with iron deficiency and vit B12, would recommend patient start Iron and Vit C BID, RX sent to pharmacy, please ensure she is taking this at least 3 hours away from any sources of calcium, including her vitamin( she may take PNV at HS). It is besttaken on an empty stomach with orange juice, if she is able. This can cause dark stools and/or constipation. If she experiences constipation, she can use OTC Colace for relief. We will plan to repeatin 4 weeks (patient needs to fast overnight and hold all iron for 24 hours prior to repeat CBC) She passed her glucose test documented in this encounter Plan of Treatment Upcoming Encounters Date Type Department Care Team (Late st Contact Info) Description 10/07/2023 6:45 AM EDT Pharmacy Neurology Manav [address] [place] [phone] Manav, Pharmacist Neurology [address] [facility] [place] [phone] 10/10/2023 3:40 PM EDT Telemedicine Neurology Manav [address] [place] [phone] Meredith Vásquez PA-C [address] [facility] [place] [phone] 10/25/2023 1:15 PM EDT Office Visit Gynecology/Obstetrics Ciera Lemon [address] [facility] [place] [address] BackerOra CRNP 132 [facility] [place] [address] Nurse Ion Healthy [facility]nings Return Vianney [address] [facility] [place] [address] 10/27/2023 1:45 PM EDT Imaging Maternal Medicine Imaging, Vianney Lemon [facility] [place] [phone] 11/02/2023 1:00 PM EDT Telemedicine Psychiatry Manav [address] [place] [phone] Yumiko Miller MD [address] [facility] [phone] 11/24/2023 1:00 PM EDT Imaging Maternal Medicine Imaging, [place] [facility] [place] [phone] Health Maintenance Due Date Last Done [...] and were consensually agreed upon. Care Teams Gold Wheel Blocker And Polisher Relationship Specialty Start Date End Date Michelle Calderón MD PCP - General Family Medicine 03/31/21 documented as of this encounter
--- OUTSIDE RECORDS SUMMARY | 2024-01-05 14:42 | External Medical Summary | Summary of Care ---
Author Name Unknown Organization [facility] Address [address] [place] [address] Phone [phone] Care Team Providers Care Elevator Constructor Supervisor Name Role Phone Michelle Calderón MD Primary Care Prov ider Unavailable Reason for Visit * Reason Onset Date Comments Advice 07/21/2023 Encounter Details Date Type Department Care Team (Late st Contact Info) Description 07/21/2023 Telephone Neurology, [place] [address] [place] [address] Roz Lehman PA-C [address] [place] [address] Advice Allergies No known active [...] of 06/28/2023 Supervision of high risk in [facility] 06/21/2023 Depression complicating , antepartum Overview: [...] of cardiovascular malformations compared with unexposed neonates ([id number]). Infants exposed to fluoxetine late in the [...] any other woman, regardless of age or AERIAL GUNNER SUPERINTENDENT disorder. The only exceptions to receiving the vaccine are for those who have a contraindication or allergy to the vaccine or any component of the vaccine or with sincerely held yazdanism convictions. The CDC and ACOG encourages a [...] MSAFP testing negative. S/p anatomy ultrasound at [facility]. Passed one hour glucose test. CBC [...] phone number for [facility]. Has counseling appointment weekly. Last Assessment & [...] PPD 05/10/2023,05/03/2023 Pneumococcal Conjugate Vacci ne, 20-valent ([id number]) 04/09/2022 Pneumococcal Conjugate Vacci ne, 7 Valent [...] have money to get more. Patient declined [place] Depression Scale Answer Date Recorded [place] Depression Scale Total 3 09/20/2023 The thought [...] No 02/17/2023 Does the household have a [facility] hospit[facility] source of income? (Household - for ages [...] encounter Miscellaneous Notes * Telephone Encounter - Tahmina Antunez RPh - 10/07/2023 11:51 AM EDT MyG sent to patient to advise to continue current doses and repeat trough around 10/17/23. * Telephone Encounter - Meredith Vásquez PA-C [...] DO - 09/07/2023 10:41 AM EDT Thanks Tamhina! I am including Meredith and Vanda so that they are aware. Meredith, perhaps you can emphasize getting her levels drawn when you see her in September? Let me know if there are any other suggestions any of you have. Thanks, Krupa Escalante DO * Telephone Encounter - Tahmina Antunez RPh - 09/02/2023 10:[address] Escalante. Patient has not had repeat AED levels completed. [facility] has made several attempts to request completion of labs. Sending letter as final attempt today. Looks like patient has visit scheduled with Meredith on 10/10/23 but wanted to make you aware. * Telephone Encounter - Tahmina Antunez RPh - 07/22/2023 1:45 PM EDT Called [...] DO * Telephone Encounter - Tahmina Antunez [facility] - 07/22/2023 12:45 PM EDT I spoke [...] doses. * Telephone Encounter - Tahmina Antunez [facility] - 07/21/2023 2:44 PM EDT Correct, we only have Keppra levels from 2021. Never had LTG levels completed. Component Latest Ref Rng 04/29/2021 13:01 07/27/2021 13:09 Levetiracetam 3 - 63 ug/mL 35 34 She is about 17 weeks (MICHAEL 12/27/23). I sent her a PulmonxG message to confirm her current dosesand any [...] DO * Telephone Encounter - Tahmina Antunez [facility] - 07/21/2023 1:17 PM EDT Patient had [...] [place] [phone] Meredith Vásquez PA-C [address] [facility] [place] [address] 10/17/2023 6:45 AM EDT Pharmacy Neurology Manav [address]b [address] [place] [address] [place] [phone] Manav Pharmacist Neurology [address] [facility] [place] [address] 10/25/2023 1:15 PM EDT Office Visit Gynecology/Obstetrics [address] [place] [address] BackerOra CRNP [address] [place] [address] Nurse Ion [facility] Return [place] [address] 10/27/2023 1:45 PM EDT Imaging Maternal Medicine Imaging, [place] [phone] 11/02/2023 1:00 PM EDT Telemedicine Psychiatry [address], [place] [address] [place] [phone] Yumiko Miller MD [address] [facility] [place] [phone] 11/24/2023 1:00 PM EDT Imaging Maternal Medicine Imaging, [place] [phone] Health Maintenance Due Date Last Done Comments [...] and were consensually agreed upon. Care Teams Elevator Constructor Supervisor Relationship Specialty Start Date End Date Michelle Calderón MD PCP - General Family Medicine 03/31/21 documented as of this encounter
--- OUTSIDE RECORDS SUMMARY | 2024-01-05 14:42 | External Medical Summary | Summary of Care ---
Author Name Unknown Organization [facility] Address [address] [place] [address] Phone [phone] Care Team Providers Care Mountain Guide Name Role Phone Michelle Calderón MD Primary Care Prov ider Unavailable Reason for Visit * Reason Comments Dosage Adjustment Via Phone (anticoag Cl inic) Encounter Details Date Type Department Care Team (Late st Contact Info) Description 10/06/2023 6:45 AM EDT Pharmacy Neurology Manav [address] [place] [address] Manav, Pharmacist Neurology [address] [place] [address] Seizure disorder during , antepartum [...] of 06/28/2023 Supervision of high risk in [facility] 06/21/2023 Depression complicating , antepartum Overview: [...] of cardiovascular malformations compared with unexposed neonates ([id number]). Infants exposed to fluoxetine late in the [...] information was shared with the patient. The [place] [employer] Obstetrics and Gynecology, Society for Maternal- Medicine, CDC and multiple medical associations strongly recommend the COVID-19 vaccine for women who are in any trimester, those attempting to become , women who have recently delivered, who are lactating as well as any other woman, regardless of age or WEARING APPAREL FOLDER disorder. The only exceptions to receiving the vaccine are for those who have a contraindication or allergy to the vaccine or any component of the vaccine or with sincerely held gnosticist convictions. The CDC and ACOG encourages a [...] MSAFP testing negative. S/p anatomy ultrasound at [facility]. Passed one hour glucose test. [...] the local suicide hotline phone number for [facility]. Has counseling appointment weekly. Last Assessment [...] mRNA, LNP-s, No Pre serve, 2-Dose Series (TraceWorks) 09/03/2020,08/13/2020 DTaP Dipth/Tet/Acell Pertussis (Infanrix), Peds 04/03/2008,01/03/2006,2003,07/2003,2003 [...] PPD 05/10/2023,05/03/2023 Pneumococcal Conjugate Vacci ne, 20-valent ([id number]) 04/09/2022 Pneumococcal Conjugate Vacci ne, 7 Valent [...] have money to get more. Patient declined [place] Depression Scale Answer Date Recorded [place] Depression Scale Total 3 09/20/2023 The thought [...] of lab draw, and recent seizure activity. Follow-up: patient response Tahmina Antunez RPh Clinical Pharmacist, Neurology Medication Therapy Disease Management 10/06/2023 1:20 PM documented in this encounter Plan of Treatment Upcoming Encounters Date Type Department Care Team (Late st Contact Info) Description 10/07/2023 6:45 AM EDT Pharmacy Neurology Manav [address] [place] [phone] Manav, Pharmacist Neurology [address] [place] [address] [place] [phone] 10/10/2023 3:40 PM EDT Telemedicine Neurology Manav [address] [place] [phone] Meredith Vásquez PA-C [address] [facility] [place] [phone] 10/25/2023 1:15 PM EDT Office Visit Gynecology/Obstetrics Ciera Row[place] [address] [facility] [place] [address] Backer, ASHLEY Roman [address] [place] [address] Nurse Ion Healthy [facility] Return Vianney [address] [facility] [place] [address] 10/27/2023 1:45 PM EDT Imaging Maternal Medicine Imaging, [place] [place] [phone] 11/02/2023 1:00 PM EDT Telemedicine Psychiatry [address]av [address] [place] [phone] Yumiko Miller MD [address] [facility] [place] [phone] 11/24/2023 1:00 PM EDT Imaging Maternal Medicine Imaging, [place] [address] [facility] [place] [phone] Health Maintenance Due Date Last Done [...] and were consensually agreed upon. Care Teams Mountain Guide Relationship Specialty Start Date End Date Michelle Calderón MD PCP - General Family Medicine 03/31/21 documented as of this encounter
--- OUTSIDE RECORDS SUMMARY | 2024-01-05 14:42 | External Medical Summary | Summary of Care ---
Author Name Unknown Organization [facility] Address [address] [place] [address] Phone [phone] Care Team Providers Care Gum Cook Name Role Phone Michelle Calderón MD Primary Care Prov ider Unavailable Reason for Visit * Reason Onset Date Comments Advice 07/21/2023 Encounter Details Date Type Department Care Team (Late st Contact Info) Description 07/21/2023 Telephone Neurology, [place] [address] [place] [address] Roz Lehman PA-C [address] [place] [address] Advice Allergies No known active [...] of 06/28/2023 Supervision of high risk in [facility] 06/21/2023 Depression complicating , antepartum [...] of cardiovascular malformations compared with unexposed neonates ([id number]). Infants exposed to fluoxetine late in the [...] information was shared with the patient. The [place] [employer]ne[employer], Society for Maternal- Medicine, CDC and multiple medical associations strongly recommend the COVID-19 vaccine for women who are in any trimester, those attempting to become , women who have recently delivered, who are lactating as well as any other woman, regardless of age or FACTORY HAND disorder. The only exceptions to receiving the vaccine are for those who have a contraindication or allergy to the vaccine or any component of the vaccine or with sincerely held samaritan convictions. The CDC and ACOG encourages a [...] MSAFP testing negative. S/p anatomy ultrasound at [facility]. Passed one hour glucose test. [...] PPD 05/10/2023,05/03/2023 Pneumococcal Conjugate Vacci ne, 20-valent ([id number]) 04/09/2022 Pneumococcal Conjugate Vacci ne, 7 Valent [...] have money to get more. Patient declined [place] Depression Scale Answer Date Recorded [place] Depression Scale Total 3 09/20/2023 The thought [...] No 02/17/2023 Does the household have a [facility] source of income? (Household - [...] has not had repeat AED levels completed. [facility] has made several attempts to request [...] Encounter - Tahmina Antunez RPh - 07/22/2023 12:45 PM EDT [...] doses. * Telephone Encounter - Tahmina Antunez RP - 07/21/2023 2:44 PM EDT Correct, we only have Keppra levels from 2021. Never had LTG levels completed. Component Latest Ref Rng 04/29/2021 13:01 07/27/2021 13:09 Levetiracetam 3 - 63 ug/mL 35 34 She is about 17 weeks (MICHAEL 12/27/23). I sent her a Funinhand message to confirm her current dosesand any [...] DO * Telephone Encounter - Tahmina Antunez [facility] - 07/21/2023 1:17 PM EDT Patient had [...] [place] [phone] Manav, Pharmacist Neurology [address] [facility] [place] [address] 10/10/2023 3:40 PM EDT Telemedicine Neurology [address] [place] [place] [phone] Meredith Vásquez PA-C [address] [facility] [place] [id number] 10/25/2023 1:15 PM EDT Office Visit Gynecology/Obstetrics Ciera Lemon [address] [facility] [place] [id number] YoungerOra CRNP [address] [facility] [place] [address] Nurse Ion Healthy Beginnings Return Vianney [address] [facility] [place] [address] 10/27/2023 1:45 PM EDT Imaging Maternal Medicine ImagingVianney [address] [facility] [place] [address] 11/02/2023 1:00 PM EDT Telemedicine Psychiatry Manav Cain [address] [place] [address] Yumiko Miller MD [address] [facility] [place] [address] 11/24/2023 1:00 PM EDT Imaging Maternal Medicine Imaging, [facility] [place] [address] Health Maintenance Due Date Last Done [...] and were consensually agreed upon. Care Teams Gum Cook Relationship Specialty Start Date End Date Michelle Calderón MD PCP - General Family Medicine 03/31/21 documented as of this encounter
--- OUTSIDE RECORDS SUMMARY | 2024-01-05 14:42 | External Medical Summary | Summary of Care ---
Author Name Unknown Organization [facility] Address [address] [facility] [address] Phone [phone] Care Team Providers Care Welt Edge Rounder Name Role Phone Michelle Calderón MD Primary Care Prov ider Unavailable Encounter Details Date Type Department Care Team (Late st Contact Info) Description 09/30/2023 Result Scan Unspecified Department <No scans attached> Allergies No known active allergiesdocumented as of [...] of 06/28/2023 Supervision of high risk in [facility] 06/21/2023 Depression complicating , antepartum Overview: History [...] of cardiovascular malformations compared with unexposed neonates ([id number]). Infants exposed to fluoxetine late in the [...] information was shared with the patient. The [place] [employer]ne[employer], Society for Maternal- Medicine, CDC and multiple medical associations strongly recommend the COVID-19 vaccine for women who are in any trimester, those attempting to become , women who have recently delivered, who are lactating as well as any other woman, regardless of age or INDUSTRIAL MILLWRIGHT disorder. The only exceptions to receiving the vaccine are for those who have a contraindication or allergy to the vaccine or any component of the vaccine or with sincerely held baptism convictions. The CDC and ACOG encourages a [...] MSAFP testing negative. S/p anatomy ultrasound at [facility]. Passed one hour glucose test. CBC [...] mRNA, LNP-s, No Pre serve, 2-Dose Series ([employer]) 09/03/2020,08/13/2020 DTaP Dipth/Tet/Acell Pertussis (Infanrix), Peds 04/03/2008,01/03/2006,2003,07/2003,2003 [...] PPD 05/10/2023,05/03/2023 Pneumococcal Conjugate Vacci ne, 20-valent ([id number]) 04/09/2022 Pneumococcal Conjugate Vacci ne, 7 Valent [...] have money to get more. Patient declined [place] Depression Scale Answer Date Recorded [place] Depression Scale Total 3 09/20/2023 The thought [...] [place] [phone] Meredith Vásquez PA-C [address] [facility] [place] [address] 10/21/2023 6:45 AM EDT Pharmacy Neurology Manav Robb Dr [address] [address] [place] [phone] Manav, Pharmacist Neurology [address] [facility] [place] [address] 10/25/2023 1:15 PM EDT Office Visit Gynecology/Obstetrics Ciera Lemon [address] [place] [address] BackerOra CRNP [address] [place] [address] Nurse Ion Healthy Beginnings Return Vianney [address] [place] [address] 10/27/2023 1:45 PM EDT Imaging Maternal Medicine Imaging, Vianney Lemon [address] [place] [address] 11/02/2023 1:00 PM EDT Telemedicine Psychiatry Manav [address] [place] [address] Yumiko Miller MD [address] [facility] [place] [address] 11/24/2023 1:00 PM EDT Imaging Maternal Medicine Imaging, Vianney Lemon [address] [place] [address] Health Maintenance Due Date [...] Procedure Name Priority Date/Time Associated Diagnosis Comments OUTSIDE LAB RESULTS 09/30/2023 documented in this encounter Results * OUTSIDE LAB RESULTS (09/30/2023) 09/30/2023 No Physician Data Unknown LABORATORY documented in this encounter Advance Directives * [...] and were consensually agreed upon. Care Teams Welt Edge Rounder Relationship Specialty Start Date End Date Michelle Calderón MD PCP - General Family Medicine 03/31/21 documented as of this encounter
--- OUTSIDE RECORDS SUMMARY | 2024-01-05 14:42 | External Medical Summary | Summary of Care ---
Author Name Unknown Organization [facility] Address [address] [place] [address] Phone [phone] Care Team Providers Care Tensioning Machine Operator Name Role Phone Michelle Calderón MD Primary Care Prov ider Unavailable Encounter Details Date Type Department Care Team (Late st Contact Info) Description 10/06/2023 Orders Only Laboratory, [facility] [address] [facility] [place] [address] Leyda Tam PA-C [address] [place] [address] Other dietary vitamin B12 deficiency anemia*; Antepartum anemia complicating Allergies No known active [...] of 06/28/2023 Supervision of high risk in [facility] 06/21/2023 Depression complicating , [...] of cardiovascular malformations compared with unexposed neonates ([id number]). Infants exposed to fluoxetine late in the [...] any other woman, regardless of age or BLOCK CAPTAIN disorder. The only exceptions to receiving the vaccine are for those who have a contraindication or allergy to the vaccine or any component of the vaccine or with sincerely held moravian convictions. The CDC and ACOG encourages a [...] the local suicide hotline phone number for [facility]. Has counseling appointment weekly. Last Assessment [...] mRNA, LNP-s, No Pre serve, 2-Dose Series ([employer]) 09/03/2020,08/13/2020 DTaP Dipth/Tet/Acell Pertussis (Infanrix), Peds 04/03/2008,01/03/2006,2003,07/2003,2003 [...] PPD 05/10/2023,05/03/2023 Pneumococcal Conjugate Vacci ne, 20-valent ([id number]) 04/09/2022 Pneumococcal Conjugate Vacci ne, 7 Valent [...] have money to get more. Patient declined [place] Depression Scale Answer Date Recorded [place] Depression Scale Total 3 09/20/2023 The thought [...] [place] [phone] Manav Pharmacist Neurology [address] [facility] [place] [address] 10/10/2023 3:40 PM EDT Telemedicine Neurology Manav [address]b [address] [place] [phone] Meredith Vásquez PA-C [address] [facility] [place] [address] 10/25/2023 1:15 PM EDT Office Visit Gynecology/Obstetrics Ciera Lemon [address] [place] [address] Ora Stern CRNP [address] [place] [address] Nurse Ion Healthy Beginnings Return V[place]ney [address] [place] [address] 10/27/2023 1:45 PM EDT Imaging Maternal Medicine Imaging, [place] [place] [phone] 11/02/2023 1:00 PM EDT Telemedicine Psychiatry Spencer Monique, [place] [address] [place] [phone] Yumiko Miller MD [address] [facility] [address] [place] [address] 11/24/2023 1:00 PM EDT Imaging Maternal Medicine Imaging, Vianney [place] [address] Health Maintenance Due Date Last Done [...] of this encounter Visit Diagnoses Diagnosis Other dietary vitamin B12 deficiency anemia- Primary Antepartum anemia complicating Anemia, antepartum documented in [...] and were consensually agreed upon. Care Teams Tensioning Machine Operator Relationship Specialty Start Date End Date Michelle Calderón MD PCP - General Family Medicine 03/31/21 documented as of this encounter
--- OUTSIDE RECORDS SUMMARY | 2024-01-05 14:43 | External Medical Summary ---
Author Name Unknown Address Unknown Organization [id number]:[facility] [place] [address] [place], [place] [address] [address] Laboratory Report Ordering Provider Test Date Status BEATRICE HARRIS 10/05/2023 13:18:35 Final Observation Date Value Abnormality Reference (Units ) Status WBC, Total 10/05/2023 13:18:35 9.96 4.00-10.8 0 (K/uL) Final RBC 10/05/2023 13:18:35 3.78 3.85-5.15 (M/uL) Final Hemoglobin 10/05/2023 13:18:35 11.1 Below low normal 12 .0-15.3 (g/dL) Final Anemia reflex testing trigge rs on a HGB < 12.0 for Females and HGB < 13.0 for Males in accordance with the WHO Anemia Guidelines
Anemia reflex testing triggers on a HGB < 12.0 for Females and HGB < 13.0 for Males in accordance with the WHO Anemia Guidelines HCT 10/05/2023 13:18:35 35.0 Below low normal 36. 0-45.2 (%) Final MCV 10/05/2023 13:18:35 92.6 81.5-97.5 (fL) Final MCH 10/05/2023 13:18:35 29.4 27.0-34.0 (pg) Final MCHC 10/05/2023 13:18:35 31.7 32.0-36.0 (g/dL) Final RDW 10/05/2023 13:18:35 13.4 11.5-15.5 (%) Final Platelets 10/05/2023 13:18:35 267 140-400 (K /uL) Final MPV 10/05/2023 13:18:35 10.8 6.6-11.1 ( fL) Final Nucleated erythrocytes/100 leukocytes [Ratio] in Blood by Automated count 10/05/2023 13:18:35 0 <=0 (/100 WBCs) Final Performing Location [facility] [place] [address] [facility] [address]
--- OUTSIDE RECORDS SUMMARY | 2024-01-05 14:43 | External Medical Summary ---
Author Name Unknown Address Unknown Organization K01:LABORATORY C - [address] [place] [address] Laboratory Report Ordering Provider Test Date Status YOLETTE STANLEY 10/05/2023 13:18:35 Final Observation Date Value Abnormality Reference (Units ) Status Levetiracetam level 10/05/2023 13:18:35 36 3-63 (ug/mL) Final Performing Location [facility] - [address] [place] [address]
--- OUTSIDE RECORDS SUMMARY | 2024-01-05 14:43 | External Medical Summary ---
Author Name Unknown Address Unknown Organization K01:[facility] [place] [address] [place] [address] Laboratory Report Ordering Provider Test Date Status BEATRICE HARRIS 10/05/2023 13:18:35 Final Observation Date Value Abnormality Reference (Units ) Status Glucose [Moles/volume] in Serum or Plasma --1 hour post 50 g glucose PO 10/05/2023 13:18:35 112 70-129 (mg/dL) Final Performing Location LABORATORY [facility] - [address] [place] [address]
--- OUTSIDE RECORDS SUMMARY | 2024-01-05 14:43 | External Medical Summary ---
Author Name Unknown Address Unknown Organization K01[place] [place] [address] [facility] [place] [address] Laboratory Report Ordering Provider Test Date Status BEATRICE HARRIS 10/05/2023 13:18:35 Final Observation Date Value Abnormality Reference (Units ) Status SYNC LEUKOCYTES IN BLOOD BY AUTOMATED COUNT 10/05/2023 13:18:35 9.96 4.00-10.80 (K/uL) Final Segs 10/05/2023 13:18:35 74.0 40.0-75.0 (%) Final Lymphs % 10/05/2023 13:18:35 17.3 Below low normal 18.0-42.0 (%) Final Monos 10/05/2023 13:18:35 7.3 1.0-11.0 (%) Final Eosinophils 10/05/2023 13:18:35 0.6 0.0-6.0 (%) Final Basos 10/05/2023 13:18:35 0.2 0.0-2.0 (%) Final Immature Granulocyte, Percent 10/05/2023 13:18:35 0.6 0.0-2.0 (%) Final Absolute Segs 10/05/2023 13:18:35 7.37 1.80-8.00 (K/uL) Final Lymphs, absolute 10/05/2023 13:18:35 1.72 1.20-5.40 (K/ul) Final Monos, Abs 10/05/2023 13:18:35 0.73 0.00-1.10 (K/uL) Final Eos, Abs 10/05/2023 13:18:35 0.06 0.00-0.70 (K/uL) Final Basos, Abs 10/05/2023 13:18:35 0.02 0.00-0.20 (K/uL) Final Immature Granulocytes, Number 10/05/2023 13:18:35 0.06 0.00-0.20 (K/uL) Final Performing Location [facility] [place] [facility] [address] [facility] [address]
--- OUTSIDE RECORDS SUMMARY | 2024-01-05 14:43 | External Medical Summary ---
Author Name Unknown Address Unknown Organization K01:LAB[facility]ATORY [facility] [place] - [facility] [address] [facility] [address] [facility] [address] Laboratory Report Ordering Provider Test Date Status BEATRICE HARRIS 10/05/2023 13:18:35 Final Observation Date Value Abnormality Reference (Units ) Status Retic, % (auto) 10/05/2023 13:18:35 2.56 Above high normal 0.80-1.90 (%) Final Reticulocytes, Absolute 10/05/2023 13:18:35 95.5 31.3-100.1 (K/uL) Final Reticulocyte fraction, immature 10/05/2023 13:18:35 17.5 2.5-20.6 (%) Final Reticulocyte HGB 10/05/2023 13:18:35 31.1 29.7-37.4 (pg) Final Performing Location LABORATORY [facility] [place] - [address] [facility] [address]
--- OUTSIDE RECORDS SUMMARY | 2024-01-05 14:43 | External Medical Summary ---
Author Name Unknown Address Unknown Organization K01:[facility] [place] [address] [place] [address] Laboratory Report Ordering Provider Test Date Status BEATRICE HARRIS 10/05/2023 13:18:35 Final Observation Date Value Abnormality Reference (Units ) Status Iron 10/05/2023 13:18:35 68 33-151 (ug/dL) Final Iron-binding capacity 10/05/2023 13:18:35 486 Above high normal 250-425 (ug/dL) Final Transferrin Sat % 10/05/2023 13:18:35 14 Below low normal 15-55 (%) Final Performing Location LABORATORY C - [address] [place] [address]
--- OUTSIDE RECORDS SUMMARY | 2024-01-05 14:43 | External Medical Summary ---
Author Name Unknown Address Unknown Organization K01:[facility] - [address] [place] [address] Laboratory Report Ordering Provider Test Date Status BEATRICE HARRIS 10/05/2023 13:18:35 Final Observation Date Value Abnormality Reference (Units ) Status Ferritin 10/05/2023 13:18:35 22 13-150 (ng /mL) Final Performing Location [facility] - [address] [place] [address]
--- OUTSIDE RECORDS SUMMARY | 2024-01-05 14:43 | External Medical Summary ---
Author Name Unknown Address Unknown Organization K01:[facility] [place] [address] [place] [address] [place] [address] Laboratory Report Ordering Provider Test Date Status MOIRA SOTO 10/05/2023 13:18:35 Final Observation Date Value Abnormality Reference (Units ) Status HIV 1+2 Ab+HIV1 p24 Ag [Presence] in Serum or Plasma by Immunoassay 10/05/2023 13:18:35 Negative Negative Final Negative HIV-1/2 antigen and antibody screening tset results usually indicate the absence of HIV-1 and HIV-2 infection. However, such negative results do not rule-out acute HIV infection. If acute HIV-1 infection is highly suspected, it is recommended that a specimen be submitted for detection of HIV-1 RNA. Performing Location LAB[facility] [place] [address] [place] [address]
--- OUTSIDE RECORDS SUMMARY | 2024-01-05 14:43 | External Medical Summary | Summary of Care ---
Author Name Unknown Organization [facility] Address [address] [facility] [place] [address] Phone [phone] Care Team Providers Care Lead Carpenter Name Role Phone Michelle Calderón MD Primary Care Prov ider Unavailable Reason for Visit * Reason Comments Healthy Beginnings Return Encounter Details Date Type Department Care Team (Late st Contact Info) Description 10/05/2023 11:15 AM EDT Office Visit Gynecology/Obstetri june Lemon [address] [place] [address] Faith Bourgeois PA-C [address] [place] [address] Nurse Ion Healthy Beginnings Return Vianney [address] [place] [address] Supervision of high risk in second trimester*; [...] of 06/28/2023 Supervision of high risk in [facility] 06/21/2023 Depression complicating , antepartum Overview: [...] of cardiovascular malformations compared with unexposed neonates ([id number]). Infants exposed to fluoxetine late in the [...] information was shared with the patient. The [place] [employer]s and Gyne[employer], Society for Maternal- Medicine, CDC and multiple medical associations strongly recommend the COVID-19 vaccine for women who are in any trimester, those attempting to become , women who have recently delivered, who are lactating as well as any other woman, regardless of age or STUDIO SET UP WORKER disorder. The only exceptions to receiving the vaccine are for those who have a contraindication or allergy to the vaccine or any component of the vaccine or with sincerely held episcopalian convictions. The CDC and ACOG encourages a [...] MSAFP testing negative. S/p anatomy ultrasound at [facility]. Passed one hour glucose test. CBC [...] the local suicide hotline phone number for [facility]. Has counseling appointment weekly. Last Assessment & [...] PPD 05/10/2023,05/03/2023 Pneumococcal Conjugate Vacci ne, 20-valent ([id number]) 04/09/2022 Pneumococcal Conjugate Vacci ne, 7 Valent [...] have money to get more. Patient declined [place] Depression Scale Answer Date Recorded [place] Depression Scale Total 3 09/20/2023 The thought [...] 18 years and over) Not on file 3 Are you (or your family) mariella eless [...] Sign Reading Time Taken Comments Blood Pressure 98/66 10/05/2023 11:18 AM EDT Pulse - - Temperature - - Respiratory Rate - - Oxygen Saturation - - Inhaled Oxygen Concentration - - Weight 109.3 kg (241 lb) 10/05/2023 11:18 AM EDT Height 154.9 cm (5' 1") 10/05/2023 11:18 AM EDT Body Mass Index 45.54 10/05/2023 11:18 AM EDT documented in this encounter Functional [...] Progress Notes * Faith Bourgeois PA-C - 10/05/2023 11:42 AM EDT 28w1d Went to ER. Neurology and OB team consulted d/t pt having seizure and concern for decreased FM. Lamictal increased, see Neurology in follow up next week. See TE 10/03. NST done in ER, cat 1. Didn't feel baby for 3 hours but by time she got to hospital started to feel baby. Recently from partner. Had requested STI testing last week d/t this. No known exposure; however, pt states partner was unfaithful with someone who has STI. Not sure which. Completing STI labs including serology today along with third tri labs and gtt. Declines TdaP. Reports mood overall good. Has been trying to avoid partner as he is causing increased stress. Follows with [facility] -- next appointment 10/27/2023. Denies VB, LOF, contraction. Baby is active. RTC in 2 week Faith Bourgeois PA-C documented in this encounter Nursing Notes * Cayla Mcdonald, RN - 10/05/2023 11:50 AM EDT Patient seen by [facility] Director International. Patient denies any questions or concerns. Doing28 wk labs today. Declines TDAP. 3rd tri education given. Has breast pump at home. Cayla Mcdonald, RN * Mary Farfan LPN - 10/05/2023 11:45 AM EDT 28w1d Was at [facility] yesterday for decreased FM. Declines tdap Will stop at lab after visit. documented in this encounter Plan of Treatment Upcoming Encounters Date Type Department Care Team (Late st Contact Info) Description 10/10/2023 3:40 PM EDT Telemedicine Neurology [place] [address] [place] [phone] Meredith Vásquez PA-C [address] [place] [id number] 10/21/2023 6:45 AM EDT Pharmacy Neurology [place] [address] [place] [address] [place] [address] [place], Pharmacist Neurology [address] [place] [address] 10/25/2023 1:15 PM EDT Office Visit Gynecology/Obstetrics [facility] [address] [facility] [place] [address] Ora Stern CRNP [address] [place] [address] Nurse Ion Healthy Beginnings Return [address] [place] [address] 10/27/2023 1:45 PM EDT Imaging Maternal Medicine Imaging, [address] [place] [phone] 11/02/2023 1:00 PM EDT Telemedicine Psychiatry [facility] [address] [place] [address] Yumiko Miller MD [address] [facility] [place] [address] 11/24/2023 1:00 PM EDT Imaging Maternal Medicine Imaging, [address] [place] [phone] Health Maintenance Due Date [...] and were consensually agreed upon. Care Teams Lead Carpenter Relationship Specialty Start Date End Date Michelle Calderón MD PCP - General Family Medicine 03/31/21 documented as of this encounter
--- OUTSIDE RECORDS SUMMARY | 2024-01-05 14:43 | External Medical Summary ---
Author Name Unknown Address Unknown Organization K01:LABORATORY [facility] [place] - [address] [place] [address] Laboratory Report Ordering Provider Test Date Status CHARLESMOIRA 10/05/2023 12:14:13 Final Observation Date Value Abnormality Reference (Units ) Status Trichomonas vaginalis rRNA [Presence] in Specimen by BAN with probe detection 10/05/2023 12:14:13 Negative Negative Final No Trichomonas vaginalis det ected by cement loader mediated nucleic acid amplification. Performing Location LAB[facility]ORY [facility] - [address] [place] [address]
--- OUTSIDE RECORDS SUMMARY | 2024-01-05 14:43 | External Medical Summary ---
Author Name Unknown Address Unknown Organization K01:LABORATORY [facility] [place] [address] [place] [address] Laboratory Report Ordering Provider Test Date Status BEATRICE HARRIS 10/05/2023 13:18:35 Final Observation Date Value Abnormality Reference (Units ) Status Creatinine 10/05/2023 13:18:35 0.5 0.5-1.0 (mg/dL) Final Glomerular filtration rate/1.73 sq M.predicted [Volume Rate/Area] in Serum, Plasma or Blood by Creatinine-based formula (CKD-EPI) 10/05/2023 13:18:35 >90 >=60 (mL/min) Final eGFR is calculated based on the CKD-EPI 2020 equation. Performing Location LABORATORY [facility] [place] - [address] [place] [address]
--- OUTSIDE RECORDS SUMMARY | 2024-01-05 14:43 | External Medical Summary ---
Author Name Unknown Address Unknown Organization K01:LABORATORY [facility] [place] - [address] [facility] [address] Laboratory Report Ordering Provider Test Date Status MOIRA SOTO 10/05/2023 12:14:13 Final Observation Date Value Abnormality Reference (Units ) Status Chlamydia trachomatis rRNA [Presence] in Specimen by BAN with probe detection 10/05/2023 12:14:13 Negative Negative Final No Chlamydia trachomatis det ected by railroad car cleaning supervisor-mediated nucleic acid amplification. Neisseria gonorrhoeae rRNA [ Presence] in Specimen by BAN with probe detection 10/05/2023 12:14:13 Negative Negative Final No Neisseria gonorrhoeae det ected by railroad car cleaning supervisor-mediated nucleic acid amplification. Performing Location LABORATORY [facility] [place] - [address] [place] [address]
--- OUTSIDE RECORDS SUMMARY | 2024-01-05 14:43 | External Medical Summary ---
Author Name Unknown Address Unknown Organization K01:LABORATORY [facility] [place] - [address] [facility] [address] Laboratory Report Ordering Provider Test Date Status BEATRICE HARRIS 10/05/2023 13:18:35 Final Observation Date Value Abnormality Reference (Units ) Status Treponema pallidum Ab [Presence] in Serum by Immunoassay 10/05/2023 13:18:35 Nonreactive Nonreactive Final No serologic evidence of syp hilis. No additional testing clinicially indicated at this time. Consider repeat testing in 2-4 weeks if acute or primary syphilis is suspected. Performing Location LABORATORY [facility] [place] - [address] [place] [address]
--- OUTSIDE RECORDS SUMMARY | 2024-01-05 14:43 | External Medical Summary ---
Author Name Unknown Address Unknown Organization K01:LABORATORY [facility] - [address] [place] [address] Laboratory Report Ordering Provider Test Date Status MOIRA SOTO 10/05/2023 13:18:35 Final Observation Date Value Abnormality Reference (Units ) Status Hep C Ab 10/05/2023 13:18:35 Negative Negative Final Further HCV quantitative melita ting not performed per protocol. Performing Location LABORATORY [facility] - [address] [place] [address]
--- OUTSIDE RECORDS SUMMARY | 2024-01-05 14:43 | External Medical Summary ---
Author Name Unknown Address Unknown Organization [id number]:LABORATORY [facility] [place] - [address] [place] [address] Laboratory Report Ordering Provider Test Date Status BEATRICE HARRIS 10/05/2023 13:18:35 Final Observation Date Value Abnormality Reference (Units ) Status TSH 10/05/2023 13:18:35 0.97 0.27-4.20 (uIU/mL) Final Performing Location LABORATORY [facility] - [address] [place] [address]
--- OUTSIDE RECORDS SUMMARY | 2024-01-05 14:43 | External Medical Summary ---
Author Name Unknown Address Unknown Organization K01:LABORATORY [facility] - [address] [place] [address] Laboratory Report Ordering Provider Test Date Status MOIRA SOTO 10/05/2023 13:18:35 Final Observation Date Value Abnormality Reference (Units ) Status Hep B surface Ag 10/05/2023 13:18:35 Negative Neg ative Final Performing Location LABORATORY [facility] - [address] [place] [address]
--- OUTSIDE RECORDS SUMMARY | 2024-01-05 14:43 | External Medical Summary ---
Author Name Unknown Address Unknown Organization K01:LAB[facility]ATORY [facility] [place] - [address] [place] [address] Laboratory Report Ordering Provider Test Date Status BEATRICE HARRIS 10/05/2023 13:18:35 Final Observation Date Value Abnormality Reference (Units ) Status Folic Acid 10/05/2023 13:18:35 >20.0 >4.5 (ng/ mL) Final Performing Location LABORATORY [facility] - [address] [place] [address]
--- OUTSIDE RECORDS SUMMARY | 2024-01-05 14:43 | External Medical Summary ---
Author Name Unknown Address Unknown Organization K01:[place] [place] [address] [place] [address] Laboratory Report Ordering Provider Test Date Status YOLETTE STANLEY 10/05/2023 13:18:35 Final Observation Date Value Abnormality Reference (Units ) Status Lamotrigine level 10/05/2023 13:18:35 2.2 Below low no rmal 2.5-15.0 (ug/mL) Final Performing Location LABORATORY [facility] - [address] [place] [address]
--- OUTSIDE RECORDS SUMMARY | 2024-01-05 14:43 | External Medical Summary | Summary of Care ---
Author Name Unknown Organization [facility] Address [address] [place] [address] Phone [phone] Care Team Providers Care Information Security Consultant Name Role Phone Michelle Calderón MD Primary Care Prov ider Unavailable Reason for Visit * Reason Onset Date Comments Advice 10/04/2023 Encounter Details Date Type Department Care Team (Late st Contact Info) Description 10/04/2023 Telephone [facility] [place] [address] [place] [address] Elijah Gomez MD [address] [place] [address] Advice Allergies No known active allergiesdocumented as of this encounter (statuses as of 10/04/2023) Medications Medication Sig Dispensed Refills Start Date End Date Status levETIRAcetam 1000 MG Oral Tablet (Keppra)Indications: Partial idiopathic epilepsy with seizures of localized onset, not intractable, without status epilepticus (HCC) Take 2 Tablets by mouth in the morning and 2 Tablets before bedtime. 120 Tablet 5 01/10/2023 Active lamoTRIgine 150 MG Oral Tablet (LaMICtal) Take 1 Tablet by mouth in the morning and 1 Tablet before bedtime. 180 Tablet 1 03/28/2023 Active Vitamin B-6 25 MG Oral TabletIndications:Pr egnant state, incidental Take 1 Tablet by mouth every 6 hours as needed for Nausea. 120 Tablet 2 05/03/2023 Active Ventolin HFA 108 (90 Base) MCG/ACT Inhalation Aerosol SolutionIndications: Maternal asthma complicating Inhale 2 Puffs by mouth every 6 hours as needed for Wheezing. 54 g 1 05/06/2023 Active diazePAM 20 MG Rectal Gel Administer 20 mg into the rectum as needed for Prolonged Seizure (greather than 5 minutes may repeat dose in 5 minutes then call 911). 1 Each 06/22/2023 Active Folic Acid 1 MG Oral TabletIndications:Se izure disorder during in first trimester ([facility]) Take 1 Tablet by mouth in the [...] as of this encounter (statuses as of 10/04/2023) Active Problems Problem Noted Date Diagnosed Date 14 weeks gestation of 06/28/2023 Supervision of high risk in [facility] [...] or questions 09/13/2023 Beverley Sloan RN 09/13/2023 Medication exposure during first trimester of pr [...] of cardiovascular malformations compared with unexposed neonates (m=4860). Infants exposed to fluoxetine late in the [...] as of this encounter (statuses as of 10/04/2023) Resolved Problems Problem Noted Date Diagnosed Date [...] information was shared with the patient. The [place] [employer]ne[employer], Society for Maternal- Medicine, CDC and multiple medical associations strongly recommend the COVID-19 vaccine for women who are in any trimester, those attempting to become , women who have recently delivered, who are lactating as well as any other woman, regardless of age or JOINT SETTER disorder. The only exceptions to receiving the vaccine are for those who have a contraindication or allergy to the vaccine or any component of the vaccine or with sincerely held congregation convictions. The CDC and ACOG encourages a [...] negative. S/p anatomy ultrasound at [facility]. Passed one hour glucose test. CBC [...] the local suicide hotline phone number for [facility]. Has counseling appointment weekly. Last Assessment [...] as of this encounter (statuses as of 10/04/2023) Immunizations Name Administration Dates Next Due COVID-19 [...] PPD 05/10/2023,05/03/2023 Pneumococcal Conjugate Vacci ne, 20-valent ([id number]) 04/09/2022 Pneumococcal Conjugate Vacci ne, 7 Valent [...] have money to get more. Patient declined [place] Depression Scale Answer Date Recorded [place] Depression Scale Total 3 09/20/2023 The thought [...] on file Are you (or your family) marilela eless or worried that you might be [...] encounter Miscellaneous Notes * Telephone Encounter - Elijah Gomez MD - 10/04/2023 11:00 PM EDT Contacted by Dr. Bang in the [facility] ED re: Ms. 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 Back to baseline. Was also seen there on 10/01/23 for a similar event. Had drug levels drawn at that time, but those are still pending. She takes Keppra 2G bid and lamotrigine 150mg bid and reports adherence. Of note, she follows with the epilepsy division at [facility], as well as [facility] pharmacy but has not had recent labs drawn (hence no changes to her doses during this ). Last resulted drug levels at [facility] were on 05/03/23 at 23:39 (had missed her 9pm doses of both meds): Levetiracetam 14.7 mcg/mL Lamotrigine 4.0 mcg/mL Given multiple seizure-like events in the past several days, advised increasing lamotrigine to 175mg bid and continuing Keppra 2G bid. Emphasized the importance of her following up with neurology andhaving labs checked as instructed, both for her own health and that of her fetus. Has appointment with Meredith Vásquez on 10/10/23; will notify her of above. documented in this encounter Plan of Treatment Upcoming Encounters Date Type Department Care Team (Late st Contact Info) Description 10/05/2023 11:15 AM EDT Office Visit Gynecology/Obstetrics [facility] [address] [place] [phone] Faith Bourgeois PA-C [address] [place] [address] Nurse [facility] [address] [place] [address] 10/10/2023 3:40 PM EDT Telemedicine Neurology [place] [address] [place] [phone] Meredith Vásquez PA-C [address] [place] [address] 10/21/2023 6:45 AM EDT Pharmacy Neurology [place] [address] [place] [phone] [place], Pharmacist Neurology [address], [place] [id number] 10/27/2023 1:45 PM EDT Imaging Maternal Medicine Imaging, [facility] [address] [phone] 11/02/2023 1:00 PM EDT Telemedicine Psychiatry [place] [address] [phone] Yumiko Miller MD [address] [place] [address] 11/24/2023 1:00 PM EDT Imaging Maternal Medicine Imaging, [facility] [address] [facility] [place] [phone] Health Maintenance Due Date [...] and were consensually agreed upon. Care Teams Information Security Consultant Relationship Specialty Start Date End Date Michelle Calderón MD PCP - General Family Medicine 03/31/21 documented as of this encounter
--- OUTSIDE RECORDS SUMMARY | 2024-01-05 14:43 | External Medical Summary ---
Author Name Unknown Address Unknown Organization K01:LABORATORY [facility] [place] - [address] [place] [place] [address] Laboratory Report Ordering Provider Test Date Status BEATRICE HARRIS 10/05/2023 13:18:35 Final Observation Date Value Abnormality Reference (Units ) Status Vitamin B12 10/05/2023 13:18:35 [phone] (pg/mL) Final Performing Location LAB[facility]ATORY [facility] - [address] [place] [address]
--- OUTSIDE RECORDS SUMMARY | 2024-01-05 15:33 | External Medical Summary | Summary of Care ---
Author Name Unknown Organization [facility] Address [address] [place] [address] Phone [phone] Care Team Providers Care Executive Director Name Role Phone Michelle Calderón MD Primary Care Prov ider Unavailable Reason for Visit * Reason Onset Date Comments Medication Refill 01/03/2024 Encounter Details Date Type Department Care Team (Late st Contact Info) Description 01/03/2024 Telephone [address] [place] [address] [place] [phone] Meredith Vásquez PA-C [address] [place] [address] Medication Refill Allergies No known active allergiesdocumented as of this encounter (statuses as of 01/04/2024) Medications Medication Sig Dispensed Refills Start Date [...] as of this encounter (statuses as of 01/04/2024) Active Problems Problem Noted Date Diagnosed Date Vaginal delivery 12/24/2023 Nexplanon insertion 12/24/2023 GBS (group B Streptococcus c arrier), +RV culture, currently 12/01/2023 Other dietary vitamin B12 deficiency anemia 09/18 Antepartum anemia complicating 024 Supervision of high risk in [facility] 06/21/2023 Depression complicating , antepartum Overview: [...] Follows with Neurology Managed with Lamictal and Kejerryra Last seizure: May 2023 Daughter ( 2021) [...] of cardiovascular malformations compared with unexposed neonates (y=0179). Infants exposed to fluoxetine late in the [...] as of this encounter (statuses as of 01/04/2024) Resolved Problems Problem Noted Date Diagnosed Date [...] shared with the patient. The [place] [employer]s and Gyne[employer], Society for Maternal- Medicine, CDC and multiple medical associations strongly recommend the COVID-19 vaccine for women who are in any trimester, those attempting to become , women who have recently delivered, who are lactating as well as any other woman, regardless of age or PREPARATION PLANT REPAIRER disorder. The only exceptions to receiving the vaccine are for those who have a contraindication or allergy to the vaccine or any component of the vaccine or with sincerely held hindu convictions. The CDC and ACOG encourages a [...] testing negative. S/p anatomy ultrasound at [facility]. Passed one hour glucose test. CBC [...] the local suicide hotline phone number for [facility]. Has counseling appointment weekly. Last Assessment [...] as of this encounter (statuses as of 01/04/2024) Immunizations Name Administration Dates Next Due COVID-19 [...] PPD 05/10/2023,05/03/2023 Pneumococcal Conjugate Vacci ne, 20-valent ([id number]) 04/09/2022 Pneumococcal Conjugate Vacci ne, 7 Valent [...] money to get more. Never true 10/24/2023 [place] Depression Scale Answer Date Recorded [place] Depression Scale Total 3 09/20/2023 The thought [...] encounter Miscellaneous Notes * Telephone Encounter - Claudia Cook bleacher sulfite pulp - 01/04/2024 4:29 PM EDT Received message from [facility] regarding patient needing labs. Call Placed, Pt was agreeable to have labs drawn but would prefer to walk-in at their convenience. At [facility] I gave her the lab instructions so she will follow procedure Thank you for your assistance Claudia Cook Shoe Handler II [facility]) 01/04/2024,4:29 PM * Addendum Note - Kimberly Fritz [facility] - 01/03/2024 2:51 PM EDTAddended by: KIMBERLY FRITZ on: 01/03/2024 02:51 PM Modules accepted: Orders Electronically signed by Kimberly Fritz [facility] at 01/03/2024 2:51 PM EDT * Telephone Encounter - Kimberly Fritz [facility] - 01/03/2024 2:45 PM EDT Lamotrigine level [...] Visit date not found Thank you, Kimberly Fritz PharmD Clinical Pharmacist [facility] ([facility]) [phone] 01/03/2024, 2:45 PM * Telephone Encounter - Meredith Vásquez PA-C - 01/03/2024 1:31 PM EDT Refills provided. However, patient no showed to recent appointment with me on 12/26/23. She did not follow-up with out [facility] Pharmacy team for routine levels throughout . Should get an updated trough lamotrigine level now that she has delivered. She also needs to be scheduled for an appointment for further refills. Meredith Vásquez PA-C [facility] 01/03/24 * Telephone Encounter - Kimberly Fritz RPh - 01/03/2024 12:59 PM EDT Unknown why lamotrigine 150 mg was discontinued by Enrollment Management Manager/OB inpatient on 12/24/23 after labor/deliveryon 12/22/23. Plan on discharge instructions state, "Continue Keppra 2000mg BID and Lamictal 175mg BID." Will forward to neurologist for review since patient is newly . Please advise or refill if appropriate. Thank you, Kimberly Fritz PharmD Clinical Pharmacist [facility] ([facility]) [phone] 01/03/2024, 1:02 PM * Telephone Encounter - lAize Moeller PHARM Tech - 01/03/2024 11:52 AM EDT Patient requesting refills for lamoTRIgine 150 MG Oral Tablet (LaMICtal) . Upon chart review, medication is listed as discontinued, with discontinuation reason as "None". Please advise if you wish tocontinue this therapy for the patient. Thank you, Alize Moeller C Java Developer I [facility]) 01/03/2024,11:52 AM documented in this encounter Plan of Treatment Upcoming Encounters Date Type Department Care Team (Late st Contact Info) Description 02/09/2024 10:30 AM EST [facility] [address] [place] [address] [place], [place] [address] [place] [address] Scheduled Orders Name Type Priority Associated Diagnoses [...] and were consensually agreed upon. Care Teams Executive Director Relationship Specialty Start Date End Date Michelle Calderón MD PCP - General Family Medicine 12/20/23 documented as of this encounter
--- OUTSIDE RECORDS SUMMARY | 2024-01-05 15:33 | External Medical Summary | Summary of Care ---
Author Name Unknown Organization [facility] Address [address] [place] [address] Phone [phone] Care Team Providers Care Terrestrial Ecologist Name Role Phone Michelle Calderón MD Primary Care Prov ider Unavailable Reason for Visit * Reason Onset Date Comments Medication Refill 01/03/2024 Encounter Details Date Type Department Care Team (Late st Contact Info) Description 01/03/2024 Telephone [address] [place] [address] [place] [address] Meredith Vásquez PA-C [address] [place] [address] Medication Refill Allergies No known [...] complicating 024 Supervision of high risk in [facility] 06/21/2023 Depression complicating , antepartum [...] of cardiovascular malformations compared with unexposed neonates (b=[id number]). Infants exposed to fluoxetine late in the [...] information was shared with the patient. The [place] [employer] of Obstetrics and Gynecology, Society for Maternal- Medicine, CDC and multiple medical associations strongly recommend the COVID-19 vaccine for women who are in any trimester, those attempting to become , women who have recently delivered, who are lactating as well as any other woman, regardless of age or FORM BUILDER disorder. The only exceptions to receiving the [...] MSAFP testing negative. S/p anatomy ultrasound at [facility]. Passed one hour glucose test. CBC [...] the local suicide hotline phone number for [facility]. Has counseling appointment weekly. Last [...] PPD 05/10/2023,05/03/2023 Pneumococcal Conjugate Vacci ne, 20-valent ([id number]) 04/09/2022 Pneumococcal Conjugate Vacci ne, 7 Valent [...] money to get more. Never true 10/24/2023 [place] Depression Scale Answer Date Recorded [place] Depression Scale Total 3 09/20/2023 The thought [...] Notes * Telephone Encounter - Claudia Cook engagement liaison - 01/04/2024 4:29 PM EDT Received message from [facility] regarding patient needing labs. Call Placed, Pt was agreeable to have labs drawn but would prefer to walk-in at their convenience. At [facility] I gave her the lab instructions so she will follow procedure Thank you for your assistance Claudia Cook Tape Duplicator II [facility]) 01/04/2024,4:29 PM * Addendum Note - Kimberly Fritz [facility] - 01/03/2024 2:51 PM EDTAddended by: KIMBERLY FRITZ on: 01/03/2024 02:51 PM Modules accepted: Orders * Telephone Encounter - Kimberly Fritz [facility] - 01/03/2024 2:45 PM EDT Lamotrigine [...] Clinical Pharmacist [facility] ([facility]) [phone] 01/03/2024, 2:45 PM * Telephone Encounter - Meredith Vásquez PA-C - 01/03/2024 1:31 PM EDT Refills provided. However, patient no showed to recent appointment with me on 12/26/23. She did not follow-up with out [facility] Pharmacy team for routine levels throughout . Should get an updated trough lamotrigine level now that she has delivered. She also needs to be scheduled for an appointment for further refills. Meredith Vásquez PA-C [facility] 01/03/24 * Telephone Encounter - Kimberly Fritz RPh - 01/03/2024 12:59 PM EDT Unknown why lamotrigine 150 mg was discontinued by Warp Dyeing Tender/OB inpatient on 12/24/23 after labor/deliveryon 12/22/23. Plan on discharge instructions state, "Continue Keppra 2000mg BID and Lamictal 175mg BID." Will forward to neurologist for review since patient is newly . Please advise or refill if appropriate. Thank you, Kimberly Fritz PharmD Clinical Pharmacist [facility] ([facility]) [phone] 01/03/2024, 1:02 PM * Telephone Encounter - Alize Moeller PHARM Tech - 01/03/2024 11:52 AM EDT Patient requesting refills for lamoTRIgine 150 MG Oral Tablet (LaMICtal) . Upon chart review, medication is listed as discontinued, with discontinuation reason as "None". Please advise if you wish tocontinue this therapy for the patient. Thank you, Alize Moeller Dovetailer I [facility]) 01/03/2024,11:52 AM documented in this encounter Plan of Treatment Upcoming Encounters Date Type Department Care Team (Late st Contact Info) Description 02/09/2024 10:30 AM EST [facility] [address] [place] [address] [place], ASHLEY [address] [phone] Scheduled Orders Name Type Priority Associated Diagnoses [...] and were consensually agreed upon. Care Teams Terrestrial Ecologist Relationship Specialty Start Date End Date Michelle Calderón MD PCP - General Family Medicine 12/20/23 documented as of this encounter
== END 2024-01-05 11:00 | disposition home or self-care (01) ==
LOC: ED 21:09 → OR 01-05 00:32 → 4E1 01-05 00:32 → OR 01-05 01:17